=== PATIENT | male | born 1940 | race Caucasian/White ===

== ENCOUNTER 2020-06-22 | Outpatient (REF) | payer MEDICARE, SELFPAY ==
[2020-06-22 09:31] LABS: Immature Retic Fraction 20.3 % (2.3-13.4); Retic HGB Equivalent 34.4 pg (30.0-35.0); Reticulocyte Percent 2.1 % (0.5-1.8); Reticulocytes Absolute 0.072 X10*6/uL (0.026-0.095)
[2020-06-22 10:38] LABS: Anion Gap 11 (12-20); Carbon Dioxide 30 mmol/L (22-29); Chloride 107 mmol/L (96-108); Potassium 3.6 mmol/l (3.3-5.1); Sodium 144 mmol/L (135-145)
[2020-06-22 14:45] LABS: MANUAL DIFF FLAG NO
[2020-06-22 14:46] LABS: Basophils Percent Auto 0.7 % (0-2); Eosinophils Absolute Auto 0.2 X10*3/uL (0.0-0.4); Eosinophils Percent Auto 4.7 % (0-4); Hematocrit 33.9 % (42-52); Hemoglobin 10.5 g/dl (14.0-18.0); Imm Gran Abs Auto 0.01 X10*3/uL (0.00-0.03); Imm Gran Pct Auto 0.2 % (0.0-0.4); Lymphocytes Absolute Auto 0.7 X10*3/uL (1.2-4.9); Lymphocytes Percent Auto 16.7 % (20-40); Mean Corpuscular Hemoglobin 30.3 pg (27.0-33.0); Mean Corpuscular Volume 97.7 fL (80-98); Monocytes Absolute Auto 0.6 X10*3/uL (0.1-1.2); Monocytes Percent Auto 13.3 % (2-11); Neutrophils Absolute Auto 2.8 X10*3/uL (2.0-8.3); Neutrophils Percent Auto 64.4 % (45-73); Platelet Count 348 X10*3/uL (160-400); Red Blood Count 3.47 X10*6/uL (4.60-5.80); White Blood Count 4.3 X10*3/uL (4.8-10.8)
== END 2020-06-22 00:01 | disposition home or self-care (01) ==
LOC: HO.HSH3W
PROVIDERS: Visit Provider Internal Medicine Endocrinology, Diabetes & Metabolism
DX: D64.9 Anemia, unspecified (principal)
CPT/HCPCS: 36415; 80051; 85025; 85045

== ENCOUNTER 2020-07-04 10:48 | Outpatient (REF) | payer MEDICARE, SELFPAY | END 2020-07-04 10:49 | disposition home or self-care (01) | LOC: HO.HSH3W 10:48 | PROVIDERS: Visit Provider Internal Medicine Critical Care Medicine | DX: Z20.828 Contact with and (suspected) exposure to other viral communicable diseases (principal) | CPT/HCPCS: 87635 ==

== ENCOUNTER 2020-09-13 08:59 | Inpatient (IN) | payer MEDICARE, SELFPAY ==
[2020-09-13] VITALS (31 sets, daily range): BP systolic 75–174; BP diastolic 29–99; PULSE 63–94; RESP 10–20; TEMP 36.5–36.9; O2SAT 87–100; BMI 23.1; BMI 30.8
--- NOTE | 2020-09-13 | NM_ITS ---
EXAMINATION: NUCLEAR MEDICINE GI BLEEDING STUDY. CLINICAL INFORMATION: Black stools. Rule out GI bleeding. COMPARISON: None TECHNIQUE: Following labeling of red blood cells with 25 mCi of 99m technetium pertechnetate, flow images followed by static images over the abdomen were obtained. FINDINGS: On perfusion scan there is no abnormal activity seen in the abdomen. On delayed static images on AP and lateral views there is no abnormal activity seen in the abdomen. No extravasation of contrast seen. Increase in activity between the proximal thighs is soiled undergarment from urine due to loss of bladder control. NM/NM GI bleeding IMPRESSION: No abnormal isotope extravasation seen to suspect any acute GI bleed at this time. Results immediately were conveyed by phone to Dr. Joshua Beck and ICU nurse immediately after the exam on 09/13/1930 at 5:05 PM
--- NOTE | 2020-09-13 | XR_ITS ---
EXAMINATION: XR CHEST CLINICAL INFORMATION: Central line placement COMPARISON: Previous chest x-ray most recent from earlier the same day TECHNIQUE: Frontal view of the chest was obtained. FINDINGS: There is a new right jugular line with tip projecting over the right atrium. The cardiac silhouette may be slightly enlarged. Hilar and mediastinal contours are unremarkable. The lung volumes are low. There is no pleural effusion or pneumothorax. XR/XR chest 1V IMPRESSION: Right jugular line tip projects over the right atrium. No pneumothorax.
--- NOTE | 2020-09-13 09:00 | ECG_ITS ---
Test Reason : WEAKNESS Blood Pressure : / mmHG Vent. Rate : 063 BPM Atrial Rate : 063 BPM P-R Int : 000 ms QRS Dur : 112 ms QT Int : 422 ms P-R-T Axes : 000 003 006 degrees QTc Int : 431 ms Likely sinus with very subtle P waves Inferior infarct (cited on or before 11-JAN-2016) Abnormal ECG When compared with ECG of 11-JAN-2016 11:44, No significant changes seen Referred By: Elias Bui Electronically Signed By:SANTOS IGNACIO
--- NOTE | 2020-09-13 09:00 | XR_ITS ---
EXAMINATION: XR CHEST CLINICAL INFORMATION: Syncope, chest pain. COMPARISON: 07/16/2017 chest radiographs. TECHNIQUE: Frontal view of the chest was obtained. FINDINGS: No significant abnormality is noted involving the heart, lungs, mediastinum, bony thorax or soft tissues. XR/XR chest 1V IMPRESSION: No acute cardiopulmonary process.
--- NOTE | 2020-09-13 09:12 | ED.GENADULT ---
HPI - General Adult General Chief complaint: Syncope Stated complaint: SYNCOPE @ SNF Time Seen by Provider: 09/13/20 09:00 Source: patient, EMS and RN notes reviewed Mode of arrival: EMS Limitations: no limitations History of Present Illness HPI narrative: 80-year-old male brought emergency department by ambulance for evaluation of a syncopal episode. The patient lives at the soldier's home in [place]. He apparently is very independent. Over the past 2-3 days he has noticed dark stools. Today he had a syncopal episode which was unwitnessed. He reported this to the nurse's who noted that he was hypotensive. There was a concern that he may have a GI bleed so they sent him to the emergency department. Paramedics state that the patient was initially hypotensive with BP of 70/40. He had a normal pulse and a point of care glucose of 199. On presentation the patient has no complaints. He denies headache, nausea, vomiting, chest pain, shortness of breath, numbness, weakness, abdominal pain, frequency, urgency or dysuria. He has noticed dark stools over the past 2-3 days but he thought that was secondary to eating chocolate. The patient does take aspirin and prednisone, he is not on any other blood thinners or NSAIDs. Related Data Allergies Allergy/AdvReac Type Severity Reaction Status Date / Time No Known Allergies Allergy Unverified 06/02/20 15:00 [No Known Allergies*] Review of Systems Review of Systems: Yes all other systems are reviewed and are negative Constitutional: Constitutional: Reports as per HPI Eyes: Eyes: Reports as per HPI ENT: Reports as per HPI Cardiovascular: Cardiovascular: Reports as per HPI Respiratory: Respiratory: Reports as per HPI Gastrointestinal: Gastrointestinal: Reports as per HPI Genitourinary: Genitourinary: Reports as per HPI Musculoskeletal: Musculoskeletal: Reports as per HPI Integumentary/Breasts: Skin/Breast: Reports as per HPI Neurologic: Reports as per HPI and Reports Abnormal speech present Psychiatric: Psychiatric: Reports as per HPI Allergic/Immunologic: Allergic/Immunologic: Reports as per HPI [facility] Past Medical History [facility] Narrative: PMH: Diabetes mellitus, hypertension, hyperlipidemia, GERD, depression, anxiety, arthritis, osteo), myasthenia gravis, inguinal hernia repair. He lives independently at the solddier's home. He denies tobacco, alcohol or drug use. Medical History (Updated 09/13/20 @ 12:03 by Elias uBi MD) Acute respiratory disease BPH (benign prostatic hyperplasia) CAD (coronary artery disease) Cataract COVID-19 Depression Diabetes mellitus GERD (gastroesophageal reflux disease) Hammer toe Hammer toes, bilateral Hyperlipidemia Hypertension Inguinal hernia Insomnia Malignant neoplasm of colon Myasthenia gravis Nonalcoholic steatohepatitis (MARTI) Onychogryphosis Rheumatoid arthritis Urinary incontinence Social History Social History Advance Directives Date on File: 06/21/20 Physical Exam Vital Signs: Vital Signs: Last Vital Signs Temp 98.4 F 09/13/20 10:43 Pulse 83 09/13/20 11:35 Resp 18 09/13/20 11:35 BP 132/62 09/13/20 11:51 Pulse Ox 100 09/13/20 11:35 Body Mass Index 23.1 Const: General: cooperative and other (Very pale-appearing) Orientation/consciousness: oriented to person and oriented to place Limitations: no limitations HENMT: Head: Yes normal to inspection, Yes normocephalic and Yes atraumatic Ears: external ears normal General nose exam: Normal external nose present Face and sinus: Yes normal facial exam Mouth: Normal oral and palatal mucosa present Throat: Yes posterior oropharynx normal Eyes: Periorbital: periorbital findings normal Eyelids: Yes eyelids normal Conjunctivae: conjunctivae normal Sclerae: sclerae normal Corneas: corneas normal Pupils: Equal, round and reactive pupils present Direct Ophthalmoscopy: normal light reflex Neck: Neck: Yes full ROM, Yes no lymphadenopathy, Yes no meningeal signs, Yes trachea midline and Yes supple Chest: Chest palpation & inspection: normal inspection of the chest and normal palpation of entire chest wall Resp: Effort & Inspection: normal respiratory effort and able to speak in complete sentences Auscultation: clear to auscultation bilaterally Cardio: Rate: regular rate Rhythm: regular rhythm Heart sounds: S1 normal heart sound present, S2 normal heart sound present and no murmurs GI: Inspection: Yes normal to inspection Palpation (GI): Soft to palpation, nontender, no guarding, not rigid and No hepatosplenomegaly present Rectal Exam - Male: Yes Abnormal stool present (Dark, bloody, melanotic stool) and Yes heme positive stool : General: Yes no CVA tenderness Back/Spine/Pelvis: Back: no CVA tenderness Cervical Spine: normal cervical lordosis Thoracic/Lumbar Spine: thoracic and lumbar spine normal to inspection Skin: Lesions: no lesions Rashes: no rashes Wounds: no wounds Neuro: General: oriented to person, oriented to place and no meningeal signs Cranial nerves: Yes Equal, round and reactive pupils present Cognition (Neuro): normal cognition Speech: Abnormal speech present Motor exam (neuro): 5/5 motor strength present throughout Extrem: General: Yes normal to inspection and Yes full ROM Psych: Appearance: well kempt Mental Status: mental status grossly normal Speech and movement: Normal speech and movement present Affect: normal affect Attitude: cooperative Thought process: Normal thought process present Thought content: Normal thought content present Course Course Course Narrative: 80-year-old male who presents the emergency department for evaluation syncopal episode, dark stools times 2-3 days and hypotension. Examination revealed that he was hypotensive here with a systolic blood pressure in the 80 range. The patient had melanotic stool which was strongly Hemoccult positive. The patient was ordered to get 2 units of packed red blood cells transfused as soon as available. He is on chronic steroids and I did order stress dose steroids, hydrocortisone 100 mg IV. 1008: The patient continues to have melanotic stools in the emergency department. His H&H is 7.7 in 23.6 compared to an H&H on 06/22/2020 of 10 and 33.9, suggesting patient has had a significant GI bleed. The patient's BUN is slightly elevated at 21 with a normal creatinine. Patient is COVID negative. I did discuss these findings with the patient and the patient's son Robe (over the phone). I will discuss the patient's presentation with the accounting practice manager. The patient has been ordered to get 2 units of packed red blood cells transfused. 1200: The patient's blood pressure dropped to 60 over help, given the fact that the patient still had active bleeding, the massive transfusion protocol was activated. The patient was given a total of 4 units of packed red blood cells rapidly using the blood warmer and the rapid transfuser. He was given 1 unit of FFP and 1 unit of platelets. The ICU postpartum rn Dr. Tarango came to the emergency department to assist with the MTP protocol. He put in a right IJ on the patient. The patient had improvement his vital signs with repeat blood pressures in the [address] Lewis, the accounting practice manager also evaluated the patient in the emergency department and the patient will be admitted to the ICU for further treatment. I will consult the surgeon on-call in the event the patient emergency surgery to help control the bleeding. Medical Decision Making Lab Data Result diagrams: 09/13/20 09:14 09/13/20 09:14 Labs: Lab Results 09/13/20 09/13/20 09/13/20 Range/Units 09:14 09:14 09:14 WBC 6.5 (4.8-10.8) X10*3/uL RBC 2.37 L D (4.60-5.80) X10*6/uL Hgb 7.7 L D (14.0-18.0) g/dl Hct 23.6 L D (42-52) % MCV 99.6 H (80-98) fL MCH 32.5 (27.0-33.0) pg MCHC 32.6 (31.0-36.0) g/dl RDW 15.9 (11.0-16.0) % Plt Count 199 D (160-400) X10*3/uL MPV 9.0 L (9.4-12.4) fL Immature Gran % (Auto) 0.5 H (0.0-0.4) % Neut % (Auto) 73.5 H (45-73) % Lymph % (Auto) 12.8 L (20-40) % [place] % (Auto) 10.6 (2-11) % Eos % (Auto) 2.3 (0-4) % Baso % (Auto) 0.3 (0-2) % Lymph # (Auto) 0.8 L (1.2-4.9) X10*3/uL [place] # (Auto) 0.7 (0.1-1.2) X10*3/uL Eos # (Auto) 0.2 (0.0-0.4) X10*3/uL Baso # (Auto) 0.0 (0.0-0.2) X10*3/uL Abs Immat Gran (auto) 0.03 (0.00-0.03) X10*3/uL Absolute Neuts (auto) 4.8 (2.0-8.3) X10*3/uL Absolute Nucleated RBC 0.000 (0.0-0.012) X10*3/uL Nucleated RBC % (auto) 0.0 (0.0-0.2) /100WBC Sodium 141 (135-145) mmol/L Potassium 3.7 (3.3-5.1) mmol/l Chloride 111 H (96-108) mmol/L Carbon Dioxide 24 (22-29) mmol/L Anion Gap 10 L (12-20) BUN 21 H (9-16) mg/dL Creatinine 0.93 (0.5-1.4) mg/dL Estim Creat Clear Calc 53.2 Estimated GFR > 60 Random Glucose 127 H (60-115) mg/dL Calcium 7.6 L (8.4-10.2) mg/dL Total Bilirubin 0.2 (0.0-1.0) mg/dL AST 11 (5-37) U/L ALT 10 (0-40) U/L Alkaline Phosphatase 44 (39-117) U/L Troponin I High Sens < 3.5 (<3.5-35.0) ng/L Total Protein 4.7 L (6.5-8.0) g/dL Albumin 3.1 L (3.5-5.0) g/dL Lipase 12 (8-78) U/L COVID-19 (SEVEN) (Negative) COVID-19 Clin Com Blood Type Antibody Screen Crossmatch 09/13/20 09/13/20 Range/Units 09:14 09:14 WBC (4.8-10.8) X10*3/uL RBC (4.60-5.80) X10*6/uL Hgb (14.0-18.0) g/dl Hct (42-52) % MCV (80-98) fL MCH (27.0-33.0) pg MCHC (31.0-36.0) g/dl RDW (11.0-16.0) % Plt Count (160-400) X10*3/uL MPV (9.4-12.4) fL Immature Gran % (Auto) (0.0-0.4) % Neut % (Auto) (45-73) % Lymph % (Auto) (20-40) % [place] % (Auto) (2-11) % Eos % (Auto) (0-4) % Baso % (Auto) (0-2) % Lymph # (Auto) (1.2-4.9) X10*3/uL [place] # (Auto) (0.1-1.2) X10*3/uL Eos # (Auto) (0.0-0.4) X10*3/uL Baso # (Auto) (0.0-0.2) X10*3/uL Abs Immat Gran (auto) (0.00-0.03) X10*3/uL Absolute Neuts (auto) (2.0-8.3) X10*3/uL Absolute Nucleated RBC (0.0-0.012) X10*3/uL Nucleated RBC % (auto) (0.0-0.2) /100WBC Sodium (135-145) mmol/L Potassium (3.3-5.1) mmol/l Chloride (96-108) mmol/L Carbon Dioxide (22-29) mmol/L Anion Gap (12-20) BUN (9-16) mg/dL Creatinine (0.5-1.4) mg/dL Estim Creat Clear Calc Estimated GFR Random Glucose (60-115) mg/dL Calcium (8.4-10.2) mg/dL Total Bilirubin (0.0-1.0) mg/dL AST (5-37) U/L ALT (0-40) U/L Alkaline Phosphatase (39-117) U/L Troponin I High Sens (<3.5-35.0) ng/L Total Protein (6.5-8.0) g/dL Albumin (3.5-5.0) g/dL Lipase (8-78) U/L COVID-19 (SEVEN) Negative (Negative) COVID-19 Clin Com See Note Blood Type A Negative Antibody Screen NEGATIVE Crossmatch See Detail ECG Data Attestation: I personally reviewed and interpreted this ECG as follows: Prior ECG tracings: not available for review Interpretation: Name sinus rhythm with a first-degree AV block, CO interval 210 milliseconds, prolonged QRS of 112 milliseconds, normal QTC of 431 milliseconds, Q-wave noted in lead 3, AVF, V1, flattened T-waves lead 3, AVF, no ST segment elevation, no ST segment depression. EKG is consistent with an old inferior wall [place], no evidence for ischemia or acute injury. Critical Care Time Critical Care Time Critical Care Time: Yes Total Critical Care Time: 75 Attestation: Critical Care: The patient was critically ill with a high probability of imminent or life threatening deterioration. I spent greater than 30 minutes of discontinuous time evaluating the patient,delivering critical care at the bedside, discussing and evaluating pertinent data with consultants. Critical care time does not include time spent performing separately billable procedures or teaching. Total time spent performing critical care was75 minutes. Discharge Plan Discharge Clinical Impression: Acute GI bleeding, Acute hypotension, Acute anemia Patient Disposition: Admitted As Inpatient
[2020-09-13 09:23] LABS: MANUAL DIFF FLAG NO
[2020-09-13 09:26] LABS: Basophils Percent Auto 0.3 % (0-2); Eosinophils Absolute Auto 0.2 X10*3/uL (0.0-0.4); Eosinophils Percent Auto 2.3 % (0-4); Hematocrit 23.6 % (42-52); Hemoglobin 7.7 g/dl (14.0-18.0); Imm Gran Abs Auto 0.03 X10*3/uL (0.00-0.03); Imm Gran Pct Auto 0.5 % (0.0-0.4); Lymphocytes Absolute Auto 0.8 X10*3/uL (1.2-4.9); Lymphocytes Percent Auto 12.8 % (20-40); Mean Corpuscular HGB Conc 32.6 g/dl (31.0-36.0); Mean Corpuscular Hemoglobin 32.5 pg (27.0-33.0); Mean Corpuscular Volume 99.6 fL (80-98); Monocytes Absolute Auto 0.7 X10*3/uL (0.1-1.2); Monocytes Percent Auto 10.6 % (2-11); Neutrophils Absolute Auto 4.8 X10*3/uL (2.0-8.3); Neutrophils Percent Auto 73.5 % (45-73); Platelet Count 199 X10*3/uL (160-400); Red Blood Count 2.37 X10*6/uL (4.60-5.80); Red Cell Distribution Width 15.9 % (11.0-16.0); White Blood Count 6.5 X10*3/uL (4.8-10.8)
[2020-09-13 09:40] LABS: COVID-19 Test Negative (Negative)
[2020-09-13 09:55] LABS: Alanine Aminotransferase 10 U/L (0-40); Albumin Level 3.1 g/dL (3.5-5.0); Alkaline Phosphatase 44 U/L (39-117); Anion Gap 10 (12-20); Aspartate Amino Transferase 11 U/L (5-37); Bilirubin Total 0.2 mg/dL (0.0-1.0); Blood Urea Nitrogen 21 mg/dL (9-16); Calcium 7.6 mg/dL (8.4-10.2); Carbon Dioxide 24 mmol/L (22-29); Chloride 111 mmol/L (96-108); Creatinine Clr Calc Pharmacy 53.2; Estimated Glomerular Filt Rate > 60; Glucose Random 127 mg/dL (60-115); Lipase 12 U/L (8-78); Potassium 3.7 mmol/l (3.3-5.1); Sodium 141 mmol/L (135-145); Total Protein 4.7 g/dL (6.5-8.0)
[2020-09-13 09:58] LABS: Troponin-I High Sensitivity < 3.5 ng/L (<3.5-35.0)
--- NOTE | 2020-09-13 10:13 | PC.NURSE ---
pt inc of stool noted blood, repositioned cleaned up and linens changed. blood currently being picked up in blood bank
--- NOTE | 2020-09-13 11:10 | PC.NURSE ---
BLOOD ARRIVED FROM BLOOD BANK, PT REMAINS HYPOTENSIVE SBPS 60S. MENTATING WELL THROUGHOUT, SPEAKING IN CLEAR FULL SENTENCES.
--- NOTE | 2020-09-13 11:20 | PC.NURSE ---
MTP INITIATED BY MD KELLY O NEG IN FROM BLOOD BANK, ADMINISTERED VIA RAPID INFUSER
--- NOTE | 2020-09-13 11:35 | PC.NURSE ---
2u RBCs infused, 2 units running through rapid infuser. 1 unit FFP also infusing. BP 102/35
--- NOTE | 2020-09-13 11:40 | PC.NURSE ---
MD RENEE IN FOR CENTRAL LINE PLACEMENT R SUBCLAV
--- NOTE | 2020-09-13 12:00 | PM.EVENT ---
Event Note Date of Service: 09/13/20 Event Note: GI Consult dictated Presentation c/w acute gi bleeding. Pt reports black stools X 1 week with diarrhea. On asa and prednisone, so UGI source may be cause. Colonoscopy 12/03 showed diverticulosis, polyps, and a patent low ant anastamosis from prior rectal cancer. EGD today to eval for UGI source, if neg then bleeding scan +/- angiography. Pt aware of risks and benefits of endoscopy and agrees to proceed
--- NOTE | 2020-09-13 12:05 | PC.NURSE ---
LABS REDRAWN, 2 UNITS TRANSFUSED, BP IMPROVED 147/77, GOOD COLOUR, PT CONTINUING TO MENTATE WELL.
[2020-09-13 12:21] LABS: Hematocrit 32.8 % (42-52); Mean Corpuscular HGB Conc 33.5 g/dl (31.0-36.0); Mean Corpuscular Hemoglobin 31.6 pg (27.0-33.0); Mean Corpuscular Volume 94.3 fL (80-98); Mean Platelet Volume 9.2 fL (9.4-12.4); Platelet Count 189 X10*3/uL (160-400); Red Blood Count 3.48 X10*6/uL (4.60-5.80); Red Cell Distribution Width 15.8 % (11.0-16.0); White Blood Count 10.9 X10*3/uL (4.8-10.8)
--- NOTE | 2020-09-13 12:26 | PC.NURSE ---
AT BEDSIDE @ THIS TIME CALLED IN FOR SACREMENT OF THE SICK @ PT REQUEST
[2020-09-13 12:27] LABS: INTERNATIONAL NORM RATIO 1.1 (0.9-1.1)
[2020-09-13 12:29] LABS: Partial Thromboplastin Time 30.4 SEC (24.1-38.0)
--- NOTE | 2020-09-13 12:46 | MHC.SHP ---
Pre-Procedural Eval Section A The patient is an INPATIENT: Yes The History & Physical has been completed within 30 days and I have reviewed it.: Yes Section B Chief Complaint: SYNCOPE @ SNF Allergies: Allergies Allergy/AdvReac Type Severity Reaction Status Date / Time No Known Allergies Allergy Unverified 06/02/20 15:00 [No Known Allergies*] Plan I have reviewed the history and physical and performed a pertinent physical examination on my patient. No changes have occurred unless specified.
[2020-09-13 13:09] LABS: Glucose, Whole Blood 106 mg/dL (60-115)
--- NOTE | 2020-09-13 13:54 | PM.OP ---
Brief Operative Note Date of Service: 09/13/20 Pre-op diagnosis: GI Bleed Post-op diagnosis: same (Gastritis) Procedure: EGD Surgeon: Kiran Lewis Anesthesia: GETA Estimated blood loss (mL): 0 Pathology: none sent Condition: stable Disposition: ICU
--- NOTE | 2020-09-13 13:57 | PM.EVENT ---
Event Note Date of Service: 09/13/20 Event Note: EGD dictated EGD shows mild gastritis but is otherwise normal. The GI bleeding is likely diverticular in nature. Recommend monitor closely in ICU setting given active GI bleeding with hypotension on presentation. Obtain bleeding scan, then angiography if positive.
--- NOTE | 2020-09-13 14:00 | PC.NURSE ---
REPORT GIVEN TO SSS, TRANSPORTED
--- NOTE | 2020-09-13 14:47 | P.HPCC_ITS ---
History of Present Illness Date of Service: 09/13/20 Chief Complaint: Several days of melena followed by maroon stool and syncope Painless melena and now maroon stool in large volume with syncope noted to be hypotensive with orthostasis and received IV fluid and then typed and cross- matched and had a 2 unit red blood cell transfusion with 1 unit of platelets because of aspirin therapy and 1 unit of fresh frozen plasma but there was no coagulopathy and no iatrogenic coagulopathy that needed to be reversed Background history of myasthenia gravis and apparently on maintenance prednisone and azathioprine so in addition he was given a stress dose of IV hydrocortisone and I placed a central line but blood pressure did not require pressors he did respond to volume Review of Systems Review of Systems: Yes Unobtainable due to mental condition Neurologic: Reports as per HPI and Reports Abnormal speech present [facility] Past Medical History Medical History (Updated 09/13/20 @ 12:03 by Elias Bui MD) Acute respiratory disease BPH (benign prostatic hyperplasia) CAD (coronary artery disease) Cataract COVID-19 Depression Diabetes mellitus GERD (gastroesophageal reflux disease) Hammer toe Hammer toes, bilateral Hyperlipidemia Hypertension Inguinal hernia Insomnia Malignant neoplasm of colon Myasthenia gravis Nonalcoholic steatohepatitis (MARTI) Onychogryphosis Rheumatoid arthritis Urinary incontinence Social History Social History Advance Directives: Yes Advance Directives on File: Yes Advance Directives Date on File: 06/21/20 Meds Allergies Allergy/AdvReac Type Severity Reaction Status Date / Time No Known Allergies Allergy Unverified 06/02/20 15:00 [No Known Allergies*] Physical Exam Vital Signs: Vital Signs: Last Vital Signs Temp 97.7 F 09/13/20 14:15 Pulse 77 09/13/20 14:26 Resp 15 09/13/20 14:26 BP 149/71 H 09/13/20 14:26 Pulse Ox 100 09/13/20 14:36 Body Mass Index 30.8 Patient was awake and oriented x3 and nonfocal neurologically EKG normal sinus rhythm and within normal limits no ischemic changes Cardiac exam with normal S1 and normal S2 with adequate bilateral carotid upstrokes and no bruits and flat neck veins Chest percussed equally with no clinical pleural effusion and no adventitious sounds and chest x-ray clear Abdomen soft nontender active bowel sounds no organomegaly Skin periphery no livedo and no acrocyanosis and skin was intact Neuro: Speech: Abnormal speech present Results Labs CBC and Chem 7: 09/13/20 12:15 09/13/20 09:14 Labs: Laboratory Results - last 24 hr 09/13/20 09/13/20 09/13/20 09:14 09:14 09:14 MCV 99.6 H MCH 32.5 MCHC 32.6 RDW 15.9 Plt Count 199 D MPV 9.0 L Immature Gran % (Auto) 0.5 H Neut % (Auto) 73.5 H Lymph % (Auto) 12.8 L [place] % (Auto) 10.6 Eos % (Auto) 2.3 Baso % (Auto) 0.3 Lymph # (Auto) 0.8 L [place] # (Auto) 0.7 Eos # (Auto) 0.2 Baso # (Auto) 0.0 Abs Immat Gran (auto) 0.03 Absolute Neuts (auto) 4.8 Absolute Nucleated RBC 0.000 Nucleated RBC % (auto) 0.0 PT INR APTT Anion Gap 10 L Estim Creat Clear Calc 53.2 Estimated GFR > 60 POC Glucose Random Glucose 127 H Calcium 7.6 L Total Bilirubin 0.2 AST 11 ALT 10 Alkaline Phosphatase 44 Troponin I High Sens < 3.5 Total Protein 4.7 L Albumin 3.1 L Lipase 12 COVID-19 (SEVEN) COVID-19 Clin Com Blood Type Antibody Screen Crossmatch 09/13/20 09/13/20 09/13/20 09:14 09:14 12:14 MCV MCH MCHC RDW Plt Count MPV Immature Gran % (Auto) Neut % (Auto) Lymph % (Auto) [place] % (Auto) Eos % (Auto) Baso % (Auto) Lymph # (Auto) [place] # (Auto) Eos # (Auto) Baso # (Auto) Abs Immat Gran (auto) Absolute Neuts (auto) Absolute Nucleated RBC Nucleated RBC % (auto) PT 13.0 INR 1.1 APTT 30.4 Anion Gap Estim Creat Clear Calc Estimated GFR POC Glucose Random Glucose Calcium Total Bilirubin AST ALT Alkaline Phosphatase Troponin I High Sens Total Protein Albumin Lipase COVID-19 (SEVEN) Negative COVID-19 Clin Com See Note Blood Type A Negative Antibody Screen NEGATIVE Crossmatch See Detail 09/13/20 09/13/20 12:15 13:05 MCV 94.3 D MCH 31.6 MCHC 33.5 RDW 15.8 Plt Count 189 MPV 9.2 L Immature Gran % (Auto) Neut % (Auto) Lymph % (Auto) [place] % (Auto) Eos % (Auto) Baso % (Auto) Lymph # (Auto) [place] # (Auto) Eos # (Auto) Baso # (Auto) Abs Immat Gran (auto) Absolute Neuts (auto) Absolute Nucleated RBC 0.000 Nucleated RBC % (auto) 0.0 PT INR APTT Anion Gap Estim Creat Clear Calc Estimated GFR POC Glucose 106 Random Glucose Calcium Total Bilirubin AST ALT Alkaline Phosphatase Troponin I High Sens Total Protein Albumin Lipase COVID-19 (SEVEN) COVID-19 Clin Com Blood Type Antibody Screen Crossmatch Imaging Radiologist's Impressions: Impressions Chest X-Ray 09/13/20 00:00 IMPRESSION: Right jugular line tip projects over the right atrium. No pneumothorax. Chest X-Ray 09/13/20 09:00 IMPRESSION: No acute cardiopulmonary process. Assessment and Plan (1) Acute GI bleeding: Status: Acute (2) Acute hypotension: Status: Acute (3) Acute anemia: Status: Acute At this point we will taper the stress-dosed steroids and hold his Azathioprine and start him on IV Protonix maintenance IV fluids and if active bleeding returns then either bleeding scan or CT angiogram might be warranted but the upper endoscopy failed to show any pathology and no active bleed so will follow his hemoglobin restore his myasthenia medications
--- NOTE | 2020-09-13 14:55 | OP_ITS ---
SURGEON: Kiran Lewis MD INDICATIONS: GI bleeding. PREOPERATIVE DIAGNOSIS: POSTOPERATIVE DIAGNOSIS: PROCEDURE PERFORMED: Upper endoscopy. ESTIMATED BLOOD LOSS: COMPLICATIONS: ANESTHESIA: ASSISTANTS: SPECIMENS: MEDICATIONS: Monitored anesthesia care. DESCRIPTION OF PROCEDURE: History and physical performed. The risks and benefits of the procedure were explained to the patient. Informed consent was obtained. The patient was placed in the left lateral decubitus position. The Olympus video gastroscope was introduced into the esophagus, stomach, and duodenum. Examination was performed and the scope was removed. He tolerated the procedure well and returned to recovery area in stable condition. FINDINGS: Esophagus: The esophagus was normal. There was no esophagitis. Stomach: The stomach showed no evidence of masses, ulcers, or polyps. There was some mild gastritis with no evidence of active GI bleeding. Duodenum: The bulb and second portion were normal. There was bile throughout the second portion into the 3rd portion. No blood was identified. IMPRESSION: Gastritis. RECOMMENDATIONS: 1. Monitor hematocrit. 2. Obtain bleeding scan and if this is positive, proceed to angiography. MD HALLIE Szymanski/JUSTYNAL / [id number]
--- NOTE | 2020-09-13 15:21 | W.PM.CCHP ---
Procedures Central Line Placement Right IJ: Central Line Comments: As explained to the patient who was hypotensive in the 70s with active GI bleeding there was an urgent need to place triple-lumen central venous catheter so after his consent with sterile preparation and draping and using ultrasound guidance I gained easy 1 time access to the right internal jugular vein passing retrograde with Seldinger technique a J tipped guidewire over which a 20 cm triple-lumen catheter was then prepped placed and tip in the right atrium with no evidence of pneumothorax or bleeding so uncomplicated Consent for Procedure: Elective - informed consent obtained Time out performed: Yes Sterile Technique Used: Yes Patient placed on monitor/pulse ox: Yes prep: mask, gown and gloves Central line prep: Chlorhexidine scrub Local anesthesia used: lidocaine 1% Ultrasound used for placement: Yes Central line lumen inserted: triple Post procedure: sutured in place, good blood return, all ports aspirated, flushed, capped and sterile dressing applied Post procedure x-ray: tip of catheter in good position and no pneumothorax seen Patient tolerated procedure: well and no complications Complications: none
[2020-09-13 18:18] LABS: Glucose Urine UA NEG (NEG); Leukocyte Esterase Urine NEG (NEG); Nitrite Urine NEG (NEG); Urine Blood NEG (NEG); Urine Ketones NEG (NEG); Urine Protein NEG (NEG-TRACE)
[2020-09-13 18:19] LABS: Hematocrit 34.2 % (42-52); Hemoglobin 11.8 g/dl (14.0-18.0); Mean Corpuscular HGB Conc 34.5 g/dl (31.0-36.0); Mean Corpuscular Volume 92.7 fL (80-98); Mean Platelet Volume 9.3 fL (9.4-12.4); Platelet Count 250 X10*3/uL (160-400); Red Blood Count 3.69 X10*6/uL (4.60-5.80); Red Cell Distribution Width 16.4 % (11.0-16.0); White Blood Count 9.6 X10*3/uL (4.8-10.8)
[2020-09-13 18:19] LABS: Appearance Urine CLEAR; Color Urine YELLOW
[2020-09-13] MEDS: 0.9 % Sodium Chloride 1,000 ML 40 ML IVCONT (18:29)
[2020-09-13] MEDS: Flu Vacc QS2020-21(6mos up)/PF 0.5 ML SYRINGE IM (18:30)
--- NOTE | 2020-09-13 19:16 | CONS_ITS ---
DATE OF SERVICE: 09/13/2020 REFERRING PHYSICIAN: Elias Bui MD REASON FOR CONSULTATION: GI bleeding. HISTORY OF PRESENT ILLNESS: The patient is a pleasant 80-year-old man, known to me from prior evaluation, who presented to the emergency room after a syncopal episode today. He reports passing some black stool over the past week prior to admission with some loose stool and some occasional accidents. He has had no abdominal pain with this. He is on aspirin for cardiac prophylaxis and also takes prednisone for myasthenia. He was noted to be relatively hypotensive in the emergency department, which eventually responded to volume after the massive transfusion protocol was invoked. He had a central line placed and his blood pressure improved. The patient denies any abdominal pain. He was previously evaluated with colonoscopy in November of 2019 as he does have a history of a rectal cancer, which was treated with low anterior resection. Colonoscopy in November showed several polyps and diverticulosis in the sigmoid, which was moderate with scattered diverticula throughout the colon. His anastomosis was widely patent. 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 He has previously been evaluated with upper GI endoscopy in February of 2017 for reflux, which showed gastric polyps, but no ulcers and no Villeda's esophagus. PAST MEDICAL HISTORY: 1. Hypertension. 2. Hyperlipidemia. 3. Diabetes. 4. History of COVID-19 infection. 5. Coronary artery disease. 6. BPH. 7. Myasthenia gravis. 8. Rheumatoid arthritis. CURRENT MEDICATIONS: His current medication list is reviewed in the chart. ALLERGIES: NKDA. FAMILY HISTORY: This is reviewed with the patient and is noncontributory. SOCIAL HISTORY: There is no current tobacco, alcohol, or substance abuse. REVIEW OF SYSTEMS: SKIN: No pruritus. HEENT: Negative. CARDIOPULMONARY: He denies shortness of breath or chest pain currently. GASTROINTESTINAL: As above. GENITOURINARY: Negative. NEUROPSYCHIATRIC: Negative. PHYSICAL EXAMINATION: GENERAL: Shows a pale male, lying in bed. He has just undergone central line placement. VITAL SIGNS: Reviewed in the electronic medical record and are stable. SKIN: Anicteric. HEENT: Shows no scleral icterus. NECK: Without lymphadenopathy or thyromegaly. LUNGS: Clear. HEART: Regular rate and rhythm. S1, S2. No murmur. ABDOMEN: Soft without focal masses or tenderness. Bowel sounds are present. No organomegaly is noted. EXTREMITIES: Without edema. LABORATORY DATA: Shows a white blood cell count of 6.5, hematocrit 23.6, this improved to 32.8 following transfusion of 4 units of packed red blood cells. He is currently also getting platelets per the protocol. BUN is slightly elevated at 21 compared to a baseline of 12 to 16 on past visits. In the emergency department, he was incontinent of a large amount of maroon stool. IMPRESSION: Gastrointestinal bleeding. The differential diagnosis for this includes brisk upper GI bleeding, diverticular bleeding and bleeding from ischemic colitis, which seems much less likely based on his recent colonoscopy. I doubt he has any recurrent malignancy. I would recommend he undergo upper endoscopy to rule out an upper GI source and if this is negative, I would pursue imaging with a bleeding scan or CT angiography with consideration to interventional angiography if necessary. I would recommend observation in the ICU with frequent monitoring of hematocrit and transfusion of blood products on a p.r.n. basis. He should be empirically treated with a proton pump inhibitor. Thanks for asking me to see him. I will follow him in the hospital with you. MD HALLIE Szymanski/RADHA / [phone]
[2020-09-13] MEDS: Acetaminophen 325 MG TABLET 650 MG PO (21:02)
--- NOTE | 2020-09-13 21:55 | PC.NURSE ---
Assumed care at 1500; pt admitted for GIB. MTP in the ED. Pt s/p 4u RBC, 1u plt, 1u FFP. H/H improved to 11/32.8. Upon assessment, pt a/o x3, pt denies SOB, CP, dizziness, or abdominal pain. SR with 1st AVB, sBP 170's initially, then 120-130's. SPO2 94-97% on RA. Afebrile. GI bleeding scan completed, no active bleeding noted per radiologist-Dr. Huber. Pt medicated per EMAR. NS @ 40ml/hr started. Pt kept NPO. Skin abrasion to left elbow, foam dressing applied, repo Q2hrs. Pt aware of recent labs, and plan of care, son updated via phone. Repeat H/H 11.8/34.2. x1 BM of scant liquid maroon stools. No abd pain. Next H/H @ 2200. Will continue to monitor.
[2020-09-13 22:52] LABS: Hematocrit 32.1 % (42-52); Hemoglobin 11.1 g/dl (14.0-18.0); Mean Corpuscular HGB Conc 34.6 g/dl (31.0-36.0); Mean Corpuscular Hemoglobin 32.3 pg (27.0-33.0); Mean Corpuscular Volume 93.3 fL (80-98); Mean Platelet Volume 9.5 fL (9.4-12.4); Platelet Count 231 X10*3/uL (160-400); Red Blood Count 3.44 X10*6/uL (4.60-5.80); Red Cell Distribution Width 16.8 % (11.0-16.0)
[2020-09-14] VITALS (14 sets, daily range): BP systolic 98–160; BP diastolic 52–70; PULSE 60–79; RESP 8–20; TEMP 36.3–37.1; O2SAT 92–98; BMI 29.5
[2020-09-14 00:22] LABS: Glucose, Whole Blood 116 mg/dL (60-115)
[2020-09-14 02:28] LABS: Basophils Percent Auto 0.3 % (0-2); Eosinophils Absolute Auto 0.1 X10*3/uL (0.0-0.4); Eosinophils Percent Auto 0.6 % (0-4); Hematocrit 30.9 % (42-52); Hemoglobin 10.8 g/dl (14.0-18.0); Imm Gran Abs Auto 0.04 X10*3/uL (0.00-0.03); Imm Gran Pct Auto 0.5 % (0.0-0.4); Lymphocytes Absolute Auto 0.7 X10*3/uL (1.2-4.9); Lymphocytes Percent Auto 9.2 % (20-40); Mean Corpuscular Hemoglobin 32.5 pg (27.0-33.0); Mean Corpuscular Volume 93.1 fL (80-98); Mean Platelet Volume 9.7 fL (9.4-12.4); Monocytes Absolute Auto 0.9 X10*3/uL (0.1-1.2); Monocytes Percent Auto 11.3 % (2-11); Neutrophils Absolute Auto 6.2 X10*3/uL (2.0-8.3); Neutrophils Percent Auto 78.1 % (45-73); Platelet Count 231 X10*3/uL (160-400); Red Blood Count 3.32 X10*6/uL (4.60-5.80); Red Cell Distribution Width 16.7 % (11.0-16.0)
[2020-09-14 02:31] LABS: MANUAL DIFF FLAG NO
[2020-09-14 06:09] LABS: MANUAL DIFF FLAG NO
[2020-09-14 06:18] LABS: Basophils Percent Auto 0.4 % (0-2); Eosinophils Absolute Auto 0.1 X10*3/uL (0.0-0.4); Eosinophils Percent Auto 0.6 % (0-4); Hemoglobin 10.9 g/dl (14.0-18.0); Imm Gran Abs Auto 0.02 X10*3/uL (0.00-0.03); Imm Gran Pct Auto 0.3 % (0.0-0.4); Lymphocytes Absolute Auto 0.7 X10*3/uL (1.2-4.9); Mean Corpuscular HGB Conc 34.1 g/dl (31.0-36.0); Mean Corpuscular Hemoglobin 31.9 pg (27.0-33.0); Mean Corpuscular Volume 93.6 fL (80-98); Mean Platelet Volume 9.6 fL (9.4-12.4); Monocytes Percent Auto 11.9 % (2-11); Neutrophils Absolute Auto 6.2 X10*3/uL (2.0-8.3); Neutrophils Percent Auto 77.8 % (45-73); Platelet Count 236 X10*3/uL (160-400); Red Blood Count 3.42 X10*6/uL (4.60-5.80); Red Cell Distribution Width 16.8 % (11.0-16.0)
[2020-09-14 06:22] LABS: INTERNATIONAL NORM RATIO 1.1 (0.9-1.1); Prothrombin Time 12.7 SEC (10.8-13.0)
[2020-09-14 06:25] LABS: Partial Thromboplastin Time 32.9 SEC (24.1-38.0)
[2020-09-14 06:40] LABS: Anion Gap 13 (12-20); Blood Urea Nitrogen 23 mg/dL (9-16); Calcium 7.9 mg/dL (8.4-10.2); Carbon Dioxide 22 mmol/L (22-29); Chloride 111 mmol/L (96-108); Creatinine Clr Calc Pharmacy 74.7; Estimated Glomerular Filt Rate > 60; Glucose Random 114 mg/dL (60-115); Potassium 3.9 mmol/l (3.3-5.1); Sodium 142 mmol/L (135-145)
--- NOTE | 2020-09-14 08:05 | P.CDIC_ITS ---
CDI Concurrent Query Service Date: 09/17/20 Documentation Clarification: Please clarify if you are treating a proba ble/suspected/likely or confirmed: Acute Blood Loss Anemia Acute Anemia, please specify type Provider Response: Other Other Diagnosis: Agree with acute blood loss anemia PLEASE DO NOT DELETE/MODIFY EXISTING CONTENT Additional information is needed in order to code to the highest accuracy and appropriate Severity of Illness (SOI). Please clarify the information noted below in your progress notes and discharge summary. Risk Factors/Clinical Indicators/Treatments 80 year old male admitted with syncope, dark stools, hypotensive. BP dropped in in ED and massive transfusion protocol initiated. Received 4 units PRBCs, 1 unit FFP, 1 unit platelets for H/H 7.7/23.6 Per H&P Impression: Acute GI Bleed, Acute Hypotension, Acute Anemia CDS: Kanika Estrada RN Contact Number: [phone] Please Review the information above and exercise your independent professional judgment in responding to the query. If you concur, pleas document in the PROGRESS NOTES and DISCHARGE SUMMARY. If you do not agree with the query, please document in the query above. THIS QUERY IS PART OF THE PERMANENT MEDICAL RECORD
--- NOTE | 2020-09-14 08:54 | P.PNCC_ITS ---
Subjective Subjective Date of Service: 09/14/20 Interval History: 80-year-old who presented with active GI bleeding hypotensive and orthostatic hemoglobin in the sevens transfused 4 units of packed red cells and 1 unit of platelets because of the aspirin and he has a stable hemoglobin of about 11 over the last 12 hours no active bleed noted on a bleeding scan negative upper endoscopy doing perfectly stable no secondary cardiac issues no ST-T changes he is in normal sinus rhythm with absolutely normal left ventricular and right ventricular anatomy no primary valve or pericardial disea se Physical Exam Vital Signs: Vital Signs: Last Vital Signs Temp 98.7 F 09/14/20 08:00 Pulse 68 09/14/20 08:00 Resp 10 L 09/14/20 08:00 BP 98/68 09/14/20 08:00 Pulse Ox 96 09/14/20 08:00 Body Mass Index 29.5 Const: Other: Looks wonderful and awake and alert and oriented Neurologic is nonfocal Skin intact and no livedo and no acrocyanosis Abdomen benign with good bowel sounds no organomegaly nontender Chest clear Cardiac exam with normal S1 normal S2 no gallops or murmurs good bilateral carotid upstrokes and no neck vein distension Bedside echo with normal anatomy Objective Data Labs CBC & Chem 7: 09/14/20 05:55 09/14/20 05:55 Labs: Laboratory Results - last 24 hr 09/13/20 09/13/20 09/13/20 09:14 09:14 09:14 WBC 6.5 RBC 2.37 L D Hgb 7.7 L D Hct 23.6 L D MCV 99.6 H MCH 32.5 MCHC 32.6 RDW 15.9 Plt Count 199 D MPV 9.0 L Immature Gran % (Auto) 0.5 H Neut % (Auto) 73.5 H Lymph % (Auto) 12.8 L [place] % (Auto) 10.6 Eos % (Auto) 2.3 Baso % (Auto) 0.3 Lymph # (Auto) 0.8 L [place] # (Auto) 0.7 Eos # (Auto) 0.2 Baso # (Auto) 0.0 Abs Immat Gran (auto) 0.03 Absolute Neuts (auto) 4.8 Absolute Nucleated RBC 0.000 Nucleated RBC % (auto) 0.0 PT INR APTT Sodium 141 Potassium 3.7 Chloride 111 H Carbon Dioxide 24 Anion Gap 10 L BUN 21 H Creatinine 0.93 Estim Creat Clear Calc 53.2 Estimated GFR > 60 POC Glucose Random Glucose 127 H Calcium 7.6 L Total Bilirubin 0.2 AST 11 ALT 10 Alkaline Phosphatase 44 Troponin I High Sens < 3.5 Total Protein 4.7 L Albumin 3.1 L Lipase 12 Urine Color Urine Appearance Urine pH Ur Specific [place] Urine Protein Urine Glucose (UA) Urine Ketones Urine Blood Urine Nitrite Ur Leukocyte Esterase COVID-19 (SEVEN) COVID-19 Clin Com Blood Type Antibody Screen Crossmatch 09/13/20 09/13/20 09/13/20 09:14 09:14 12:14 WBC RBC Hgb Hct MCV MCH MCHC RDW Plt Count MPV Immature Gran % (Auto) Neut % (Auto) Lymph % (Auto) [place] % (Auto) Eos % (Auto) Baso % (Auto) Lymph # (Auto) [place] # (Auto) Eos # (Auto) Baso # (Auto) Abs Immat Gran (auto) Absolute Neuts (auto) Absolute Nucleated RBC Nucleated RBC % (auto) PT 13.0 INR 1.1 APTT 30.4 Sodium Potassium Chloride Carbon Dioxide Anion Gap BUN Creatinine Estim Creat Clear Calc Estimated GFR POC Glucose Random Glucose Calcium Total Bilirubin AST ALT Alkaline Phosphatase Troponin I High Sens Total Protein Albumin Lipase Urine Color Urine Appearance Urine pH Ur Specific [place] Urine Protein Urine Glucose (UA) Urine Ketones Urine Blood Urine Nitrite Ur Leukocyte Esterase COVID-19 (SEVEN) Negative COVID-19 Clin Com See Note Blood Type A Negative Antibody Screen NEGATIVE Crossmatch See Detail 09/13/20 09/13/20 09/13/20 12:15 13:05 17:57 WBC 10.9 H RBC 3.48 L D Hgb 11.0 L D Hct 32.8 L D MCV 94.3 D MCH 31.6 MCHC 33.5 RDW 15.8 Plt Count 189 MPV 9.2 L Immature Gran % (Auto) Neut % (Auto) Lymph % (Auto) [place] % (Auto) Eos % (Auto) Baso % (Auto) Lymph # (Auto) [place] # (Auto) Eos # (Auto) Baso # (Auto) Abs Immat Gran (auto) Absolute Neuts (auto) Absolute Nucleated RBC 0.000 Nucleated RBC % (auto) 0.0 PT INR APTT Sodium Potassium Chloride Carbon Dioxide Anion Gap BUN Creatinine Estim Creat Clear Calc Estimated GFR POC Glucose 106 Random Glucose Calcium Total Bilirubin AST ALT Alkaline Phosphatase Troponin I High Sens Total Protein Albumin Lipase Urine Color YELLOW Urine Appearance CLEAR Urine pH 6.0 Ur Specific [place] 1.010 Urine Protein NEG Urine Glucose (UA) NEG Urine Ketones NEG Urine Blood NEG Urine Nitrite NEG Ur Leukocyte Esterase NEG COVID-19 (SEVEN) COVID-19 [facility] Blood Type Antibody Screen Crossmatch 09/13/20 09/13/20 09/13/20 18:00 22:01 23:20 WBC 9.6 8.0 RBC 3.69 L 3.44 L Hgb 11.8 L 11.1 L Hct 34.2 L 32.1 L MCV 92.7 93.3 MCH 32.0 32.3 MCHC 34.5 34.6 RDW 16.4 H 16.8 H Plt Count 250 D 231 MPV 9.3 L 9.5 Immature Gran % (Auto) Neut % (Auto) Lymph % (Auto) [place] % (Auto) Eos % (Auto) Baso % (Auto) Lymph # (Auto) [place] # (Auto) Eos # (Auto) Baso # (Auto) Abs Immat Gran (auto) Absolute Neuts (auto) Absolute Nucleated RBC 0.000 0.000 Nucleated RBC % (auto) 0.0 0.0 PT INR APTT Sodium Potassium Chloride Carbon Dioxide Anion Gap BUN Creatinine Estim Creat Clear Calc Estimated GFR POC Glucose 116 H Random Glucose Calcium Total Bilirubin AST ALT Alkaline Phosphatase Troponin I High Sens Total Protein Albumin Lipase Urine Color Urine Appearance Urine pH Ur Specific [place] Urine Protein Urine Glucose (UA) Urine Ketones Urine Blood Urine Nitrite Ur Leukocyte Esterase COVID-19 (SEVEN) COVID-19 [facility] Blood Type Antibody Screen Crossmatch 09/14/20 09/14/20 09/14/20 02:00 05:55 05:55 WBC 8.0 8.0 RBC 3.32 L 3.42 L Hgb 10.8 L 10.9 L Hct 30.9 L 32.0 L MCV 93.1 93.6 MCH 32.5 31.9 MCHC 35.0 34.1 RDW 16.7 H 16.8 H Plt Count 231 236 MPV 9.7 9.6 Immature Gran % (Auto) 0.5 H 0.3 Neut % (Auto) 78.1 H 77.8 H Lymph % (Auto) 9.2 L 9.0 L [place] % (Auto) 11.3 H 11.9 H Eos % (Auto) 0.6 0.6 Baso % (Auto) 0.3 0.4 Lymph # (Auto) 0.7 L 0.7 L [place] # (Auto) 0.9 1.0 Eos # (Auto) 0.1 0.1 Baso # (Auto) 0.0 0.0 Abs Immat Gran (auto) 0.04 H 0.02 Absolute Neuts (auto) 6.2 6.2 Absolute Nucleated RBC 0.000 0.000 Nucleated RBC % (auto) 0.0 0.0 PT 12.7 INR 1.1 APTT 32.9 Sodium Potassium Chloride Carbon Dioxide Anion Gap BUN Creatinine Estim Creat Clear Calc Estimated GFR POC Glucose Random Glucose Calcium Total Bilirubin AST ALT Alkaline Phosphatase Troponin I High Sens Total Protein Albumin Lipase Urine Color Urine Appearance Urine pH Ur Specific [place] Urine Protein Urine Glucose (UA) Urine Ketones Urine Blood Urine Nitrite Ur Leukocyte Esterase COVID-19 (SEVEN) [facility] Blood Type Antibody Screen Crossmatch 09/14/20 05:55 WBC RBC Hgb Hct MCV MCH MCHC RDW Plt Count MPV Immature Gran % (Auto) Neut % (Auto) Lymph % (Auto) [place] % (Auto) Eos % (Auto) Baso % (Auto) Lymph # (Auto) [place] # (Auto) Eos # (Auto) Baso # (Auto) Abs Immat Gran (auto) Absolute Neuts (auto) Absolute Nucleated RBC Nucleated RBC % (auto) PT INR APTT Sodium 142 Potassium 3.9 Chloride 111 H Carbon Dioxide 22 Anion Gap 13 BUN 23 H Creatinine 0.76 Estim Creat Clear Calc 74.7 Estimated GFR > 60 POC Glucose Random Glucose 114 Calcium 7.9 L Total Bilirubin AST ALT Alkaline Phosphatase Troponin I High Sens Total Protein Albumin Lipase Urine Color Urine Appearance Urine pH Ur Specific [place] Urine Protein Urine Glucose (UA) Urine Ketones Urine Blood Urine Nitrite Ur Leukocyte Esterase COVID-19 (SEVEN) COVID-19 [facility] Blood Type Antibody Screen Crossmatch Progress Note: A&P Assessment and plan (1) Acute GI bleeding: Status: Acute (2) Acute hypotension: Status: Acute (3) Acute anemia: Status: Acute Assessment and Plan: Doing beautifully with no signs of active bleeding at this point just observation and if stable possible repeat outpatient lower endoscopy but that will be in the hands of GI but I from my standpoint I think he can be transfer to the floor Time Spent With Patient Time: Total time spent is greater than 50% in coordination of care (as documented) at patient's floor/unit and/or counseling patient: Total time spent with greater than 50% in coordination of care (as documented) at patient's floor/unit and/or counseling patient:: 35
--- NOTE | 2020-09-14 09:23 | PM.CNGS ---
History of Present Illness Consult details Consult date: 09/14/20 Reason for consult: other (GI bleed) Requesting physician: Kiran Lewis Narrative: This is an 80-year-old gentleman who is a resident of the [facility] who presented by ambulance yesterday to the emergency department with hypotension and history of couple days of passing dark stools from his rectum. Patient has a known history of diverticulosis. When patient was seen in the emergency department his blood pressure was very labile and systolic blood pressure was ranging from the 60s to 70s systolic. He was tachycardic and required massive transfusion protocol to be [place] in the emergency department. Patient received 4 units of packed red blood cells and 1 unit of fresh frozen plasma. Of note the patient does have myasthenia gravis and was on steroids. Patient denies previous history of GI bleed. Patient cannot tell me how many dark stools he had and how long this had been occurring. He denied abdominal pain nausea or vomiting. He reports he has been sleeping poorly for the past couple of days as this was happening and he has not eaten much in the past couple of days. He does report having some dizziness and some weakness as well as lightheadedness since this has been occurring. Patient had improvement in his blood pressure up to the 120s -130s systolic after receiving the blood products. Patient was taken to the operating room with Dr. Lewis from G[facility]ology where an upper endoscopy was performed which showed some mild gastritis but no evidence of ulcers mucosal lesions esophagitis or any evidence of bleeding. Patient was then sent to the intensive care unit and a tagged red blood cell scan was ordered. Patient had the tagged red blood cell scan last evening which showed no evidence of active bleeding or extravasation of contrast. Patient's hematocrit improved to the 30-32 range after receiving the 4 units of packed red blood cells. Patient's hematocrit has remained stable over the past 5 checks of the hematocrit. This morning's hematocrit is 32 which is up from his initial hematocrit of 23.6 on admission. Overnight the nursing staff noted that the patient had about 5 small dark mucousy stools. Patient reports he feels like he has more energy but he is fatigued. There is no evidence of fever or chills. Patient denies shortness of breath or chest pain. Review of Systems Review of Systems: Yes all other systems are reviewed and are negative Constitutional: Constitutional: Denies anorexia, Denies body ache(s), Denies chills, Denies daytime sleepiness, Denies difficulty sleeping, Denies excessive sweating, Reports fatigue, Denies fever(s), Denies headache(s), Reports lethargy, Reports malaise, Denies night sweats, Denies poor appetite and Reports weakness Eyes: Eyes: Denies blind spots, Denies blurry vision, Denies exophthalmos, Denies change in vision, Denies diplopia, Denies eye discharge, Denies floaters, Denies itchy eyes, Denies loss of vision and Reports requires corrective lenses (For reading only) ENT: Reports Normal hearing present, Denies bleeding gums, Denies change in voice, Denies dysphagia, Denies vertigo, Reports dizziness, Denies headache(s), Denies lip swelling, Denies epistaxis, Denies mouth lesions, Denies mouth pain, Denies nasal discharge, Denies neck pain, Denies odynophagia, Denies disequilibrium, Denies tinnitus and Denies tongue swelling Cardiovascular: Cardiovascular: Denies Abdominal Cramping after Meds, Denies Abdominal Distension, Denies acrocyanosis, Denies cool extremities, Denies chest pain with activity, Denies Epigastric Pain, Denies pedal edema, Denies edema, Denies irregular heart rhythm, Denies claudication, Reports lightheadedness, Reports Loss of Consciousness, Denies dyspnea and Denies dyspnea on exertion Respiratory: Respiratory: Denies chest congestion, Denies cough, Denies hemoptysis, Denies excessive phlegm production, Denies dyspnea and Denies dyspnea on exertion Gastrointestinal: Gastrointestinal: Reports melena, Denies bloating, Denies hematochezia, Reports change in bowel habits, Reports change in stool character, Denies coffee ground emesis, Denies constipation, Denies GI cramping, Denies dysphagia, Denies excessive flatus, Denies early satiety, Denies dyspepsia, Denies heartburn, Denies diarrhea, Reports loose stools, Denies nausea, Denies odynophagia and Denies vomiting Genitourinary: Genitourinary: Denies hematuria, Denies oliguria, Denies difficulty urinating, Denies dysuria, Denies flank pain and Reports urinary incontinence Musculoskeletal: Musculoskeletal: Denies back pain, Denies myalgias, Reports arthralgias, Reports muscle weakness, Denies neck pain, Denies numbness, Denies stiffness and Denies tingling Integumentary/Breasts: Skin/Breast: Denies breast swelling, Denies breast skin changes, Denies breast mass, Denies changing lesions, Denies nipple discharge and Denies rash Neurologic: Reports as per HPI, Reports Normal hearing present, Denies Neuro-related abnormal movements, Reports Abnormal speech present, Denies confusion, Denies vertigo, Reports dizziness, Denies headache(s), Denies loss of vision, Denies memory loss, Denies numbness, Denies seizure-like activity, Denies Sensory deficit (Neuro), Denies tingling, Denies paresthesias, Denies tremor(s), Denies disequilibrium and Reports weakness Psychiatric: Psychiatric: Reports anxiety, Denies confusion, Reports depression, Denies difficulty concentrating, Denies auditory hallucinations, Denies hopelessness, Denies irritability, Denies anhedonia, Denies memory loss and Denies paranoia Endocrine: Endocrine: Denies cold intolerance, Denies excessive sweating, Reports fatigue, Denies flushing and Denies heat intolerance Hematologic/Lymphatic: Hematologic/Lymphatic: Denies easy bleeding, Denies easy bruising and Denies lymphadenopathy Allergic/Immunologic: Allergic/Immunologic: Denies GI upset with certain foods, Denies urticaria, Denies itchy eyes, Denies lip swelling and Denies tongue swelling PMFSH Past Medical History Medical History (Updated 09/14/20 @ 09:37 by Quiana Frankel MD) Acute respiratory disease BPH (benign prostatic hyperplasia) CAD (coronary artery disease) Cataract COVID-19 Depression Diabetes mellitus GERD (gastroesophageal reflux disease) Hammer toe Hammer toes, bilateral History of diverticulosis History of rectal cancer Hyperlipidemia Hypertension Inguinal hernia Insomnia Malignant neoplasm of colon Myasthenia gravis Nonalcoholic steatohepatitis (MARTI) Onychogryphosis Rheumatoid arthritis Urinary incontinence Family History Family History (Updated 09/14/20 @ 09:36 by Quiana Frankel MD) Mother No problems noted. Father No problems noted. Brother No problems noted. Sister No problems noted. Daughter Psychiatric disorder Son No problems noted. Surgical History Surgical History (Updated 09/14/20 @ 09:35 by Quiana Frankel MD) History of colostomy History of colostomy reversal History of incisional hernia repair History of low anterior resection of rectum Social History Social History Household Members: None Housing: [facility] Do you presently have visiting nurse or other home services: No Smoking Status: Never smoker Use of substances other than those prescribed or required for medical reasons: No Currently Displaying Signs/Symptoms of Drug Intoxication Withdrawal: No Have you been hit, kicked, punched, or otherwise hurt by someone within the past year? If so, by whom?: No Do you feel safe in your current relationship?: No Current Relationship Is there a partner from a previous relationship who is making you feel unsafe now?: No Are you made to feel afraid or neglected: No Advance Directives: Yes Advance Directives on File: Yes Advance Directives Date on File: 06/21/20 Do you have thoughts of harming others: None Do you have a plan to hurt others: No Plan Recently lost weight without trying: No service: Yes Current occupational status: retired [employer] Allergies Allergy/AdvReac Type Severity Reaction Status Date / Time No Known Allergies Allergy Unverified 09/14/20 09:38 [No Known Allergies*] Physical Exam Vital Signs: Vital Signs: Last Vital Signs Temp 98.7 F 09/14/20 08:00 Pulse 74 09/14/20 09:00 Resp 12 09/14/20 09:00 BP 111/58 L 09/14/20 09:00 Pulse Ox 95 09/14/20 09:00 Body Mass Index 29.5 Const: General: cooperative, healthy appearing, comfortable, no acute distress, well developed, alert and awake; No acute distress or confusion Orientation/consciousness: No confusion HENMT: Head: Yes normal to inspection, Yes normocephalic and Yes atraumatic Ears: hearing grossly normal bilaterally General nose exam: Normal external nose present and Normal nares present Face and sinus: Yes normal facial exam Mouth: Normal oral and palatal mucosa present, lip normal and tongue normal Throat: Yes posterior oropharynx normal Eyes: General: appearance normal, both eyes and all related structures Visual Ragsdale: normal visual ragsdale by confrontation Conjunctivae: conjunctivae normal Sclerae: sclerae normal Neck: Neck: Yes normal visual inspection, Yes full ROM, Yes no lymphadenopathy, Yes trachea midline, Yes supple and No lymphadenopathy Chest: Chest palpation & inspection: normal inspection of the chest Resp: Effort & Inspection: normal respiratory effort, no audible wheezes, no cough, no grunting, not labored and no nasal flaring Auscultation: clear to auscultation bilaterally, no crackles, no rales, no rhonchi and no wheezes Cardio: Rate: regular rate Heart sounds: S1 normal heart sound present, S2 normal heart sound present, no gallops, no murmurs and no rubs GI: Inspection: Yes normal to inspection, No Abdominal wall edema, No distended and Yes incision (Lower midline surgical scar well healed no evidence of hernia) Palpation (GI): Soft to palpation, not firm, nontender, no guarding, not rigid and hepatosplenomegaly present Auscultation: normal bowel sounds Skin: General skin exam: no rashes or lesions noted, no jaundice, no mottling and no petechiae Neuro: General: No confusion Cranial nerves: Yes CN's II-XII intact bilaterally and Yes Normal hearing present Speech: Abnormal speech present Sensory Exam: No Sensory deficit (Neuro) Extrem: General: Yes normal to inspection, Yes no clubbing, cyanosis or edema, Yes no pedal edema and Yes no calf tenderness Psych: Appearance: grossly normal and well kempt Mental Status: mental status grossly normal Speech and movement: Normal speech and movement present and Clear speech present Affect: normal affect Attitude: cooperative Thought process: Normal thought process present Thought content: Normal thought content present Insight: Good insight present (Psych) Judgement: Good judgement present (Psych) Results Labs Result diagrams: 09/14/20 05:55 09/14/20 05:55 Labs: Abnormal lab results 09/13/20 09/13/20 09/13/20 Range/Units 09:14 09:14 09:14 WBC (4.8-10.8) X10*3/uL RBC 2.37 L D (4.60-5.80) X10*6/uL Hgb 7.7 L D (14.0-18.0) g/dl Hct 23.6 L D (42-52) % MCV 99.6 H (80-98) fL RDW (11.0-16.0) % MPV 9.0 L (9.4-12.4) fL Immature Gran % (Auto) 0.5 H (0.0-0.4) % Neut % (Auto) 73.5 H (45-73) % Lymph % (Auto) 12.8 L (20-40) % [place] % (Auto) (2-11) % Lymph # (Auto) 0.8 L (1.2-4.9) X10*3/uL Abs Immat Gran (auto) (0.00-0.03) X10*3/uL Chloride 111 H (96-108) mmol/L Anion Gap 10 L (12-20) BUN 21 H (9-16) mg/dL POC Glucose (60-115) mg/dL Random Glucose 127 H (60-115) mg/dL Calcium 7.6 L (8.4-10.2) mg/dL Total Protein 4.7 L (6.5-8.0) g/dL Albumin 3.1 L (3.5-5.0) g/dL Crossmatch See Detail 09/13/20 09/13/20 09/13/20 Range/Units 12:15 18:00 22:01 WBC 10.9 H (4.8-10.8) X10*3/uL RBC 3.48 L D 3.69 L 3.44 L (4.60-5.80) X10*6/uL Hgb 11.0 L D 11.8 L 11.1 L (14.0-18.0) g/dl Hct 32.8 L D 34.2 L 32.1 L (42-52) % MCV (80-98) fL RDW 16.4 H 16.8 H (11.0-16.0) % MPV 9.2 L 9.3 L (9.4-12.4) fL Immature Gran % (Auto) (0.0-0.4) % Neut % (Auto) (45-73) % Lymph % (Auto) (20-40) % [place] % (Auto) (2-11) % Lymph # (Auto) (1.2-4.9) X10*3/uL Abs Immat Gran (auto) (0.00-0.03) X10*3/uL Chloride (96-108) mmol/L Anion Gap (12-20) BUN (9-16) mg/dL POC Glucose (60-115) mg/dL Random Glucose (60-115) mg/dL Calcium (8.4-10.2) mg/dL Total Protein (6.5-8.0) g/dL Albumin (3.5-5.0) g/dL Crossmatch 09/13/20 09/14/20 09/14/20 Range/Units 23:20 02:00 05:55 WBC (4.8-10.8) X10*3/uL RBC 3.32 L 3.42 L (4.60-5.80) X10*6/uL Hgb 10.8 L 10.9 L (14.0-18.0) g/dl Hct 30.9 L 32.0 L (42-52) % MCV (80-98) fL RDW 16.7 H 16.8 H (11.0-16.0) % MPV (9.4-12.4) fL Immature Gran % (Auto) 0.5 H (0.0-0.4) % Neut % (Auto) 78.1 H 77.8 H (45-73) % Lymph % (Auto) 9.2 L 9.0 L (20-40) % [place] % (Auto) 11.3 H 11.9 H (2-11) % Lymph # (Auto) 0.7 L 0.7 L (1.2-4.9) X10*3/uL Abs Immat Gran (auto) 0.04 H (0.00-0.03) X10*3/uL Chloride (96-108) mmol/L Anion Gap (12-20) BUN (9-16) mg/dL POC Glucose 116 H (60-115) mg/dL Random Glucose (60-115) mg/dL Calcium (8.4-10.2) mg/dL Total Protein (6.5-8.0) g/dL Albumin (3.5-5.0) g/dL Crossmatch 09/14/20 Range/Units 05:55 WBC (4.8-10.8) X10*3/uL RBC (4.60-5.80) X10*6/uL Hgb (14.0-18.0) g/dl Hct (42-52) % MCV (80-98) fL RDW (11.0-16.0) % MPV (9.4-12.4) fL Immature Gran % (Auto) (0.0-0.4) % Neut % (Auto) (45-73) % Lymph % (Auto) (20-40) % [place] % (Auto) (2-11) % Lymph # (Auto) (1.2-4.9) X10*3/uL Abs Immat Gran (auto) (0.00-0.03) X10*3/uL Chloride 111 H (96-108) mmol/L Anion Gap (12-20) BUN 23 H (9-16) mg/dL POC Glucose (60-115) mg/dL Random Glucose (60-115) mg/dL Calcium 7.9 L (8.4-10.2) mg/dL Total Protein (6.5-8.0) g/dL Albumin (3.5-5.0) g/dL Crossmatch Short CBC 09/13/20 09/13/20 09/13/20 Range/Units 09:14 12:15 18:00 WBC 6.5 10.9 H 9.6 (4.8-10.8) X10*3/uL Hgb 7.7 L D 11.0 L D 11.8 L (14.0-18.0) g/dl Hct 23.6 L D 32.8 L D 34.2 L (42-52) % Plt Count 199 D 189 250 D (160-400) X10*3/uL 09/13/20 09/14/20 09/14/20 Range/Units 22:01 02:00 05:55 WBC 8.0 8.0 8.0 (4.8-10.8) X10*3/uL Hgb 11.1 L 10.8 L 10.9 L (14.0-18.0) g/dl Hct 32.1 L 30.9 L 32.0 L (42-52) % Plt Count 231 231 236 (160-400) X10*3/uL BMP 09/13/20 09/14/20 09:14 05:55 Sodium 141 142 Potassium 3.7 3.9 Chloride 111 H 111 H Carbon Dioxide 24 22 BUN 21 H 23 H Creatinine 0.93 0.76 Calcium 7.6 L 7.9 L Liver Function 12/29/20 Range/Units 09:14 Total Bilirubin 0.2 (0.0-1.0) mg/dL AST 11 (5-37) U/L ALT 10 (0-40) U/L Alkaline Phosphatase 44 (39-117) U/L Albumin 3.1 L (3.5-5.0) g/dL Urine 09/13/20 Range/Units 17:57 Urine Color YELLOW Urine Appearance CLEAR Urine pH 6.0 (5.0-8.0) Ur Specific [place] 1.010 (1.005-1.025) Urine Protein NEG (NEG-TRACE) MG/DL Urine Glucose (UA) NEG (NEG) MG/DL All other labs normal. Assessment and Plan (1) Acute GI bleeding: Status: Acute This is an 80-year-old gentleman who was admitted through the emergency department yesterday for hypotension and syncope associated with a GI bleed. Patient underwent an endoscopy which showed no evidence of upper GI bleed source. Patient does have a history of diverticulosis and underwent a tagged red blood cell scan which was negative for any active bleeding. Patient has had no further acute episodes of bleeding. The few dark mucousy stools are likely residual from the previous likely lower GI bleed. Patient's hematocrit has remained stable at around 32 over the past 5 checks. There is no indication for any surgical intervention at this time. Patient should be slowly advanced to a clear liquid diet and see how he tolerates it. Hematocrit should be checked Q 4-6 hours over the next 24 hours. If hematocrit remains stable the patient's diet may be slowly advanced. Thank you for this consultation please call with questions. (2) Acute anemia: Status: Acute
--- NOTE | 2020-09-14 09:33 | MHC.CM.PN ---
pt is from [facility]. dc plan is for him to return there when medically stable via [facility]. a ref. has been made to [facility]. dc plan is to return to [facility]. cm to cont. to follow.
--- NOTE | 2020-09-14 09:43 | MHC.CM.PN ---
pt is from [facility]. dc plan is for him to return there when medically stable via [facility]. dc plan is to return to [facility]. cm to cont. to follow.
[2020-09-14] MEDS: Pantoprazole Sodium 40 MG/10 ML VIAL IVPUSH (10:58)
[2020-09-14] MEDS: predniSONE 10 MG TABLET 30 MG PO (10:58)
--- NOTE | 2020-09-14 11:00 | HO.POSTANES ---
Post Anesthesia Evaluation Post Anesthesia Evaluation Vital Signs: Vital Signs Temp Pulse Resp BP Pulse Ox 09/14/20 10:11 77 20 127/58 L 97 09/14/20 10:00 77 20 127/58 L 97 09/14/20 09:00 74 12 111/58 L 95 09/14/20 08:00 98.7 F 68 10 L 98/68 96 09/14/20 07:00 72 14 117/55 L 92 09/14/20 06:00 98.7 F 72 15 112/52 L 94 09/14/20 04:54 76 18 111/58 L 92 09/14/20 04:00 73 16 119/58 L 92 09/14/20 02:55 72 15 124/56 L 93 09/14/20 00:52 79 16 126/60 92 09/14/20 00:00 98.2 F 76 8 L 115/58 L 95 Anesthesia: General Endotracheal-GETA Mental Status: Awake Pain Control: Satisfactory Nausea/Vomiting: None Hydration: Adequate Anesthesia-Related Issues: No Anes. Related Issues
[2020-09-14] MEDS: Cyanocobalamin (Vitamin B-12) 1,000 MCG/ML VIAL 1000 MCG IM (14:06)
--- NOTE | 2020-09-14 15:34 | PM.GIPN ---
Subjective Subjective Date of Service: 09/14/20 Interval History: No complaints of abdominal pain No bleeding today Physical Exam Vital Signs: Vital Signs: Last Vital Signs Temp 97.3 F 09/14/20 15:04 Pulse 62 09/14/20 15:04 Resp 19 09/14/20 15:04 BP 136/69 09/14/20 15:04 Pulse Ox 96 09/14/20 15:04 Body Mass Index 29.5 Const: Other: comfortable GI: Other: soft,nontender, wothout guarding Objective Data Labs CBC & Chem 7: 09/14/20 05:55 09/14/20 05:55 Progress Note: A&P Assessment and plan (1) Acute GI bleeding: Status: Acute Assessment and Plan: bleeding scan last night was negative per Dr Huber hct is stable advance diet ok to dc in am if stable repeat colonoscopy is unlikely to add much given previous recent exam in 12/03 Time Spent With Patient Time: Total time spent is greater than 50% in coordination of care (as documented) at patient's floor/unit and/or counseling patient: Time with patient: less than 15 minutes
[2020-09-14] MEDS: 0.9 % Sodium Chloride 1,000 ML 40 ML IVCONT (16:34)
[2020-09-14] MEDS: Fluticasone Propionate Nasal 16 GM SPRAY 1 SPRAY NOSTRIL-B (16:46)
[2020-09-14] MEDS: azaTHIOprine 50 MG TABLET PO (21:42)
[2020-09-14] MEDS: calcium polycarbophiL TABLET 1 TAB PO (21:44)
[2020-09-15] VITALS: BP 177/86; PULSE 65; RESP 17; TEMP 37; O2SAT 97
[2020-09-15 03:53] VITALS: BP 133/72; PULSE 59; RESP 17; TEMP 37.1; O2SAT 99
[2020-09-15 07:05] LABS: Anion Gap 13 (12-20); Blood Urea Nitrogen 18 mg/dL (9-16); Calcium 8.1 mg/dL (8.4-10.2); Carbon Dioxide 23 mmol/L (22-29); Chloride 110 mmol/L (96-108); Creatinine Clr Calc Pharmacy 74.2; Estimated Glomerular Filt Rate > 60; Glucose Random 119 mg/dL (60-115); Hematocrit 33.6 % (42-52); Hemoglobin 11.4 g/dl (14.0-18.0); Mean Corpuscular HGB Conc 33.9 g/dl (31.0-36.0); Mean Corpuscular Hemoglobin 31.8 pg (27.0-33.0); Mean Corpuscular Volume 93.9 fL (80-98); Mean Platelet Volume 10.1 fL (9.4-12.4); Platelet Count 242 X10*3/uL (160-400); Potassium 4.3 mmol/l (3.3-5.1); Red Blood Count 3.58 X10*6/uL (4.60-5.80); Red Cell Distribution Width 16.6 % (11.0-16.0); Sodium 142 mmol/L (135-145); White Blood Count 8.1 X10*3/uL (4.8-10.8)
[2020-09-15 08:00] VITALS: BP 149/78; PULSE 61; RESP 18; TEMP 36.3; O2SAT 100
[2020-09-15] MEDS: Atorvastatin Calcium 40 MG TABLET PO (08:45)
[2020-09-15] MEDS: azaTHIOprine 50 MG TABLET PO (08:45)
[2020-09-15] MEDS: calcium polycarbophiL TABLET 1 TAB PO (08:45)
[2020-09-15] MEDS: predniSONE 10 MG TABLET 30 MG PO (08:45)
[2020-09-15] MEDS: Fluticasone Propionate Nasal 16 GM SPRAY 1 SPRAY NOSTRIL-B (08:45)
[2020-09-15] MEDS: Pantoprazole Sodium 40 MG/10 ML VIAL IVPUSH (08:45)
[2020-09-15] MEDS: Cholecalciferol (Vitamin D3) 25 MCG TABLET PO (08:45)
[2020-09-15 11:29] VITALS: BP 157/91; PULSE 60; RESP 20; TEMP 36.3; O2SAT 100
--- NOTE | 2020-09-15 14:28 | PM.DS ---
DS: Providers Provider Date of admission: 09/13/20 14:07 Primary care physician: Samantha Pelaez NP DS: Diagnosis Discharge Diagnosis (1) Acute GI bleeding: Status: Acute (2) Acute blood loss anemia: Status: Acute (3) Gastritis: Status: Acute DS: Medications Discharge Medications Home Medications: Home Medications Medication Instructions Recorded Confirmed acetaminophen 650 mg PO BEDTIME 09/14/20 09/14/20 aspirin 81 mg PO DAILY 09/14/20 09/14/20 atorvastatin 40 mg PO DAILY 09/14/20 09/14/20 azathioprine 50 mg PO BID 09/14/20 09/14/20 calcium polycarbophil 625 mg PO BID 09/14/20 09/14/20 carboxymethylcellulose sodium 1 drp OPHTHALMIC (EYE) BEDTIME 09/14/20 09/14/20 cholecalciferol (vitamin D3) 25 mcg PO DAILY 09/14/20 09/14/20 cyanocobalamin (vitamin B-12) 1,000 mcg IM QWEEK 09/14/20 09/14/20 ferrous sulfate [Iron (ferrous 325 mg PO BID 09/14/20 09/14/20 sulfate)] fluticasone propionate 1 spray INTRANASAL BID 09/14/20 09/14/20 lisinopril 5 mg PO DAILY@1700 09/14/20 09/14/20 oxybutynin chloride 15 mg PO DAILY 09/14/20 09/14/20 prednisone 5 mg PO Q OTHER DAY 09/14/20 09/14/20 pyridostigmine bromide 60 mg PO TID 09/14/20 09/14/20 quetiapine 25 mg PO BEDTIME 09/14/20 09/14/20 quetiapine 100 mg PO BEDTIME 09/14/20 09/14/20 tamsulosin 0.4 mg PO BEDTIME 09/14/20 09/14/20 trazodone 50 mg PO BEDTIME 09/14/20 09/14/20 venlafaxine 150 mg PO DAILY 09/14/20 09/14/20 Previous Rx's Medication Instructions Recorded omeprazole 20 mg PO DAILY #30 cap 09/15/20 DS: Summary Hospital Course Hospital Course: From the admission H&P: Painless melena and now maroon stool in large volume with syncope noted to be hypotensive with orthostasis and received IV fluid and then typed and cross-matched and had a 2 unit red blood cell transfusion with 1 unit of platelets because of aspirin therapy and 1 unit of fresh frozen plasma but there was no coagulopathy and no iatrogenic coagulopathy that needed to be reversed Background history of myasthenia gravis and apparently on maintenance prednisone and azathioprine so in addition he was given a stress dose of IV hydrocortisone and I placed a central line but blood pressure did not require pressors he did respond to volume Hospital Course: Patient presented to the hospital with signs and symptoms of acute blood loss anemia secondary to a gastrointestinal bleed. He was hypotensive initially but fortunately responded to fluid resuscitation and was transfused 2 units packed red cells. He was seen by Gastroenterology and urgently underwent a upper endoscopy which did not show any source of active bleeding. He did have mild gastritis. A bleeding scan was also completed which did not show any acute bleeds. Gastroenterology did not feel that a colonoscopy was warranted at this time. Shortly after his initial packed red cell transfusion, his H&H remained stable. His diet was advanced from clear liquids to solids which he tolerated. He had no further evidence of bleeding. He will be transition from IV Protonix to oral Prilosec once a day. His aspirin 81 mg was held in the hospital and will be held for 7 more days from discharge. If repeat H&H at that time is stable can consider re-initiation of aspirin. Time Spent with Patient Time attestation: Total time spent providing and/or coordinating discharge services: Physical Exam Vital Signs: Vital Signs: Last Vital Signs Temp 97.3 F 09/15/20 11:29 Pulse 60 09/15/20 11:29 Resp 20 09/15/20 11:29 BP 157/91 H 09/15/20 11:29 Pulse Ox 100 09/15/20 11:29 Body Mass Index 29.5 Const: Other: General - no acute distress, appears comfortable Cardiovascular - regular rate and rhythm, S1-S2 Lungs - normal respiratory effort, clear to auscultation bilaterally, no wheezing Abdomen - soft, nontender, no rebound or guarding Extremities - no edema bilaterally Neuro - awake and alert, no focal deficits DS: Data Data Completed and Pending Labs on day of discharge: Laboratory Last Values WBC 8.1 X10*3/uL (4.8-10.8) 09/15/20 05:26 RBC 3.58 X10*6/uL (4.60-5.80) L 09/15/20 05:26 Hgb 11.4 g/dl (14.0-18.0) L 09/15/20 05:26 Hct 33.6 % (42-52) L 09/15/20 05:26 MCV 93.9 fL (80-98) 09/15/20 05:26 MCH 31.8 pg (27.0-33.0) 09/15/20 05:26 MCHC 33.9 g/dl (31.0-36.0) 09/15/20 05:26 RDW 16.6 % (11.0-16.0) H 09/15/20 05:26 Plt Count 242 X10*3/uL (160-400) 09/15/20 05:26 MPV 10.1 fL (9.4-12.4) 09/15/20 05:26 Immature Gran % (Auto) 0.3 % (0.0-0.4) 09/14/20 05:55 Neut % (Auto) 77.8 % (45-73) H 09/14/20 05:55 Lymph % (Auto) 9.0 % (20-40) L 09/14/20 05:55 [place] % (Auto) 11.9 % (2-11) H 09/14/20 05:55 Eos % (Auto) 0.6 % (0-4) 09/14/20 05:55 Baso % (Auto) 0.4 % (0-2) 09/14/20 05:55 Lymph # (Auto) 0.7 X10*3/uL (1.2-4.9) L 09/14/20 05:55 [place] # (Auto) 1.0 X10*3/uL (0.1-1.2) 09/14/20 05:55 Eos # (Auto) 0.1 X10*3/uL (0.0-0.4) 09/14/20 05:55 Baso # (Auto) 0.0 X10*3/uL (0.0-0.2) 09/14/20 05:55 Abs Immat Gran (auto) 0.02 X10*3/uL (0.00-0.03) 09/14/20 05:55 Absolute Neuts (auto) 6.2 X10*3/uL (2.0-8.3) 09/14/20 05:55 Absolute Nucleated RBC 0.000 X10*3/uL (0.0-0.012) 09/15/20 05:26 Nucleated RBC % (auto) 0.0 /100WBC (0.0-0.2) 09/15/20 05:26 PT 12.7 SEC (10.8-13.0) 09/14/20 05:55 INR 1.1 (0.9-1.1) 09/14/20 05:55 APTT 32.9 SEC (24.1-38.0) 09/14/20 05:55 Sodium 142 mmol/L (135-145) 09/15/20 05:26 Potassium 4.3 mmol/l (3.3-5.1) 09/15/20 05:26 Chloride 110 mmol/L (96-108) H 09/15/20 05:26 Carbon Dioxide 23 mmol/L (22-29) 09/15/20 05:26 Anion Gap 13 (-20) 09/15/20 05:26 BUN 18 mg/dL (9-16) H 09/15/20 05:26 Creatinine 0.75 mg/dL (0.5-1.4) 09/15/20 05:26 Estim Creat Clear Calc 74.2 09/15/20 05:26 Estimated GFR > 60 09/15/20 05:26 POC Glucose 116 mg/dL (60-115) H 09/13/20 23:20 Random Glucose 119 mg/dL (60-115) H 09/15/20 05:26 Calcium 8.1 mg/dL (8.4-10.2) L 09/15/20 05:26 Total Bilirubin 0.2 mg/dL (0.0-1.0) 09/13/20 09:14 AST 11 U/L (5-37) 09/13/20 09:14 ALT 10 U/L (0-40) 09/13/20 09:14 Alkaline Phosphatase 44 U/L (39-117) 09/13/20 09:14 Troponin I High Sens < 3.5 ng/L (<3.5-35.0) 09/13/20 09:14 Total Protein 4.7 g/dL (6.5-8.0) L 09/13/20 09:14 Albumin 3.1 g/dL (3.5-5.0) L 09/13/20 09:14 Lipase 12 U/L (8-78) 09/13/20 09:14 Urine Color YELLOW 09/13/20 17:57 Urine Appearance CLEAR 09/13/20 17:57 Urine pH 6.0 (5.0-8.0) 09/13/20 17:57 Ur Specific [place] 1.010 (1.005-1.025) 09/13/20 17:57 Urine Protein NEG MG/DL (NEG-TRACE) 09/13/20 17:57 Urine Glucose (UA) NEG MG/DL (NEG) 09/13/20 17:57 Urine Ketones NEG MG/DL (NEG) 09/13/20 17:57 Urine Blood NEG (NEG) 09/13/20 17:57 Urine Nitrite NEG (NEG) 09/13/20 17:57 Ur Leukocyte Esterase NEG (NEG) 09/13/20 17:57 COVID-19 (SEVEN) Negative (Negative) 09/13/20 09:14 COVID-19 Clin Com See Note 09/13/20 09:14 Blood Type A Negative 09/13/20 09:14 Antibody Screen NEGATIVE 09/13/20 09:14 Crossmatch See Detail 09/13/20 09:14 Discharge Plan Discharge Patient Disposition: er SNF Referrals: [facility] [Outside] Samantha Pelaez NP [Primary Care Provider] - Discharge Medications: New omeprazole 20 mg capsule,delayed release(DR/EC) 20 mg PO DAILY Qty: 30 RF: 0 Continued atorvastatin 40 mg Tablet 40 mg PO DAILY RF: 0 azathioprine 50 mg Tablet 50 mg PO BID RF: 0 acetaminophen 650 mg Tablet 650 mg PO BEDTIME RF: 0 cyanocobalamin (vitamin B-12) 1,000 mcg/mL Solution 1,000 mcg IM QWEEK RF: 0 calcium polycarbophil 625 mg Tablet 625 mg PO BID RF: 0 fluticasone propionate 50 mcg/actuation Mineral,Suspension 1 spray INTRANASAL BID RF: 0 carboxymethylcellulose sodium Drops 1 drp OPHTHALMIC (EYE) BEDTIME RF: 0 cholecalciferol (vitamin D3) 25 mcg (1,000 unit) Tablet,Chewable 25 mcg PO DAILY RF: 0 quetiapine 25 mg Tablet 25 mg PO BEDTIME RF: 0 oxybutynin chloride 15 mg Tablet Extended Release 24hr 15 mg PO DAILY RF: 0 trazodone 50 mg Tablet 50 mg PO BEDTIME RF: 0 prednisone 5 mg Tablet 5 mg PO Q OTHER DAY RF: 0 venlafaxine 150 mg Capsule,Extended Release 24hr 150 mg PO DAILY RF: 0 quetiapine 100 mg Tablet 100 mg PO BEDTIME RF: 0 tamsulosin 0.4 mg Capsule 0.4 mg PO BEDTIME RF: 0 ferrous sulfate [Iron (ferrous sulfate)] 325 mg (65 mg iron) Tablet 325 mg PO BID RF: 0 pyridostigmine bromide 60 mg Tablet 60 mg PO TID RF: 0 lisinopril 5 mg Tablet 5 mg PO DAILY@1700 RF: 0 Held aspirin 81 mg Tablet 81 mg PO DAILY RF: 0 Hold Instructions: Resume on 09/21/20. restart after one week if h/h stable Discharge Orders: Discharge Order (Routine); Ordered 09/15/20 Ordered By: Dallas León Diet: advance to usual diet Activity on Discharge: As tolerated Visit Report Forms: Patient Portal Discharge page Care Plan Goals: To stay healthy and out of the hospital. Health Concerns: GI Bleed -- do not take aspirin for 7 days. Take Prilosec 20mg daily Plan of Treatment: GI Bleed -- do not take aspirin for 7 days. Take Prilosec 20mg daily
--- NOTE | 2020-09-15 14:30 | MHC.CM.PN ---
Patient has been medically cleared for dc to return to [facility] today at 4 PM, via [facility]. Patient and Son/Jr Robe. are aware of and in agreement with the dc plan. Last IMM addressed yesterday.
--- NOTE | 2020-09-15 14:46 | MHC.CM.PN ---
DC Summary has been successfully faxed to Walker at the [facility] and uploaded into [employer].
[2020-09-15 15:32] VITALS: BP 162/81; PULSE 75; RESP 18; TEMP 37.2; O2SAT 99
== END 2020-09-15 16:23 | disposition skilled nursing facility (03) | DRG 378 ==
LOC: HO.ED 12:10 → HO.SSS 12:49 → HO.ICU 14:31 → HO.IMC 09-14 11:07
PROVIDERS: Internal Medicine Cardiovascular Disease; Physician Assistant; Student in an Organized Health Care Education/Training Program; Admitting Provider Internal Medicine Gastroenterology; Emergency Provider Emergency Medicine Emergency Medical Services; PCP Nurse Practitioner; Visit Provider Family Medicine
PROC: 0DJ08ZZ Inspection of Upper Intestinal Tract, Via Natural or Artificial Opening Endoscopic (ICD-10-PCS; CPT 43235; principal; 2020-09-13 12:30)
DX: K29.71 Gastritis, unspecified, with bleeding (principal); D62 Acute posthemorrhagic anemia; I25.10 Atherosclerotic heart disease of native coronary artery without angina pectoris; M06.9 Rheumatoid arthritis, unspecified; Z20.828 Contact with and (suspected) exposure to other viral communicable diseases; I95.1 Orthostatic hypotension; Z86.19 Personal history of other infectious and parasitic diseases; Z23 Encounter for immunization; Z79.51 Long term (current) use of inhaled steroids; Z79.82 Long term (current) use of aspirin; Z79.899 Other long term (current) drug therapy
CPT/HCPCS: 36415; 36430; 71045; 78278; 80048; 80053; 81003; 82947; 83690; 84484; 85025; 85027; 85610; 85730; 86850; 86900; 86901; 86920; 86923; 87635; 90686; 93005; 96365; 99283; 99291; 99292; A9560; J0171; J0330; J1100; J2370; J3010; P9016; P9017; P9035

== ENCOUNTER 2020-09-19 06:17 | Outpatient (REF) | payer MEDICARE, SELFPAY ==
[2020-09-19 09:30] LABS: Hematocrit 29.9 % (42-52); Hemoglobin 10.1 g/dl (14.0-18.0)
== END 2020-09-19 06:18 | disposition home or self-care (01) ==
LOC: HO.HSH3W 06:17
PROVIDERS: Visit Provider Nurse Practitioner
DX: Z13.89 Encounter for screening for other disorder (principal)
CPT/HCPCS: 36415; 85014; 85018

== ENCOUNTER 2020-09-20 06:57 | Inpatient (IN) | payer MEDICARE, SELFPAY ==
[2020-09-20] VITALS (15 sets, daily range): BP systolic 82–139; BP diastolic 44–79; PULSE 56–88; RESP 15–25; TEMP 36.6–38.3; O2SAT 93–100; BMI 27.3
--- NOTE | 2020-09-20 06:59 | CT_ITS ---
EXAMINATION: CT ABDOMEN AND PELVIS WITH CONTRAST CLINICAL INFORMATION: GI bleed protocol. COMPARISON: CT abdomen and pelvis 01/03/2017. TECHNIQUE: Multidetector volumetric images were obtained from the superior aspect of the liver through the pubic symphysis following administration 85 mL of Omnipaque 350 intravenous contrast. Sagittal and coronal reformatted images were obtained on the technologist's workstation. Oral contrast: No This CT examination was performed using dose optimization techniques as appropriate, variously including the following: *Automated exposure control *Adjustment of mA and/or kV according to patient size (this includes techniques or standardized protocols for targeted exams where dose is matched to indication/reason for exam; i.e. extremities or head) *Use of iterative reconstruction technique DLP: 1650 mGy-cm FINDINGS: LUNG BASES: There is dependent bibasilar atelectasis. The heart size is normal. LIVER, GALLBLADDER, AND BILIARY TREE: The liver is normal in size, shape, and attenuation. No focal hepatic lesion or biliary ductal dilatation is present. There are multiple radiopaque gallstones without wall thickening. PANCREAS: Unremarkable. SPLEEN: The spleen is normal size with punctate calcifications. ADRENAL GLANDS: Unremarkable. KIDNEYS AND URETERS: Both kidneys are normal size, shape and position without any radiopaque renal calculi or hydronephrosis. There is nonenhancing 1 cm and 1.2 cm cyst lower pole right kidney. BLADDER: There is mild bladder wall thickening. GASTROINTESTINAL TRACT: There is moderate stool seen throughout the colon without any significant distention. There are postsurgical changes in the distal sigmoid colon with widely patent lumen. There is diffuse sigmoid and rest of colon scattered diverticulosis without mural thickening or pericolic fat stranding. Small bowel loops are normal caliber. No inflammatory process seen in the abdomen. There is no free fluid. Delayed imaging through the abdomen and pelvis reveals no extravasation of contrast in the GI system to suspect any site of bleed. ABDOMINAL WALL: There is a lower anterior abdominal wall scar. No evidence of herniation seen. LYMPH NODES: Normal. VASCULAR: There is atherosclerotic changes of the abdominal aorta without aneurysmal dilatation. PELVIC VISCERA: There is no free air or free fluid. OSSEOUS STRUCTURES: No lytic or sclerotic process seen. The paravertebral soft tissues are normal. CT/CT abdomen pelvis w con IMPRESSION: Diffuse colonic diverticulosis and mild constipation. No contrast extravasation seen to suspect any sign of GI bleed at this time. Right renal cysts. There is thick lower anterior abdomen wall scar from previous sigmoid colon/surgical changes. Cholelithiasis without wall thickening.
--- NOTE | 2020-09-20 07:00 | ECG_ITS ---
Test Reason : WEAKNESS Blood Pressure : / mmHG Vent. 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
--- NOTE | 2020-09-20 07:02 | ED.GIBLEED ---
HPI - GI Bleed General Chief complaint: GI Bleed Stated complaint: lower gi bleed, hypotensive Time Seen by Provider: 09/20/20 06:58 Source: patient, EMS and old records reviewed Mode of arrival: EMS Limitations: no limitations History of Present Illness complaint: gross hematochezia Onset (ago): hour(s) (overnight) Pain Consistency: intermittent Severity: moderate Relieving factors: none Exacerbating factors: none Context: history of GI bleed (admitted 09/13 to 09/15 s/p transfusion 2 UPRBCs, bleeding stopped, started on PPI and bleeding scan negative) Associated symptoms: nausea, vomiting, loss of appetite and other (BP 75/49 at facility) Treatments Prior to Arrival: none Related Data Home Medications Medication Instructions Recorded Confirmed acetaminophen 650 mg PO BEDTIME 09/14/20 09/20/20 aspirin 81 mg PO DAILY 09/14/20 09/20/20 atorvastatin 40 mg PO DAILY@1700 09/14/20 09/20/20 azathioprine 50 mg PO BID 09/14/20 09/20/20 calcium polycarbophil 625 mg PO BID 09/14/20 09/20/20 carboxymethylcellulose sodium 1 drp OPHTHALMIC (EYE) BEDTIME 09/14/20 09/20/20 cholecalciferol (vitamin D3) 25 mcg PO DAILY 09/14/20 09/20/20 cyanocobalamin (vitamin B-12) 1,000 mcg IM QMONTH 09/14/20 09/20/20 ferrous sulfate [Iron (ferrous 325 mg PO BID 09/14/20 09/20/20 sulfate)] fluticasone propionate 1 spray INTRANASAL BID 09/14/20 09/20/20 lisinopril 5 mg PO DAILY@1700 09/14/20 09/20/20 oxybutynin chloride 15 mg PO DAILY 09/14/20 09/20/20 prednisone 5 mg PO Q OTHER DAY 09/14/20 09/20/20 pyridostigmine bromide 60 mg PO TID 09/14/20 09/20/20 quetiapine 25 mg PO BEDTIME 09/14/20 09/20/20 quetiapine 100 mg PO BEDTIME 09/14/20 09/20/20 tamsulosin 0.4 mg PO BEDTIME 09/14/20 09/20/20 trazodone 50 mg PO BEDTIME 09/14/20 09/20/20 venlafaxine 150 mg PO DAILY 09/14/20 09/20/20 docusate sodium 100 mg PO BID 09/20/20 09/20/20 loratadine 10 mg PO DAILY 09/20/20 09/20/20 lorazepam 0.25 mg PO Q6H PRN 09/20/20 09/20/20 omeprazole 40 mg PO DAILY@1600 09/20/20 09/20/20 Allergies Allergy/AdvReac Type Severity Reaction Status Date / Time No Known Allergies Allergy Unverified 09/14/20 09:38 [No Known Allergies*] Review of Systems Review of Systems: Constitutional : No Weight loss, No Fever, No Chills, pos Fatigue, pos Malaise ENT/Mouth : No sore throat, No Rhinorrhea Eyes: No Eye Pain, No Swelling, No Redness Cardiovascular : No Chest Pain, No SOB, No Dyspnea on Exertion, No Orthopnea, No Edema, No Palpitations Respiratory : No Cough, No Sputum, No Wheezing Gastrointestinal : pos Nausea, pos Vomiting, No Diarrhea, No Constipation, No abdominal Pain, pos Hematochezia, No Melena Genitourinary : No Dysuria, No Urinary Frequency, No Hematuria, Musculoskeletal : No joint pain, No Myalgias, No Joint Swelling Skin : No Skin Lesions, No rash Neuro : No Weakness, No Numbness, No Dizziness, No Headache Psych : No Anxiety/Panic, No Depression Heme/Lymph: No Bruising, No Bleeding,No Lymphadenopathy Endocrine : No Polyuria, No Polydipsia All other systems reviewed and are negative [facility] Past Medical History Attestation statement: The following information was validated with the patient. Medical History Acute respiratory disease BPH (benign prostatic hyperplasia) CAD (coronary artery disease) Cataract COVID-19 Depression Diabetes mellitus GERD (gastroesophageal reflux disease) Hammer toe Hammer toes, bilateral History of diverticulosis History of rectal cancer Hyperlipidemia Hypertension Inguinal hernia Insomnia Malignant neoplasm of colon Myasthenia gravis Nonalcoholic steatohepatitis (MARTI) Onychogryphosis Rheumatoid arthritis Urinary incontinence Surgical History History of colostomy History of colostomy reversal History of incisional hernia repair History of low anterior resection of rectum Family History Family History Mother No problems noted. Father No problems noted. Brother No problems noted. Sister No problems noted. Daughter Psychiatric disorder Son No problems noted. Social History Social History Household Members: None Housing: Longterm Alcohol intake: never Smoking Status: Never smoker Use of substances other than those prescribed or required for medical reasons: No Advance Directives: Yes Advance Directives on File: Yes Advance Directives Date on File: 06/21/20 service: Yes Current occupational status: retired Physical Exam Vital Signs: Vital Signs: Last Vital Signs Temp 99 F 09/20/20 10:36 Pulse 60 09/20/20 14:40 Resp 15 09/20/20 14:40 BP 123/65 09/20/20 14:40 Pulse Ox 100 09/20/20 14:40 Body Mass Index 27.3 Appearance: Alert. Oriented X3. Mild acute distress. Eyes: Pupils equal, round and reactive to light. ENT: Pharynx normal. Neck: Normal inspection. Neck supple. CVS: Normal heart rate and rhythm. Pulses normal. Respiratory: No respiratory distress. Breath sounds normal. Abdomen: Soft and nontender. + brb rectum Skin: Skin warm and dry. pale skin color. Normal skin turgor. Extremities: No lower extremity edema. No calf ttp Neuro: Oriented X 3. No motor deficit. No sensory deficit. NIH Stroke Scale Internal: Initial- Upon Arrival Level of Consciousness: Alert Level of Consciousness Questions: Answers both questions correctly Level of Consciousness Commands: Performs both tasks correctly Best Gaze: Normal Visual: No visual loss Facial Palsy: Normal Motor Arm (Right): No drift Motor Arm (Left): No drift Motor Leg (Right): No drift Motor Leg (Left): No drift Limb Ataxia: Absent Sensory: Normal Best Language: No aphasia Dysarthia: Mild to moderate dysarthria Extinction and Inattention: No abnormality Score: 1 Course Course Course Narrative: troponin elevated with GIB vs infection and ST seg depressions has no chest pain or shortness of breath, likely demand, given GIB asa held - Hgb 9.8 but given low BPs and reported bloody stools overnight will give 1 UPRBCs new increase in LFTs does have MARTI per record but this is acute change has denies abdominal pain CT scan pending - 30cc/kg bolus ordered at this time only 1 UPRBC to be given LFTs and gallstones seen on CT scan will add on zosyn empirically as well BP 98/48 now, febrile 101 supsect GB pathology US ordered for better visualization of GB BP 98/63 HR stable, patient denies any complaints at this time BP improving, call to Dr. Mehta about gallbladder suspect he will be a medical admit and IV antibiotics given his troponin and EKG changes pressure around 90s/50s - he is on chronic steroids will add on hydrocortisone 100mg Dr. Mehta aware will follow along, pending call back from GI lactic acid cleared will repeat bolus the patient is upset he has to be here, he doesn't really want another central line, he is aware if there is no response to the repeat fluids we will have to place a central line and start pressors, pressors delayed due to patient preference focused exam for sepsis performed at 1232pm Dr. Lewis aware will evaluate the patient possible ERCP BP > 90 with good maps for almost 2 hours hes making urine, mentating, lactic acid cleared at this time patient wheeled down to SSS - noted slurred speech in front of PACU team, he was brought back to the ED - he does have slurred speech but is improving he has no other deficits he is not a candidate for tPa he just had a GIB requiring blood transfusions 1 week ago, patient aware will ordered CT head for stroke possible stroke but nothing acute to do given GIB not a candidate for tPa given recent bleeding and symptoms mild with NIH 1 Procedures EJ/Peripheral Line Arm R: Time Out Performed: Yes Skin Cleansed in Sterile Fashion: Yes Size (gauge): 20 IV Secured and Dressing Applied: Yes Patient Tolerated Procedure: well MDM - GI Bleed MDM Narrative Medical decision making narrative: 80 yo male with recent GIB - here after DC on 09/15 to start PPI endoscopy found gastritis - reported GIB overnight with nausea at this time will need labs, type and screen given low BPs start 2 UPRBCs, IV protonix, planned admit Lab Data Result diagrams: 09/20/20 07:35 09/20/20 07:35 Labs: Lab Results 09/20/20 09/20/20 09/20/20 Range/Units 07:35 07:35 07:35 WBC 7.4 (4.8-10.8) X10*3/uL RBC 3.09 L (4.60-5.80) X10*6/uL Hgb 9.8 L (14.0-18.0) g/dl Hct 30.2 L (42-52) % MCV 97.7 (80-98) fL MCH 31.7 (27.0-33.0) pg MCHC 32.5 (31.0-36.0) g/dl RDW 15.9 (11.0-16.0) % Plt Count 192 (160-400) X10*3/uL MPV 9.8 (9.4-12.4) fL Immature Gran % (Auto) 0.7 H (0.0-0.4) % Neut % (Auto) 91.5 H (45-73) % Lymph % (Auto) 1.5 L (20-40) % [place] % (Auto) 6.1 (2-11) % Eos % (Auto) 0.1 (0-4) % Baso % (Auto) 0.1 (0-2) % Lymph # (Auto) 0.1 L (1.2-4.9) X10*3/uL [place] # (Auto) 0.5 (0.1-1.2) X10*3/uL Eos # (Auto) 0.0 (0.0-0.4) X10*3/uL Baso # (Auto) 0.0 (0.0-0.2) X10*3/uL Abs Immat Gran (auto) 0.05 H (0.00-0.03) X10*3/uL Absolute Neuts (auto) 6.8 (2.0-8.3) X10*3/uL Absolute Nucleated RBC 0.000 (0.0-0.012) X10*3/uL Nucleated RBC % (auto) 0.0 (0.0-0.2) /100WBC Smear Tech's Comments VERIFIED PT 13.6 H (10.8-13.0) SEC INR 1.1 (0.9-1.1) APTT 27.5 (24.1-38.0) SEC Sodium 143 (135-145) mmol/L Potassium 3.1 L D (3.3-5.1) mmol/l Chloride 111 H (96-108) mmol/L Carbon Dioxide 24 (22-29) mmol/L Anion Gap 11 L (12-20) BUN 17 H (9-16) mg/dL Creatinine 0.92 (0.5-1.4) mg/dL Estim Creat Clear Calc 61.9 Estimated GFR > 60 POC Glucose (60-115) mg/dL Random Glucose 123 H (60-115) mg/dL Lactic Acid (0.5-2.0) mmol/L Lactic Acid Fup @ 2Hr (0.5-2.0) mmol/L Calcium 7.2 L D (8.4-10.2) mg/dL Magnesium (1.6-2.6) mg/dL Total Bilirubin (0.0-1.0) mg/dL Direct Bilirubin (0.0-0.5) mg/dL AST (5-37) U/L ALT (0-40) U/L Alkaline Phosphatase (39-117) U/L Troponin I High Sens (<3.5-35.0) ng/L Total Protein (6.5-8.0) g/dL Albumin (3.5-5.0) g/dL Lipase (8-78) U/L Stool Occult Blood (NEG) COVID-19 (SEVEN) (Negative) COVID-19 Clin Com Blood Type Antibody Screen Crossmatch 09/20/20 09/20/20 09/20/20 Range/Units 07:35 07:35 07:35 WBC (4.8-10.8) X10*3/uL RBC (4.60-5.80) X10*6/uL Hgb (14.0-18.0) g/dl Hct (42-52) % MCV (80-98) fL MCH (27.0-33.0) pg MCHC (31.0-36.0) g/dl RDW (11.0-16.0) % Plt Count (160-400) X10*3/uL MPV (9.4-12.4) fL Immature Gran % (Auto) (0.0-0.4) % Neut % (Auto) (45-73) % Lymph % (Auto) (20-40) % [place] % (Auto) (2-11) % Eos % (Auto) (0-4) % Baso % (Auto) (0-2) % Lymph # (Auto) (1.2-4.9) X10*3/uL [place] # (Auto) (0.1-1.2) X10*3/uL Eos # (Auto) (0.0-0.4) X10*3/uL Baso # (Auto) (0.0-0.2) X10*3/uL Abs Immat Gran (auto) (0.00-0.03) X10*3/uL Absolute Neuts (auto) (2.0-8.3) X10*3/uL Absolute Nucleated RBC (0.0-0.012) X10*3/uL Nucleated RBC % (auto) (0.0-0.2) /100WBC Smear Tech's Comments PT (10.8-13.0) SEC INR (0.9-1.1) APTT (24.1-38.0) SEC Sodium (135-145) mmol/L Potassium (3.3-5.1) mmol/l Chloride (96-108) mmol/L Carbon Dioxide (22-29) mmol/L Anion Gap (12-20) BUN (9-16) mg/dL Creatinine (0.5-1.4) mg/dL Estim Creat Clear Calc Estimated GFR POC Glucose (60-115) mg/dL Random Glucose (60-115) mg/dL Lactic Acid 2.6 H* (0.5-2.0) mmol/L Lactic Acid Fup @ 2Hr (0.5-2.0) mmol/L Calcium (8.4-10.2) mg/dL Magnesium 1.6 (1.6-2.6) mg/dL Total Bilirubin 1.7 H (0.0-1.0) mg/dL Direct Bilirubin 1.0 H (0.0-0.5) mg/dL AST 397 H (5-37) U/L ALT 216 H (0-40) U/L Alkaline Phosphatase 183 H D (39-117) U/L Troponin I High Sens 132.0 H D (<3.5-35.0) ng/L Total Protein 4.8 L (6.5-8.0) g/dL Albumin 3.0 L (3.5-5.0) g/dL Lipase 18 (8-78) U/L Stool Occult Blood (NEG) COVID-19 (SEVEN) (Negative) COVID-19 Clin Com Blood Type Antibody Screen Crossmatch 09/20/20 09/20/20 09/20/20 Range/Units 07:48 07:50 09:07 WBC (4.8-10.8) X10*3/uL RBC (4.60-5.80) X10*6/uL Hgb (14.0-18.0) g/dl Hct (42-52) % MCV (80-98) fL MCH (27.0-33.0) pg MCHC (31.0-36.0) g/dl RDW (11.0-16.0) % Plt Count (160-400) X10*3/uL MPV (9.4-12.4) fL Immature Gran % (Auto) (0.0-0.4) % Neut % (Auto) (45-73) % Lymph % (Auto) (20-40) % [place] % (Auto) (2-11) % Eos % (Auto) (0-4) % Baso % (Auto) (0-2) % Lymph # (Auto) (1.2-4.9) X10*3/uL [place] # (Auto) (0.1-1.2) X10*3/uL Eos # (Auto) (0.0-0.4) X10*3/uL Baso # (Auto) (0.0-0.2) X10*3/uL Abs Immat Gran (auto) (0.00-0.03) X10*3/uL Absolute Neuts (auto) (2.0-8.3) X10*3/uL Absolute Nucleated RBC (0.0-0.012) X10*3/uL Nucleated RBC % (auto) (0.0-0.2) /100WBC Smear Tech's Comments PT (10.8-13.0) SEC INR (0.9-1.1) APTT (24.1-38.0) SEC Sodium (135-145) mmol/L Potassium (3.3-5.1) mmol/l Chloride (96-108) mmol/L Carbon Dioxide (22-29) mmol/L Anion Gap (12-20) BUN (9-16) mg/dL Creatinine (0.5-1.4) mg/dL Estim Creat Clear Calc Estimated GFR POC Glucose (60-115) mg/dL Random Glucose (60-115) mg/dL Lactic Acid (0.5-2.0) mmol/L Lactic Acid Fup @ 2Hr (0.5-2.0) mmol/L Calcium (8.4-10.2) mg/dL Magnesium (1.6-2.6) mg/dL Total Bilirubin (0.0-1.0) mg/dL Direct Bilirubin (0.0-0.5) mg/dL AST (5-37) U/L ALT (0-40) U/L Alkaline Phosphatase (39-117) U/L Troponin I High Sens (<3.5-35.0) ng/L Total Protein (6.5-8.0) g/dL Albumin (3.5-5.0) g/dL Lipase (8-78) U/L Stool Occult Blood NEG (NEG) COVID-19 (SEVEN) Negative (Negative) COVID-19 Clin Com See Note Blood Type A Negative Antibody Screen NEGATIVE Crossmatch See Detail 09/20/20 09/20/20 Range/Units 11:13 14:21 WBC (4.8-10.8) X10*3/uL RBC (4.60-5.80) X10*6/uL Hgb (14.0-18.0) g/dl Hct (42-52) % MCV (80-98) fL MCH (27.0-33.0) pg MCHC (31.0-36.0) g/dl RDW (11.0-16.0) % Plt Count (160-400) X10*3/uL MPV (9.4-12.4) fL Immature Gran % (Auto) (0.0-0.4) % Neut % (Auto) (45-73) % Lymph % (Auto) (20-40) % [place] % (Auto) (2-11) % Eos % (Auto) (0-4) % Baso % (Auto) (0-2) % Lymph # (Auto) (1.2-4.9) X10*3/uL [place] # (Auto) (0.1-1.2) X10*3/uL Eos # (Auto) (0.0-0.4) X10*3/uL Baso # (Auto) (0.0-0.2) X10*3/uL Abs Immat Gran (auto) (0.00-0.03) X10*3/uL Absolute Neuts (auto) (2.0-8.3) X10*3/uL Absolute Nucleated RBC (0.0-0.012) X10*3/uL Nucleated RBC % (auto) (0.0-0.2) /100WBC Smear Tech's Comments PT (10.8-13.0) SEC INR (0.9-1.1) APTT (24.1-38.0) SEC Sodium (135-145) mmol/L Potassium (3.3-5.1) mmol/l Chloride (96-108) mmol/L Carbon Dioxide (22-29) mmol/L Anion Gap (12-20) BUN (9-16) mg/dL Creatinine (0.5-1.4) mg/dL Estim Creat Clear Calc Estimated GFR POC Glucose 112 (60-115) mg/dL Random Glucose (60-115) mg/dL Lactic Acid (0.5-2.0) mmol/L Lactic Acid Fup @ 2Hr 1.7 (0.5-2.0) mmol/L Calcium (8.4-10.2) mg/dL Magnesium (1.6-2.6) mg/dL Total Bilirubin (0.0-1.0) mg/dL Direct Bilirubin (0.0-0.5) mg/dL AST (5-37) U/L ALT (0-40) U/L Alkaline Phosphatase (39-117) U/L Troponin I High Sens (<3.5-35.0) ng/L Total Protein (6.5-8.0) g/dL Albumin (3.5-5.0) g/dL Lipase (8-78) U/L Stool Occult Blood (NEG) COVID-19 (SEVEN) (Negative) COVID-19 Clin Com Blood Type Antibody Screen Crossmatch ECG Data Attestation: I personally reviewed and interpreted this ECG as follows: ECG interpretation date: 09/20/20 ECG interpretation time: 07:28 Interpretation: Rate: 88 Rhythm: NSR [place]: left Normal P waves. 1st degree AVB Normal QRS complex. ST T wave : ST depressions V4-V6, no LETTY qTC: normal prior studies: changed from Aug 2020 The study has been interpreted contemporaneously by me. . Critical Care Time Critical Care Time Critical Care Time: Yes Total Critical Care Time: 120 Attestation: IVF 30cc/kg bolus, IV antibiotics, reassessments, IV line, surgical consult, review of records I attest to this time spent taking care of the patient Discharge Plan Discharge Clinical Impression: Acute GI bleeding, Acidosis, lactic, Elevated troponin, Abnormal LFTs (liver function tests), Cholecystitis, Choledocholithiasis, Dysarthria Patient Disposition: Admitted As Inpatient
[2020-09-20 07:46] LABS: Basophils Percent Auto 0.1 % (0-2); Eosinophils Percent Auto 0.1 % (0-4); Hematocrit 30.2 % (42-52); Hemoglobin 9.8 g/dl (14.0-18.0); Imm Gran Abs Auto 0.05 X10*3/uL (0.00-0.03); Imm Gran Pct Auto 0.7 % (0.0-0.4); Lymphocytes Absolute Auto 0.1 X10*3/uL (1.2-4.9); Lymphocytes Percent Auto 1.5 % (20-40); MANUAL DIFF FLAG SCAN; Mean Corpuscular HGB Conc 32.5 g/dl (31.0-36.0); Mean Corpuscular Hemoglobin 31.7 pg (27.0-33.0); Mean Corpuscular Volume 97.7 fL (80-98); Mean Platelet Volume 9.8 fL (9.4-12.4); Monocytes Absolute Auto 0.5 X10*3/uL (0.1-1.2); Monocytes Percent Auto 6.1 % (2-11); Neutrophils Absolute Auto 6.8 X10*3/uL (2.0-8.3); Neutrophils Percent Auto 91.5 % (45-73); Platelet Count 192 X10*3/uL (160-400); Red Blood Count 3.09 X10*6/uL (4.60-5.80); Red Cell Distribution Width 15.9 % (11.0-16.0); SCAN SMEAR FLAG 1; White Blood Count 7.4 X10*3/uL (4.8-10.8)
[2020-09-20 07:55] LABS: INTERNATIONAL NORM RATIO 1.1 (0.9-1.1); Prothrombin Time 13.6 SEC (10.8-13.0)
[2020-09-20 07:57] LABS: Partial Thromboplastin Time 27.5 SEC (24.1-38.0)
[2020-09-20] MEDS: 0.9 % Sodium Chloride 1,000 ML 999 ML IVCONT ×2 (07:59→12:36)
[2020-09-20] MEDS: ondansetron HCL 4 MG/2 ML VIAL IVPUSH (08:00)
[2020-09-20] MEDS: Pantoprazole Sodium 40 MG/10 ML VIAL IVPUSH (08:00)
[2020-09-20 08:15] LABS: Lactic Acid 2.6 mmol/L (0.5-2.0)
[2020-09-20] MEDS: 0.9 % Sodium Chloride 500 ML IV (08:15)
--- NOTE | 2020-09-20 08:15 | XR_ITS ---
EXAMINATION: XR CHEST CLINICAL INFORMATION: Weakness and vomiting COMPARISON: Previous chest x-ray August 2020 TECHNIQUE: Frontal view of the chest was obtained. FINDINGS: The cardiac silhouette is enlarged but stable. Hilar and mediastinal contours are unremarkable. The lungs are clear. There is no pleural effusion or pneumothorax. There are degenerative changes of the spine. XR/XR chest 1V IMPRESSION: Stable enlargement of the cardiac silhouette. No evidence for acute disease in the chest.
[2020-09-20 08:16] LABS: Anion Gap 11 (12-20); Blood Urea Nitrogen 17 mg/dL (9-16); Carbon Dioxide 24 mmol/L (22-29); Chloride 111 mmol/L (96-108); Creatinine Clr Calc Pharmacy 61.9; Estimated Glomerular Filt Rate > 60; Glucose Random 123 mg/dL (60-115); Potassium 3.1 mmol/l (3.3-5.1); Sodium 143 mmol/L (135-145)
[2020-09-20 08:22] LABS: Alanine Aminotransferase 216 U/L (0-40); Alkaline Phosphatase 183 U/L (39-117); Aspartate Amino Transferase 397 U/L (5-37); Bilirubin Total 1.7 mg/dL (0.0-1.0); Lipase 18 U/L (8-78); Magnesium 1.6 mg/dL (1.6-2.6); Total Protein 4.8 g/dL (6.5-8.0)
[2020-09-20 08:22] LABS: COVID-19 Test Negative (Negative); IDNOW Serial# 9DD0AD1C
[2020-09-20 08:23] LABS: Calcium 7.2 mg/dL (8.4-10.2)
[2020-09-20 08:53] LABS: SLIDE REVIEW VERIFIED
[2020-09-20] MEDS: iohexoL 350 MG/ML 100 ML INFUS..BTL 85 ML IV (08:55)
[2020-09-20] MEDS: Piperacillin Sodium/Tazobactam 3.375 GM in 0.9 % Sodium Chloride 50 ML IV (09:26)
[2020-09-20] MEDS: Acetaminophen 325 MG TABLET 650 MG PO (09:26)
[2020-09-20 09:30] LABS: OBS Int Ctl Valid YES; OBS1 NEG (NEG)
--- NOTE | 2020-09-20 09:37 | US_ITS ---
EXAMINATION: US ABDOMEN LIMITED CLINICAL INFORMATION: Right upper quadrant pain. COMPARISON: CT abdomen 09/20/2020 TECHNIQUE: Real-time imaging is performed portably, limited to the gallbladder as per request. FINDINGS: The gallbladder is distended to 4.4 cm in diameter. There is mild uniform gallbladder wall thickening measuring over 5 mm. There is no visible edema are in the wall or hyperemia on color Doppler. There are specular echoes at the gallbladder neck, suspicious for small impacted calculi. The common duct is not imaged. Sonographic Harrell's sign is negative. No ascites right upper quadrant or visible pericolic cystic fluid. US/US abdomen limited IMPRESSION: 1. Distended gallbladder with mild wall thickening. Suspect impacted calculi at gallbladder neck. 2. Common duct not imaged. No visible right upper quadrant fluid.
[2020-09-20 09:40] LABS: Reflex Lactate? Lactic Acid Added
[2020-09-20] MEDS: Hydrocortisone Sod Succ/PF 100 MG VIAL IVPUSH (11:45)
[2020-09-20 11:47] LABS: ~Lactic Acid-LAB USE ONLY 1.7 mmol/L (0.5-2.0)
--- NOTE | 2020-09-20 13:55 | P.CONAN_ITS ---
HPI - Anesthesia Eval Consult details Narrative: 80 M w/ recent admission for GIB requiring 4u PRBC p/w cholangitis, rising LFTs and high lactate, booked for urgent ERCPs. Hx of MG on oral prednisone and pyridostigmine 60''' PMFSH Past Medical History Medical History Acute respiratory disease BPH (benign prostatic hyperplasia) CAD (coronary artery disease) Cataract COVID-19 Depression Diabetes mellitus GERD (gastroesophageal reflux disease) Hammer toe Hammer toes, bilateral History of diverticulosis History of rectal cancer Hyperlipidemia Hypertension Inguinal hernia Insomnia Malignant neoplasm of colon Myasthenia gravis Nonalcoholic steatohepatitis (MARTI) Onychogryphosis Rheumatoid arthritis Urinary incontinence Family History Family History Mother No problems noted. Father No problems noted. Brother No problems noted. Sister No problems noted. Daughter Psychiatric disorder Son No problems noted. Surgical History Surgical History History of colostomy History of colostomy reversal History of incisional hernia repair History of low anterior resection of rectum Social History Social History Household Members: None Housing: [facility] Alcohol intake: never Smoking Status: Never smoker Use of substances other than those prescribed or required for medical reasons: No Advance Directives: Yes Advance Directives on File: Yes Advance Directives Date on File: 06/21/20 service: Yes Current occupational status: retired [employer] Allergies Allergy/AdvReac Type Severity Reaction Status Date / Time No Known Allergies Allergy Unverified 09/14/20 09:38 [No Known Allergies*] Home Medications Medication Instructions Recorded Confirmed Type acetaminophen 650 mg PO BEDTIME 09/14/20 09/20/20 History aspirin 81 mg PO DAILY 09/14/20 09/20/20 History atorvastatin 40 mg PO DAILY@1700 09/14/20 09/20/20 History azathioprine 50 mg PO BID 09/14/20 09/20/20 History calcium polycarbophil 625 mg PO BID 09/14/20 09/20/20 History carboxymethylcellulose sodium 1 drp OPHTHALMIC (EYE) BEDTIME 09/14/20 09/20/20 History cholecalciferol (vitamin D3) 25 mcg PO DAILY 09/14/20 09/20/20 History cyanocobalamin (vitamin B-12) 1,000 mcg IM QMONTH 09/14/20 09/20/20 History ferrous sulfate [Iron (ferrous 325 mg PO BID 09/14/20 09/20/20 History sulfate)] fluticasone propionate 1 spray INTRANASAL BID 09/14/20 09/20/20 History lisinopril 5 mg PO DAILY@1700 09/14/20 09/20/20 History oxybutynin chloride 15 mg PO DAILY 09/14/20 09/20/20 History prednisone 5 mg PO Q OTHER DAY 09/14/20 09/20/20 History pyridostigmine bromide 60 mg PO TID 09/14/20 09/20/20 History quetiapine 25 mg PO BEDTIME 09/14/20 09/20/20 History quetiapine 100 mg PO BEDTIME 09/14/20 09/20/20 History tamsulosin 0.4 mg PO BEDTIME 09/14/20 09/20/20 History trazodone 50 mg PO BEDTIME 09/14/20 09/20/20 History venlafaxine 150 mg PO DAILY 09/14/20 09/20/20 History docusate sodium 100 mg PO BID 09/20/20 09/20/20 History loratadine 10 mg PO DAILY 09/20/20 09/20/20 History lorazepam 0.25 mg PO Q6H PRN 09/20/20 09/20/20 History omeprazole 40 mg PO DAILY@1600 09/20/20 09/20/20 History Exam Exam Date and Time: September 20, 2020 1355 Height,Weight and Vital Signs: Height 5 ft 9 in Weight 84.005 kg Last Vital Signs Temp 99 F 09/20/20 10:36 Pulse 87 09/20/20 12:00 Resp 15 09/20/20 12:00 BP 99/58 L 09/20/20 13:39 Pulse Ox 94 09/20/20 12:00 Pertinent Lab Results Pertinent Lab Results: Laboratory Tests 09/20/20 09/20/20 09/20/20 07:35 07:35 07:35 WBC 7.4 RBC 3.09 L Hgb 9.8 L Hct 30.2 L MCV 97.7 MCH 31.7 MCHC 32.5 RDW 15.9 Plt Count 192 MPV 9.8 Immature Gran % (Auto) 0.7 H Neut % (Auto) 91.5 H Lymph % (Auto) 1.5 L [place] % (Auto) 6.1 Eos % (Auto) 0.1 Baso % (Auto) 0.1 Lymph # (Auto) 0.1 L [place] # (Auto) 0.5 Eos # (Auto) 0.0 Baso # (Auto) 0.0 Abs Immat Gran (auto) 0.05 H Absolute Neuts (auto) 6.8 Absolute Nucleated RBC 0.000 Nucleated RBC % (auto) 0.0 Smear Tech's Comments VERIFIED PT 13.6 H INR 1.1 APTT 27.5 Sodium 143 Potassium 3.1 L D Chloride 111 H Carbon Dioxide 24 Anion Gap 11 L BUN 17 H Creatinine 0.92 Estim Creat Clear Calc 61.9 Estimated GFR > 60 Random Glucose 123 H Lactic Acid Lactic Acid Fup @ 2Hr Calcium 7.2 L D Magnesium Total Bilirubin Direct Bilirubin AST ALT Alkaline Phosphatase Troponin I High Sens Total Protein Albumin Lipase Stool Occult Blood COVID-19 (SEVEN) [employer] Blood Type Antibody Screen Crossmatch 09/20/20 09/20/20 09/20/20 07:35 07:35 07:35 WBC RBC Hgb Hct MCV MCH MCHC RDW Plt Count MPV Immature Gran % (Auto) Neut % (Auto) Lymph % (Auto) [place] % (Auto) Eos % (Auto) Baso % (Auto) Lymph # (Auto) [place] # (Auto) Eos # (Auto) Baso # (Auto) Abs Immat Gran (auto) Absolute Neuts (auto) Absolute Nucleated RBC Nucleated RBC % (auto) Smear Tech's Comments PT INR APTT Sodium Potassium Chloride Carbon Dioxide Anion Gap BUN Creatinine Estim Creat Clear Calc Estimated GFR Random Glucose Lactic Acid 2.6 H* Lactic Acid Fup @ 2Hr Calcium Magnesium 1.6 Total Bilirubin 1.7 H Direct Bilirubin 1.0 H AST 397 H ALT 216 H Alkaline Phosphatase 183 H D Troponin I High Sens 132.0 H D Total Protein 4.8 L Albumin 3.0 L Lipase 18 Stool Occult Blood COVID-19 (SEVEN) [email or web address] Blood Type Antibody Screen Crossmatch 09/20/20 09/20/20 09/20/20 07:48 07:50 09:07 WBC RBC Hgb Hct MCV MCH MCHC RDW Plt Count MPV Immature Gran % (Auto) Neut % (Auto) Lymph % (Auto) [place] % (Auto) Eos % (Auto) Baso % (Auto) Lymph # (Auto) [place] # (Auto) Eos # (Auto) Baso # (Auto) Abs Immat Gran (auto) Absolute Neuts (auto) Absolute Nucleated RBC Nucleated RBC % (auto) Smear Tech's Comments PT INR APTT Sodium Potassium Chloride Carbon Dioxide Anion Gap BUN Creatinine Estim Creat Clear Calc Estimated GFR Random Glucose Lactic Acid Lactic Acid Fup @ 2Hr Calcium Magnesium Total Bilirubin Direct Bilirubin AST ALT Alkaline Phosphatase Troponin I High Sens Total Protein Albumin Lipase Stool Occult Blood NEG COVID-19 (SEVEN) Negative COVID-19 [place] See Note Blood Type A Negative Antibody Screen NEGATIVE Crossmatch See Detail 09/20/20 11:13 WBC RBC Hgb Hct MCV MCH MCHC RDW Plt Count MPV Immature Gran % (Auto) Neut % (Auto) Lymph % (Auto) [place] % (Auto) Eos % (Auto) Baso % (Auto) Lymph # (Auto) [place] # (Auto) Eos # (Auto) Baso # (Auto) Abs Immat Gran (auto) Absolute Neuts (auto) Absolute Nucleated RBC Nucleated RBC % (auto) Smear Tech's Comments PT INR APTT Sodium Potassium Chloride Carbon Dioxide Anion Gap BUN Creatinine Estim Creat Clear Calc Estimated GFR Random Glucose Lactic Acid Lactic Acid Fup @ 2Hr 1.7 Calcium Magnesium Total Bilirubin Direct Bilirubin AST ALT Alkaline Phosphatase Troponin I High Sens Total Protein Albumin Lipase Stool Occult Blood COVID-19 (SEVEN) COVID-19 [place] Blood Type Antibody Screen Crossmatch Assessment and Plan Assessment Anesthesia Assessment: Anesthesia Plan Discussed and Chart Reviewed Final Anesthetic Review NPO: Yes ASA Class: IV and Emergency Final Preanesthetic Review: No Changes in Pt Med Stat, Meds/Allgs Chart Reviewed, Consent Obtained/Reviewed and Anes Risks/Benef Reviewed Patient Risk: High Procedure Risk: Low Assessment/Block/Sedation in SS: Assess/Block/Sedation-SS Anesthetic Plan Anesthetic Plan: GA (Recent upper endoscopy with GETA; intubation w/out paralytic easy and atraumatic; plan to repeat similar strategy.) Disposition: Inp. Admit - [facility]
[2020-09-20] MEDS: Albumin Human 25 % 100 ML IV (14:00)
--- NOTE | 2020-09-20 14:21 | CT_ITS ---
EXAMINATION: CT HEAD WITHOUT CONTRAST CLINICAL INFORMATION: Slurred speech. COMPARISON: CT head from 08/07/2015. Brain MRI from 01/25/2007. TECHNIQUE: Contiguous axial imaging was performed from the skull base to vertex without intravenous administration of contrast. This CT examination was performed using dose optimization techniques as appropriate, variously including the following: *Automated exposure control. *Adjustment of mA and/or kV according to patient size (this includes techniques or standardized protocols for targeted exams where dose is matched to indication/reason for exam; i.e. extremities or head). *Use of iterative reconstruction technique. DLP: 776 mGy-cm FINDINGS: There appears to be subtle blurring of the alston to white matter differentiation within the lateral aspect of the left precentral gyrus (image 41/58). No evidence of acute intracranial hemorrhage. The alston-white matter differentiation otherwise appears reserved. Scattered hypoattenuation in the periventricular and deep white matter are consistent with mild to moderate microangiopathy. Proportional prominence of the ventricles and sulcal spaces. No evidence for obstructive hydrocephalus. No abnormal mass effect or midline shift. No extra-axial fluid collections. Calcific atherosclerotic disease of the intracranial internal carotid and vertebral arteries. No hyperdense vessel sign. No acute soft tissue or osseous abnormalities. Moderate leftward nasal septal deviation. Mild mucosal thickening of the paranasal sinuses. The mastoid air cells and middle ear cavities remain well aerated. Bilateral lens extractions. CT/CT head/brain wo con IMPRESSION: 1. Subtle blurring of the alston to white matter differentiation within the lateral aspect of the left precentral gyrus suggestive of a developing acute to subacute infarct. 2. No evidence of acute intracranial hemorrhage. 3. Mild to moderate underlying microangiopathy and generalized cerebral volume loss.
--- NOTE | 2020-09-20 14:23 | PC.NURSE ---
PATIENT ARRIVED AT 1408 AND DURING ASSESSMENT PATIENT BEGAN TO HAVE SLURRED SPEECH. PATIENT STATED MY SPEECH IS SLURRED . 1410 LEFT PRE-OP AREA PER MD ALEXANDRA BACK TO ER. ANOTHER RN CALLED FOR REPORT WHILE IN TRANSIT. ARRIVED TO ER TO BED 5 AT 1415. ER MD AGUILAR BY BEDSIDE EVAL PATIENT WHILE OTHER STAFF ATTENDING PATIENT. PATIENT TO HAVE OF THE BRAIN.
[2020-09-20 14:26] LABS: Glucose, Whole Blood 112 mg/dL (60-115)
--- NOTE | 2020-09-20 15:49 | MHC.STROKE ---
Addendum entered by Venita Mendes RN 09/20/20 16:14: I RECEIVED A CALL FROM DR WILSON AND HE WANTED NEUROLOGY'S OPINION REGARDING AN ERCP PROCEDURE FOR CHOLANGITIS. HE WOULD LIKE ANESTHESIA DR LINDA TO SPEAK TO DR SCHAEFER. THEY DID SPEAK AND DR SCHAEFER IS RECOMMENDING A MRI TO DEFINITIVELY DIAGNOSE THE ACUTE/SUBACUTE STROKE. Original Note: [address] AGUILAR OF POSSIBLE STROKE. ONSET OF SYMPTOMS 1408 IN PACU. HE WAS IN THE ED THIS AM ARRIVED 0657 FROM [facility] HOME. GI BLEED, HYPOTENSION. RBC'S GIVEN. TRANSFERRED TO PACU FOR POSSIBLE ERCP. TOR RN NOTICED SLURRED/DYSARTHRIC SPEECH. PATIENT RETURNED TO ED #5. CT HEAD DONE 1429. SUGGESTIVE OF A DEVELOPING ACUTE TO SUBACUTE INFARCT LATERAL ASPECT OF THE LEFT PRECENTRAL GYRUS. SEE DR AGUILAR'S NOTE, EXCLUDED FROM TPA DUE TO RECENT GI BLEED. NIHSS = 1 FOR DYSARTHRIA. HE DID PASS HIS SWALLOW SCREEN BUT I DID OBSERVE A SLIGHT DELAY IN SWALLOWING, NO COUGH. HOB ELEVATED. I DID RELAY THIS INFORMATION TO DR SCHAEFER WHO IS PIER MASTER ASSISTANT TODAY. NEUROLOGY CONSULT RECOMMENDED. I WILL CONTINUE TO FOLLOW.
--- NOTE | 2020-09-20 16:05 | P.HPHOSP_ITS ---
History of Present Illness Date of Service: 09/20/20 <Flor Gonzalez NP - Last Filed: 09/20/20 20:51> Chief Complaint: GI bleed <Flor Gonzalez NP - Last Filed: 09/20/20 20:51> 80-year-old man presenting from nursing home facility with GI bleed and hypotension. Patient was discharged from [facility] on September 15 after a complicated course. He initially presented to the ER with bleeding and hypotension. He was transferred to the ICU where he received blood transfusion and blood pressure did improve. He had bleeding scan and EGD which did not find any acute bleeding and was thought to be diverticular bleeding. Apparently his blood pressure at the nursing home facility was 75/49 upon arrival. He has had nausea, vomiting loss of appetite. Upon arrival to the ER he was noted to have a fever of 101, respiratory 24 and blood pressure of 82/44. Lactic acid was elevated at 2.6. His troponin was also noted to be elevated at 132 and it appeared that he had some ST wave depressions. Due to the GI bleeding he had an abdominal CAT scan which showed a mildly dilated CBD appearing to be choledocholithiasis. It was thought that some of the complications at the patient had were related to sepsis/septic shock due to choledocholithiasis therefore patient was brought to the OR for ERCP. While in preop patient developed slurred speech and was brought back to the ER to have a CT scan. CT scan did show a developing acute versus subacute infarction. Patient will be sent for ERCP as clearing the infection would help alleviate some complications. <Flor Gonzalez NP - Last Filed: 09/20/20 20:51> Review of Systems Review of Systems: Yes Unobtainable due to mental status <Flor Gonzalez NP - Last Filed: 09/20/20 20:51> [facility] Medical History: Medical History Acute respiratory disease BPH (benign prostatic hyperplasia) CAD (coronary artery disease) Cataract COVID-19 Depression Diabetes mellitus GERD (gastroesophageal reflux disease) Hammer toe Hammer toes, bilateral History of diverticulosis History of rectal cancer Hyperlipidemia Hypertension Inguinal hernia Insomnia Malignant neoplasm of colon Myasthenia gravis Nonalcoholic steatohepatitis (MARTI) Onychogryphosis Rheumatoid arthritis Urinary incontinence <Flor Gonzalez NP - Last Filed: 09/20/20 20:51> Family History: Family History Mother No problems noted. Father No problems noted. Brother No problems noted. Sister No problems noted. Daughter Psychiatric disorder Son No problems noted. <Flor Gonzalez NP - Last Filed: 09/20/20 20:51> Surgical History: Surgical History History of colostomy History of colostomy reversal History of incisional hernia repair History of low anterior resection of rectum <Flor Gonzalez NP - Last Filed: 09/20/20 20:51> Social History: Social History Household Members: Other Housing: Senior Living Alcohol intake: never Smoking Status: Never smoker Advance Directives Date on File: 06/21/20 service: Yes Current occupational status: retired <Flor Gonzalez NP - Last Filed: 09/20/20 20:51> Meds Allergies/Adverse reactions: Allergies Allergy/AdvReac Type Severity Reaction Status Date / Time No Known Allergies Allergy Unverified 09/14/20 09:38 [No Known Allergies*] <Flor Gonzalez NP - Last Filed: 09/20/20 20:51> Home medications: Home Medications Medication Instructions Recorded Confirmed Type acetaminophen 650 mg PO BEDTIME 09/14/20 09/20/20 History aspirin 81 mg PO DAILY 09/14/20 09/20/20 History atorvastatin 40 mg PO DAILY@1700 09/14/20 09/20/20 History azathioprine 50 mg PO BID 09/14/20 09/20/20 History calcium polycarbophil 625 mg PO BID 09/14/20 09/20/20 History carboxymethylcellulose sodium 1 drp OPHTHALMIC (EYE) BEDTIME 09/14/20 09/20/20 History cholecalciferol (vitamin D3) 25 mcg PO DAILY 09/14/20 09/20/20 History cyanocobalamin (vitamin B-12) 1,000 mcg IM QMONTH 09/14/20 09/20/20 History ferrous sulfate [Iron (ferrous 325 mg PO BID 09/14/20 09/20/20 History sulfate)] fluticasone propionate 1 spray INTRANASAL BID 09/14/20 09/20/20 History oxybutynin chloride 15 mg PO DAILY 09/14/20 09/20/20 History prednisone 5 mg PO Q OTHER DAY 09/14/20 09/20/20 History pyridostigmine bromide 60 mg PO TID 09/14/20 09/20/20 History quetiapine 25 mg PO BEDTIME 09/14/20 09/20/20 History quetiapine 100 mg PO BEDTIME 09/14/20 09/20/20 History tamsulosin 0.4 mg PO BEDTIME 09/14/20 09/20/20 History trazodone 50 mg PO BEDTIME 09/14/20 09/20/20 History venlafaxine 150 mg PO DAILY 09/14/20 09/20/20 History docusate sodium 100 mg PO BID 09/20/20 09/20/20 History loratadine 10 mg PO DAILY 09/20/20 09/20/20 History lorazepam 0.25 mg PO Q6H PRN 09/20/20 09/20/20 History omeprazole 40 mg PO DAILY@1600 09/20/20 09/20/20 History <Flor Gonzalez NP - Last Filed: 09/20/20 20:51> Physical Exam Vital Signs and Narrative: Vital Signs: Last Vital Signs Temp 99 F 09/20/20 10:36 Pulse 60 09/20/20 14:40 Resp 15 09/20/20 14:40 BP 123/65 09/20/20 14:40 Pulse Ox 100 09/20/20 14:40 Body Mass Index 27.3 <Flor Gonzalez NP - Last Filed: 09/20/20 20:51> Appearing in no acute distress head is normocephalic atraumatic eyes pupils are PERRLA sclera is anicteric mouth throat mucous membranes are intact and moist lung sounds are clear heart regular rate rhythm abdomen nontender neuro patient is alert , slurred speech <Flor Gonzalez NP - Last Filed: 09/20/20 20:51> Results Labs CBC and Chem 7: : 09/24/20 05:25 09/24/20 05:25 <Flor Gonzalez NP - Last Filed: 09/20/20 20:51> Labs: Laboratory Results - last 24 hr 09/20/20 09/20/20 09/20/20 07:35 07:35 07:35 MCV 97.7 MCH 31.7 MCHC 32.5 RDW 15.9 Plt Count 192 MPV 9.8 Immature Gran % (Auto) 0.7 H Neut % (Auto) 91.5 H Lymph % (Auto) 1.5 L Clinton % (Auto) 6.1 Eos % (Auto) 0.1 Baso % (Auto) 0.1 Lymph # (Auto) 0.1 L Clinton # (Auto) 0.5 Eos # (Auto) 0.0 Baso # (Auto) 0.0 Abs Immat Gran (auto) 0.05 H Absolute Neuts (auto) 6.8 Absolute Nucleated RBC 0.000 Nucleated RBC % (auto) 0.0 Smear Tech's Comments VERIFIED PT 13.6 H INR 1.1 APTT 27.5 Anion Gap 11 L Estim Creat Clear Calc 61.9 Estimated GFR > 60 POC Glucose Random Glucose 123 H Lactic Acid Lactic Acid Fup @ 2Hr Calcium 7.2 L D Magnesium Total Bilirubin Direct Bilirubin AST ALT Alkaline Phosphatase Troponin I High Sens Total Protein Albumin Lipase Stool Occult Blood COVID-19 (SEVEN) COVID-[employer] Blood Type Antibody Screen Crossmatch 09/20/20 09/20/20 09/20/20 07:35 07:35 07:35 MCV MCH MCHC RDW Plt Count MPV Immature Gran % (Auto) Neut % (Auto) Lymph % (Auto) Clinton % (Auto) Eos % (Auto) Baso % (Auto) Lymph # (Auto) Clinton # (Auto) Eos # (Auto) Baso # (Auto) Abs Immat Gran (auto) Absolute Neuts (auto) Absolute Nucleated RBC Nucleated RBC % (auto) Smear Tech's Comments PT INR APTT Anion Gap Estim Creat Clear Calc Estimated GFR POC Glucose Random Glucose Lactic Acid 2.6 H* Lactic Acid Fup @ 2Hr Calcium Magnesium 1.6 Total Bilirubin 1.7 H Direct Bilirubin 1.0 H AST 397 H ALT 216 H Alkaline Phosphatase 183 H D Troponin I High Sens 132.0 H D Total Protein 4.8 L Albumin 3.0 L Lipase 18 Stool Occult Blood COVID-19 (SEVEN) COVID-[employer] Blood Type Antibody Screen Crossmatch 09/20/20 09/20/2021 07:48 07:50 09:07 MCV MCH MCHC RDW Plt Count MPV Immature Gran % (Auto) Neut % (Auto) Lymph % (Auto) Clinton % (Auto) Eos % (Auto) Baso % (Auto) Lymph # (Auto) Clinton # (Auto) Eos # (Auto) Baso # (Auto) Abs Immat Gran (auto) Absolute Neuts (auto) Absolute Nucleated RBC Nucleated RBC % (auto) Smear Tech's Comments PT INR APTT Anion Gap Estim Creat Clear Calc Estimated GFR POC Glucose Random Glucose Lactic Acid Lactic Acid Fup @ 2Hr Calcium Magnesium Total Bilirubin Direct Bilirubin AST ALT Alkaline Phosphatase Troponin I High Sens Total Protein Albumin Lipase Stool Occult Blood NEG COVID-19 (SEVEN) Negative COVID-19 Clin Com See Note Blood Type A Negative Antibody Screen NEGATIVE Crossmatch See Detail 09/20/20 09/20/20 11:13 14:21 MCV MCH MCHC RDW Plt Count MPV Immature Gran % (Auto) Neut % (Auto) Lymph % (Auto) Clinton % (Auto) Eos % (Auto) Baso % (Auto) Lymph # (Auto) Clinton # (Auto) Eos # (Auto) Baso # (Auto) Abs Immat Gran (auto) Absolute Neuts (auto) Absolute Nucleated RBC Nucleated RBC % (auto) Smear Tech's Comments PT INR APTT Anion Gap Estim Creat Clear Calc Estimated GFR POC Glucose 112 Random Glucose Lactic Acid Lactic Acid Fup @ 2Hr 1.7 Calcium Magnesium Total Bilirubin Direct Bilirubin AST ALT Alkaline Phosphatase Troponin I High Sens Total Protein Albumin Lipase Stool Occult Blood COVID-19 (SEVEN) COVID-19 Clin Com Blood Type Antibody Screen Crossmatch <Flor Gonzalez NP - Last Filed: 09/20/20 20:51> Imaging Radiologist's Impressions: Impressions Abdomen/Pelvis CT 09/20/20 06:59 IMPRESSION: Diffuse colonic diverticulosis and mild constipation. No contrast extravasation seen to suspect any sign of GI bleed at this time. Right renal cysts. There is thick lower anterior abdomen wall scar from previous sigmoid colon/surgical changes. Cholelithiasis without wall thickening. Chest X-Ray 09/20/20 08:15 IMPRESSION: Stable enlargement of the cardiac silhouette. No evidence for acute disease in the chest. Abdomen Ultrasound 09/20/20 09:37 IMPRESSION: 1. Distended gallbladder with mild wall thickening. Suspect impacted calculi at gallbladder neck. 2. Common duct not imaged. No visible right upper quadrant fluid. Head CT 09/20/20 14:21 IMPRESSION: 1. Subtle blurring of the alston to white matter differentiation within the lateral aspect of the left precentral gyrus suggestive of a developing acute to subacute infarct. 2. No evidence of acute intracranial hemorrhage. 3. Mild to moderate underlying microangiopathy and generalized cerebral volume loss. <Flor Gonzalez NP - Last Filed: 09/20/20 20:51> Assessment and Plan (1) Choledocholithiasis: 80-year-old man with complicated emergency course Clears. He presented from nursing home facility with GI bleed. He was also hypotensive initially with systolic pressures in the 80s. his troponin was found to be elevated and he did have some ST depressions. He had no complaints of chest pain. However due to GI bleed anticoagulation would be contraindicated the. It was decided that patient would go to the OR to have ERCP alert however wall high in preop fever have fever he developed slurred speech and was sent back to the ER. Brain CT showed acute versus subacute stroke. Neurology was contacted. Again it was determined that having the procedure would be more beneficial for the patient as this is the likely source of the unfortunate complications. Patient's son was contacted (Robe Finch jr. [phone]) he reiterated the patient is a Full code and he is in agreement of patient having a procedure in light of all the medical complications. Septic shock secondary to choledocholithiasis likely contributing to strain and demand NSTEMI. Hypotension leading to stroke. Unfortunately, because the infection is contributing to these complications, having the ERCP done emergently is in the patient's best interest therefore treating the cause. However, MRI will be obtained prior to determine area of stroke. Because of hypotension his postoperative course may be complicated and it is possible the patient may require an ICU level of care, zipper cutter is aware of patient. He received Zosyn, 30 mL/kg IV fluid bolus, albumin and stress dose of steroids. NSTEMI. Anticoagulation is contraindicated this time due to GI bleed and anemia, cardiology consulted. Follow cardiac status closely. Postop continue aspirin and statin. GI bleed. Negative occult. Recent admission for GI bleed. Received 1 unit of packed red blood cells in the ER. Will need repeat labs this evening. Myasthenia gravis. Patient received stress dose of steroid in the ER. Diabetes mellitus. Sliding scale Coronary artery disease . Aspirin and statin Hypertension. Hold antihypertensives due to hypotension. DVT prophylaxis with mechanical compression boots. Discussed with Dr. Hood Full code <Flor Gonzalez NP - Last Filed: 09/20/20 20:51>
--- NOTE | 2020-09-20 16:35 | MR_ITS ---
EXAMINATION: MR BRAIN WITHOUT CONTRAST CLINICAL INFORMATION: Slurred speech. COMPARISON: CT head from 09/20/2020. TECHNIQUE: MRI of the brain was obtained using routine sequences without contrast. FINDINGS: Focal region of restricted diffusion within the lateral aspect of the left precentral gyrus consistent with acute infarction. Associated T2 FLAIR hyperintensity. No additional restricted diffusion. No evidence of acute or chronic hemorrhagic products on heme-sensitive imaging. Scattered periventricular and deep white matter T2 FLAIR hyperintensities consistent with mild underlying microangiopathy. Small lacunar infarct of the left farah radiata. Proportional prominence of the ventricles and sulcal spaces without evidence of obstructive hydrocephalus. No abnormal mass effect. No midline shift. Normal appearance of the pituitary gland. Normal positioning of the cerebellar tonsils. Normal arterial and venous vascular flow voids are present. Normal, homogeneous marrow signal. Moderate degenerative spondyloarthropathy of the visualized upper cervical spine. Moderate leftward nasal septal deviation. Mild mucosal thickening of the paranasal sinuses. No signal abnormalities within the mastoids. Bilateral lens extractions. MR/MR head/brain wo con IMPRESSION: 1. Small acute infarct of the lateral left precentral gyrus. No evidence of hemorrhagic conversion. 2. Mild underlying microangiopathy. Generalized cerebral volume loss.
--- NOTE | 2020-09-20 16:37 | PM.EVENT ---
Event Note Date of Service: 09/20/20 Event Note: GI consult dictated pt seen and examined ERCP was planned emergently, but after discussion with anesthesia, and neurology will hold off for now pending mri of brain to assess risk of anesthesia. Lactate and BP have improved with supportive care. Continue antibiotics and monitor lfts.
--- NOTE | 2020-09-20 17:27 | CONS_ITS ---
DATE OF SERVICE: 09/20/2020 REFERRING PHYSICIAN: Fatmata Klein DO REASON FOR CONSULTATION: Common bile duct stones. HISTORY OF PRESENT ILLNESS: The patient is a pleasant 80-year-old man, well known to me from recent evaluation. He was hospitalized in August with syncope, black stools, and a drop in his hematocrit. He underwent upper endoscopy, which showed mild gastritis, but was otherwise normal. His GI bleeding was thought to be diverticular and he underwent further evaluation of the bleeding scan, which was negative for any active bleeding. He previously had undergone colonoscopy earlier in the year showing diverticular disease and that was not repeated. He was sent to the emergency room with hypotension and fever and was reported to have some bleeding prior to admission, although in the Emergency Department, stools were reportedly occult blood negative. He was somewhat hypotensive and this responded to fluids. CT scanning was obtained after it was found to have elevation of liver enzymes and there were 2 small 4 mm stones identified in the distal common bile duct. The patient had no complaints of pain, but has been on steroids. Emergent ERCP was planned for possible cholangitis, however, in the preop area, he developed slurred speech and had a CT scan of the head showing a possible acute versus subacute infarction. Further discussion between Neurology and Anesthesia was undertaken regarding his risk for worsening neurological symptoms if he underwent general anesthesia and it was elected to defer ERCP given his improved hemodynamics after receiving antibiotics and fluids. PAST MEDICAL HISTORY: 1. Hypertension. 2. Hyperlipidemia. 3. Myasthenia gravis. 4. Rheumatoid arthritis. 5. Diabetes mellitus. 6. Depression. 7. Cataracts. 8. BPH. 9. History of COVID infection in the past. 10. Coronary artery disease. CURRENT MEDICATIONS: Current medication list is reviewed in the chart. ALLERGIES: THERE ARE NONE REPORTED. FAMILY HISTORY: Reviewed and is noncontributory. SOCIAL HISTORY: He resides at [facility] and there is no reported substance abuse. REVIEW OF SYSTEMS: SKIN: No pruritus. HEENT: Negative. CARDIOPULMONARY: He denies shortness of breath or chest pain. GASTROINTESTINAL: As above. GENITOURINARY: Negative. NEUROPSYCHIATRIC: Negative. PHYSICAL EXAMINATION: GENERAL: Shows a pleasant male. SKIN: Pale. HEENT: Shows no scleral icterus. NECK: Without lymphadenopathy or thyromegaly. LUNGS: Clear. HEART: Regular rate and rhythm. S1, S2. No murmur. ABDOMEN: Soft without focal masses or tenderness except in the right upper quadrant, where there is minimal tenderness to deep palpation. Bowel sounds are present. No organomegaly is noted. EXTREMITIES: Without edema. LABORATORY DATA: Shows a white blood cell count of 7.4, hematocrit 30.2. INR 1.1. Total bilirubin 1.7, direct 1.0, AST 397, ALT 216. Review of his CT scan shows the findings as described above. IMPRESSION: Common bile duct stones. I had an extensive discussion with Anesthesia and Neurology as well as Internal Medicine regarding his risk for the procedure. At this point, given his clinical improvement with resuscitation and antibiotics as well as a potential risk to worsen an acute CVA from anesthesia, it seems prudent to hold off on urgent ERCP until MR can be obtained and further recommendations from Neurology. I agree with treating him with antibiotics and monitoring the liver function tests. Thanks for asking me to see him. I will follow him in the hospital with you. MD HALLIE Szymanski/RADHA / [id number] MTDD
--- NOTE | 2020-09-20 17:54 | PM.EVENT ---
Event Note Date of Service: 09/21/20 Event Note: addendum to History and Physical by COMMERCIAL TELLER Flor Gonzalez I interviewed and examined the patient. I discussed their presentation and management with the mid-level provider. I reviewed the history and physical and agree with the documentation, with the following additions and corrections: 80yo M resident of [facility] with PMHx myasthenia gravis on azathioprine + prednisone + pyridostigmine, colorectal CA, DM2, HTN; recently admitted 09/13-09/15/20 with acute GI bleeding with negative EGD and negative bleeding scan, attributed to self-limited diverticular bleed, sent in due to BP 75/49 with recent nausea/vomiting/anorexia and report of gross hematochezia though in the ED, stool was occult-blood negative. Presented septic with tachypnea and fever, hypotensive with BP 82/44, severe sepsis with LA 2.6. He got a dose of stress-dose hydrocortisone [address] A/P with CBD dilation and retained choledocholiths. Tn-I 132->1177 concerning for NSTEMI. Brought to OR for planned ERCP but then had acute onset of expressive aphasia; CT showed acute L precentral gyrus stroke. Brought back to ED and Neurology was consulted. By the time I saw him, he was well-appearing, afebrile, with BP 139/79. Neurological exam with no pronator drift, no motor deficit, and with normal fluent speech. # septic shock # ascending cholangitis # choledocholithiasis - IV pip/matt, follow BCx, IV fluids, continue IV hydrocortisone, ERCP once seen Neurology # acute ischemic CVA - holding antiplatelet agent given question of GI bleed and need for CRP. continue statin. MRI. Neurology consult. # NSTEMI - holding anticoagulation given question of GI bleed and need for ERCP. suspect demand ischemia. TTE, Cardiology consult # GI bleed # acute blood loss anemia - was transfused 1 unit pRBCs in ED. monitor Hb # myasthenia gravis - continue azathioprine + pyridostigmine. stress-dose steroids as above. # CAD - continue statin, hold ASA given recent GIB # HTN - holding lisinopril due to recent hypotension # DM2 - correction-dose lispro # VTE ppx - BLE SCDs, hold heparin # code - FULL, confirmed with pt's son I updated the pt's son Rboe Finch, Jr, by telephone.
[2020-09-20 18:24] LABS: Troponin-I High Sensitivity 1177.1 ng/L (<3.5-35.0)
--- NOTE | 2020-09-20 19:56 | PC.NURSE ---
DISCUSSED CRITICAL BLOOD CULTURE, GRAM NEGATIVE NEGATIVE RODS. TOLD ARTHUR ON HOSPITALIST TEAM.
--- NOTE | 2020-09-20 20:48 | PC.NURSE ---
PT HAS RETURNED FROM MRI, SPEECH IS CLEAR AND PT REPORTS SPEECH IS NOW BACK TO NORMAL. PT GIVEN 2 SPOONS OF WATER, FIRST WENT DOWN FINE. SECOND WENT DOWN THE WRONG WAY. PT DID NOT WANT HIS DINNER, BUT ASKED FOR JELLO, MILK AND WATER. NO TROUBLE SWALLOWING THOSE ITEMS. PT DOES AT TIMES HAVE LIQUIDS THAT HAVE CAUSED HIM TO COUGH, IN THE PAST. GOOD STREGNTH IN ALL EXTREMITIES. PT DENIES HEADACHE. PT NO LONGER EXPERIENCING ABDOMINAL DISCOMFORT.
[2020-09-20 21:35] LABS: Hematocrit 32.3 % (42-52); Hemoglobin 10.9 g/dl (14.0-18.0)
--- NOTE | 2020-09-20 22:25 | PC.NURSE ---
CALLED AND SPOKE WITH DR. MISTRY ABOUT SECOND SET OF BLOOD CULTURES TESTING POSITIVE FOR GRAM NEGATIVE RODS. NO NEW ORDERS AT THIS TIME. TO CONTINUE ANTIBIOTIC THERAPY.
--- NOTE | 2020-09-20 22:41 | PC.NURSE ---
PT RESTING, TRYING TO FALL ASLEEP. NURSING GIS GEOGRAPHER FROM [facility] CALLED FOR AN UPDATE ON PT'S STATUS.
--- NOTE | 2020-09-20 22:57 | PC.NURSE ---
DR WILSON CALLED FOR AN UPDATE. HE WANTS PT TO BE NPO AFTER MIDNIGHT, PLANS FOR AN ERCP TMRW.
[2020-09-21] VITALS (15 sets, daily range): BP systolic 110–165; BP diastolic 43–77; PULSE 50–75; RESP 14–20; TEMP 36.1–37.3; O2SAT 92–99
--- NOTE | 2020-09-21 01:20 | PC.NURSE ---
REPORT GIVEN TO RN ON FLOOR, READY FOR TRANSPORT.
[2020-09-21] MEDS: Piperacillin Sodium/Tazobactam 3.375 GM in 0.9 % Sodium Chloride 50 ML IV ×5 (02:11→23:50)
[2020-09-21] MEDS: 0.9 % Sodium Chloride Flush 3 ML SYRINGE IVFLUSH ×4 (02:12→19:22)
[2020-09-21] MEDS: Acetaminophen 325 MG TABLET 650 MG PO ×2 (02:18→19:55)
[2020-09-21 06:51] LABS: Basophils Percent Auto 0.3 % (0-2); Eosinophils Absolute Auto 0.1 X10*3/uL (0.0-0.4); Eosinophils Percent Auto 1.1 % (0-4); Hematocrit 31.5 % (42-52); Hemoglobin 10.3 g/dl (14.0-18.0); Imm Gran Abs Auto 0.24 X10*3/uL (0.00-0.03); Imm Gran Pct Auto 2.5 % (0.0-0.4); Lymphocytes Absolute Auto 0.3 X10*3/uL (1.2-4.9); Lymphocytes Percent Auto 2.6 % (20-40); MANUAL DIFF FLAG SCAN; Mean Corpuscular HGB Conc 32.7 g/dl (31.0-36.0); Mean Corpuscular Hemoglobin 31.7 pg (27.0-33.0); Mean Corpuscular Volume 96.9 fL (80-98); Mean Platelet Volume 10.7 fL (9.4-12.4); Monocytes Absolute Auto 0.6 X10*3/uL (0.1-1.2); Neutrophils Absolute Auto 8.4 X10*3/uL (2.0-8.3); Neutrophils Percent Auto 87.5 % (45-73); Platelet Count 164 X10*3/uL (160-400); Red Blood Count 3.25 X10*6/uL (4.60-5.80); Red Cell Distribution Width 16.7 % (11.0-16.0); SCAN SMEAR FLAG 1; White Blood Count 9.6 X10*3/uL (4.8-10.8)
[2020-09-21 07:08] LABS: Anion Gap 16 (12-20); Blood Urea Nitrogen 27 mg/dL (9-16); Calcium 7.4 mg/dL (8.4-10.2); Carbon Dioxide 22 mmol/L (22-29); Chloride 110 mmol/L (96-108); Creatinine Clr Calc Pharmacy 61.2; Estimated Glomerular Filt Rate > 60; Glucose Random 97 mg/dL (60-115); Potassium 3.5 mmol/l (3.3-5.1); Sodium 144 mmol/L (135-145)
[2020-09-21 07:09] LABS: Alanine Aminotransferase 167 U/L (0-40); Albumin Level 3.3 g/dL (3.5-5.0); Alkaline Phosphatase 158 U/L (39-117); Aspartate Amino Transferase 127 U/L (5-37); Bilirubin Direct 0.9 mg/dL (0.0-0.5); Bilirubin Total 1.3 mg/dL (0.0-1.0); Total Protein 5.1 g/dL (6.5-8.0)
--- NOTE | 2020-09-21 07:35 | PM.CNGS ---
History of Present Illness Consult details Consult date: 09/20/20 Reason for consult: gallstones Requesting physician: Kiana Hood Narrative: This is an 80-year-old gentleman who was recently hospitalized here for evaluation and treatment of GI bleeding. He reports that he developed abdominal pain last night and that his blood pressure was noted to be low. He also reports some slurring of his speech. He was transferred to the emergency department for further evaluation. In the emergency department, CT scan of the abdomen and pelvis was obtained. This demonstrated stones in the neck of his gallbladder and also stones in his distal common bile duct. Liver function studies were noted to be elevated. Initially, plans were made to proceed with ERCP due to concerns regarding sepsis, but after further consultation with the neurologist and anesthesiologist, decision was made to postpone ERCP, continue antibiotics and obtain an MRI of the brain for further evaluation. Currently, he reports that he is not having any abdominal pain or nausea. He feels tired. His recent past history is significant for an admission here a week or so ago for treatment of GI bleeding. Source was not identified but was presumed to be diverticular. Bleeding scan was negative and EGD did not identify a source of bleeding. Review of Systems Cardiovascular: Cardiovascular: Denies chest pain Respiratory: Respiratory: Denies cough and Denies wheezing Gastrointestinal: Gastrointestinal: Reports as per HPI Neurologic: Comments: Reports slurred speech earlier today Allergic/Immunologic: Allergic/Immunologic: Denies wheezing PMFSH Past Medical History Medical History Acute respiratory disease BPH (benign prostatic hyperplasia) CAD (coronary artery disease) Cataract COVID-19 Depression Diabetes mellitus GERD (gastroesophageal reflux disease) Hammer toe Hammer toes, bilateral History of diverticulosis History of rectal cancer Hyperlipidemia Hypertension Inguinal hernia Insomnia Malignant neoplasm of colon Myasthenia gravis Nonalcoholic steatohepatitis (MARTI) Onychogryphosis Rheumatoid arthritis Urinary incontinence Family History Family History Mother No problems noted. Father No problems noted. Brother No problems noted. Sister No problems noted. Daughter Psychiatric disorder Son No problems noted. Surgical History Surgical History History of colostomy History of colostomy reversal History of incisional hernia repair History of low anterior resection of rectum Social History Social History Household Members: Other Housing: Retirement Alcohol intake: never Smoking Status: Never smoker Use of substances other than those prescribed or required for medical reasons: No Have you been hit, kicked, punched, or otherwise hurt by someone within the past year? If so, by whom?: No Do you feel safe in your current relationship?: No Current Relationship Is there a partner from a previous relationship who is making you feel unsafe now?: No Are you made to feel afraid or neglected: No Advance Directives: Yes Advance Directives on File: Yes Advance Directives Date on File: 06/21/20 Do you have thoughts of harming others: None Do you have a plan to hurt others: No Plan Recently lost weight without trying: Unsure service: Yes Current occupational status: retired [employer] Allergies Allergy/AdvReac Type Severity Reaction Status Date / Time No Known Allergies Allergy Unverified 09/14/20 09:38 [No Known Allergies*] Home Medications Medication Instructions Recorded Confirmed Type acetaminophen 650 mg PO BEDTIME 09/14/20 09/20/20 History aspirin 81 mg PO DAILY 09/14/20 09/20/20 History atorvastatin 40 mg PO DAILY@1700 09/14/20 09/20/20 History azathioprine 50 mg PO BID 09/14/20 09/20/20 History calcium polycarbophil 625 mg PO BID 09/14/20 09/20/20 History carboxymethylcellulose sodium 1 drp OPHTHALMIC (EYE) BEDTIME 09/14/20 09/20/20 History cholecalciferol (vitamin D3) 25 mcg PO DAILY 09/14/20 09/20/20 History cyanocobalamin (vitamin B-12) 1,000 mcg IM QMONTH 09/14/20 09/20/20 History ferrous sulfate [Iron (ferrous 325 mg PO BID 09/14/20 09/20/20 History sulfate)] fluticasone propionate 1 spray INTRANASAL BID 09/14/20 09/20/20 History lisinopril 5 mg PO DAILY@1700 09/14/20 09/20/20 History oxybutynin chloride 15 mg PO DAILY 09/14/20 09/20/20 History prednisone 5 mg PO Q OTHER DAY 09/14/20 09/20/20 History pyridostigmine bromide 60 mg PO TID 09/14/20 09/20/20 History quetiapine 25 mg PO BEDTIME 09/14/20 09/20/20 History quetiapine 100 mg PO BEDTIME 09/14/20 09/20/20 History tamsulosin 0.4 mg PO BEDTIME 09/14/20 09/20/20 History trazodone 50 mg PO BEDTIME 09/14/20 09/20/20 History venlafaxine 150 mg PO DAILY 09/14/20 09/20/20 History docusate sodium 100 mg PO BID 09/20/20 09/20/20 History loratadine 10 mg PO DAILY 09/20/20 09/20/20 History lorazepam 0.25 mg PO Q6H PRN 09/20/20 09/20/20 History omeprazole 40 mg PO DAILY@1600 09/20/20 09/20/20 History Physical Exam Vital Signs: Vital Signs: Last Vital Signs Temp 98.7 F 09/21/20 07:14 Pulse 54 09/21/20 07:14 Resp 20 09/21/20 07:14 BP 132/66 09/21/20 07:14 Pulse Ox 98 09/21/20 07:14 Body Mass Index 27.3 Const: Other: Alert, no apparent distress HENMT: Head: Yes normocephalic and Yes atraumatic Resp: Effort & Inspection: normal respiratory effort Auscultation: clear to auscultation bilaterally Cardio: Rate: regular rate Rhythm: regular rhythm GI: Other: Soft, nondistended, no palpable masses, well-healed lower midline scar, mild right-sided mid abdominal tenderness Results Labs Result diagrams: 09/21/20 05:23 09/21/20 05:23 Labs: Abnormal lab results 09/20/20 09/20/20 09/20/20 Range/Units 07:35 07:35 07:35 RBC 3.09 L (4.60-5.80) X10*6/uL Hgb 9.8 L (14.0-18.0) g/dl Hct 30.2 L (42-52) % Immature Gran % (Auto) 0.7 H (0.0-0.4) % Neut % (Auto) 91.5 H (45-73) % Lymph % (Auto) 1.5 L (20-40) % Lymph # (Auto) 0.1 L (1.2-4.9) X10*3/uL Abs Immat Gran (auto) 0.05 H (0.00-0.03) X10*3/uL PT 13.6 H (10.8-13.0) SEC Potassium 3.1 L D (3.3-5.1) mmol/l Chloride 111 H (96-108) mmol/L Anion Gap 11 L (12-20) BUN 17 H (9-16) mg/dL Random Glucose 123 H (60-115) mg/dL Lactic Acid (0.5-2.0) mmol/L Calcium 7.2 L D (8.4-10.2) mg/dL Total Bilirubin (0.0-1.0) mg/dL Direct Bilirubin (0.0-0.5) mg/dL AST (5-37) U/L ALT (0-40) U/L Alkaline Phosphatase (39-117) U/L Troponin I High Sens (<3.5-35.0) ng/L Total Protein (6.5-8.0) g/dL Albumin (3.5-5.0) g/dL Crossmatch 09/20/20 09/20/20 09/20/20 Range/Units 07:35 07:35 07:35 RBC (4.60-5.80) X10*6/uL Hgb (14.0-18.0) g/dl Hct (42-52) % Immature Gran % (Auto) (0.0-0.4) % Neut % (Auto) (45-73) % Lymph % (Auto) (20-40) % Lymph # (Auto) (1.2-4.9) X10*3/uL Abs Immat Gran (auto) (0.00-0.03) X10*3/uL PT (10.8-13.0) SEC Potassium (3.3-5.1) mmol/l Chloride (96-108) mmol/L Anion Gap (12-20) BUN (9-16) mg/dL Random Glucose (60-115) mg/dL Lactic Acid 2.6 H* (0.5-2.0) mmol/L Calcium (8.4-10.2) mg/dL Total Bilirubin 1.7 H (0.0-1.0) mg/dL Direct Bilirubin 1.0 H (0.0-0.5) mg/dL AST 397 H (5-37) U/L ALT 216 H (0-40) U/L Alkaline Phosphatase 183 H D (39-117) U/L Troponin I High Sens 132.0 H D (<3.5-35.0) ng/L Total Protein 4.8 L (6.5-8.0) g/dL Albumin 3.0 L (3.5-5.0) g/dL Crossmatch 09/20/20 09/20/20 09/20/20 Range/Units 07:50 17:37 21:29 RBC (4.60-5.80) X10*6/uL Hgb 10.9 L (14.0-18.0) g/dl Hct 32.3 L (42-52) % Immature Gran % (Auto) (0.0-0.4) % Neut % (Auto) (45-73) % Lymph % (Auto) (20-40) % Lymph # (Auto) (1.2-4.9) X10*3/uL Abs Immat Gran (auto) (0.00-0.03) X10*3/uL PT (10.8-13.0) SEC Potassium (3.3-5.1) mmol/l Chloride (96-108) mmol/L Anion Gap (12-20) BUN (9-16) mg/dL Random Glucose (60-115) mg/dL Lactic Acid (0.5-2.0) mmol/L Calcium (8.4-10.2) mg/dL Total Bilirubin (0.0-1.0) mg/dL Direct Bilirubin (0.0-0.5) mg/dL AST (5-37) U/L ALT (0-40) U/L Alkaline Phosphatase (39-117) U/L Troponin I High Sens 1177.1 H D (<3.5-35.0) ng/L Total Protein (6.5-8.0) g/dL Albumin (3.5-5.0) g/dL Crossmatch See Detail 09/21/20 09/21/20 Range/Units 05:23 05:23 RBC (4.60-5.80) X10*6/uL Hgb (14.0-18.0) g/dl Hct (42-52) % Immature Gran % (Auto) (0.0-0.4) % Neut % (Auto) (45-73) % Lymph % (Auto) (20-40) % Lymph # (Auto) (1.2-4.9) X10*3/uL Abs Immat Gran (auto) (0.00-0.03) X10*3/uL PT (10.8-13.0) SEC Potassium (3.3-5.1) mmol/l Chloride 110 H (96-108) mmol/L Anion Gap (12-20) BUN 27 H D (9-16) mg/dL Random Glucose (60-115) mg/dL Lactic Acid (0.5-2.0) mmol/L Calcium 7.4 L (8.4-10.2) mg/dL Total Bilirubin 1.3 H (0.0-1.0) mg/dL Direct Bilirubin 0.9 H (0.0-0.5) mg/dL AST 127 H (5-37) U/L ALT 167 H (0-40) U/L Alkaline Phosphatase 158 H (39-117) U/L Troponin I High Sens (<3.5-35.0) ng/L Total Protein 5.1 L (6.5-8.0) g/dL Albumin 3.3 L (3.5-5.0) g/dL Crossmatch Short CBC 09/20/20 09/20/20 Range/Units 07:35 21:29 WBC 7.4 (4.8-10.8) X10*3/uL Hgb 9.8 L 10.9 L (14.0-18.0) g/dl Hct 30.2 L 32.3 L (42-52) % Plt Count 192 (160-400) X10*3/uL BMP 09/20/20 09/21/20 07:35 05:23 Sodium 143 144 Potassium 3.1 L D 3.5 Chloride 111 H 110 H Carbon Dioxide 24 22 BUN 17 H 27 H D Creatinine 0.92 0.93 Calcium 7.2 L D 7.4 L Liver Function 09/20/20 09/21/20 Range/Units 07:35 05:23 Total Bilirubin 1.7 H 1.3 H (0.0-1.0) mg/dL Direct Bilirubin 1.0 H 0.9 H (0.0-0.5) mg/dL AST 397 H 127 H (5-37) U/L ALT 216 H 167 H (0-40) U/L Alkaline Phosphatase 183 H D 158 H (39-117) U/L Albumin 3.0 L 3.3 L (3.5-5.0) g/dL All other labs normal. Assessment and Plan (1) Choledocholithiasis: Status: Acute He has CT evidence of choledocholithiasis, but also recent signs and symptoms consistent with acute CVA. Workup in progress. He appears otherwise stable. He has been seen by Dr. Lewis. Liver function studies will be followed. (2) Cholecystitis: Status: Acute He has cholelithiasis. He does not have clinical or clear imaging evidence of acute cholecystitis. Will follow along. Depending upon the outcome of his neurologic workup and his clinical course, ERCP results, it may be preferable to defer cholecystectomy at this time. Continue Zosyn.
[2020-09-21 07:39] LABS: SLIDE REVIEW VERIFIED
[2020-09-21 07:50] LABS: Cholesterol 78 mg/dL; HDL Cholesterol 23 mg/dL; LDL Cholesterol Calculated 29 mg/dl; Triglycerides 131 mg/dL
[2020-09-21 09:35] LABS: Estimated Average Glucose 123 mg/dL; Hemoglobin A1c % 5.9 %
--- NOTE | 2020-09-21 10:11 | PM.NEUROCN ---
History of Present Illness Data of Consult Service Date: 09/21/20 Primary Care Provider: Unknown Physician 80 years old man known to me for antibody positive myasthenia gravis admitted in the hospital for gastrointestinal problems including recent GI bleed and transfusion. He was supposed to get a GI procedure. Apparently yesterday his speech became slurred and an MRI brain was done and and this consultation was requested. He said that he was feeling much better this morning and did not have any obvious problem. He was not having any pain and was not in any distress. Review of Systems Review of Systems: As per [facility] Past Medical History Medical History Acute respiratory disease BPH (benign prostatic hyperplasia) CAD (coronary artery disease) Cataract COVID-19 Depression Diabetes mellitus GERD (gastroesophageal reflux disease) Hammer toe Hammer toes, bilateral History of diverticulosis History of rectal cancer Hyperlipidemia Hypertension Inguinal hernia Insomnia Malignant neoplasm of colon Myasthenia gravis Nonalcoholic steatohepatitis (MARTI) Onychogryphosis Rheumatoid arthritis Urinary incontinence Family History Family History Mother No problems noted. Father No problems noted. Brother No problems noted. Sister No problems noted. Daughter Psychiatric disorder Son No problems noted. Surgical History Surgical History History of colostomy History of colostomy reversal History of incisional hernia repair History of low anterior resection of rectum Social History Social History Household Members: Other Housing: Long-Term Alcohol intake: never Smoking Status: Never smoker Use of substances other than those prescribed or required for medical reasons: No Have you been hit, kicked, punched, or otherwise hurt by someone within the past year? If so, by whom?: No Do you feel safe in your current relationship?: No Current Relationship Is there a partner from a previous relationship who is making you feel unsafe now?: No Are you made to feel afraid or neglected: No Advance Directives: Yes Advance Directives on File: Yes Advance Directives Date on File: 06/21/20 Do you have thoughts of harming others: None Do you have a plan to hurt others: No Plan Recently lost weight without trying: Unsure service: Yes Current occupational status: retired [employer] Allergies Allergy/AdvReac Type Severity Reaction Status Date / Time No Known Allergies Allergy Unverified 09/14/20 09:38 [No Known Allergies*] Home Medications Medication Instructions Recorded Confirmed Type acetaminophen 650 mg PO BEDTIME 09/14/20 09/20/20 History aspirin 81 mg PO DAILY 09/14/20 09/20/20 History atorvastatin 40 mg PO DAILY@1700 09/14/20 09/20/20 History azathioprine 50 mg PO BID 09/14/20 09/20/20 History calcium polycarbophil 625 mg PO BID 09/14/20 09/20/20 History carboxymethylcellulose sodium 1 drp OPHTHALMIC (EYE) BEDTIME 09/14/20 09/20/20 History cholecalciferol (vitamin D3) 25 mcg PO DAILY 09/14/20 09/20/20 History cyanocobalamin (vitamin B-12) 1,000 mcg IM QMONTH 09/14/20 09/20/20 History ferrous sulfate [Iron (ferrous 325 mg PO BID 09/14/20 09/20/20 History sulfate)] fluticasone propionate 1 spray INTRANASAL BID 09/14/20 09/20/20 History lisinopril 5 mg PO DAILY@1700 09/14/20 09/20/20 History oxybutynin chloride 15 mg PO DAILY 09/14/20 09/20/20 History prednisone 5 mg PO Q OTHER DAY 09/14/20 09/20/20 History pyridostigmine bromide 60 mg PO TID 09/14/20 09/20/20 History quetiapine 25 mg PO BEDTIME 09/14/20 09/20/20 History quetiapine 100 mg PO BEDTIME 09/14/20 09/20/20 History tamsulosin 0.4 mg PO BEDTIME 09/14/20 09/20/20 History trazodone 50 mg PO BEDTIME 09/14/20 09/20/20 History venlafaxine 150 mg PO DAILY 09/14/20 09/20/20 History docusate sodium 100 mg PO BID 09/20/20 09/20/20 History loratadine 10 mg PO DAILY 09/20/20 09/20/20 History lorazepam 0.25 mg PO Q6H PRN 09/20/20 09/20/20 History omeprazole 40 mg PO DAILY@1600 09/20/20 09/20/20 History Physical Exam Vital Signs: Vital Signs: Last Vital Signs Temp 98.7 F 09/21/20 07:14 Pulse 54 09/21/20 07:14 Resp 20 09/21/20 07:14 BP 132/66 09/21/20 07:14 Pulse Ox 98 09/21/20 07:14 Body Mass Index 27.3 He was alert and awake with normal spontaneity of speech fluency comprehension and affect. He was able to name and repeat and read without difficulty. Speech was not slurred. Face was symmetrical. There was no obvious arm leg weakness and plantars were flexors. Results Labs CBC & Chem 7: 09/21/20 05:23 09/21/20 05:23 Labs: Short CBC 09/20/20 09/21/20 Range/Units 21:29 05:23 WBC 9.6 (4.8-10.8) X10*3/uL Hgb 10.9 L 10.3 L (14.0-18.0) g/dl Hct 32.3 L 31.5 L (42-52) % Plt Count 164 (160-400) X10*3/uL BMP 09/21/20 05:23 Sodium 144 Potassium 3.5 Chloride 110 H Carbon Dioxide 22 BUN 27 H D Creatinine 0.93 Calcium 7.4 L Liver Function 09/21/20 Range/Units 05:23 Total Bilirubin 1.3 H (0.0-1.0) mg/dL Direct Bilirubin 0.9 H (0.0-0.5) mg/dL AST 127 H (5-37) U/L ALT 167 H (0-40) U/L Alkaline Phosphatase 158 H (39-117) U/L Albumin 3.3 L (3.5-5.0) g/dL His MRI of brain revealed a small area of restricted diffusion in left frontal cortical motor strip region with corresponding FLAIR hyper intensity. Ventricles were somewhat enlarged. Mild chronic microvascular disease was noted. Microbiology Microbiology Results: Microbiology 09/20/20 07:48 Blood - Venous Blood Culture - Preliminary Gram negative liza 09/20/20 07:35 Blood - Venous Blood Culture - Preliminary Gram negative liza Assessment and Plan (1) Acute cerebral infarction: Status: Acute Small left motor strip area ischemic infarction, probably embolic, which would explain problem with speaking noted earlier. Now his speech and language examination was within normal range. This type of infarcts could be from embolism from an artery or heart. A CTA of brain and neck and echocardiogram are recommended. If vasculature is okay, cardiac source of embolism would be more likely. For now an anti-platelet agent, if possible, is recommended. Avoid hypotension and continue statin. This is not a contraindication to a surgical procedure as long as hypotension is avoided. (2) Myasthenia gravis: Status: Acute Myasthenia gravis is stable with small dose of prednisone, azathioprine and thyroid does take main. If no other cause of GI bleed is noted, I might consider stopping prednisone.
[2020-09-21 10:31] LABS: Cholesterol 84 mg/dL; HDL Cholesterol 22 mg/dL; LDL Cholesterol Calculated 29 mg/dl; Triglycerides 165 mg/dL
--- NOTE | 2020-09-21 11:00 | CA_ITS ---
Transthoracic Echocardiogram Patient (Last, First, Middle): Robe Finch J Gender: Male Date of : 1940 Age: 80 Procedure Date: 09/21/2020 Procedure Type: Transthoracic Echocardiogram Location: [facility] [place] Height: 175.26 cm Weight: 83.92 kg BSA: 2.00 m2 Heart Rate: bpm BP: 132 / 66 mmHg Heavy Equipment Operating Engineer: LUNA Referring MD: Kiana Hood MD Symptoms: NSTEMI + CVA Study Quality: Fair/Contrast Conclusions: - The left ventricular systolic function is low normal. - E/E prime ratio is >15, consistent with elevated filling pressures. - The apical lateral and mid anterolateral segments are hypokinetic. - Normal right ventricular cavity size and systolic function. - Tricuspid regurgitation envelope is inadequate for calculation of right ventricular systolic pressure. Significantly elevated right atrial pressure. Findings Procedure Information Contrast agent, definity, is being given per protocol without apparent complications. Left Ventricle Normal left ventricular cavity size. There is normal left ventricular wall thickness. The left ventricular systolic function is low normal. The visually estimated ejection fraction is between 50-55%. There is evidence of regional wall motion abnormalities. Abnormal diastolic function is noted. Spectral Doppler is indicative of a pseudonormal filling pattern. E/E prime ratio is >15, consistent with elevated filling pressures. Wall Motion Rest Echo Findings The apical lateral and mid anterolateral segments are hypokinetic. Right Ventricle Normal right ventricular cavity size and systolic function. Atria The left atrium is mildly dilated. The right atrium is mildly dilated. Aortic Valve There is moderate calcification of the aortic valve. There is moderate thickening of the aortic valve. There is no aortic valve stenosis. There is trace (trivial) aortic valve regurgitation. Mitral Valve There is mild mitral annular calcification. There is mild mitral valve regurgitation. There is no mitral valve stenosis. Pulmonic Valve Normal pulmonic valve structure and function. There is trace pulmonic valve regurgitation. Tricuspid Valve Normal tricuspid valve structure. There is trace tricuspid valve regurgitation. Tricuspid regurgitation envelope is inadequate for calculation of right ventricular systolic pressure. Significantly elevated right atrial pressure. Great Vessels All visible segments of the aorta are normal in size. The visualized portions of the pulmonary artery and branches are normal. Venous The inferior vena cava is dilated and collapses less than 50% with inspiration. Pericardium/Pleural There is no evidence of pericardial effusion. Prior Study Comparison Changes noted compared to prior study dated: 08/08/2015. EF 50-55%, mild anterolateral hypokinesis present. Measurements 2D Linear Measurements IVSd: 1.04 0.6-0.9/0.6-1.0 cm LVIDd: 4.40 3.9-5.3/4.2-5.9 cm LVIDd Index: 2.20 2.4-3.2/2.2-3.1 cm/m2 LVIDs: 3.35 2.0-3.6 cm LVPWd: 1.07 0.7-1.1 cm Ao Root: 3.70 2.1-3.5 cm LA Diam: 3.50 2.7-3.8/3.0-4.0 cm LAIDs Index: 1.75 1.5-2.3 cm/m2 LV Mass: 198.34 67-162/88-224 g LV Mass Index: 99.17 43-95/49-115 g/m2 LVOT Diam: 2.20 3.0+(-)1.3 cm 2D Systolic Function EF 4C: 51.80 >55% EF 2C: 51.00 >55% EF BiP: 49.90 >55% Mitral Valve MV Pk E: 1.00 MV PK A: 0.94 MV Decel Time: 246.00 E/A: 1.10 E'Lateral: 6.31 E'Medial: 5.55 E/E' Med: 18.00 E/E' Lat: 15.80 PHT: 72.00 MVA PHT: 3.06 Decel Wilkinson: 4.07 Aortic Valve AoV Pk Jordy: 1.70 AoV Mn Jordy: 1.15 AoV VTI: 0.40 AoV Pk Grad: 12.00 Aov Mn Grad: 6.00 BLANCA Cont.VTI: 1.98 LVOT LVOT Pk Jordy: 0.87 LVOT Mn Jordy: 0.61 LVOT VTI: 0.21 LVOT Pk Grad: 3.00 LVOT Mn Grad: 2.00 LVOT Diam: 2.20 LVOT Area: 3.80 Diastolic Function MV Pk E: 1.00 MV Pk A: 0.94 E/A: 1.10 E'Medial: 5.55 E/E' Med: 18.00 E' Laterial: 6.31 E/E' Lat: 15.80 Tricuspid Valve TR Pk Jordy: 1.76 TR Pk Grad: 12.00 RA Press: 15.00 Great Vessels Aorta Ao Root-2D: 3.70 2.0-3.7 cm Ao Asc: 3.20 2.1-3.4 cm Ao Arch: 3.40 Updated in Other Vendor System with Status of Final Karl Hooks MD electronically signed on 09/21/2020 2:58:33 PM with status of Final
[2020-09-21 11:08] LABS: Reflex LDLD? No
--- NOTE | 2020-09-21 11:12 | MHC.CM.PN ---
dc plan is return to [facility] when medic ally stable
[2020-09-21] MEDS: Hydrocortisone Sod Succ/PF 100 MG VIAL 25 MG IVPUSH ×2 (12:03→19:22)
--- NOTE | 2020-09-21 13:09 | MHC.SHP ---
Pre-Procedural Eval Section A The patient is an INPATIENT: Yes Changes since office visit: No Cold of Flu in the past 2 weeks, No New Medical Problems, No Changes in Medication and No Patient answered all questions The History & Physical has been completed within 30 days and I have reviewed it.: Yes Section B Chief Complaint: CHOLANGITIS Allergies: Allergies Allergy/AdvReac Type Severity Reaction Status Date / Time No Known Allergies Allergy Unverified 09/14/20 09:38 [No Known Allergies*] Plan I have reviewed the history and physical and performed a pertinent physical examination on my patient. No changes have occurred unless specified.
--- NOTE | 2020-09-21 13:20 | P.CONAN_ITS ---
[facility] Past Medical History Medical History Acute respiratory disease BPH (benign prostatic hyperplasia) CAD (coronary artery disease) Cataract COVID-19 Depression Diabetes mellitus GERD (gastroesophageal reflux disease) Hammer toe Hammer toes, bilateral History of diverticulosis History of rectal cancer Hyperlipidemia Hypertension Inguinal hernia Insomnia Malignant neoplasm of colon Myasthenia gravis Nonalcoholic steatohepatitis (MARTI) Onychogryphosis Rheumatoid arthritis Urinary incontinence Family History Family History Mother No problems noted. Father No problems noted. Brother No problems noted. Sister No problems noted. Daughter Psychiatric disorder Son No problems noted. Surgical History Surgical History History of colostomy History of colostomy reversal History of incisional hernia repair History of low anterior resection of rectum Social History Social History Household Members: Other Housing: [facility] Alcohol intake: never Smoking Status: Never smoker Use of substances other than those prescribed or required for medical reasons: No Have you been hit, kicked, punched, or otherwise hurt by someone within the past year? If so, by whom?: No Do you feel safe in your current relationship?: No Current Relationship Is there a partner from a previous relationship who is making you feel unsafe now?: No Are you made to feel afraid or neglected: No Advance Directives: Yes Advance Directives on File: Yes Advance Directives Date on File: 06/21/20 Do you have thoughts of harming others: None Do you have a plan to hurt others: No Plan Recently lost weight without trying: Unsure service: Yes Current occupational status: retired Meds Allergies Allergy/AdvReac Type Severity Reaction Status Date / Time No Known Allergies Allergy Unverified 09/14/20 09:38 [No Known Allergies*] Home Medications Medication Instructions Recorded Confirmed Type acetaminophen 650 mg PO BEDTIME 09/14/20 09/20/20 History aspirin 81 mg PO DAILY 09/14/20 09/20/20 History atorvastatin 40 mg PO DAILY@1700 09/14/20 09/20/20 History azathioprine 50 mg PO BID 09/14/20 09/20/20 History calcium polycarbophil 625 mg PO BID 09/14/20 09/20/20 History carboxymethylcellulose sodium 1 drp OPHTHALMIC (EYE) BEDTIME 09/14/20 09/20/20 History cholecalciferol (vitamin D3) 25 mcg PO DAILY 09/14/20 09/20/20 History cyanocobalamin (vitamin B-12) 1,000 mcg IM QMONTH 09/14/20 09/20/20 History ferrous sulfate [Iron (ferrous 325 mg PO BID 09/14/20 09/20/20 History sulfate)] fluticasone propionate 1 spray INTRANASAL BID 09/14/20 09/20/20 History lisinopril 5 mg PO DAILY@1700 09/14/20 09/20/20 History oxybutynin chloride 15 mg PO DAILY 09/14/20 09/20/20 History prednisone 5 mg PO Q OTHER DAY 09/14/20 09/20/20 History pyridostigmine bromide 60 mg PO TID 09/14/20 09/20/20 History quetiapine 25 mg PO BEDTIME 09/14/20 09/20/20 History quetiapine 100 mg PO BEDTIME 09/14/20 09/20/20 History tamsulosin 0.4 mg PO BEDTIME 09/14/20 09/20/20 History trazodone 50 mg PO BEDTIME 09/14/20 09/20/20 History venlafaxine 150 mg PO DAILY 09/14/20 09/20/20 History docusate sodium 100 mg PO BID 09/20/20 09/20/20 History loratadine 10 mg PO DAILY 09/20/20 09/20/20 History lorazepam 0.25 mg PO Q6H PRN 09/20/20 09/20/20 History omeprazole 40 mg PO DAILY@1600 09/20/20 09/20/20 History Exam Exam Date and Time: September 21, 2020 1320 Height,Weight and Vital Signs: Height 5 ft 9 in Weight 84.005 kg Last Vital Signs Temp 98.7 F 09/21/20 07:14 Pulse 54 09/21/20 07:14 Resp 20 09/21/20 07:14 BP 132/66 09/21/20 07:14 Pulse Ox 98 09/21/20 07:14 Pertinent Lab Results Pertinent Lab Results: Laboratory Tests 09/20/20 09/20/20 09/20/20 07:35 07:35 07:35 WBC 7.4 RBC 3.09 L Hgb 9.8 L Hct 30.2 L MCV 97.7 MCH 31.7 MCHC 32.5 RDW 15.9 Plt Count 192 MPV 9.8 Immature Gran % (Auto) 0.7 H Neut % (Auto) 91.5 H Lymph % (Auto) 1.5 L [place] % (Auto) 6.1 Eos % (Auto) 0.1 Baso % (Auto) 0.1 Lymph # (Auto) 0.1 L [place] # (Auto) 0.5 Eos # (Auto) 0.0 Baso # (Auto) 0.0 Abs Immat Gran (auto) 0.05 H Absolute Neuts (auto) 6.8 Absolute Nucleated RBC 0.000 Nucleated RBC % (auto) 0.0 Smear Tech's Comments VERIFIED PT 13.6 H INR 1.1 APTT 27.5 Sodium 143 Potassium 3.1 L D Chloride 111 H Carbon Dioxide 24 Anion Gap 11 L BUN 17 H Creatinine 0.92 Estim Creat Clear Calc 61.9 Estimated GFR > 60 POC Glucose Random Glucose 123 H Estimat Average Glucose Hemoglobin A1c % Lactic Acid Lactic Acid Fup @ 2Hr Calcium 7.2 L D Magnesium Total Bilirubin Direct Bilirubin AST ALT Alkaline Phosphatase Troponin I High Sens Total Protein Albumin Triglycerides Cholesterol LDL Cholesterol, Calc HDL Cholesterol Lipase Stool Occult Blood COVID-19 (SEVEN) COVID-19 Clin Com Blood Type Antibody Screen Crossmatch 09/20/20 09/20/20 09/20/20 07:35 07:35 07:35 WBC RBC Hgb Hct MCV MCH MCHC RDW Plt Count MPV Immature Gran % (Auto) Neut % (Auto) Lymph % (Auto) [place] % (Auto) Eos % (Auto) Baso % (Auto) Lymph # (Auto) [place] # (Auto) Eos # (Auto) Baso # (Auto) Abs Immat Gran (auto) Absolute Neuts (auto) Absolute Nucleated RBC Nucleated RBC % (auto) Smear Tech's Comments PT INR APTT Sodium Potassium Chloride Carbon Dioxide Anion Gap BUN Creatinine Estim Creat Clear Calc Estimated GFR POC Glucose Random Glucose Estimat Average Glucose Hemoglobin A1c % Lactic Acid 2.6 H* Lactic Acid Fup @ 2Hr Calcium Magnesium 1.6 Total Bilirubin 1.7 H Direct Bilirubin 1.0 H AST 397 H ALT 216 H Alkaline Phosphatase 183 H D Troponin I High Sens 132.0 H D Total Protein 4.8 L Albumin 3.0 L Triglycerides Cholesterol LDL Cholesterol, Calc HDL Cholesterol Lipase 18 Stool Occult Blood COVID-19 (SEVEN) [facility] Com Blood Type Antibody Screen Crossmatch 09/20/20 09/20/20 09/20/20 07:48 07:50 09:07 WBC RBC Hgb Hct MCV MCH MCHC RDW Plt Count MPV Immature Gran % (Auto) Neut % (Auto) Lymph % (Auto) [place] % (Auto) Eos % (Auto) Baso % (Auto) Lymph # (Auto) [place] # (Auto) Eos # (Auto) Baso # (Auto) Abs Immat Gran (auto) Absolute Neuts (auto) Absolute Nucleated RBC Nucleated RBC % (auto) Smear Tech's Comments PT INR APTT Sodium Potassium Chloride Carbon Dioxide Anion Gap BUN Creatinine Estim Creat Clear Calc Estimated GFR POC Glucose Random Glucose Estimat Average Glucose Hemoglobin A1c % Lactic Acid Lactic Acid Fup @ 2Hr Calcium Magnesium Total Bilirubin Direct Bilirubin AST ALT Alkaline Phosphatase Troponin I High Sens Total Protein Albumin Triglycerides Cholesterol LDL Cholesterol, Calc HDL Cholesterol Lipase Stool Occult Blood NEG COVID-19 (SEVEN) Negative [email or web address] See Note Blood Type A Negative Antibody Screen NEGATIVE Crossmatch See Detail 09/20/20 09/20/20 09/20/20 11:13 14:21 17:37 WBC RBC Hgb Hct MCV MCH MCHC RDW Plt Count MPV Immature Gran % (Auto) Neut % (Auto) Lymph % (Auto) [place] % (Auto) Eos % (Auto) Baso % (Auto) Lymph # (Auto) [place] # (Auto) Eos # (Auto) Baso # (Auto) Abs Immat Gran (auto) Absolute Neuts (auto) Absolute Nucleated RBC Nucleated RBC % (auto) Smear Tech's Comments PT INR APTT Sodium Potassium Chloride Carbon Dioxide Anion Gap BUN Creatinine Estim Creat Clear Calc Estimated GFR POC Glucose 112 Random Glucose Estimat Average Glucose Hemoglobin A1c % Lactic Acid Lactic Acid Fup @ 2Hr 1.7 Calcium Magnesium Total Bilirubin Direct Bilirubin AST ALT Alkaline Phosphatase Troponin I High Sens 1177.1 H D Total Protein Albumin Triglycerides Cholesterol LDL Cholesterol, Calc HDL Cholesterol Lipase Stool Occult Blood COVID-19 (SEVEN) COVID-19 [employer] Com Blood Type Antibody Screen Crossmatch 09/20/20 09/21/20 09/21/20 21:29 05:23 05:23 WBC RBC Hgb 10.9 L Hct 32.3 L MCV MCH MCHC RDW Plt Count MPV Immature Gran % (Auto) Neut % (Auto) Lymph % (Auto) [place] % (Auto) Eos % (Auto) Baso % (Auto) Lymph # (Auto) [place] # (Auto) Eos # (Auto) Baso # (Auto) Abs Immat Gran (auto) Absolute Neuts (auto) Absolute Nucleated RBC Nucleated RBC % (auto) Smear Tech's Comments PT INR APTT Sodium Potassium Chloride Carbon Dioxide Anion Gap BUN Creatinine Estim Creat Clear Calc Estimated GFR POC Glucose Random Glucose Estimat Average Glucose Hemoglobin A1c % Lactic Acid Lactic Acid Fup @ 2Hr Calcium Magnesium Total Bilirubin 1.3 H Direct Bilirubin 0.9 H AST 127 H ALT 167 H Alkaline Phosphatase 158 H Troponin I High Sens Total Protein 5.1 L Albumin 3.3 L Triglycerides 131 Cancelled Cholesterol 78 Cancelled LDL Cholesterol, Calc 29 Cancelled HDL Cholesterol 23 Cancelled Lipase Stool Occult Blood COVID-19 (SEVEN) COVID-19 [facility] Blood Type Antibody Screen Crossmatch 09/21/20 09/21/20 09/21/20 05:23 05:23 05:23 WBC 9.6 RBC 3.25 L Hgb 10.3 L Hct 31.5 L MCV 96.9 MCH 31.7 MCHC 32.7 RDW 16.7 H Plt Count 164 MPV 10.7 Immature Gran % (Auto) 2.5 H Neut % (Auto) 87.5 H Lymph % (Auto) 2.6 L [place] % (Auto) 6.0 Eos % (Auto) 1.1 Baso % (Auto) 0.3 Lymph # (Auto) 0.3 L [place] # (Auto) 0.6 Eos # (Auto) 0.1 Baso # (Auto) 0.0 Abs Immat Gran (auto) 0.24 H Absolute Neuts (auto) 8.4 H Absolute Nucleated RBC 0.000 Nucleated RBC % (auto) 0.0 Smear Tech's Comments VERIFIED PT INR APTT Sodium 144 Potassium 3.5 Chloride 110 H Carbon Dioxide 22 Anion Gap 16 BUN 27 H D Creatinine 0.93 Estim Creat Clear Calc 61.2 Estimated GFR > 60 POC Glucose Random Glucose 97 Estimat Average Glucose 123 Hemoglobin A1c % 5.9 Lactic Acid Lactic Acid Fup @ 2Hr Calcium 7.4 L Magnesium Total Bilirubin Direct Bilirubin AST ALT Alkaline Phosphatase Troponin I High Sens Total Protein Albumin Triglycerides Cholesterol LDL Cholesterol, Calc HDL Cholesterol Lipase Stool Occult Blood COVID-19 (SEVEN) COVID-19 [employer] Blood Type Antibody Screen Crossmatch 09/21/20 09:25 WBC RBC Hgb Hct MCV MCH MCHC RDW Plt Count MPV Immature Gran % (Auto) Neut % (Auto) Lymph % (Auto) [place] % (Auto) Eos % (Auto) Baso % (Auto) Lymph # (Auto) [place] # (Auto) Eos # (Auto) Baso # (Auto) Abs Immat Gran (auto) Absolute Neuts (auto) Absolute Nucleated RBC Nucleated RBC % (auto) Smear Tech's Comments PT INR APTT Sodium Potassium Chloride Carbon Dioxide Anion Gap BUN Creatinine Estim Creat Clear Calc Estimated GFR POC Glucose Random Glucose Estimat Average Glucose Hemoglobin A1c % Lactic Acid Lactic Acid Fup @ 2Hr Calcium Magnesium Total Bilirubin Direct Bilirubin AST ALT Alkaline Phosphatase Troponin I High Sens Total Protein Albumin Triglycerides 165 Cholesterol 84 LDL Cholesterol, Calc 29 HDL Cholesterol 22 Lipase Stool Occult Blood COVID-19 (SEVEN) COVID-19 [employer] [facility] Blood Type Antibody Screen Crossmatch Airway Mallampati Class: II TM Dist: >3cm Neck ROM: Full Denture: Upper (Left at home) and Lower Heart: RRR Lungs: CTa BL Assessment and Plan Assessment Anesthesia Assessment: Anesthesia Plan Discussed and Chart Reviewed Final Anesthetic Review NPO: Yes ASA Class: IV (Must proceed occuring to surgeon; septic from obstruction cancelled yesterday low BP and slurred speech, small embolic stroke, BP stable after antibiotic and fluid infusion) Final Preanesthetic Review: No Changes in Pt Med Stat and Consent Obtained/Reviewed Patient Risk: Intermediate Procedure Risk: Intermediate Anesthetic Plan Anesthetic Plan: GA and Regional Block
--- NOTE | 2020-09-21 13:46 | FL_ITS ---
EXAMINATION: XR FLUOROSCOPY WITH IMAGES CLINICAL INFORMATION: Common bile duct stone COMPARISON: Previous CT of the abdomen and pelvis from yesterday TECHNIQUE: Fluoroscopy performed by Dr. Kiran Lewis. Fluoroscopy time: 169 seconds Dose: 91 mgy Images: 7 FINDINGS: Fluoroscopy guidance was provided for ERCP. Initial images demonstrate opacification of the nondilated common bile duct. A definite common bile duct stone is not appreciated. Later images demonstrate balloon inflated in the common bile duct. No intra or extrahepatic biliary duct dilatation is seen. There is no evidence of obstruction with contrast seen in the duodenum. FL/FL guidance in OR IMPRESSION: Fluoroscopy guidance for ERCP.
--- NOTE | 2020-09-21 13:47 | PC.NURSE ---
right iv inflitrated on arrival large bruise and swelling removed
--- NOTE | 2020-09-21 14:59 | PM.OP ---
Brief Operative Note Date of Service: 09/21/20 Pre-op diagnosis: cbd stone, cholangitis Post-op diagnosis: same Procedure: ercp sphincterotomy, stone extraction Surgeon: Kiran Lewis Anesthesia: MAC Estimated blood loss (mL): 2 Pathology: none sent Condition: stable Disposition: PACU
--- NOTE | 2020-09-21 15:06 | PM.EVENT ---
Event Note Date of Service: 09/21/20 Event Note: ERCP dictated single flat cbd stone removed with balloon after sphincterotomy good drainage of clear bile no cystic duct filling seen rec advance diet surgery consult for possible cholecystectomy cont abx check lfts.
[2020-09-21] MEDS: Omeprazole 20 MG CAPSULE.DR 40 MG PO (17:11)
[2020-09-21] MEDS: Atorvastatin Calcium 40 MG TABLET PO (17:12)
--- NOTE | 2020-09-21 17:22 | PC.NURSE ---
pt refused sequentials. dr simmons notified via [employer]
--- NOTE | 2020-09-21 17:34 | HO.PM.IMPN ---
Subjective Subjective Date of Service: 09/21/20 Interval History: 2/2 blood cultures growing Gram-negative rods Surprisingly denies any abdominal pain No chest pain No speech deficit and no motor deficit Physical Exam Vital Signs: Vital Signs: Last Vital Signs Temp 99.2 F 09/21/20 17:09 Pulse 60 09/21/20 17:09 Resp 20 09/21/20 17:09 BP 146/70 H 09/21/20 17:09 Pulse Ox 97 09/21/20 17:09 Body Mass Index 27.3 Gen: in no acute distress HEENT: sclera anicteric, moist mucus membranes Neck: supple Lungs: clear to auscultation bilaterally Heart: regular rate and rhythm, no murmurs Abd: soft, non-tender, non-distended Ext: no edema Skin: warm/well-perfused Neuro: alert and oriented x3, normal strength in all 4 extremities, no pronator drift, fluent speech Psych: appropriate affect Objective Data Current Medications Generic Name Dose Route Start Last Admin Trade Name Freq PRN Reason Stop Dose Admin Acetaminophen 650 mg 09/21/20 00:49 09/21/20 02:18 Acetaminophen 325 Mg Tablet PO 650 mg Q6H PRN Administration Pain, Mild (Pain Scale 1-3) Atorvastatin Calcium 40 mg 09/21/20 17:00 09/21/20 17:12 Atorvastatin Calcium 40 Mg Tablet PO 40 mg DAILY@1700 [facility] Administration Azathioprine 50 mg 09/21/20 21:00 Azathioprine 50 Mg Tablet PO BID [facility] Calcium Polycarbophil 1 tab 09/21/20 21:00 Calcium Polycarbophil Tablet PO BID [facility] Fluticasone Propionate 1 spray 09/21/20 21:00 Fluticasone Propionate Nasal 16 Gm [place] NOSTRIL-B BID [facility] Hydrocortisone Sodium Succinate 25 mg 09/21/20 11:45 09/21/20 12:03 Hydrocortisone Sod Succ/Pf 100 Mg Vial IVPUSH 25 mg Q8H [facility] Administration Piperacillin Sod/Tazobactam 50 mls @ 100 mls/hr 09/21/20 01:00 09/21/20 13:40 Sod 3.375 gm/ Sodium Chloride IV Infused Q6H [facility] Infusion Omeprazole 40 mg 09/21/20 16:00 09/21/20 17:11 Omeprazole 20 Mg Capsule.Dr PO 40 mg DAILY@1600 [facility] Administration Ondansetron HCl 4 mg 09/21/20 00:49 Ondansetron Hcl 4 Mg/2 Ml Vial IVPUSH Q8H PRN Nausea and Vomiting Pharmacy Consult 1 each 09/20/20 06:59 Consult Rx Perform Med Rec MISCELLANE ONCE PRN Consult order Pyridostigmine [place] 60 mg 09/21/20 15:00 09/21/20 17:11 Pyridostigmine [place] 60 Mg Tablet PO 60 mg TID [facility] Administration Quetiapine Fumarate 25 mg 09/21/20 21:00 Quetiapine Fumarate 25 Mg Tablet PO BEDTIME [facility] Quetiapine Fumarate 100 mg 09/21/20 21:00 Quetiapine Fumarate 100 Mg Tablet PO BEDTIME [facility] Sodium Chloride 3 ml 09/21/20 00:49 09/21/20 17:12 0.9 % Sodium Chloride Flush 3 Ml Syringe IVFLUSH 3 ml QSHIFT [facility] Administration Tamsulosin HCl 0.4 mg 09/21/20 21:00 Tamsulosin Hcl 0.4 Mg Capsule PO BEDTIME [facility] Trazodone HCl 50 mg 09/21/20 21:00 Trazodone Hcl 50 Mg Tablet PO BEDTIME [facility] Venlafaxine HCl 150 mg 09/22/20 09:00 Venlafaxine Hcl Er 150 Mg Cap.Er.24h PO DAILY [facility] Vitamin D 25 mcg 09/22/20 09:00 Cholecalciferol (Vitamin D3) 25 Mcg Tablet PO DAILY [facility] Labs CBC & Chem 7: 09/21/20 05:23 09/21/20 05:23 Labs: Laboratory Results - last 24 hr 09/20/20 09/20/20 09/21/20 17:37 21:29 05:23 WBC RBC Hgb 10.9 L Hct 32.3 L MCV MCH MCHC RDW Plt Count MPV Immature Gran % (Auto) Neut % (Auto) Lymph % (Auto) [place] % (Auto) Eos % (Auto) Baso % (Auto) Lymph # (Auto) [place] # (Auto) Eos # (Auto) Baso # (Auto) Abs Immat Gran (auto) Absolute Neuts (auto) Absolute Nucleated RBC Nucleated RBC % (auto) Smear Tech's Comments Sodium Potassium Chloride Carbon Dioxide Anion Gap BUN Creatinine Estim Creat Clear Calc Estimated GFR Random Glucose Estimat Average Glucose Hemoglobin A1c % Calcium Total Bilirubin 1.3 H Direct Bilirubin 0.9 H AST 127 H ALT 167 H Alkaline Phosphatase 158 H Troponin I High Sens 1177.1 H D Total Protein 5.1 L Albumin 3.3 L Triglycerides 131 Cholesterol 78 LDL Cholesterol, Calc 29 HDL Cholesterol 23 09/21/20 09/21/20 09/21/20 05:23 05:23 05:23 WBC 9.6 RBC 3.25 L Hgb 10.3 L Hct 31.5 L MCV 96.9 MCH 31.7 MCHC 32.7 RDW 16.7 H Plt Count 164 MPV 10.7 Immature Gran % (Auto) 2.5 H Neut % (Auto) 87.5 H Lymph % (Auto) 2.6 L [place] % (Auto) 6.0 Eos % (Auto) 1.1 Baso % (Auto) 0.3 Lymph # (Auto) 0.3 L [place] # (Auto) 0.6 Eos # (Auto) 0.1 Baso # (Auto) 0.0 Abs Immat Gran (auto) 0.24 H Absolute Neuts (auto) 8.4 H Absolute Nucleated RBC 0.000 Nucleated RBC % (auto) 0.0 Smear Tech's Comments VERIFIED Sodium 144 Potassium 3.5 Chloride 110 H Carbon Dioxide 22 Anion Gap 16 BUN 27 H D Creatinine 0.93 Estim Creat Clear Calc 61.2 Estimated GFR > 60 Random Glucose 97 Estimat Average Glucose Hemoglobin A1c % Calcium 7.4 L Total Bilirubin Direct Bilirubin AST ALT Alkaline Phosphatase Troponin I High Sens Total Protein Albumin Triglycerides Cancelled Cholesterol Cancelled LDL Cholesterol, Calc Cancelled HDL Cholesterol Cancelled 09/21/20 09/21/20 05:23 09:25 WBC RBC Hgb Hct MCV MCH MCHC RDW Plt Count MPV Immature Gran % (Auto) Neut % (Auto) Lymph % (Auto) [place] % (Auto) Eos % (Auto) Baso % (Auto) Lymph # (Auto) [place] # (Auto) Eos # (Auto) Baso # (Auto) Abs Immat Gran (auto) Absolute Neuts (auto) Absolute Nucleated RBC Nucleated RBC % (auto) Smear Tech's Comments Sodium Potassium Chloride Carbon Dioxide Anion Gap BUN Creatinine Estim Creat Clear Calc Estimated GFR Random Glucose Estimat Average Glucose 123 Hemoglobin A1c % 5.9 Calcium Total Bilirubin Direct Bilirubin AST ALT Alkaline Phosphatase Troponin I High Sens Total Protein Albumin Triglycerides 165 Cholesterol 84 LDL Cholesterol, Calc 29 HDL Cholesterol 22 TTE 09/21/20 - The left ventricular systolic function is low normal. - E/E prime ratio is >15, consistent with elevated filling pressures. - The apical lateral and mid anterolateral segments are hypokinetic. - Normal right ventricular cavity size and systolic function. - Tricuspid regurgitation envelope is inadequate for calculation of right ventricular systolic pressure. Significantly elevated right atrial pressure. Microbiology Microbiology Results: Microbiology 09/20/20 07:48 Blood - Venous Blood Culture - Preliminary Gram negative liza 09/20/20 07:35 Blood - Venous Blood Culture - Preliminary Gram negative liza Assessment and Plan (1) Septic shock: Status: Acute (2) Gram-negative bacteremia: Status: Acute Assessment and Plan: # septic shock # ascending cholangitis # Gram-negative bacteremia # choledocholithiasis - IV pip/matt d#2, follow BCx, IV fluids, continue IV hydrocortisone, ERCP today done- 8 mm sphincterotomy + extraction of 1 flat stone, surgery consult re cholecystectomy # acute ischemic CVA - holding antiplatelet agent given question of GI bleed andt ERCP continue statin. MRI. Neurology consult. # NSTEMI - holding anticoagulation given question of GI bleed and ERCP. suspect demand ischemia. TTE, Cardiology consult # GI bleed # acute blood loss anemia - was transfused 1 unit pRBCs in ED. monitor Hb # myasthenia gravis - continue azathioprine + pyridostigmine. stress-dose steroids as above. # CAD - continue statin, hold ASA given recent GIB # HTN - holding lisinopril due to recent hypotension # DM2 - correction-dose lispro # VTE ppx - BLE SCDs, hold heparin
[2020-09-21] MEDS: Lactated Ringers 1,000 ML 100 ML IVCONT (18:00)
[2020-09-21] MEDS: azaTHIOprine 50 MG TABLET PO (19:53)
[2020-09-21] MEDS: QUEtiapine Fumarate 100 MG TABLET PO (19:54)
[2020-09-21] MEDS: calcium polycarbophiL TABLET 1 TAB PO (19:54)
[2020-09-21] MEDS: Tamsulosin HCL 0.4 MG CAPSULE PO (19:57)
[2020-09-21] MEDS: traZODone HCL 50 MG TABLET PO (19:57)
[2020-09-21] MEDS: Fluticasone Propionate Nasal 16 GM SPRAY 1 SPRAY NOSTRIL-B (19:57)
[2020-09-21] MEDS: QUEtiapine Fumarate 25 MG TABLET PO (19:57)
--- NOTE | 2020-09-22 | CT_ITS ---
EXAMINATION: CT ANGIOGRAM HEAD CT ANGIOGRAM NECK CLINICAL INFORMATION: Cerebrovascular accident. Stroke. COMPARISON: Brain MRI from 09/20/2020. CT head from 09/20/2020. TECHNIQUE: Initial noncontrast tow picker imaging of the head and neck was performed. Noncontrast head CT was also performed. Test bolus sequences followed by intravenous administration 70 mL of Omnipaque 350. Helical imaging was performed in the axial plane from the aortic arch to the skull vertex. Delayed postcontrast imaging of the head was also performed. The data was processed at the development technologist's workstation for generation of MIP sequences. Angled MIPs and volume rendered reformatted images were also generated at an offline 3D workstation. Stenoses are assessed in accordance with NASCET criteria unless otherwise indicated. DLP: 2501 mGy-cm FINDINGS: CT Head: Expected evolution of a small acute infarct within the lateral aspect of the left precentral gyrus. No evidence of intracranial hemorrhage. The alston-white matter differentiation is otherwise preserved. Scattered hypoattenuation in the periventricular and deep white matter are consistent with mild to moderate microangiopathy. Proportional prominence of the ventricles and sulcal spaces. No evidence for obstructive hydrocephalus. No abnormal mass effect or midline shift. No extra-axial fluid collections. Calcific atherosclerotic disease of the intracranial internal carotid and vertebral arteries. No hyperdense vessel sign. No evidence of abnormal intracranial enhancement. No acute soft tissue or osseous abnormalities. The patient is edentulous. Moderate leftward nasal septal deviation. Mild mucosal thickening of the paranasal sinuses. The mastoid air cells and middle ear cavities remain well aerated. Bilateral lens extractions. CT Neck: The thyroid gland and remaining cervical soft tissues are within normal limits. Moderate multilevel degenerative spondyloarthropathy of the cervical spine. Reversal the normal cervical lordosis centered on C3-C4. Mild degenerative anterolisthesis of C2 on C3. Advanced degenerative disc disease at C3-C4 and C6-C7. Mild to moderate degenerative disc disease at all additional cervical levels with disc-osteophyte complexes. Moderate facet and uncovertebral joint arthropathy leads to osseous encroachment on the neural foramina at C2-C3, C5-C6, and C6-C7. CT Upper Chest: Moderate and small left pleural effusions. Moderate interlobular septal and peribronchial wall thickening. The visualized lung apices and upper mediastinum are within normal limits. Neck CTA: Aortic Arch: Normal contour and caliber with moderate calcific atherosclerotic disease. Classic 3 vessel branching pattern of the aortic arch. Great Vessel Origins: No significant stenosis of the branch origins. Right Common Carotid Artery: Normal opacification without focal stenosis or occlusion. Cervical Right Internal Carotid Artery: Heavy irregular calcific atherosclerotic disease of the carotid bulb and proximal internal carotid artery causes 80% stenosis of the origin of the right ICA. Left Common Carotid Artery: Normal opacification without focal stenosis or occlusion. Cervical Left Internal Carotid Artery: Heavy calcific atherosclerotic disease of the carotid bulb and proximal internal carotid artery causes 80% stenosis of the origin of the right ICA. Cervical Right Vertebral Artery: Dominant. Calcific atherosclerotic disease causes mild narrowing of the origin. Otherwise, normal opacification without focal stenosis or occlusion. Cervical Left Vertebral Artery: Normal opacification without focal stenosis or occlusion. Brain CTA: Intracranial Internal Carotid Arteries: Calcific atherosclerotic disease of the intracranial internal carotid arteries without occlusion or flow-limiting stenosis. Otherwise, normal contrast opacification of the petrous, cavernous, paraophthalmic, and supraclinoid segments of the internal carotid arteries without focal stenosis. Right Anterior Cerebral Artery: Normal A1 segment. Normal opacification of the distal segments of the JERRY. Left Anterior Cerebral Artery: Normal A1 segment. Normal opacification of the distal segments of the JERRY. Anterior Communicating Artery: Normal. Right Middle Cerebral Artery: Normal opacification of the M1 segment of the MCA without focal stenosis or occlusion. Normal arborization of the distal segments. Left Middle Cerebral Artery: Normal opacification of the M1 segment of the MCA without focal stenosis or occlusion. Normal arborization of the distal segments. Right Vertebral Artery: Normal opacification of the V4 segment. Normal opacification of the proximal segments of the posterior inferior cerebellar artery. Left Vertebral Artery: Normal opacification of the V4 segment. Normal opacification of the proximal segments of the posterior inferior cerebellar artery. Basilar Artery: Normal opacification without focal stenosis or occlusion. Normal appearance of the proximal superior cerebellar arteries. Right Posterior Cerebral Artery: Normal P1 segment. Normal posterior communicating artery. Normal opacification of the distal segments of the CABLE MOCK [employer]SEM[employer]ER. Left Posterior Cerebral Artery: The P1 segment is mildly diminutive. origin of the C[employer] M[employer]ER with robust opacification of the posterior communicating artery. Normal opacification of the distal segments of the C[employer] M[employer]ER. Normal opacification of the superior sagittal, straight, transverse, and sigmoid sinuses. CT/CT angio head neck IMPRESSION: 1. Expected evolution of a small acute infarct within the lateral aspect of the left precentral gyrus. No evidence of hemorrhagic conversion. No demonstrated new loss of alston-white matter differentiation. 2. Calcific atherosclerotic disease causes 80% stenoses of the origins of the ICAs bilaterally. 3. CTA of the head and neck without additional proximal occlusion or flow-limiting stenosis. 4. Mild to moderate underlying microangiopathy and generalized cerebral volume loss. 5. 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 6. Mild to moderate bilateral pleural effusions with interlobular septal and peribronchial wall thickening suggestive of a degree of interstitial edema.
[2020-09-22 01:42] VITALS: BP 140/63
--- NOTE | 2020-09-22 02:06 | PC.NURSE ---
PT HR DIPPED DOWN TO 35. UPON ASSESSMENT PT WAS ASYMPTOMATIC, RESTING WITH NO COMPLAINTS. DR. ADAME INFORMED OF PT'S HR WHICH NOW HAS BEEN BETWEEN 40-50. NO FURTHER ORDERS PLACED.
[2020-09-22] MEDS: Hydrocortisone Sod Succ/PF 100 MG VIAL 25 MG IVPUSH ×2 (03:08→11:07)
[2020-09-22] MEDS: Lactated Ringers 1,000 ML 100 ML IVCONT (03:09)
[2020-09-22 03:43] VITALS: BP 155/75; PULSE 51; RESP 17; TEMP 36.9; O2SAT 94
[2020-09-22 07:16] LABS: Basophils Percent Auto 0.2 % (0-2); Eosinophils Percent Auto 0.5 % (0-4); Hematocrit 32.6 % (42-52); Hemoglobin 10.9 g/dl (14.0-18.0); Imm Gran Abs Auto 0.11 X10*3/uL (0.00-0.03); Imm Gran Pct Auto 1.2 % (0.0-0.4); Lymphocytes Absolute Auto 0.2 X10*3/uL (1.2-4.9); MANUAL DIFF FLAG SCAN; Mean Corpuscular HGB Conc 33.4 g/dl (31.0-36.0); Mean Corpuscular Hemoglobin 31.9 pg (27.0-33.0); Mean Corpuscular Volume 95.3 fL (80-98); Mean Platelet Volume 11.1 fL (9.4-12.4); Monocytes Absolute Auto 0.7 X10*3/uL (0.1-1.2); Monocytes Percent Auto 7.8 % (2-11); Neutrophils Absolute Auto 7.8 X10*3/uL (2.0-8.3); Neutrophils Percent Auto 88.3 % (45-73); Platelet Count 143 X10*3/uL (160-400); Red Blood Count 3.42 X10*6/uL (4.60-5.80); Red Cell Distribution Width 16.4 % (11.0-16.0); SCAN SMEAR FLAG 1; White Blood Count 8.9 X10*3/uL (4.8-10.8)
[2020-09-22 07:41] LABS: Alanine Aminotransferase 111 U/L (0-40); Albumin Level 3.2 g/dL (3.5-5.0); Alkaline Phosphatase 176 U/L (39-117); Anion Gap 14 (12-20); Aspartate Amino Transferase 56 U/L (5-37); Blood Urea Nitrogen 23 mg/dL (9-16); Calcium 7.6 mg/dL (8.4-10.2); Carbon Dioxide 22 mmol/L (22-29); Chloride 110 mmol/L (96-108); Estimated Glomerular Filt Rate > 60; Glucose Random 139 mg/dL (60-115); Potassium 3.5 mmol/l (3.3-5.1); Sodium 142 mmol/L (135-145); Total Protein 5.1 g/dL (6.5-8.0)
[2020-09-22 07:47] VITALS: BP 187/87; PULSE 51; RESP 20; TEMP 37.2; O2SAT 95
--- NOTE | 2020-09-22 08:18 | P.PNGS_ITS ---
Subjective Subjective Date of Service: 09/22/20 Interval history: Feels ok, tired. Denies abdominal pain. Tolerating solid food. Physical Exam Vital Signs: Vital Signs: Last Vital Signs Temp 99.0 F 09/22/20 07:47 Pulse 51 09/22/20 07:47 Resp 20 09/22/20 07:47 BP 187/87 H 09/22/20 07:47 Pulse Ox 95 09/22/20 07:47 Body Mass Index 27.3 Const: General: comfortable, no acute distress and alert Orientation/consciousness: patient oriented x3 Eyes: Sclerae: sclerae normal Resp: Effort & Inspection: normal respiratory effort GI: Inspection: No distended and Yes scar (midline and small laparoscopic port scars) Palpation (GI): Soft to palpation, nontender, no guarding and not rigid Skin: General skin exam: no rashes or lesions noted Neuro: General: patient oriented x3 Extrem: General: Yes no clubbing, cyanosis or edema Progress Note: A&P Assessment and plan (1) Septic shock: Status: Acute (2) Gram-negative bacteremia: Status: Acute Assessment and Plan: Likely secondary to acute cholangitis. S/p ERCP. Cont IV zosyn. (3) Acute cerebral infarction: Status: Acute (4) Abnormal LFTs (liver function tests): Status: Acute (5) Choledocholithiasis: Problem details: POD #1 s/p ERCP, sphincterotomy, stone extraction Status: Acute Assessment and Plan: Feels ok, denies abd pain. Tolerating diet. Abd exam benign- soft, NTND. LFTs now downtrending. ?Timing of CCY. No clinical signs of acute cholecystitis. Still undergoing neurologic workup for CVA- it may be preferable to defer c holecystectomy at this time. Will continue to follow. Cont IV zosyn. Fall Risk Details Current Medications: Current Medications Generic Name Dose Route Start Last Admin Trade Name Freq PRN Reason Stop Dose Admin Acetaminophen 650 mg 09/21/20 00:49 09/21/20 19:55 Acetaminophen 325 Mg Tablet PO 650 mg Q6H PRN Administration Pain, Mild (Pain Scale 1-3) Atorvastatin Calcium 40 mg 09/21/20 17:00 09/21/20 17:12 Atorvastatin Calcium 40 Mg Tablet PO 40 mg DAILY@1700 GOSIA Administration Azathioprine 50 mg 09/21/20 21:00 09/21/20 19:53 Azathioprine 50 Mg Tablet PO 50 mg BID GOSIA Administration Calcium Polycarbophil 1 tab 09/21/20 21:00 09/21/20 19:54 Calcium Polycarbophil Tablet PO 1 tab BID GOSIA Administration Fluticasone Propionate 1 spray 09/21/20 21:00 09/21/20 19:57 Fluticasone Propionate Nasal 16 Gm Carpenter NOSTRIL-B 1 spray BID GOSIA Administration Hydrocortisone Sodium Succinate 25 mg 09/21/20 11:45 09/22/20 03:08 Hydrocortisone Sod Succ/Pf 100 Mg Vial IVPUSH 25 mg Q8H GOSIA Administration Piperacillin Sod/Tazobactam 50 mls @ 100 mls/hr 09/21/20 01:00 09/22/20 00:20 Sod 3.375 gm/ Sodium Chloride IV Infused Q6H GOSIA Infusion Lactated Ringer's 1,000 mls @ 100 mls/hr 09/21/20 17:45 09/22/20 03:09 Lr IVCONT 100 mls/hr .Q10H GOSIA Administration Omeprazole 40 mg 09/21/20 16:00 09/21/20 17:11 Omeprazole 20 Mg Capsule. PO 40 mg DAILY@1600 GOSIA Administration Ondansetron HCl 4 mg 09/21/20 00:49 Ondansetron Hcl 4 Mg/2 Ml Vial IVPUSH Q8H PRN Nausea and Vomiting Pharmacy Consult 1 each 09/20/20 06:59 Consult Rx Perform Med Rec MISCELLANE ONCE PRN Consult order Pyridostigmine [place] 60 mg 09/21/20 15:00 09/21/20 19:56 Pyridostigmine [place] 60 Mg Tablet PO 60 mg TID GOSIA Administration Quetiapine Fumarate 25 mg 09/21/20 21:00 09/21/20 19:57 Quetiapine Fumarate 25 Mg Tablet PO 25 mg BEDTIME GOSIA Administration Quetiapine Fumarate 100 mg 09/21/20 21:00 09/21/20 19:54 Quetiapine Fumarate 100 Mg Tablet PO 100 mg BEDTIME GOSIA Administration Sodium Chloride 3 ml 09/21/20 00:49 09/21/20 19:22 0.9 % Sodium Chloride Flush 3 Ml Syringe IVFLUSH 3 ml QSHIFT GOSIA Administration Tamsulosin HCl 0.4 mg 09/21/20 21:00 09/21/20 19:57 Tamsulosin Hcl 0.4 Mg Capsule PO 0.4 mg BEDTIME GOSIA Administration Trazodone HCl 50 mg 09/21/20 21:00 09/21/20 19:57 Trazodone Hcl 50 Mg Tablet PO 50 mg BEDTIME GOSIA Administration Venlafaxine HCl 150 mg 09/22/20 09:00 Venlafaxine Hcl Er 150 Mg Cap.Er.24h PO DAILY GOSIA Vitamin D 25 mcg 09/22/20 09:00 Cholecalciferol (Vitamin D3) 25 Mcg Tablet PO DAILY GOSIA Time Spent With Patient Time: Total time spent is greater than 50% in coordination of care (as documented) at patient's floor/unit and/or counseling patient: Time with patient: 15 - 24 minutes
[2020-09-22 08:29] LABS: SLIDE REVIEW VERIFIED
[2020-09-22] MEDS: calcium polycarbophiL TABLET 1 TAB PO (08:36)
[2020-09-22] MEDS: Piperacillin Sodium/Tazobactam 3.375 GM in 0.9 % Sodium Chloride 50 ML IV (08:36)
[2020-09-22] MEDS: Cholecalciferol (Vitamin D3) 25 MCG TABLET PO (08:36)
[2020-09-22] MEDS: Venlafaxine HCl ER 150 MG CAP.ER.24H PO (08:36)
[2020-09-22] MEDS: azaTHIOprine 50 MG TABLET PO ×2 (08:36→20:07)
[2020-09-22] MEDS: 0.9 % Sodium Chloride Flush 3 ML SYRINGE IVFLUSH ×2 (08:41→17:25)
[2020-09-22] MEDS: Fluticasone Propionate Nasal 16 GM SPRAY 1 SPRAY NOSTRIL-B ×2 (08:43→20:13)
--- NOTE | 2020-09-22 09:36 | HO.POSTANES ---
Post Anesthesia Evaluation Post Anesthesia Evaluation Vital Signs: Vital Signs Temp Pulse Resp BP Pulse Ox 09/22/20 07:47 99.0 F 51 20 187/87 H 95 09/22/20 03:43 98.5 F 51 17 155/75 H 94 09/22/20 01:42 140/63 H Anesthesia: General Endotracheal-GETA Mental Status: Awake Pain Control: Satisfactory Nausea/Vomiting: None Hydration: Adequate Anesthesia-Related Issues: No Anes. Related Issues
[2020-09-22 10:54] VITALS: BP 159/75; PULSE 58; RESP 18; TEMP 37.2; O2SAT 97
[2020-09-22] MEDS: cefTRIAXone sodium 1 GM in 0.9 % Sodium Chloride 50 ML IV (11:07)
--- NOTE | 2020-09-22 12:46 | PM.CNCAR ---
History of Present Illness History of Present Illness Date of Service: 09/22/20 Requesting physician: Kiana Hood Consult reason: troponin elevation Chief complaint: CHOLANGITIS Narrative: Robe is an 80 yo male with PMH of HTN, HLD, diet controlled DM, CAD with reported coronary stent 20 yrs ago who [facility] and was sent to ED on 09/20 with lower GIB and hypotension. He had been discharged from [facility] on 09/15 for GIB admit. This admit he was found to have choledocholithiasis and had did undergo ERCP. The events of his admission have been reviewed. Cardiology was consulted for elevated troponin levels, NSTEMI. Today he tells me that he is feeling better overall. He denies having any abdominal discomfort and no signs of active bleeding. He has not been having any chest discomfort at rest or with activity. No shortness of breath or cough. No heart palpitations, dizziness, presyncope. No PND, orthopnea or edema. Takes all meds as directed. Has been mostly sedentary in last few months due to COVID quarantines. Review of Systems Review of Systems: as above Yes all other systems are reviewed and are negative [facility] Past Medical History Medical History Acute respiratory disease BPH (benign prostatic hyperplasia) CAD (coronary artery disease) Cataract COVID-19 Depression Diabetes mellitus GERD (gastroesophageal reflux disease) Hammer toe Hammer toes, bilateral History of diverticulosis History of rectal cancer Hyperlipidemia Hypertension Inguinal hernia Insomnia Malignant neoplasm of colon Myasthenia gravis Nonalcoholic steatohepatitis (MARTI) Onychogryphosis Rheumatoid arthritis Urinary incontinence Family History Family History Mother No problems noted. Father No problems noted. Brother No problems noted. Sister No problems noted. Daughter Psychiatric disorder Son No problems noted. Surgical History Surgical History History of colostomy History of colostomy reversal History of incisional hernia repair History of low anterior resection of rectum Social History Social History Household Members: Other Housing: Intermediate Alcohol intake: never Smoking Status: Never smoker Use of substances other than those prescribed or required for medical reasons: No Currently Displaying Signs/Symptoms of Drug Intoxication Withdrawal: No Have you been hit, kicked, punched, or otherwise hurt by someone within the past year? If so, by whom?: No Do you feel safe in your current relationship?: No Current Relationship Is there a partner from a previous relationship who is making you feel unsafe now?: No Are you made to feel afraid or neglected: No Advance Directives: Yes Advance Directives on File: Yes Advance Directives Date on File: 06/21/20 Do you have thoughts of harming others: None Do you have a plan to hurt others: No Plan Recently lost weight without trying: Unsure service: Yes Current occupational status: retired [employer] Allergies Allergy/AdvReac Type Severity Reaction Status Date / Time No Known Allergies Allergy Unverified 09/14/20 09:38 [No Known Allergies*] Home Medications Medication Instructions Recorded Confirmed Type acetaminophen 650 mg PO BEDTIME 09/14/20 09/20/20 History aspirin 81 mg PO DAILY 09/14/20 09/20/20 History atorvastatin 40 mg PO DAILY@1700 09/14/20 09/20/20 History azathioprine 50 mg PO BID 09/14/20 09/20/20 History calcium polycarbophil 625 mg PO BID 09/14/20 09/20/20 History carboxymethylcellulose sodium 1 drp OPHTHALMIC (EYE) BEDTIME 09/14/20 09/20/20 History cholecalciferol (vitamin D3) 25 mcg PO DAILY 09/14/20 09/20/20 History cyanocobalamin (vitamin B-12) 1,000 mcg IM QMONTH 09/14/20 09/20/20 History ferrous sulfate [Iron (ferrous 325 mg PO BID 09/14/20 09/20/20 History sulfate)] fluticasone propionate 1 spray INTRANASAL BID 09/14/20 09/20/20 History lisinopril 5 mg PO DAILY@1700 09/14/20 09/20/20 History oxybutynin chloride 15 mg PO DAILY 09/14/20 09/20/20 History prednisone 5 mg PO Q OTHER DAY 09/14/20 09/20/20 History pyridostigmine bromide 60 mg PO TID 09/14/20 09/20/20 History quetiapine 25 mg PO BEDTIME 09/14/20 09/20/20 History quetiapine 100 mg PO BEDTIME 09/14/20 09/20/20 History tamsulosin 0.4 mg PO BEDTIME 09/14/20 09/20/20 History trazodone 50 mg PO BEDTIME 09/14/20 09/20/20 History venlafaxine 150 mg PO DAILY 09/14/20 09/20/20 History docusate sodium 100 mg PO BID 09/20/20 09/20/20 History loratadine 10 mg PO DAILY 09/20/20 09/20/20 History lorazepam 0.25 mg PO Q6H PRN 09/20/20 09/20/20 History omeprazole 40 mg PO DAILY@1600 09/20/20 09/20/20 History Physical Exam Vital Signs: Vital Signs: Last Vital Signs Temp 99.0 F 09/22/20 10:54 Pulse 58 09/22/20 10:54 Resp 18 09/22/20 10:54 BP 159/75 H 09/22/20 10:54 Pulse Ox 97 09/22/20 10:54 Body Mass Index 27.3 Const: General: cooperative, no acute distress, alert and awake Orientation/consciousness: patient oriented x3 HENMT: Head: Yes normal to inspection Neck: Neck: Yes normal visual inspection and Yes no JVD Resp: Effort & Inspection: normal respiratory effort, able to speak in complete sentences and not labored Auscultation: clear to auscultation bilaterally, no crackles, no rales, no rhonchi and no wheezes Cardio: Palpation: normal PMI Rate: regular rate Rhythm: regular rhythm Heart sounds: S1 normal heart sound present and S2 normal heart sound present Peripheral pulses: Peripheral pulses 2+ throughout GI: Inspection: Yes normal to inspection Neuro: General: patient oriented x3 Extrem: General: Yes normal to inspection and No edema Results Labs and Meds Result diagrams: 09/22/20 05:34 09/22/20 05:34 Lab results: Laboratory Results - last 24 hr 09/22/20 09/22/20 05:34 05:34 WBC 8.9 RBC 3.42 L Hgb 10.9 L Hct 32.6 L MCV 95.3 MCH 31.9 MCHC 33.4 RDW 16.4 H Plt Count 143 L MPV 11.1 Immature Gran % (Auto) 1.2 H Neut % (Auto) 88.3 H Lymph % (Auto) 2.0 L [place] % (Auto) 7.8 Eos % (Auto) 0.5 Baso % (Auto) 0.2 Lymph # (Auto) 0.2 L [place] # (Auto) 0.7 Eos # (Auto) 0.0 Baso # (Auto) 0.0 Abs Immat Gran (auto) 0.11 H Absolute Neuts (auto) 7.8 Absolute Nucleated RBC 0.000 Nucleated RBC % (auto) 0.0 Smear Tech's Comments VERIFIED Sodium 142 Potassium 3.5 Chloride 110 H Carbon Dioxide 22 Anion Gap 14 BUN 23 H Creatinine 0.79 Estim Creat Clear Calc 72.0 Estimated GFR > 60 Random Glucose 139 H D Calcium 7.6 L Magnesium 2.0 Total Bilirubin 1.0 AST 56 H ALT 111 H Alkaline Phosphatase 176 H Total Protein 5.1 L Albumin 3.2 L Imaging Radiologist's impression: Impressions Guidance Fluoroscopy 09/21/20 13:46 IMPRESSION: Fluoroscopy guidance for ERCP. Assessment and Plan (1) NSTEMI (non-ST elevated myocardial infarction): Status: Acute Admit with hypotension, GIB, noted to have sepsis, choledocholithiasis. Troponin elevated and kristie to 1177 on 09/20, no rechecks done. No report of CP. EKG with lateral ST abnormality. Echo shows EF 50-55%, apical lateral and mid anterolateral hypokinesis. Has reported hx of CAD with stented coronary 20 yrs ago. No prior known hx of HI. Case reviewed with Dr Hooks. In setting of his recent GIB, options limited. Unable to treat with aspirin or anticoagulate with heparin. Provide supportive care and ongoing mgt of other medical issues. Will hold atorvastatin at this time due to his elevated LFTs. Can plan for restart once LFTs normalized. Can start on aspirin 81mg daily once clear by GI to do so. He is bradycardic at baseline so rate slowing meds will be avoided. Ongoing tele monitoring while inpt. EKG if he does report CP. Discussed the above with pt and he states understanding. (2) Elevated troponin: Status: Acute (3) Abnormal LFTs (liver function tests): Status: Acute (4) Acute GI bleeding: Status: Acute Followed by GI, hospitalist
[2020-09-22 15:01] VITALS: BP 171/77; PULSE 55; RESP 19; TEMP 36.7; O2SAT 98
--- NOTE | 2020-09-22 17:21 | P.PNIM_ITS ---
Subjective Subjective Date of Service: 09/22/20 Interval History: Very minimal abd discomfort No chest pain No facial droop or motor weakness No speech deficit No further GI bleeding Physical Exam Vital Signs: Vital Signs: Last Vital Signs Temp 98.1 F 09/22/20 15:01 Pulse 55 09/22/20 15:01 Resp 19 09/22/20 15:01 BP 171/77 H 09/22/20 15:01 Pulse Ox 98 09/22/20 15:01 Body Mass Index 27.3 Gen: in no acute distress HEENT: sclera anicteric, moist mucus membranes Neck: supple Lungs: clear to auscultation bilaterally Heart: regular rate and rhythm, no murmurs Abd: soft, non-tender, non-distended Ext: no edema Skin: warm/well-perfused Neuro: alert and oriented x3, normal strength in all 4 extremities, no pronator drift, fluent speech Psych: appropriate affect Objective Data Current Medications Generic Name Dose Route Start Last Admin Trade Name Freq PRN Reason Stop Dose Admin Acetaminophen 650 mg 09/21/20 00:49 09/21/20 19:55 Acetaminophen 325 Mg Tablet PO 650 mg Q6H PRN Administration Pain, Mild (Pain Scale 1-3) Azathioprine 50 mg 09/21/20 21:00 09/22/20 08:36 Azathioprine 50 Mg Tablet PO 50 mg BID GOSIA Administration Calcium Polycarbophil 1 tab 09/21/20 21:00 09/22/20 08:36 Calcium Polycarbophil Tablet PO 1 tab BID GOSIA Administration Fluticasone Propionate 1 spray 09/21/20 21:00 09/22/20 08:43 Fluticasone Propionate Nasal 16 Gm Webster NOSTRIL-B 1 spray BID GOSIA Administration Hydrocortisone Sodium Succinate 25 mg 09/21/20 11:45 09/22/20 11:07 Hydrocortisone Sod Succ/Pf 100 Mg Vial IVPUSH 25 mg Q8H GOSIA Administration Ceftriaxone Sodium 1 gm/ 50 mls @ 100 mls/hr 09/22/20 09:15 09/22/20 11:37 Sodium Chloride IV Infused Q24H GOSIA Infusion Omeprazole 40 mg 09/21/20 16:00 09/21/20 17:11 Omeprazole 20 Mg Capsule.Dr PO 40 mg DAILY@1600 GOSIA Administration Ondansetron HCl 4 mg 09/21/20 00:49 Ondansetron Hcl 4 Mg/2 Ml Vial IVPUSH Q8H PRN Nausea and Vomiting Pharmacy Consult 1 each 09/20/20 06:59 Consult Rx Perform Med Rec MISCELLANE ONCE PRN Consult order Pyridostigmine [place] 60 mg 09/21/20 15:00 09/22/20 08:36 Pyridostigmine [place] 60 Mg Tablet PO 60 mg TID GOSIA Administration Quetiapine Fumarate 25 mg 09/21/20 21:00 09/21/20 19:57 Quetiapine Fumarate 25 Mg Tablet PO 25 mg BEDTIME GOSIA Administration Quetiapine Fumarate 100 mg 09/21/20 21:00 09/21/20 19:54 Quetiapine Fumarate 100 Mg Tablet PO 100 mg BEDTIME GOSIA Administration Sodium Chloride 3 ml 09/21/20 00:49 09/22/20 08:41 0.9 % Sodium Chloride Flush 3 Ml Syringe IVFLUSH 3 ml QSHIFT GOSIA Administration Tamsulosin HCl 0.4 mg 09/21/20 21:00 09/21/20 19:57 Tamsulosin Hcl 0.4 Mg Capsule PO 0.4 mg BEDTIME GOSIA Administration Trazodone HCl 50 mg 09/21/20 21:00 09/21/20 19:57 Trazodone Hcl 50 Mg Tablet PO 50 mg BEDTIME GOSIA Administration Venlafaxine HCl 150 mg 09/22/20 09:00 09/22/20 08:36 Venlafaxine Hcl Er 150 Mg Cap.Er.24h PO 150 mg DAILY GOSIA Administration Vitamin D 25 mcg 09/22/20 09:00 09/22/20 08:36 Cholecalciferol (Vitamin D3) 25 Mcg Tablet PO 25 mcg DAILY GOSIA Administration Labs CBC & Chem 7: 09/22/20 05:34 09/22/20 05:34 Labs: Laboratory Results - last 24 hr 09/22/20 09/22/20 05:34 05:34 WBC 8.9 RBC 3.42 L Hgb 10.9 L Hct 32.6 L MCV 95.3 MCH 31.9 MCHC 33.4 RDW 16.4 H Plt Count 143 L MPV 11.1 Immature Gran % (Auto) 1.2 H Neut % (Auto) 88.3 H Lymph % (Auto) 2.0 L Dane % (Auto) 7.8 Eos % (Auto) 0.5 Baso % (Auto) 0.2 Lymph # (Auto) 0.2 L Dane # (Auto) 0.7 Eos # (Auto) 0.0 Baso # (Auto) 0.0 Abs Immat Gran (auto) 0.11 H Absolute Neuts (auto) 7.8 Absolute Nucleated RBC 0.000 Nucleated RBC % (auto) 0.0 Smear Tech's Comments VERIFIED Sodium 142 Potassium 3.5 Chloride 110 H Carbon Dioxide 22 Anion Gap 14 BUN 23 H Creatinine 0.79 Estim Creat Clear Calc 72.0 Estimated GFR > 60 Random Glucose 139 H D Calcium 7.6 L Magnesium 2.0 Total Bilirubin 1.0 AST 56 H ALT 111 H Alkaline Phosphatase 176 H Total Protein 5.1 L Albumin 3.2 L TTE 09/21/20 - The left ventricular systolic function is low normal. - E/E prime ratio is >15, consistent with elevated filling pressures. - The apical lateral and mid anterolateral segments are hypokinetic. - Normal right ventricular cavity size and systolic function. - Tricuspid regurgitation envelope is inadequate for calculation of right ventricular systolic pressure. Significantly elevated right atrial pressure. Microbiology Microbiology Results: Microbiology 09/20/20 07:48 Blood - Venous Blood Culture - Final Escherichia coli 09/20/20 07:35 Blood - Venous Blood Culture - Final Escherichia coli Assessment and Plan (1) Septic shock: Status: Acute (2) Gram-negative bacteremia: Status: Acute Assessment and Plan: hospital d#3 80yo M resident of [facility] with PMHx myasthenia gravis on azathioprine + prednisone + pyridostigmine, colorectal CA, DM2, HTN recently admitted 09/13-09/15/20 with acute GI bleeding with negative EGD and negative bleeding scan, attributed to self-limited diverticular bleed sent in due to hypotension. FOBT negative. admitted for septic shock due to cholangitis complicated by NSTEMI, acute CVA # septic shock # ascending cholangitis # E coli bacteremia # choledocholithiasis - IV ceftriaxone d#3, taper IV hydrocortisone, ERCP done 09/21/20- 8 mm sphincterotomy + extraction of 1 flat stone, defer lap ulysses given NSTEMI/CVA # acute ischemic CVA - holding antiplatelet agent given question of GI bleed and ERCP continue stat in. MRI. Neurology consult. # NSTEMI - holding anticoagulation given question of GI bleed and ERCP. suspect demand ischemia. TTE, Cardiology consult # GI bleed # acute blood loss anemia - was transfused 1 unit pRBCs in ED. monitor Hb # myasthenia gravis - continue azathioprine + pyridostigmine. stress-dose steroids as above. # CAD - continue statin, hold ASA given recent GIB # HTN - holding lisinopril due to recent hypotension # DM2 - correction-dose lispro # VTE ppx - BLE SCDs, hold heparin
[2020-09-22] MEDS: Omeprazole 20 MG CAPSULE.DR 40 MG PO (17:25)
[2020-09-22 19:00] VITALS: BP 175/81; PULSE 55; RESP 19; TEMP 36.7; O2SAT 97
[2020-09-22] MEDS: Tamsulosin HCL 0.4 MG CAPSULE PO (20:08)
[2020-09-22] MEDS: QUEtiapine Fumarate 100 MG TABLET PO (20:08)
[2020-09-22] MEDS: QUEtiapine Fumarate 25 MG TABLET PO (20:09)
[2020-09-22] MEDS: Atorvastatin Calcium 40 MG TABLET PO (20:09)
[2020-09-22] MEDS: traZODone HCL 50 MG TABLET PO (20:10)
--- NOTE | 2020-09-22 23:10 | PC.NURSE ---
Patient resting comfortably in bed. HR on monitor ranges between 32-45. Hospitalist is aware of patients bradycardia and was not concerned due to his trend of a low heart rate since his admission.
[2020-09-23] VITALS (8 sets, daily range): BP systolic 142–189; BP diastolic 60–93; PULSE 47–60; RESP 16–20; TEMP 36.4–37; O2SAT 92–97
[2020-09-23] MEDS: 0.9 % Sodium Chloride Flush 3 ML SYRINGE IVFLUSH ×2 (08:25→15:47)
[2020-09-23] MEDS: Hydrocortisone Sod Succ/PF 100 MG VIAL 12.5 MG IVPUSH ×2 (10:28→20:08)
[2020-09-23] MEDS: Fluticasone Propionate Nasal 16 GM SPRAY 1 SPRAY NOSTRIL-B ×2 (10:31→20:16)
[2020-09-23] MEDS: azaTHIOprine 50 MG TABLET PO ×2 (10:31→20:09)
[2020-09-23] MEDS: Venlafaxine HCl ER 150 MG CAP.ER.24H PO (10:31)
[2020-09-23] MEDS: cefTRIAXone sodium 1 GM in 0.9 % Sodium Chloride 50 ML IV (10:31)
[2020-09-23] MEDS: lisinopriL 5 MG TABLET PO (10:32)
[2020-09-23] MEDS: calcium polycarbophiL TABLET 1 TAB PO ×2 (10:32→20:09)
[2020-09-23] MEDS: Cholecalciferol (Vitamin D3) 25 MCG TABLET PO (10:32)
[2020-09-23] MEDS: Acetaminophen 325 MG TABLET 650 MG PO (11:29)
[2020-09-23] MEDS: ondansetron HCL 4 MG/2 ML VIAL IVPUSH (11:37)
--- NOTE | 2020-09-23 13:06 | PM.EVENT ---
Event Note Date of Service: 09/23/20 Event Note: Full consult dictated. Patient will see me upon discharge.
--- NOTE | 2020-09-23 15:01 | HO.PM.IMPN ---
Subjective Subjective Date of Service: 09/23/20 Interval History: Feels well. Denies chest pain or RUQ pain. No N/V. No speech deficit and no motor weakness. Physical Exam Vital Signs: Vital Signs: Last Vital Signs Temp 98.4 F 09/23/20 11:43 Pulse 47 L 09/23/20 11:43 Resp 18 09/23/20 11:43 BP 158/72 H 09/23/20 11:43 Pulse Ox 97 09/23/20 11:43 Body Mass Index 27.3 Gen: in no acute distress HEENT: sclera anicteric, moist mucus membranes Neck: supple Lungs: clear to auscultation bilaterally Heart: regular rate and rhythm, no murmurs Abd: soft, non-tender, non-distended Ext: no edema Skin: warm/well-perfused Neuro: alert and oriented x3, normal strength in all 4 extremities, no pronator drift, fluent speech Psych: appropriate affect Objective Data Current Medications Generic Name Dose Route Start Last Admin Trade Name Freq PRN Reason Stop Dose Admin Acetaminophen 650 mg 09/21/20 00:49 09/23/20 11:29 Acetaminophen 325 Mg Tablet PO 650 mg Q6H PRN Administration Pain, Mild (Pain Scale 1-3) Atorvastatin Calcium 40 mg 09/22/20 21:00 09/22/20 20:09 Atorvastatin Calcium 40 Mg Tablet PO 40 mg BEDTIME GOSIA Administration Azathioprine 50 mg 09/21/20 21:00 09/23/20 10:31 Azathioprine 50 Mg Tablet PO 50 mg BID GOSIA Administration Calcium Polycarbophil 1 tab 09/21/20 21:00 09/23/20 10:32 Calcium Polycarbophil Tablet PO 1 tab BID GOSIA Administration Fluticasone Propionate 1 spray 09/21/20 21:00 09/23/20 10:31 Fluticasone Propionate Nasal 16 Gm Adel NOSTRIL-B 1 spray BID GOSIA Administration Hydrocortisone Sodium Succinate 12.5 mg 09/23/20 11:00 09/23/20 10:28 Hydrocortisone Sod Succ/Pf 100 Mg Vial IVPUSH 09/23/20 19:01 12.5 mg Q8H GOSIA Administration Ceftriaxone Sodium 1 gm/ 50 mls @ 100 mls/hr 09/22/20 09:15 09/23/20 11:05 Sodium Chloride IV Infused Q24H GOSIA Infusion Lisinopril 5 mg 09/23/20 09:00 09/23/20 10:32 Lisinopril 5 Mg Tablet PO 5 mg DAILY GOSIA Administration Protocol Omeprazole 40 mg 09/21/20 16:00 09/22/20 17:25 Omeprazole 20 Mg Capsule.Dr PO 40 mg DAILY@1600 GOSIA Administration Ondansetron HCl 4 mg 09/21/20 00:49 09/23/20 11:37 Ondansetron Hcl 4 Mg/2 Ml Vial IVPUSH 4 mg Q8H PRN Administration Nausea and Vomiting Pharmacy Consult 1 each 09/20/20 06:59 Consult Rx Perform Med Rec MISCELLANE ONCE PRN Consult order Prednisone 5 mg 09/24/20 09:00 Prednisone 5 Mg Tablet PO DAILY GOSIA Pyridostigmine [place]bie 60 mg 09/21/20 15:00 09/23/20 10:31 Pyridostigmine [place] 60 Mg Tablet PO 60 mg TID GOSIA Administration Quetiapine Fumarate 25 mg 09/21/20 21:00 09/22/20 20:09 Quetiapine Fumarate 25 Mg Tablet PO 25 mg BEDTIME GOSIA Administration Quetiapine Fumarate 100 mg 09/21/20 21:00 09/22/20 20:08 Quetiapine Fumarate 100 Mg Tablet PO 100 mg BEDTIME GOSIA Administration Sodium Chloride 3 ml 09/21/20 00:49 09/23/20 08:25 0.9 % Sodium Chloride Flush 3 Ml Syringe IVFLUSH 3 ml QSHIFT GOSIA Administration Tamsulosin HCl 0.4 mg 09/21/20 21:00 09/22/20 20:08 Tamsulosin Hcl 0.4 Mg Capsule PO 0.4 mg BEDTIME GOSIA Administration Trazodone HCl 50 mg 09/21/20 21:00 09/22/20 20:10 Trazodone Hcl 50 Mg Tablet PO 50 mg BEDTIME GOSIA Administration Venlafaxine HCl 150 mg 09/22/20 09:00 09/23/20 10:31 Venlafaxine Hcl Er 150 Mg Cap.Er.24h PO 150 mg DAILY GOSIA Administration Vitamin D 25 mcg 09/22/20 09:00 09/23/20 10:32 Cholecalciferol (Vitamin D3) 25 Mcg Tablet PO 25 mcg DAILY GOSIA Administration Labs CBC & Chem 7: 09/22/20 05:34 09/22/20 05:34 Microbiology Microbiology Results: Microbiology 09/20/20 07:48 Blood - Venous Blood Culture - Final Escherichia coli 09/20/20 07:35 Blood - Venous Blood Culture - Final Escherichia coli Assessment and Plan (1) Septic shock: Status: Acute (2) Gram-negative bacteremia: Status: Acute Assessment and Plan: hospital d#4 80yo M resident of [facility] with PMHx myasthenia gravis on azathioprine + prednisone + pyridostigmine, colorectal CA, DM2, HTN recently admitted 09/13-09/15/20 with acute GI bleeding with negative EGD and negative bleeding scan, attributed to self-limited diverticular bleed sent in due to hypotension. FOBT negative. 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 start ASA 09/28/20 # NSTEMI # CAD - statin. holding B-blockade due to baseline bradycardia. holding antiplatelet agent given recent ERCP but will start ASA 09/28/20. outpt Cardiology f/u. # GI bleed # acute blood loss anemia - was transfused 1 unit pRBCs in ED; Hb stable # myasthenia gravis, steroid-dependent - continue azathioprine + pyridostigmine. got stress dose hydrocortisone- tapering and will resume home prednisone tomorrow # HTN - resume lisinopril, now hypertensive # DM2, well-controlled with A1c 5.9 - correction-dose lispro # VTE ppx - BLE SCDs, hold heparin
[2020-09-23] MEDS: Omeprazole 20 MG CAPSULE.DR 40 MG PO (15:48)
[2020-09-23] MEDS: Morphine Sulfate 2 MG/ML CARTRIDGE 1 MG IVPUSH (17:35)
[2020-09-23 19:31] LABS: Amylase 16 U/L (28-100); Lipase 13 U/L (8-78)
[2020-09-23] MEDS: QUEtiapine Fumarate 100 MG TABLET PO (20:09)
[2020-09-23] MEDS: traZODone HCL 50 MG TABLET PO (20:09)
[2020-09-23] MEDS: Atorvastatin Calcium 40 MG TABLET PO (20:09)
[2020-09-23] MEDS: QUEtiapine Fumarate 25 MG TABLET PO (20:09)
[2020-09-23] MEDS: Tamsulosin HCL 0.4 MG CAPSULE PO (20:09)
[2020-09-24] MEDS: 0.9 % Sodium Chloride Flush 3 ML SYRINGE IVFLUSH ×2 (01:25→09:57)
[2020-09-24 03:35] VITALS: BP 184/72; PULSE 53; RESP 18; TEMP 37.3; O2SAT 95
[2020-09-24 07:01] LABS: Basophils Percent Auto 0.4 % (0-2); Eosinophils Absolute Auto 0.2 X10*3/uL (0.0-0.4); Eosinophils Percent Auto 4.2 % (0-4); Hematocrit 32.1 % (42-52); Hemoglobin 10.8 g/dl (14.0-18.0); Imm Gran Abs Auto 0.08 X10*3/uL (0.00-0.03); Imm Gran Pct Auto 1.5 % (0.0-0.4); Lymphocytes Absolute Auto 0.5 X10*3/uL (1.2-4.9); Lymphocytes Percent Auto 9.5 % (20-40); MANUAL DIFF FLAG SCAN; Mean Corpuscular HGB Conc 33.6 g/dl (31.0-36.0); Mean Corpuscular Hemoglobin 31.9 pg (27.0-33.0); Mean Corpuscular Volume 94.7 fL (80-98); Mean Platelet Volume 11.2 fL (9.4-12.4); Monocytes Absolute Auto 0.6 X10*3/uL (0.1-1.2); Monocytes Percent Auto 11.5 % (2-11); Neutrophils Percent Auto 72.9 % (45-73); Platelet Count 158 X10*3/uL (160-400); Red Blood Count 3.39 X10*6/uL (4.60-5.80); SCAN SMEAR FLAG 1; White Blood Count 5.5 X10*3/uL (4.8-10.8)
[2020-09-24 07:14] LABS: Lipase 12 U/L (8-78)
[2020-09-24 07:35] LABS: Alanine Aminotransferase 52 U/L (0-40); Albumin Level 3.1 g/dL (3.5-5.0); Alkaline Phosphatase 144 U/L (39-117); Anion Gap 11 (12-20); Aspartate Amino Transferase 18 U/L (5-37); Bilirubin Total 0.6 mg/dL (0.0-1.0); Blood Urea Nitrogen 14 mg/dL (9-16); Calcium 7.7 mg/dL (8.4-10.2); Carbon Dioxide 26 mmol/L (22-29); Chloride 107 mmol/L (96-108); Creatinine Clr Calc Pharmacy 80.2; Estimated Glomerular Filt Rate > 60; Glucose Random 108 mg/dL (60-115); Magnesium 1.8 mg/dL (1.6-2.6); Potassium 3.4 mmol/l (3.3-5.1); Sodium 141 mmol/L (135-145)
[2020-09-24 08:00] VITALS: BP 181/81; PULSE 53; RESP 20; TEMP 36.9; O2SAT 92
[2020-09-24 08:33] LABS: SLIDE REVIEW VERIFIED
[2020-09-24] MEDS: predniSONE 5 MG TABLET PO (09:56)
[2020-09-24] MEDS: Cholecalciferol (Vitamin D3) 25 MCG TABLET PO (09:56)
[2020-09-24] MEDS: calcium polycarbophiL TABLET 1 TAB PO (09:56)
[2020-09-24] MEDS: Venlafaxine HCl ER 150 MG CAP.ER.24H PO (09:56)
[2020-09-24] MEDS: lisinopriL 10 MG TABLET PO (09:56)
[2020-09-24] MEDS: azaTHIOprine 50 MG TABLET PO (09:56)
[2020-09-24] MEDS: cefTRIAXone sodium 1 GM in 0.9 % Sodium Chloride 50 ML IV (09:57)
[2020-09-24] MEDS: Fluticasone Propionate Nasal 16 GM SPRAY 1 SPRAY NOSTRIL-B (10:01)
[2020-09-24 12:00] VITALS: TEMP 37.1
[2020-09-24 12:01] LABS: IDNOW Serial# 9DD0AD1C
[2020-09-24 12:02] LABS: COVID-19 Test Negative (Negative)
[2020-09-24] MEDS: metroNIDAZOLE 500 MG TABLET PO (13:24)
--- NOTE | 2020-09-24 13:25 | PM.DS ---
DS: Providers Provider Date of Service: 09/24/20 Date of admission: 09/20/20 16:04 Primary care physician: Yessenia Oneill Home Consults: 09/21/20 00:49 Consult to Cardiology Routine Consulting Provider: Karl Hooks Reason for consultation: NSTEMI Has provider been notified: No Consult to Cardiology Routine Consulting Provider: Karl Hooks Reason for consultation: NSTEMI Consult to Gastroenterology Routine Consulting Provider: Kiran Lewis Reason for consultation: cholangitis Has provider been notified: Yes Consult to Neurology Routine Consulting Provider: [facility] Reason for consultation: stroke Has provider been notified: No 09/21/20 17:40 Consult to General Surgery Routine Consulting Provider: [facility] Reason for consultation: cholangitis, choledocholithiasis. will need cholecystectomy 09/22/20 17:46 Consult to Vascular Surgery Routine Consulting Provider: Carlos Tellez Reason for consultation: bilateral ICA 80% stenosis, acute CVA DS: Diagnosis Discharge Diagnosis (1) Septic shock: Status: Acute (2) E coli bacteremia: Status: Acute (3) NSTEMI (non-ST elevated myocardial infarction): Status: Acute (4) Acute cerebral infarction: Status: Acute (5) Choledocholithiasis: Status: Acute (6) Anemia: Status: Acute (7) Cholecystitis: Status: Acute (8) Carotid occlusion, bilateral: Status: Acute DS: Medications Discharge Medications Home Medications: Home Medications Medication Instructions Recorded Confirmed acetaminophen 650 mg PO BEDTIME 09/14/20 09/20/20 aspirin 81 mg PO DAILY 09/14/20 09/20/20 atorvastatin 40 mg PO DAILY@1700 09/14/20 09/20/20 azathioprine 50 mg PO BID 09/14/20 09/20/20 calcium polycarbophil 625 mg PO BID 09/14/20 09/20/20 carboxymethylcellulose sodium 1 drp OPHTHALMIC (EYE) BEDTIME 09/14/20 09/20/20 cholecalciferol (vitamin D3) 25 mcg PO DAILY 09/14/20 09/20/20 cyanocobalamin (vitamin B-12) 1,000 mcg IM QMONTH 09/14/20 09/20/20 ferrous sulfate [Iron (ferrous 325 mg PO BID 09/14/20 09/20/20 sulfate)] fluticasone propionate 1 spray INTRANASAL BID 09/14/20 09/20/20 oxybutynin chloride 15 mg PO DAILY 09/14/20 09/20/20 prednisone 5 mg PO Q OTHER DAY 09/14/20 09/20/20 pyridostigmine bromide 60 mg PO TID 09/14/20 09/20/20 quetiapine 25 mg PO BEDTIME 09/14/20 09/20/20 quetiapine 100 mg PO BEDTIME 09/14/20 09/20/20 tamsulosin 0.4 mg PO BEDTIME 09/14/20 09/20/20 trazodone 50 mg PO BEDTIME 09/14/20 09/20/20 venlafaxine 150 mg PO DAILY 09/14/20 09/20/20 docusate sodium 100 mg PO BID 09/20/20 09/20/20 loratadine 10 mg PO DAILY 09/20/20 09/20/20 lorazepam 0.25 mg PO Q6H PRN 09/20/20 09/20/20 omeprazole 40 mg PO DAILY@1600 09/20/20 09/20/20 Previous Rx's Medication Instructions Recorded cefuroxime axetil 500 mg PO Q12H #42 tab 09/24/20 lisinopril 10 mg PO DAILY #30 tab 09/24/20 metronidazole 500 mg PO Q8H #62 tab 09/24/20 DS: Summary Hospital Course Hospital Course: From the admission history and physical by hospitalist SABRINA Gonzalez, 09/20/20: 80-year-old man presenting from long-term facility with GI bleed and hypotension. Patient was discharged from [facility] on September 15 after a complicated course. He initially presented to the ER with bleeding and hypotension. He was transferred to the ICU where he received blood transfusion and blood pressure did improve. He had bleeding scan and EGD which did not find any acute bleeding and was thought to be diverticular bleeding. Apparently his blood pressure at the long-term facility was 75/49 upon arrival. He has had nausea, vomiting loss of appetite. Upon arrival to the ER he was noted to have a fever of 101, respiratory 24 and blood pressure of 82/44. Lactic acid was elevated at 2.6. His troponin was also noted to be elevated at 132 and it appeared that he had some ST wave depressions. Due to the GI bleeding he had an abdominal CAT scan which showed a mildly dilated CBD appearing to be choledocholithiasis. It was thought that some of the complications at the patient had were related to sepsis/septic shock due to choledocholithiasis therefore patient was brought to the OR for ERCP. While in preop patient developed slurred speech and was brought back to the ER to have a CT scan. CT scan did show a developing acute versus subacute infarction. Patient will be sent for ERCP as clearing the infection would help alleviate some complications. The patient was admitted to the [facility] after blood pressure normalized with fluid resucitation and stress-dose hydrocortisone. He was placed on ceftriaxone and ended up growing E coli resistant to ampicillin in 2 out of 2 blood cultures. Hydrocortisone was tapered to his usual dose of prednisone. Neurology was consulted. Dysarthria resolved quickly; MRI showed acute ischemic stroke of the lateral left precentral gyrus. High-sensitivity troponin increased to 1177. The patient had no chest pain. Cardiology was consulted. Echocardiogram demonstrated hypokinetic apical lateral and mid-anterolateral segments. NSTEMI was attributed to sepsis. Medical management was recommended with consideration of outpatient ischemic workup . Statin was continued but aspirin was held due to planned ERCP. Beta woody was not started due to baseline bradycardia. He underwent ERCP on 09/21/20 with an 8 mm sphincterotomy and extraction of 1 flat stone. His hemoglobin was stable and fecal occult blood was negative. Aspirin can be started 7 days after the ERCP, so 09/28/20. Cholecystectomy was deferred given NSTEMI and CVA and he will follow up with Surgery as an outpatient after cardiac clearance. Lisinopril was increased from 5 to 10 mg daily due to eventual hypertension. Work up his stroke revealed 80% stenosis of the origins of the ICAs bilaterally. He will follow up with Vascular Surgery in the future to discuss carotid stenting versus CEA. He was discharged back to the [facility]. Time Spent with Patient Time attestation: Total time spent providing and/or coordinating discharge services: 45 Discharge coordination time: Greater than 30 minutes Quality: Stroke Pt Provided Written Stroke Discharge Instructions: Patient given written information Physical Exam Vital Signs: Vital Signs: Last Vital Signs Temp 98.8 F 09/24/20 12:00 Pulse 53 09/24/20 08:00 Resp 20 09/24/20 08:00 BP 181/81 H 09/24/20 08:00 Pulse Ox 92 09/24/20 08:00 Body Mass Index 27.3 Gen: in no acute distress HEENT: sclera anicteric, moist mucus membranes Neck: supple Lungs: clear to auscultation bilaterally Heart: regular rate and rhythm, no murmurs Abd: soft, non-tender, non-distended Ext: no edema Skin: warm/well-perfused Neuro: alert and oriented x3, no focal findings Psych: appropriate affect DS: Data Data Completed and Pending Completed studies during hospitalization [Text1]: ITS Impressions Abdomen/Pelvis CT 09/20/20 06:59 IMPRESSION: Diffuse colonic diverticulosis and mild constipation. No contrast extravasation seen to suspect any sign of GI bleed at this time. Right renal cysts. There is thick lower anterior abdomen wall scar from previous sigmoid colon/surgical changes. Cholelithiasis without wall thickening. Chest X-Ray 09/20/20 08:15 IMPRESSION: Stable enlargement of the cardiac silhouette. No evidence for acute disease in the chest. Abdomen Ultrasound 09/20/20 09:37 IMPRESSION: 1. Distended gallbladder with mild wall thickening. Suspect impacted calculi at gallbladder neck. 2. Common duct not imaged. No visible right upper quadrant fluid. Head CT 09/20/20 14:21 IMPRESSION: 1. Subtle blurring of the alston to white matter differentiation within the lateral aspect of the left precentral gyrus suggestive of a developing acute to subacute infarct. 2. No evidence of acute intracranial hemorrhage. 3. Mild to moderate underlying microangiopathy and generalized cerebral volume loss. Brain MRI 09/20/20 16:35 IMPRESSION: 1. Small acute infarct of the lateral left precentral gyrus. No evidence of hemorrhagic conversion. 2. Mild underlying microangiopathy. Generalized cerebral volume loss. Guidance Fluoroscopy 09/21/20 13:46 IMPRESSION: Fluoroscopy guidance for ERCP. Head/Neck CTA 09/22/20 00:00 IMPRESSION: 1. Expected evolution of a small acute infarct within the lateral aspect of the left precentral gyrus. No evidence of hemorrhagic conversion. No demonstrated new loss of alston-white matter differentiation. 2. Calcific atherosclerotic disease causes 80% stenoses of the origins of the ICAs bilaterally. 3. CTA of the head and neck without additional proximal occlusion or flow-limiting stenosis. 4. Mild to moderate underlying microangiopathy and generalized cerebral volume loss. 5. 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 6. Mild to moderate bilateral pleural effusions with interlobular septal and peribronchial wall thickening suggestive of a degree of interstitial edema. TTE 09/21/20 - The left ventricular systolic function is low normal. - E/E prime ratio is >15, consistent with elevated filling pressures. - The apical lateral and mid anterolateral segments are hypokinetic. - Normal right ventricular cavity size and systolic function. - Tricuspid regurgitation envelope is inadequate for calculation of right ventricular systolic pressure. Significantly elevated right atrial pressure. Labs on day of discharge: Laboratory Tests 09/20/20 09/20/20 09/20/20 07:35 07:35 07:35 WBC 7.4 RBC 3.09 L Hgb 9.8 L Hct 30.2 L MCV 97.7 MCH 31.7 MCHC 32.5 RDW 15.9 Plt Count 192 MPV 9.8 Immature Gran % (Auto) 0.7 H Neut % (Auto) 91.5 H Lymph % (Auto) 1.5 L [place] % (Auto) 6.1 Eos % (Auto) 0.1 Baso % (Auto) 0.1 Lymph # (Auto) 0.1 L [place] # (Auto) 0.5 Eos # (Auto) 0.0 Baso # (Auto) 0.0 Abs Immat Gran (auto) 0.05 H Absolute Neuts (auto) 6.8 Absolute Nucleated RBC 0.000 Nucleated RBC % (auto) 0.0 Smear Tech's Comments VERIFIED PT 13.6 H INR 1.1 APTT 27.5 Sodium 143 Potassium 3.1 L D Chloride 111 H Carbon Dioxide 24 Anion Gap 11 L BUN 17 H Creatinine 0.92 Estim Creat Clear Calc 61.9 Estimated GFR > 60 POC Glucose Random Glucose 123 H Estimat Average Glucose Hemoglobin A1c % Lactic Acid Lactic Acid Fup @ 2Hr Calcium 7.2 L D Magnesium Total Bilirubin Direct Bilirubin AST ALT Alkaline Phosphatase Troponin I High Sens Total Protein Albumin Triglycerides Cholesterol LDL Cholesterol, Calc HDL Cholesterol Amylase Lipase Stool Occult Blood COVID-19 (SEVEN) COVID-19 Clin Com Blood Type Antibody Screen Crossmatch 09/20/20 09/20/20 09/20/20 07:35 07:35 07:35 WBC RBC Hgb Hct MCV MCH MCHC RDW Plt Count MPV Immature Gran % (Auto) Neut % (Auto) Lymph % (Auto) [place] % (Auto) Eos % (Auto) Baso % (Auto) Lymph # (Auto) [place] # (Auto) Eos # (Auto) Baso # (Auto) Abs Immat Gran (auto) Absolute Neuts (auto) Absolute Nucleated RBC Nucleated RBC % (auto) Smear Tech's Comments PT INR APTT Sodium Potassium Chloride Carbon Dioxide Anion Gap BUN Creatinine Estim Creat Clear Calc Estimated GFR POC Glucose Random Glucose Estimat Average Glucose Hemoglobin A1c % Lactic Acid 2.6 H* Lactic Acid Fup @ 2Hr Calcium Magnesium 1.6 Total Bilirubin 1.7 H Direct Bilirubin 1.0 H AST 397 H ALT 216 H Alkaline Phosphatase 183 H D Troponin I High Sens 132.0 H D Total Protein 4.8 L Albumin 3.0 L Triglycerides Cholesterol LDL Cholesterol, Calc HDL Cholesterol Amylase Lipase 18 Stool Occult Blood COVID-19 (SEVEN) COVID-[employer] Com Blood Type Antibody Screen Crossmatch 09/20/20 09/20/20 09/20/20 07:48 07:50 09:07 WBC RBC Hgb Hct MCV MCH MCHC RDW Plt Count MPV Immature Gran % (Auto) Neut % (Auto) Lymph % (Auto) [place] % (Auto) Eos % (Auto) Baso % (Auto) Lymph # (Auto) [place] # (Auto) Eos # (Auto) Baso # (Auto) Abs Immat Gran (auto) Absolute Neuts (auto) Absolute Nucleated RBC Nucleated RBC % (auto) Smear Tech's Comments PT INR APTT Sodium Potassium Chloride Carbon Dioxide Anion Gap BUN Creatinine Estim Creat Clear Calc Estimated GFR POC Glucose Random Glucose Estimat Average Glucose Hemoglobin A1c % Lactic Acid Lactic Acid Fup @ 2Hr Calcium Magnesium Total Bilirubin Direct Bilirubin AST ALT Alkaline Phosphatase Troponin I High Sens Total Protein Albumin Triglycerides Cholesterol LDL Cholesterol, Calc HDL Cholesterol Amylase Lipase Stool Occult Blood NEG COVID-19 (SEVEN) Negative COVID-19 [employer] See Note Blood Type A Negative Antibody Screen NEGATIVE Crossmatch See Detail 09/20/20 09/20/20 09/20/20 11:13 14:21 17:37 WBC RBC Hgb Hct MCV MCH MCHC RDW Plt Count MPV Immature Gran % (Auto) Neut % (Auto) Lymph % (Auto) [place] % (Auto) Eos % (Auto) Baso % (Auto) Lymph # (Auto) [place] # (Auto) Eos # (Auto) Baso # (Auto) Abs Immat Gran (auto) Absolute Neuts (auto) Absolute Nucleated RBC Nucleated RBC % (auto) Smear Tech's Comments PT INR APTT Sodium Potassium Chloride Carbon Dioxide Anion Gap BUN Creatinine Estim Creat Clear Calc Estimated GFR POC Glucose 112 Random Glucose Estimat Average Glucose Hemoglobin A1c % Lactic Acid Lactic Acid Fup @ 2Hr 1.7 Calcium Magnesium Total Bilirubin Direct Bilirubin AST ALT Alkaline Phosphatase Troponin I High Sens 1177.1 H D Total Protein Albumin Triglycerides Cholesterol LDL Cholesterol, Calc HDL Cholesterol Amylase Lipase Stool Occult Blood COVID-19 (SEVEN) COVID-19 [facility] Blood Type Antibody Screen Crossmatch 09/20/20 09/21/20 09/21/20 21:29 05:23 05:23 WBC RBC Hgb 10.9 L Hct 32.3 L MCV MCH MCHC RDW Plt Count MPV Immature Gran % (Auto) Neut % (Auto) Lymph % (Auto) [place] % (Auto) Eos % (Auto) Baso % (Auto) Lymph # (Auto) [place] # (Auto) Eos # (Auto) Baso # (Auto) Abs Immat Gran (auto) Absolute Neuts (auto) Absolute Nucleated RBC Nucleated RBC % (auto) Smear Tech's Comments PT INR APTT Sodium Potassium Chloride Carbon Dioxide Anion Gap BUN Creatinine Estim Creat Clear Calc Estimated GFR POC Glucose Random Glucose Estimat Average Glucose Hemoglobin A1c % Lactic Acid Lactic Acid Fup @ 2Hr Calcium Magnesium Total Bilirubin 1.3 H Direct Bilirubin 0.9 H AST 127 H ALT 167 H Alkaline Phosphatase 158 H Troponin I High Sens Total Protein 5.1 L Albumin 3.3 L Triglycerides 131 Cancelled Cholesterol 78 Cancelled LDL Cholesterol, Calc 29 Cancelled HDL Cholesterol 23 Cancelled Amylase Lipase Stool Occult Blood COVID-19 (SEVEN) COVID-19 [facility] Blood Type Antibody Screen Crossmatch 09/21/20 09/21/20 09/21/20 05:23 05:23 05:23 WBC 9.6 RBC 3.25 L Hgb 10.3 L Hct 31.5 L MCV 96.9 MCH 31.7 MCHC 32.7 RDW 16.7 H Plt Count 164 MPV 10.7 Immature Gran % (Auto) 2.5 H Neut % (Auto) 87.5 H Lymph % (Auto) 2.6 L [place] % (Auto) 6.0 Eos % (Auto) 1.1 Baso % (Auto) 0.3 Lymph # (Auto) 0.3 L [place] # (Auto) 0.6 Eos # (Auto) 0.1 Baso # (Auto) 0.0 Abs Immat Gran (auto) 0.24 H Absolute Neuts (auto) 8.4 H Absolute Nucleated RBC 0.000 Nucleated RBC % (auto) 0.0 Smear Tech's Comments VERIFIED PT INR APTT Sodium 144 Potassium 3.5 Chloride 110 H Carbon Dioxide 22 Anion Gap 16 BUN 27 H D Creatinine 0.93 Estim Creat Clear Calc 61.2 Estimated GFR > 60 POC Glucose Random Glucose 97 Estimat Average Glucose 123 Hemoglobin A1c % 5.9 Lactic Acid Lactic Acid Fup @ 2Hr Calcium 7.4 L Magnesium Total Bilirubin Direct Bilirubin AST ALT Alkaline Phosphatase Troponin I High Sens Total Protein Albumin Triglycerides Cholesterol LDL Cholesterol, Calc HDL Cholesterol Amylase Lipase Stool Occult Blood COVID-19 (SEVEN) COVID-19 Clin Com Blood Type Antibody Screen Crossmatch 09/21/20 09/22/20 09/22/20 09:25 05:34 05:34 WBC 8.9 RBC 3.42 L Hgb 10.9 L Hct 32.6 L MCV 95.3 MCH 31.9 MCHC 33.4 RDW 16.4 H Plt Count 143 L MPV 11.1 Immature Gran % (Auto) 1.2 H Neut % (Auto) 88.3 H Lymph % (Auto) 2.0 L [place] % (Auto) 7.8 Eos % (Auto) 0.5 Baso % (Auto) 0.2 Lymph # (Auto) 0.2 L [place] # (Auto) 0.7 Eos # (Auto) 0.0 Baso # (Auto) 0.0 Abs Immat Gran (auto) 0.11 H Absolute Neuts (auto) 7.8 Absolute Nucleated RBC 0.000 Nucleated RBC % (auto) 0.0 Smear Tech's Comments VERIFIED PT INR APTT Sodium 142 Potassium 3.5 Chloride 110 H Carbon Dioxide 22 Anion Gap 14 BUN 23 H Creatinine 0.79 Estim Creat Clear Calc 72.0 Estimated GFR > 60 POC Glucose Random Glucose 139 H D Estimat Average Glucose Hemoglobin A1c % Lactic Acid Lactic Acid Fup @ 2Hr Calcium 7.6 L Magnesium 2.0 Total Bilirubin 1.0 Direct Bilirubin AST 56 H ALT 111 H Alkaline Phosphatase 176 H Troponin I High Sens Total Protein 5.1 L Albumin 3.2 L Triglycerides 165 Cholesterol 84 LDL Cholesterol, Calc 29 HDL Cholesterol 22 Amylase Lipase Stool Occult Blood COVID-19 (SEVEN) COVID-19 [facility] Blood Type Antibody Screen Crossmatch 09/23/20 09/24/20 09/24/20 18:28 05:25 05:25 WBC 5.5 RBC 3.39 L Hgb 10.8 L Hct 32.1 L MCV 94.7 MCH 31.9 MCHC 33.6 RDW 16.0 Plt Count 158 L MPV 11.2 Immature Gran % (Auto) 1.5 H Neut % (Auto) 72.9 Lymph % (Auto) 9.5 L [place] % (Auto) 11.5 H Eos % (Auto) 4.2 H Baso % (Auto) 0.4 Lymph # (Auto) 0.5 L [place] # (Auto) 0.6 Eos # (Auto) 0.2 Baso # (Auto) 0.0 Abs Immat Gran (auto) 0.08 H Absolute Neuts (auto) 4.0 Absolute Nucleated RBC 0.000 Nucleated RBC % (auto) 0.0 Smear Tech's Comments VERIFIED PT INR APTT Sodium 141 Potassium 3.4 Chloride 107 Carbon Dioxide 26 Anion Gap 11 L BUN 14 Creatinine 0.71 Estim Creat Clear Calc 80.2 Estimated GFR > 60 POC Glucose Random Glucose 108 Estimat Average Glucose Hemoglobin A1c % Lactic Acid Lactic Acid Fup @ 2Hr Calcium 7.7 L Magnesium 1.8 Total Bilirubin 0.6 Direct Bilirubin AST 18 D ALT 52 H Alkaline Phosphatase 144 H Troponin I High Sens Total Protein 5.0 L Albumin 3.1 L Triglycerides Cholesterol LDL Cholesterol, Calc HDL Cholesterol Amylase 16 L Lipase 13 Stool Occult Blood COVID-19 (SEVEN) COVID-19 [facility] Blood Type Antibody Screen Crossmatch 09/24/20 09/24/20 05:25 11:33 WBC RBC Hgb Hct MCV MCH MCHC RDW Plt Count MPV Immature Gran % (Auto) Neut % (Auto) Lymph % (Auto) [place] % (Auto) Eos % (Auto) Baso % (Auto) Lymph # (Auto) [place] # (Auto) Eos # (Auto) Baso # (Auto) Abs Immat Gran (auto) Absolute Neuts (auto) Absolute Nucleated RBC Nucleated RBC % (auto) Smear Tech's Comments PT INR APTT Sodium Potassium Chloride Carbon Dioxide Anion Gap BUN Creatinine Estim Creat Clear Calc Estimated GFR POC Glucose Random Glucose Estimat Average Glucose Hemoglobin A1c % Lactic Acid Lactic Acid Fup @ 2Hr Calcium Magnesium Total Bilirubin Direct Bilirubin AST ALT Alkaline Phosphatase Troponin I High Sens Total Protein Albumin Triglycerides Cholesterol LDL Cholesterol, Calc HDL Cholesterol Amylase Lipase 12 Stool Occult Blood COVID-19 (SEVEN) Negative COVID-19 Clin Com See Note Blood Type Antibody Screen Crossmatch Discharge Plan Discharge Anticipated Discharge Date/Time: 09/24/20 14:13 Patient Disposition: Xfer SNF Referrals: Karl Hooks MD [Physician] - Carlos Tellez MD [Physician] - Physician,Unknown [Primary Care Provider] - Discharge Medications: New metronidazole 500 mg Tablet 500 mg PO Q8H Qty: 62 RF: 0 lisinopril 10 mg Tablet 10 mg PO DAILY Qty: 30 RF: 0 cefuroxime axetil 500 mg tablet 500 mg PO Q12H Qty: 42 RF: 0 Continued lorazepam 0.5 mg Tablet 0.25 mg PO Q6H PRN (Reason: Anxiety) RF: 0 docusate sodium 100 mg Capsule 100 mg PO BID RF: 0 loratadine 10 mg Tablet 10 mg PO DAILY RF: 0 omeprazole 20 mg capsule,delayed release(DR/EC) 40 mg PO DAILY@1600 RF: 0 atorvastatin 40 mg Tablet 40 mg PO DAILY@1700 RF: 0 azathioprine 50 mg Tablet 50 mg PO BID RF: 0 acetaminophen 650 mg Tablet 650 mg PO BEDTIME RF: 0 cyanocobalamin (vitamin B-12) 1,000 mcg/mL Solution 1,000 mcg IM QMONTH RF: 0 calcium polycarbophil 625 mg Tablet 625 mg PO BID RF: 0 aspirin 81 mg Tablet 81 mg PO DAILY RF: 0 Hold Instructions: Resume on 09/21/20. restart after one week if h/h stable fluticasone propionate 50 mcg/actuation [place],Suspension 1 spray INTRANASAL BID RF: 0 carboxymethylcellulose sodium Drops 1 drp OPHTHALMIC (EYE) BEDTIME RF: 0 cholecalciferol (vitamin D3) 25 mcg (1,000 unit) Tablet,Chewable 25 mcg PO DAILY RF: 0 quetiapine 25 mg Tablet 25 mg PO BEDTIME RF: 0 oxybutynin chloride 15 mg Tablet Extended Release 24hr 15 mg PO DAILY RF: 0 trazodone 50 mg Tablet 50 mg PO BEDTIME RF: 0 prednisone 5 mg Tablet 5 mg PO Q OTHER DAY RF: 0 venlafaxine 150 mg Capsule,Extended Release 24hr 150 mg PO DAILY RF: 0 quetiapine 100 mg Tablet 100 mg PO BEDTIME RF: 0 tamsulosin 0.4 mg Capsule 0.4 mg PO BEDTIME RF: 0 ferrous sulfate [Iron (ferrous sulfate)] 325 mg (65 mg iron) Tablet 325 mg PO BID RF: 0 pyridostigmine bromide 60 mg Tablet 60 mg PO TID RF: 0 Discontinued lisinopril 5 mg Tablet 5 mg PO DAILY@1700 RF: 0 Discharge Orders: Discharge Order (Routine); Ordered 09/24/20 Ordered By: Kiana Hood Diet: low fat, low cholesterol Activity on Discharge: As tolerated Patient Instructions: Heart Attack (GEN), Ischemic Stroke (GEN), ERCP (Endoscopic Retrograde Cholangiopancreatography) (DC) Visit Report Forms: Patient Portal Discharge page Care Plan Goals: resolution of infection prevention of stroke and heart attacks Health Concerns: admitted for septic shock due to cholangitis complicated by bacteremia, NSTEMI, acute stroke Plan of Treatment: 1. cholangitis/bacteremia - cefuroxime 500 mg twice daily PLUS metronidazole 500 mg three times daily for total 21 days - follow up with General Surgery to discuss planning of cholecystectomy after cardiac clearance [phone] [place] [address] 2. NSTEMI - start aspirin 81 mg daily on 09/28/19 [waiting 7 days after ERCP] - continue atorvastatin 40 mg daily - follow up with Cardiology to discuss possible stress testing [phone] [place] [address], [address] [place] [address] 3. acute stroke/carotid stenosis - start aspirin as per #2 - continue atorvastatin as per #2 - follow up with Vascular Surgery to discuss possible carotid stenting [phone] [place] [address], [address] [place] [address] -
--- NOTE | 2020-09-26 11:20 | CONS_ITS ---
DATE OF SERVICE: 09/23/2020 REASON FOR CONSULTATION: Left carotid stenosis with stroke. HISTORY OF PRESENT ILLNESS: An 80-year-old gentleman from a assisted facility with history of a GI bleed. He was subsequently re-admitted for some choledocholithiasis. He was noted to be in shock at that point, and while in the preop area, he developed slurred speech. He was subsequently discovered that he had a left precentral gyrus stroke. Upon subsequent workup, was noted to have high-grade carotid stenosis. He now presents to us for vascular evaluation. PAST MEDICAL HISTORY: Significant for acute respiratory disease, BPH, coronary artery disease, cataract, COVID-19, depression, diabetes, GERD, hammertoe, hypertension, hyperlipidemia, inguinal hernia, insomnia, colon cancer, myasthenia gravis, rheumatoid arthritis, and urinary incontinence. PAST SURGICAL HISTORY: Includes colon resection with colostomy, subsequent reversal of colostomy, incisional hernia repair and prior colon surgery was in [facility]. MEDICATION LIST: Reviewed per nursing MAR. ALLERGIES: HE HAS NO KNOWN DRUG ALLERGIES. SOCIAL HISTORY: Nonsmoker. Nondrinker. Lives in a assisted facility. FAMILY HISTORY: No history of advanced coronary artery disease or peripheral vascular disease. REVIEW OF SYSTEMS: 13-point review was performed. At the current time, denies any headache, dizziness, nausea, vomiting, diarrhea, or shortness of breath. His speech was normal pattern. He had normal insight to our discussion. He denied any other significant problems. Rest of 13-point review was essentially negative. PHYSICAL EXAMINATION: VITAL SIGNS: Afebrile. Vitals stable. HEAD AND NECK: Demonstrates no bruits. CHEST: Moving air bilaterally. CARDIAC: Positive S1-S2. ABDOMEN: Soft. EXTREMITIES: Upper extremities have good radial and ulnar pulses. Lower extremities are warm with good capillary refill. NEUROLOGICAL: II through XII grossly intact. IMAGING: Brain MRI demonstrates from 09/20/2020, demonstrates left precentral gyrus acute stroke. Head and neck CT demonstrates bilateral 80% stenosis. IMPRESSION: Carotid stenosis with stroke. Unfortunately, this poor gentleman has multiple events that have been quite complicating his stay. He is believed to have ascending cholangitis. He has been treated with antibiotics and may need treatment of his gallbladder. At the time of admission, he had septic shock complicated by a non-ST segment elevation myocardial infarction as well. These all compounded by the fact that he had a high-grade left carotid stenosis and developed an acute stroke. In short, he will need left carotid endarterectomy. We will have to see the status of his gallbladder and his heart. If it is stable, we will hope to proceed with carotid endarterectomy within the next 2-4 weeks. If that is not possible, he may require referral to a tertiary care center for carotid stenting. Thank you for allowing us to participate in his care. If there are any questions or concerns, please do not hesitate to contact us. MD PEYTON Galaviz/RADHA / [phone]
== END 2020-09-24 14:51 | disposition skilled nursing facility (03) | DRG 871 ==
LOC: HO.ED 13:40 → HO.IMC 23:06
PROVIDERS: Internal Medicine Gastroenterology; Nurse Practitioner Acute Care; Admitting Provider Family Medicine; Emergency Provider Emergency Medicine; Visit Provider Family Medicine
PROC: 0F798ZZ Dilation of Common Bile Duct, Via Natural or Artificial Opening Endoscopic (ICD-10-PCS; CPT 43260; principal; 2020-09-21 14:00)
DX: A41.51 Sepsis due to Escherichia coli [E. coli] (principal); R65.21 Severe sepsis with septic shock; I21.4 Non-ST elevation (NSTEMI) myocardial infarction; I63.232 Cerebral infarction due to unspecified occlusion or stenosis of left carotid arteries; K80.30 Calculus of bile duct with cholangitis, unspecified, without obstruction; D62 Acute posthemorrhagic anemia; K92.2 Gastrointestinal hemorrhage, unspecified; I25.10 Atherosclerotic heart disease of native coronary artery without angina pectoris; N40.0 Benign prostatic hyperplasia without lower urinary tract symptoms; G70.00 Myasthenia gravis without (acute) exacerbation; E11.9 Type 2 diabetes mellitus without complications; R29.701 NIHSS score 1; E78.5 Hyperlipidemia, unspecified; Z20.828 Contact with and (suspected) exposure to other viral communicable diseases; Z79.51 Long term (current) use of inhaled steroids; Z79.52 Long term (current) use of systemic steroids; Z79.82 Long term (current) use of aspirin; Z79.899 Other long term (current) drug therapy
CPT/HCPCS: 36415; 36430; 70450; 70496; 70498; 70551; 71045; 74177; 76705; 80048; 80053; 80061; 80076; 82150; 82272; 82947; 83036; 83605; 83690; 83735; 84484; 85014; 85018; 85025; 85610; 85730; 86850; 86900; 86901; 86920; 87040; 87077; 87186; 87205; 87635; 93005; 93306; 96361; 96365; 96367; 96375; 97161; 97165; 99282; 99285; 99291; J0330; J0696; J1610; J2250; J2270; J2370; J2405; J2543; J3010; P9016; P9047; Q9957; Q9967

== ENCOUNTER 2020-09-27 05:50 | Outpatient (REF) | payer MEDICARE, SELFPAY ==
[2020-09-26 08:09] LABS: Basophils Percent Auto 0.7 % (0-2); Eosinophils Absolute Auto 0.3 X10*3/uL (0.0-0.4); Eosinophils Percent Auto 6.8 % (0-4); Hematocrit 34.3 % (42-52); Hemoglobin 11.5 g/dl (14.0-18.0); Imm Gran Pct Auto 2.3 % (0.0-0.4); Lymphocytes Absolute Auto 0.5 X10*3/uL (1.2-4.9); Lymphocytes Percent Auto 12.2 % (20-40); MANUAL DIFF FLAG SCAN; Mean Corpuscular HGB Conc 33.5 g/dl (31.0-36.0); Mean Corpuscular Hemoglobin 31.6 pg (27.0-33.0); Mean Corpuscular Volume 94.2 fL (80-98); Mean Platelet Volume 10.6 fL (9.4-12.4); Monocytes Absolute Auto 0.5 X10*3/uL (0.1-1.2); Monocytes Percent Auto 10.6 % (2-11); Neutrophils Percent Auto 67.4 % (45-73); Platelet Count 236 X10*3/uL (160-400); Red Blood Count 3.64 X10*6/uL (4.60-5.80); Red Cell Distribution Width 15.4 % (11.0-16.0); SCAN SMEAR FLAG 1; White Blood Count 4.4 X10*3/uL (4.8-10.8)
[2020-09-26 08:38] LABS: SLIDE REVIEW VERIFIED
[2020-09-26 08:39] LABS: Alanine Aminotransferase 34 U/L (0-40); Albumin Level 3.4 g/dL (3.5-5.0); Alkaline Phosphatase 122 U/L (39-117); Anion Gap 12 (12-20); Aspartate Amino Transferase 18 U/L (5-37); Bilirubin Total 0.6 mg/dL (0.0-1.0); Blood Urea Nitrogen 11 mg/dL (9-16); Calcium 8.4 mg/dL (8.4-10.2); Carbon Dioxide 30 mmol/L (22-29); Chloride 105 mmol/L (96-108); Estimated Glomerular Filt Rate > 60; Glucose Fasting 109 mg/dL (60-99); Potassium 3.5 mmol/l (3.3-5.1); Sodium 143 mmol/L (135-145); Total Protein 5.5 g/dL (6.5-8.0)
== END 2020-09-27 05:51 | disposition home or self-care (01) ==
LOC: HO.HSH3W 05:50
PROVIDERS: Visit Provider Internal Medicine
DX: D64.9 Anemia, unspecified (principal)
CPT/HCPCS: 36415; 80053; 85025

== ENCOUNTER 2020-10-04 07:16 | Outpatient (REF) | payer MEDICARE, SELFPAY ==
[2020-10-04 08:15] LABS: MANUAL DIFF FLAG NO
[2020-10-04 08:19] LABS: Basophils Percent Auto 0.8 % (0-2); Eosinophils Absolute Auto 0.2 X10*3/uL (0.0-0.4); Eosinophils Percent Auto 4.2 % (0-4); Hematocrit 33.8 % (42-52); Hemoglobin 11.3 g/dl (14.0-18.0); Imm Gran Abs Auto 0.02 X10*3/uL (0.00-0.03); Imm Gran Pct Auto 0.5 % (0.0-0.4); Lymphocytes Absolute Auto 0.8 X10*3/uL (1.2-4.9); Lymphocytes Percent Auto 19.8 % (20-40); Mean Corpuscular HGB Conc 33.4 g/dl (31.0-36.0); Mean Corpuscular Hemoglobin 32.3 pg (27.0-33.0); Mean Corpuscular Volume 96.6 fL (80-98); Mean Platelet Volume 10.2 fL (9.4-12.4); Monocytes Absolute Auto 0.5 X10*3/uL (0.1-1.2); Monocytes Percent Auto 13.6 % (2-11); Neutrophils Absolute Auto 2.3 X10*3/uL (2.0-8.3); Neutrophils Percent Auto 61.1 % (45-73); Platelet Count 369 X10*3/uL (160-400); Red Cell Distribution Width 15.3 % (11.0-16.0); White Blood Count 3.8 X10*3/uL (4.8-10.8)
[2020-10-04 08:49] LABS: Alanine Aminotransferase 24 U/L (0-40); Albumin Level 3.4 g/dL (3.5-5.0); Alkaline Phosphatase 78 U/L (39-117); Anion Gap 10 (12-20); Aspartate Amino Transferase 27 U/L (5-37); Bilirubin Total 0.2 mg/dL (0.0-1.0); Blood Urea Nitrogen 12 mg/dL (9-16); Calcium 8.2 mg/dL (8.4-10.2); Carbon Dioxide 28 mmol/L (22-29); Chloride 106 mmol/L (96-108); Estimated Glomerular Filt Rate > 60; Glucose Fasting 103 mg/dL (60-99); HDL Cholesterol 26 mg/dL; Iron 53 mcg/dL (45-160); Percent Iron Saturation 25 % (15-50); Sodium 140 mmol/L (135-145); Total Iron Binding Capacity 210 mcg/dL (228-428); Total Protein 5.2 g/dL (6.5-8.0); Triglycerides 139 mg/dL; Unsaturated Iron Binding 157 ug/dL
[2020-10-04 09:11] LABS: Cholesterol 96 mg/dL; LDL Cholesterol Calculated 43 mg/dl
[2020-10-04 09:25] LABS: Vitamin B12 516 pg/mL (200-900)
[2020-10-04 09:46] LABS: Estimated Average Glucose 123 mg/dL; Hemoglobin A1c % 5.9 %
== END 2020-10-04 07:17 | disposition home or self-care (01) ==
LOC: HO.HSH3W 07:16
PROVIDERS: Visit Provider Nurse Practitioner
DX: I65.23 Occlusion and stenosis of bilateral carotid arteries (principal); D64.9 Anemia, unspecified; R78.81 Bacteremia; D62 Acute posthemorrhagic anemia
CPT/HCPCS: 36415; 80053; 80061; 82607; 83036; 83540; 85025

== ENCOUNTER 2020-10-24 10:36 | Outpatient (REF) | payer MEDICARE, SELFPAY ==
[2020-10-24 07:52] LABS: MANUAL DIFF FLAG NO
[2020-10-24 08:15] LABS: Basophils Percent Auto 0.8 % (0-2); Eosinophils Absolute Auto 0.2 X10*3/uL (0.0-0.4); Eosinophils Percent Auto 3.8 % (0-4); Hematocrit 37.4 % (42-52); Hemoglobin 12.4 g/dl (14.0-18.0); Imm Gran Abs Auto 0.04 X10*3/uL (0.00-0.03); Imm Gran Pct Auto 0.8 % (0.0-0.4); Lymphocytes Absolute Auto 1.1 X10*3/uL (1.2-4.9); Lymphocytes Percent Auto 22.9 % (20-40); Mean Corpuscular HGB Conc 33.2 g/dl (31.0-36.0); Mean Corpuscular Hemoglobin 32.4 pg (27.0-33.0); Mean Corpuscular Volume 97.7 fL (80-98); Mean Platelet Volume 10.3 fL (9.4-12.4); Monocytes Absolute Auto 0.6 X10*3/uL (0.1-1.2); Monocytes Percent Auto 11.6 % (2-11); Neutrophils Absolute Auto 2.9 X10*3/uL (2.0-8.3); Neutrophils Percent Auto 60.1 % (45-73); Platelet Count 218 X10*3/uL (160-400); Red Blood Count 3.83 X10*6/uL (4.60-5.80); Red Cell Distribution Width 15.1 % (11.0-16.0); White Blood Count 4.8 X10*3/uL (4.8-10.8)
== END 2020-10-24 10:37 | disposition home or self-care (01) ==
LOC: HO.HSH3W 10:36
PROVIDERS: Visit Provider Nurse Practitioner
DX: D64.9 Anemia, unspecified (principal)
CPT/HCPCS: 36415; 85025

== ENCOUNTER → 2020-11-03 14:22 | Outpatient (BNVA) | payer MEDICARE, SELFPAY | PROVIDERS: PCP Physician Assistant; Visit Provider Surgery Vascular Surgery | DX: I63.232 Cerebral infarction due to unspecified occlusion or stenosis of left carotid arteries (principal) | CPT/HCPCS: 99212 ==

== ENCOUNTER → 2020-11-09 08:03 | Outpatient (BNVA) | payer MEDICARE, SELFPAY | PROVIDERS: PCP Physician Assistant; Visit Provider Internal Medicine | DX: Z01.810 Encounter for preprocedural cardiovascular examination (principal); I21.4 Non-ST elevation (NSTEMI) myocardial infarction; I63.232 Cerebral infarction due to unspecified occlusion or stenosis of left carotid arteries; K92.2 Gastrointestinal hemorrhage, unspecified | CPT/HCPCS: 99212 ==

== ENCOUNTER 2020-11-10 06:49 | Outpatient (REF) | payer MEDICARE, SELFPAY ==
[2020-11-10 08:11] LABS: MANUAL DIFF FLAG NO
[2020-11-10 08:13] LABS: Basophils Percent Auto 0.7 % (0-2); Eosinophils Absolute Auto 0.2 X10*3/uL (0.0-0.4); Eosinophils Percent Auto 4.5 % (0-4); Hemoglobin 13.5 g/dl (14.0-18.0); Imm Gran Abs Auto 0.02 X10*3/uL (0.00-0.03); Imm Gran Pct Auto 0.5 % (0.0-0.4); Lymphocytes Absolute Auto 0.8 X10*3/uL (1.2-4.9); Lymphocytes Percent Auto 20.2 % (20-40); Mean Corpuscular HGB Conc 33.8 g/dl (31.0-36.0); Mean Corpuscular Hemoglobin 32.8 pg (27.0-33.0); Mean Corpuscular Volume 97.3 fL (80-98); Mean Platelet Volume 10.2 fL (9.4-12.4); Monocytes Absolute Auto 0.5 X10*3/uL (0.1-1.2); Monocytes Percent Auto 12.2 % (2-11); Neutrophils Absolute Auto 2.5 X10*3/uL (2.0-8.3); Neutrophils Percent Auto 61.9 % (45-73); Platelet Count 220 X10*3/uL (160-400); Red Blood Count 4.11 X10*6/uL (4.60-5.80); Red Cell Distribution Width 14.6 % (11.0-16.0)
[2020-11-10 08:24] LABS: Prothrombin Time 12.1 SEC (10.8-13.0)
[2020-11-10 08:49] LABS: Anion Gap 11 (12-20); Blood Urea Nitrogen 11 mg/dL (9-16); Calcium 9.3 mg/dL (8.4-10.2); Carbon Dioxide 31 mmol/L (22-29); Chloride 106 mmol/L (96-108); Estimated Glomerular Filt Rate > 60; Glucose Fasting 112 mg/dL (60-99); Potassium 3.9 mmol/L (3.3-5.1); Sodium 144 mmol/L (135-145)
== END 2020-11-10 06:50 | disposition home or self-care (01) ==
LOC: HO.HSH3W 06:49
PROVIDERS: Visit Provider Nurse Practitioner
DX: I25.10 Atherosclerotic heart disease of native coronary artery without angina pectoris (principal)
CPT/HCPCS: 36415; 80048; 85025; 85610

== ENCOUNTER → 2020-11-21 09:21 | Outpatient (BNVA) | payer MEDICARE, SELFPAY | PROVIDERS: PCP Physician Assistant; Visit Provider Internal Medicine | DX: Z01.810 Encounter for preprocedural cardiovascular examination (principal); I21.4 Non-ST elevation (NSTEMI) myocardial infarction; I63.232 Cerebral infarction due to unspecified occlusion or stenosis of left carotid arteries; I10 Essential (primary) hypertension; E11.9 Type 2 diabetes mellitus without complications; G70.00 Myasthenia gravis without (acute) exacerbation; K92.2 Gastrointestinal hemorrhage, unspecified | CPT/HCPCS: 99212 ==

== ENCOUNTER → 2020-11-22 10:56 | Outpatient (BNVA) | payer MEDICARE, SELFPAY | PROVIDERS: PCP Physician Assistant; Visit Provider Surgery Vascular Surgery | CPT/HCPCS: Q3014 ==

== ENCOUNTER 2020-12-15 11:13 | Outpatient (REF) | payer MEDICARE, SELFPAY ==
[2020-12-15 12:01] LABS: Basophils Percent Auto 0.2 % (0-2); Eosinophils Absolute Auto 0.3 X10*3/uL (0.0-0.4); Hematocrit 25.5 % (42-52); Hemoglobin 8.4 g/dl (14.0-18.0); Imm Gran Abs Auto 0.11 X10*3/uL (0.00-0.03); Imm Gran Pct Auto 2.4 % (0.0-0.4); Lymphocytes Absolute Auto 0.4 X10*3/uL (1.2-4.9); Lymphocytes Percent Auto 7.7 % (20-40); MANUAL DIFF FLAG SCAN; Mean Corpuscular HGB Conc 32.9 g/dl (31.0-36.0); Mean Corpuscular Hemoglobin 31.5 pg (27.0-33.0); Mean Corpuscular Volume 95.5 fL (80-98); Mean Platelet Volume 9.7 fL (9.4-12.4); Monocytes Absolute Auto 0.6 X10*3/uL (0.1-1.2); Monocytes Percent Auto 12.6 % (2-11); Neutrophils Absolute Auto 3.2 X10*3/uL (2.0-8.3); Neutrophils Percent Auto 71.1 % (45-73); Platelet Count 239 X10*3/uL (160-400); Red Blood Count 2.67 X10*6/uL (4.60-5.80); Red Cell Distribution Width 18.5 % (11.0-16.0); SCAN SMEAR FLAG 1; White Blood Count 4.5 X10*3/uL (4.8-10.8)
[2020-12-15 12:23] LABS: Anion Gap 10 (12-20); Blood Urea Nitrogen 12 mg/dL (9-16); Calcium 7.2 mg/dL (8.4-10.2); Carbon Dioxide 32 mmol/L (22-29); Chloride 102 mmol/L (96-108); Estimated Glomerular Filt Rate > 60; Glucose Random 158 mg/dL (60-115); Potassium 3.2 mmol/L (3.3-5.1); Sodium 141 mmol/L (135-145)
[2020-12-15 13:17] LABS: SLIDE REVIEW VERIFIED
== END 2020-12-15 11:14 | disposition home or self-care (01) ==
LOC: HO.HSH3W 11:13
PROVIDERS: Visit Provider Nurse Practitioner
DX: I25.10 Atherosclerotic heart disease of native coronary artery without angina pectoris (principal)
CPT/HCPCS: 36415; 80048; 85025

== ENCOUNTER 2020-12-16 05:30 | Outpatient (REF) | payer MEDICARE, SELFPAY ==
[2020-12-16 08:25] LABS: Hematocrit 24.2 % (42-52); Hemoglobin 8.2 g/dl (14.0-18.0)
[2020-12-16 09:43] LABS: Anion Gap 8 (12-20); Carbon Dioxide 34 mmol/L (22-29); Chloride 101 mmol/L (96-108); Potassium 3.5 mmol/L (3.3-5.1); Sodium 139 mmol/L (135-145)
== END 2020-12-16 05:31 | disposition home or self-care (01) ==
LOC: HO.HSH3W 05:30
PROVIDERS: Visit Provider Nurse Practitioner
DX: Z95.1 Presence of aortocoronary bypass graft (principal)
CPT/HCPCS: 36415; 80051; 85014; 85018

== ENCOUNTER 2020-12-19 05:19 | Outpatient (REF) | payer MEDICARE, SELFPAY ==
[2020-12-19 08:24] LABS: Basophils Percent Auto 0.4 % (0-2); Eosinophils Absolute Auto 0.2 X10*3/uL (0.0-0.4); Eosinophils Percent Auto 4.3 % (0-4); Hematocrit 27.8 % (42-52); Hemoglobin 8.8 g/dl (14.0-18.0); Imm Gran Abs Auto 0.12 X10*3/uL (0.00-0.03); Imm Gran Pct Auto 2.2 % (0.0-0.4); Lymphocytes Absolute Auto 0.5 X10*3/uL (1.2-4.9); Lymphocytes Percent Auto 9.4 % (20-40); MANUAL DIFF FLAG SCAN; Mean Corpuscular HGB Conc 31.7 g/dl (31.0-36.0); Mean Corpuscular Hemoglobin 31.5 pg (27.0-33.0); Mean Corpuscular Volume 99.6 fL (80-98); Mean Platelet Volume 9.1 fL (9.4-12.4); Monocytes Absolute Auto 0.7 X10*3/uL (0.1-1.2); Monocytes Percent Auto 12.1 % (2-11); Neutrophils Percent Auto 71.6 % (45-73); Red Blood Count 2.79 X10*6/uL (4.60-5.80); Red Cell Distribution Width 17.3 % (11.0-16.0); SCAN SMEAR FLAG 1; White Blood Count 5.5 X10*3/uL (4.8-10.8)
[2020-12-19 08:40] LABS: Platelet Count 518 X10*3/uL (160-400)
[2020-12-19 09:07] LABS: Anion Gap 12 (12-20); Blood Urea Nitrogen 10 mg/dL (9-16); Calcium 8.2 mg/dL (8.4-10.2); Carbon Dioxide 35 mmol/L (22-29); Chloride 99 mmol/L (96-108); Estimated Glomerular Filt Rate > 60; Glucose Fasting 120 mg/dL (60-99); Potassium 4.7 mmol/L (3.3-5.1); Sodium 141 mmol/L (135-145)
[2020-12-19 09:14] LABS: SLIDE REVIEW VERIFIED
[2020-12-19 10:00] LABS: Estimated Average Glucose 123 mg/dL; Hemoglobin A1c % 5.9 %
== END 2020-12-19 05:20 | disposition home or self-care (01) ==
LOC: HO.HSH3W 05:19
PROVIDERS: Visit Provider Internal Medicine
DX: D64.9 Anemia, unspecified (principal); I25.10 Atherosclerotic heart disease of native coronary artery without angina pectoris
CPT/HCPCS: 36415; 80048; 83036; 83735; 85025

== ENCOUNTER 2020-12-21 07:05 | Outpatient (REF) | payer MEDICARE, SELFPAY ==
[2020-12-21 09:35] LABS: Anion Gap 10 (12-20); Carbon Dioxide 32 mmol/L (22-29); Chloride 102 mmol/L (96-108); Potassium 4.4 mmol/L (3.3-5.1); Sodium 140 mmol/L (135-145)
== END 2020-12-21 07:06 | disposition home or self-care (01) ==
LOC: HO.HSH3W 07:05
PROVIDERS: Visit Provider Nurse Practitioner
DX: I25.10 Atherosclerotic heart disease of native coronary artery without angina pectoris (principal)
CPT/HCPCS: 36415; 80051

== ENCOUNTER → 2020-12-22 09:11 | Outpatient (BNVA) | payer MEDICARE, SELFPAY | PROVIDERS: PCP Physician Assistant; Visit Provider Internal Medicine | DX: I25.10 Atherosclerotic heart disease of native coronary artery without angina pectoris (principal); I63.232 Cerebral infarction due to unspecified occlusion or stenosis of left carotid arteries; K92.2 Gastrointestinal hemorrhage, unspecified; I10 Essential (primary) hypertension; E11.9 Type 2 diabetes mellitus without complications; G70.00 Myasthenia gravis without (acute) exacerbation; Z95.1 Presence of aortocoronary bypass graft | CPT/HCPCS: 93005; 99212 ==

== ENCOUNTER → 2021-02-15 12:44 | Outpatient (REF) | payer MEDICARE, SELFPAY ==
--- NOTE | 2021-02-15 12:49 | CA_ITS ---
Transthoracic Echocardiogram Patient (Last, First, Middle): Robe Finch J Gender: Male Date of : 1940 Age: 80 Procedure Date: 02/15/2021 Procedure Type: Transthoracic Echocardiogram Location: OP Height: 165.1 cm Weight: 69.4 kg BSA: 1.77 m2 Heart Rate: bpm BP: 121 / 67 mmHg Shop Girl: LUNA Acosta MD: Ector Pratt MD Ad Operations Associate: Brad Marin MD Symptoms: Z95.1 - Presence of aortocoronary bypass graft Study Quality: Fair ECG Rhythm: Sinus Conclusions: - 1. Normal LV systolic function with impaired relaxation filling pattern 2. Mildly dilated left atrium 3. Fibrocalcific aortic valve changes noted may be early aortic stenosis and trivial aortic regurgitation 4. Normal RV systolic pressure 5. No gross pericardial effusion Findings Left Ventricle Normal left ventricular size, thickness, and systolic function. The visually estimated ejection fraction is between 55-60%. There is paradoxical septal motion consistent with post-operative status. Spectral Doppler is indicative of an impaired relaxation filling pattern. E/E prime ratio is between 8 and 15 consistent with indeterminate filling pressures. Wall Motion Rest Echo Findings The basal inferoseptal segment is akinetic. All other scored wall segments showed normal motion. Right Ventricle Normal right ventricular cavity size and systolic function. Atria The left atrium is mildly dilated. There is lipomatous hypertrophy of the interatrial septum. There is no evidence of interatrial shunt. The right atrium is normal in size. Aortic Valve There is mild calcification of the aortic valve. There is mild thickening of the aortic valve. There is no aortic valve stenosis. There is trace (trivial) aortic valve regurgitation. Mitral Valve There is mild anterior and moderate posterior mitral leaflet thickening. There is moderate mitral annular calcification. There is trace mitral valve regurgitation. There is no mitral valve stenosis. Pulmonic Valve The pulmonic valve was not well visualized. Tricuspid Valve Likely normal tricuspid valve structure and function. There is trace tricuspid valve regurgitation. The right ventricular systolic pressure is normal. Normal right atrial pressure. There is no evidence of pulmonary hypertension. Great Vessels The pulmonary artery was not well visualized. There is mild dilatation of the ascending aorta measuring 3.80 cm. Venous The inferior vena cava is normal in size and collapses greater than 50% with inspiration. Pericardium/Pleural There is no evidence of pericardial effusion. Prior Study Comparison No significant change compared to prior study dated: 09/21/2020. Measurements 2D Linear Measurements IVSd: 1.03 0.6-0.9/0.6-1.0 cm LVIDd: 4.98 3.9-5.3/4.2-5.9 cm LVIDd Index: 2.81 2.4-3.2/2.2-3.1 cm/m2 LVIDs: 3.14 2.0-3.6 cm LVPWd: 1.02 0.7-1.1 cm Ao Root: 4.00 2.1-3.5 cm LA Diam: 3.60 2.7-3.8/3.0-4.0 cm LAIDs Index: 2.03 1.5-2.3 cm/m2 LV Mass: 232.88 67-162/88-224 g LV Mass Index: 131.57 43-95/49-115 g/m2 LVOT Diam: 2.00 3.0+(-)1.3 cm 2D Systolic Function EF 4C: 57.70 >55% EF 2C: 59.90 >55% EF BiP: 58.60 >55% Mitral Valve MV Pk E: 0.77 MV PK A: 0.68 MV Decel Time: 268.00 E/A: 1.10 E'Lateral: 9.90 E'Medial: 5.00 E/E' Med: 15.30 E/E' Lat: 7.70 PHT: 79.00 MVA PHT: 2.78 Decel Screven: 2.85 Aortic Valve AoV Pk Jordy: 1.90 AoV Mn Jordy: 1.27 AoV VTI: 0.44 AoV Pk Grad: 14.00 Aov Mn Grad: 7.00 BLANCA Cont.VTI: 1.49 LVOT LVOT Pk Jordy: 0.90 LVOT Mn Jordy: 0.57 LVOT VTI: 0.21 LVOT Pk Grad: 3.00 LVOT Mn Grad: 2.00 LVOT Diam: 2.00 LVOT Area: 3.14 Diastolic Function MV Pk E: 0.77 MV Pk A: 0.68 E/A: 1.10 E'Medial: 5.00 E/E' Med: 15.30 E' Laterial: 9.90 E/E' Lat: 7.70 Tricuspid Valve TR Pk Jordy: 1.81 TR Pk Grad: 13.00 RA Press: 3.00 RVSP: 16.00 Great Vessels Aorta Ao Root-2D: 4.00 2.0-3.7 cm Ao Asc: 3.80 2.1-3.4 cm Ao Arch: 2.90 Updated in Other Vendor System with Status of Final Brad Marin MD electronically signed on 02/16/2021 12:02:56 PM with status of Final
== END ==
LOC: HO.CARD 12:44
PROVIDERS: Visit Provider Internal Medicine
DX: Z95.1 Presence of aortocoronary bypass graft (principal)
CPT/HCPCS: 93306

== ENCOUNTER 2021-02-17 06:51 | Outpatient (REF) | payer MEDICARE, SELFPAY ==
[2021-02-17 08:54] LABS: MANUAL DIFF FLAG NO
[2021-02-17 09:15] LABS: Basophils Percent Auto 0.6 % (0-2); Eosinophils Absolute Auto 0.2 X10*3/uL (0.0-0.4); Eosinophils Percent Auto 3.8 % (0-4); Hematocrit 39.1 % (42-52); Hemoglobin 12.6 g/dl (14.0-18.0); Imm Gran Abs Auto 0.01 X10*3/uL (0.00-0.03); Imm Gran Pct Auto 0.2 % (0.0-0.4); Lymphocytes Absolute Auto 0.8 X10*3/uL (1.2-4.9); Mean Corpuscular HGB Conc 32.2 g/dl (31.0-36.0); Mean Corpuscular Hemoglobin 31.7 pg (27.0-33.0); Mean Corpuscular Volume 98.2 fL (80-98); Mean Platelet Volume 9.9 fL (9.4-12.4); Monocytes Absolute Auto 0.6 X10*3/uL (0.1-1.2); Monocytes Percent Auto 11.6 % (2-11); Neutrophils Absolute Auto 3.2 X10*3/uL (2.0-8.3); Neutrophils Percent Auto 66.8 % (45-73); Platelet Count 247 X10*3/uL (160-400); Red Blood Count 3.98 X10*6/uL (4.60-5.80); Red Cell Distribution Width 14.3 % (11.0-16.0); White Blood Count 4.8 X10*3/uL (4.8-10.8)
== END 2021-02-17 06:52 | disposition home or self-care (01) ==
LOC: HO.HSH3W 06:51
PROVIDERS: Visit Provider Nurse Practitioner
DX: D64.9 Anemia, unspecified (principal)
CPT/HCPCS: 36415; 85025

== ENCOUNTER → 2021-03-09 09:32 | Outpatient (BNVA) | payer MEDICARE, SELFPAY | PROVIDERS: PCP Physician Assistant; Visit Provider Internal Medicine | DX: I25.10 Atherosclerotic heart disease of native coronary artery without angina pectoris (principal); I63.232 Cerebral infarction due to unspecified occlusion or stenosis of left carotid arteries; K92.2 Gastrointestinal hemorrhage, unspecified; I10 Essential (primary) hypertension; E11.9 Type 2 diabetes mellitus without complications; G70.00 Myasthenia gravis without (acute) exacerbation; Z95.1 Presence of aortocoronary bypass graft | CPT/HCPCS: 99212 ==

== ENCOUNTER 2021-05-04 11:28 | Outpatient (REF) | payer MEDICARE, SELFPAY | END 2021-05-04 11:29 | disposition home or self-care (01) | LOC: HO.HSH3E 11:28 | PROVIDERS: Visit Provider Internal Medicine Medical Oncology | DX: Z13.89 Encounter for screening for other disorder (principal) | CPT/HCPCS: 87071; 87205 ==

== ENCOUNTER 2021-07-13 05:35 | Outpatient (REF) | payer MEDICARE, SELFPAY ==
[2021-07-13 07:42] LABS: MANUAL DIFF FLAG NO
[2021-07-13 07:43] LABS: Basophils Percent Auto 0.4 % (0-2); Eosinophils Absolute Auto 0.2 X10*3/uL (0.0-0.4); Eosinophils Percent Auto 5.1 % (0-4); Hematocrit 34.6 % (42-52); Hemoglobin 11.9 g/dl (14.0-18.0); Imm Gran Abs Auto 0.03 X10*3/uL (0.00-0.03); Imm Gran Pct Auto 0.6 % (0.0-0.4); Lymphocytes Absolute Auto 1.1 X10*3/uL (1.2-4.9); Lymphocytes Percent Auto 23.5 % (20-40); Mean Corpuscular HGB Conc 34.4 g/dl (31.0-36.0); Mean Corpuscular Hemoglobin 34.3 pg (27.0-33.0); Mean Corpuscular Volume 99.7 fL (80-98); Mean Platelet Volume 9.6 fL (9.4-12.4); Monocytes Absolute Auto 0.7 X10*3/uL (0.1-1.2); Monocytes Percent Auto 15.5 % (2-11); Neutrophils Absolute Auto 2.6 X10*3/uL (2.0-8.3); Neutrophils Percent Auto 54.9 % (45-73); Platelet Count 184 X10*3/uL (160-400); Red Blood Count 3.47 X10*6/uL (4.60-5.80); Red Cell Distribution Width 13.6 % (11.0-16.0); White Blood Count 4.7 X10*3/uL (4.8-10.8)
[2021-07-13 07:59] LABS: Alanine Aminotransferase 9 U/L (0-40); Albumin Level 3.9 g/dL (3.5-5.0); Alkaline Phosphatase 50 U/L (39-117); Anion Gap 8 (12-20); Aspartate Amino Transferase 14 U/L (5-37); Bilirubin Total 0.2 mg/dL (0.0-1.0); Blood Urea Nitrogen 17 mg/dL (9-16); Calcium 8.8 mg/dL (8.4-10.2); Carbon Dioxide 31 mmol/L (22-29); Chloride 107 mmol/L (96-108); Estimated Glomerular Filt Rate > 60; Glucose Fasting 97 mg/dL (60-99); Iron 69 mcg/dL (45-160); Percent Iron Saturation 24 % (15-50); Potassium 4.1 mmol/L (3.3-5.1); Sodium 142 mmol/L (135-145); Total Iron Binding Capacity 292 mcg/dL (228-428); Unsaturated Iron Binding 223 ug/dL
[2021-07-13 08:28] LABS: Thyroid Stimulating Hormone 0.63 uIU/mL (0.32-4.0)
[2021-07-13 09:34] LABS: Folate 11.3 ng/mL (> or = 4.0)
[2021-07-13 09:39] LABS: Ferritin 51 ng/mL (20-250)
[2021-07-13 14:39] LABS: Vitamin B12 419 pg/mL (200-900)
[2021-07-17 06:47] LABS: Vitamin B1 18 nmol/L (8-30)
== END 2021-07-13 05:36 | disposition home or self-care (01) ==
LOC: HO.HSH3W 05:35
PROVIDERS: Visit Provider Nurse Practitioner
DX: D64.9 Anemia, unspecified (principal); G25.81 Restless legs syndrome
CPT/HCPCS: 36415; 80053; 82607; 82728; 82746; 83540; 84425; 84443; 85025

== ENCOUNTER → 2021-08-22 09:37 | Outpatient (BNVA) | payer MEDICARE, SELFPAY | PROVIDERS: PCP Physician Assistant; Visit Provider Internal Medicine | DX: I25.10 Atherosclerotic heart disease of native coronary artery without angina pectoris (principal); I10 Essential (primary) hypertension; I63.232 Cerebral infarction due to unspecified occlusion or stenosis of left carotid arteries; E11.9 Type 2 diabetes mellitus without complications; G70.00 Myasthenia gravis without (acute) exacerbation; K92.2 Gastrointestinal hemorrhage, unspecified; Z95.1 Presence of aortocoronary bypass graft | CPT/HCPCS: 99212 ==

== ENCOUNTER 2021-10-10 06:10 | Outpatient (REF) | payer MEDICARE, SELFPAY ==
[2021-10-10 07:45] LABS: MANUAL DIFF FLAG NO
[2021-10-10 07:53] LABS: Basophils Percent Auto 0.4 % (0-2); Eosinophils Absolute Auto 0.3 X10*3/uL (0.0-0.4); Eosinophils Percent Auto 5.5 % (0-4); Hematocrit 33.7 % (42.0-52.0); Hemoglobin 11.8 g/dl (14.0-18.0); Imm Gran Abs Auto 0.03 X10*3/uL (0.00-0.03); Imm Gran Pct Auto 0.6 % (0.0-0.4); Lymphocytes Absolute Auto 0.7 X10*3/uL (1.2-4.9); Lymphocytes Percent Auto 13.7 % (20-40); Mean Corpuscular Hemoglobin 34.5 pg (27.0-33.0); Mean Corpuscular Volume 98.5 fL (80.0-98.0); Mean Platelet Volume 9.6 fL (9.4-12.4); Monocytes Absolute Auto 0.8 X10*3/uL (0.1-1.2); Neutrophils Absolute Auto 3.3 x10*3/uL (2.0-8.3); Neutrophils Percent Auto 64.8 % (45-73); Platelet Count 198 X10*3/uL (160-400); Red Blood Count 3.42 X10*6/uL (4.60-5.80); Red Cell Distribution Width 12.2 % (11.0-16.0); White Blood Count 5.1 X10*3/uL (4.8-10.8)
[2021-10-10 07:56] LABS: Prothrombin Time 11.6 SEC (9.9-13.0)
[2021-10-10 08:14] LABS: Alanine Aminotransferase 15 U/L (0-40); Albumin Level 3.7 g/dL (3.5-5.0); Alkaline Phosphatase 62 U/L (39-117); Anion Gap 8 (12-20); Aspartate Amino Transferase 16 U/L (5-37); Bilirubin Total 0.3 mg/dL (0.0-1.0); Blood Urea Nitrogen 14 mg/dL (9-16); Calcium 8.9 mg/dL (8.4-10.2); Carbon Dioxide 31 mmol/L (22-29); Chloride 107 mmol/L (96-108); Estimated Glomerular Filt Rate > 60; Glucose Fasting 102 mg/dL (60-99); Potassium 4.2 mmol/L (3.3-5.1); Sodium 142 mmol/L (135-145); Total Protein 5.9 g/dL (6.5-8.0)
[2021-10-10 08:44] LABS: Estimated Average Glucose 123 mg/dL; Hemoglobin A1c % 5.9 %
== END 2021-10-10 06:11 | disposition home or self-care (01) ==
LOC: HO.HSH3W 06:10
PROVIDERS: Internal Medicine; Nurse Practitioner Acute Care; Visit Provider Nurse Practitioner
DX: Z01.810 Encounter for preprocedural cardiovascular examination (principal); D64.9 Anemia, unspecified; I25.10 Atherosclerotic heart disease of native coronary artery without angina pectoris
CPT/HCPCS: 36415; 80053; 83036; 85025; 85610

== ENCOUNTER 2022-04-03 05:41 | Outpatient (REF) | payer MEDICARE, SELFPAY ==
[2022-04-03 07:49] LABS: MANUAL DIFF FLAG NO
[2022-04-03 07:52] LABS: Basophils Percent Auto 0.7 % (0-2); Eosinophils Absolute Auto 0.3 X10*3/uL (0.0-0.4); Eosinophils Percent Auto 6.4 % (0-4); Hematocrit 36.7 % (42.0-52.0); Hemoglobin 12.6 g/dl (14.0-18.0); Imm Gran Abs Auto 0.01 X10*3/uL (0.00-0.03); Imm Gran Pct Auto 0.2 % (0.0-0.4); Lymphocytes Percent Auto 22.9 % (20-40); Mean Corpuscular HGB Conc 34.3 g/dl (31.0-36.0); Mean Corpuscular Hemoglobin 32.9 pg (27.0-33.0); Mean Corpuscular Volume 95.8 fL (80.0-98.0); Mean Platelet Volume 9.8 fL (9.4-12.4); Monocytes Absolute Auto 0.6 X10*3/uL (0.1-1.2); Monocytes Percent Auto 12.3 % (2-11); Neutrophils Absolute Auto 2.6 x10*3/uL (2.0-8.3); Neutrophils Percent Auto 57.5 % (45-73); Platelet Count 199 X10*3/uL (160-400); Red Blood Count 3.83 X10*6/uL (4.60-5.80); Red Cell Distribution Width 12.5 % (11.0-16.0); White Blood Count 4.6 X10*3/uL (4.8-10.8)
[2022-04-03 08:55] LABS: Alanine Aminotransferase 16 U/L (0-40); Alkaline Phosphatase 61 U/L (39-117); Anion Gap 11 (12-20); Aspartate Amino Transferase 14 U/L (5-37); Bilirubin Total 0.4 mg/dL (0.0-1.0); Blood Urea Nitrogen 18 mg/dL (9-16); Calcium 8.9 mg/dL (8.4-10.2); Carbon Dioxide 26 mmol/L (22-29); Chloride 108 mmol/L (96-108); Estimated Glomerular Filt Rate > 60; Glucose Random 102 mg/dL (60-115); Sodium 141 mmol/L (135-145)
== END 2022-04-03 05:42 | disposition home or self-care (01) ==
LOC: HO.HSH3W 05:41
PROVIDERS: Visit Provider Nurse Practitioner
DX: R31.9 Hematuria, unspecified (principal)
CPT/HCPCS: 36415; 80053; 85025

== ENCOUNTER 2022-08-16 21:23 | Inpatient (IN) | payer OTHER, SELFPAY ==
--- NOTE | ~2022-08-16 | FL_ITS ---
EXAMINATION: Intraoperative fluoroscopy CLINICAL INFORMATION: Pacemaker insertion COMPARISON: Chest x-ray 08/16/2022 TECHNIQUE: Intraoperative fluoroscopy was provided for use by Dr. Resendiz. A total of 1 image was saved to PACS. A radiologist was not present during imaging. Today's dictation is only for administrative purposes to document intraoperative fluoroscopic usage. TOTAL FLUOROSCOPIC TIME: 11.3 minutes FL/FL guidance in OR FINDINGS~\^^ Intraoperative fluoroscopy provided for use by Dr. Resendiz. Please see operative note for detailed findings.
--- NOTE | ~2022-08-16 | XR_ITS ---
EXAMINATION: XR SHOULDER, LEFT CLINICAL INFORMATION: Left shoulder pain. COMPARISON: None TECHNIQUE: Two views of the left shoulder. FINDINGS: Mild left acromioclavicular degenerative joint changes are seen. No left glenohumeral abnormality. The left ribs are intact. The soft tissues are unremarkable. XR/XR shoulder LT min 2V IMPRESSION: Mild left acromioclavicular degenerative joint changes. No acute fracture.
--- NOTE | ~2022-08-16 | XR_ITS ---
EXAMINATION: XR CHEST CLINICAL INFORMATION: Status post pacer placement COMPARISON: Chest 08/16/2022 TECHNIQUE: Frontal view of the chest was obtained. FINDINGS: The lungs are moderately expanded but clear. The heart size is enlarged. Perivascular is normal. There are new dual pacer electrodes in right atrium and right ventricle. There are median sternotomy sutures. No gross bony abnormality. XR/XR chest 1V IMPRESSION: 1. Mild cardiomegaly. No acute process seen. 2. New dual pacer electrodes in right atrium and right ventricle. No pneumothorax.
--- NOTE | ~2022-08-16 | XR_ITS ---
EXAMINATION: XR CHEST CLINICAL INFORMATION: Post pacemaker placement COMPARISON: Previous chest x-ray most recent from yesterday TECHNIQUE: Frontal view of the chest was obtained. FINDINGS: The cardiac and mediastinal contours are stable. There are post-CABG changes. There is a left subclavian dual chamber pacemaker that appears unchanged. The lungs are clear. There is blunting at the left costophrenic angle questionable for a small left pleural effusion. There is no right pleural effusion. There is no pneumothorax. There are degenerative changes of the spine. XR/XR chest 1V IMPRESSION: Question small left pleural effusion. Otherwise unremarkable exam. Stable position of left subclavian dual chamber pacemaker. No pneumothorax.
--- NOTE | ~2022-08-16 | XR_ITS ---
EXAMINATION: XR CHEST CLINICAL INFORMATION: Syncope COMPARISON: Previous chest x-ray most recent September 2020 TECHNIQUE: Frontal view of the chest was obtained. FINDINGS: There are new post CABG changes. The cardiac silhouette does not appear enlarged. The lung volumes are low. The lungs are clear. There is no pleural effusion or pneumothorax. There are degenerative changes of the spine. XR/XR chest 1V IMPRESSION: Interval post-CABG changes. Low lung volumes. No evidence for acute disease in the chest.
[2022-08-16 21:34] VITALS: BP 107/70; PULSE 60; O2SAT 94; BMI 30.5
--- NOTE | 2022-08-16 21:38 | ECG_ITS ---
Test Reason : covid Blood Pressure : / mmHG Vent. Rate : 063 BPM Atrial Rate : 000 BPM P-R Int : 000 ms QRS Dur : 108 ms QT Int : 420 ms P-R-T Axes : 000 007 037 degrees QTc Int : 429 ms Normal sinus rhythm with first degree AV block. Inferior infarct (cited on or before 11-JAN-2016) Abnormal ECG When compared with ECG of 20-SEP-2020 07:17, ST no longer depressed in Lateral leads Referred By: Generic ED Physician Electronically Signed By:Karl Hooks
[2022-08-16] MEDS: 0.9 % Sodium Chloride 1,000 ML 999 ML IV (21:40)
[2022-08-16 21:41] VITALS: BP 85/44; PULSE 61; RESP 22; TEMP 36.8; O2SAT 94
--- NOTE | 2022-08-16 21:49 | PC.NURSE ---
pts bp 85/44 HR 62. Bolus of NS started via IV access. MD at bedside and aware.
--- NOTE | 2022-08-16 21:53 | ED.GENADULT ---
HPI - General Adult General Chief complaint: General Medical Stated complaint: unresponsive.Covid + Time Seen by Provider: 08/16/22 21:41 Source: patient and EMS History of Present Illness HPI narrative: This is an 82-year-old male who was found to be unresponsive at his senior care. The patient has COVID. He also has a known history coronary artery disease status post CABG, myasthenia gravis, type 2 diabetes mellitus, hypertension, GI bleeding, left carotid artery stenosis, CVA, anemia, NSTEMI. CPR was initiated on the patient and when EMS got there the patient was responsive. Had normal vital signs per EMS. Patient was self reports having felt dizzy. He is not a very articulate historian. He denies any headache. Denies chest pain, did feel little short of breath. He denies any abdominal pain, vomiting, diarrhea. Per senior care records the patient is currently on Paxlovid Related Data Home Medications Medication Instructions Recorded Confirmed acetaminophen 650 mg tablet 650 mg PO BEDTIME 09/14/20 08/22/21 aspirin 81 mg tablet 81 mg PO DAILY 09/14/20 08/22/21 atorvastatin 40 mg tablet 40 mg PO DAILY@1700 09/14/20 08/22/21 azathioprine 50 mg tablet 50 mg PO BID 09/14/20 08/22/21 calcium polycarbophil 625 mg tablet 625 mg PO BID 09/14/20 08/22/21 carboxymethylcellulose sodium 1 drp ophthalmic (eye) BEDTIME 09/14/20 08/22/21 cholecalciferol (vitamin D3) 25 25 mcg PO DAILY 09/14/20 08/22/21 mcg (1,000 unit) chewable tablet cyanocobalamin (vitamin B-12) 1,000 mcg IM QMONTH 09/14/20 08/22/21 1,000 mcg/mL injection solution ferrous sulfate 325 mg (65 mg 325 mg PO BID 09/14/20 08/22/21 iron) tablet (Iron (ferrous sulfate)) fluticasone propionate 50 1 spray intranasal BID 09/14/20 08/22/21 mcg/actuation nasal spray,suspension oxybutynin chloride 15 mg 15 mg PO DAILY 09/14/20 08/22/21 tablet,extended release 24 hr prednisone 5 mg tablet 5 mg PO Q OTHER DAY 09/14/20 08/22/21 pyridostigmine bromide 60 mg tablet 60 mg PO TID 09/14/20 08/22/21 quetiapine 100 mg tablet 100 mg PO BEDTIME 09/14/20 08/22/21 quetiapine 25 mg tablet 25 mg PO BEDTIME 09/14/20 08/22/21 tamsulosin 0.4 mg capsule 0.4 mg PO BEDTIME 09/14/20 08/22/21 trazodone 50 mg tablet 50 mg PO BEDTIME 09/14/20 08/22/21 venlafaxine 150 mg 150 mg PO DAILY 09/14/20 08/22/21 capsule,extended release 24 hr docusate sodium 100 mg capsule 100 mg PO BID 09/20/20 08/22/21 loratadine 10 mg tablet 10 mg PO DAILY 09/20/20 08/22/21 lorazepam 0.5 mg tablet 0.25 mg PO Q6H PRN Anxiety 09/20/20 08/22/21 omeprazole 20 mg capsule,delayed 40 mg PO DAILY@1600 09/20/20 08/22/21 release metoprolol tartrate 25 mg tablet 12.5 mg PO BID 12/22/20 08/22/21 Allergies Allergy/AdvReac Type Severity Reaction Status Date / Time No Known Allergies Allergy Verified 08/22/21 10:16 [No Known Allergies*] Review of Systems Review of Systems: Yes Unobtainable due to mental status (Limited) [facility] Past Medical History Medical History (Updated 08/17/22 @ 02:21 by Shalom Connor MD) Abnormal LFTs (liver function tests) Acute respiratory disease Atherosclerotic cardiovascular disease BPH (benign prostatic hyperplasia) CAD (coronary artery disease) Cataract Cholecystitis Choledocholithiasis COVID-19 Depression Diabetes mellitus Diet-controlled diabetes mellitus Dysarthria Elevated troponin Essential hypertension Gastrointestinal bleeding GERD (gastroesophageal reflux disease) Hammer toe Hammer toes, bilateral History of diverticulosis History of rectal cancer Hyperlipidemia Hypertension Inguinal hernia Insomnia Malignant neoplasm of colon Myasthenia gravis Myasthenia gravis Nonalcoholic steatohepatitis (MARTI) Onychogryphosis Rheumatoid arthritis Urinary incontinence Surgical History History of cardiac catheterization (~11/18/20) History of cholecystectomy (~02/20/21) History of colostomy History of colostomy reversal History of coronary artery bypass graft x 2 (~12/08/20) History of incisional hernia repair History of left-sided carotid endarterectomy (~12/08/20) History of low anterior resection of rectum Family History Family History Mother No problems noted. Father No problems noted. Brother No problems noted. Sister No problems noted. Daughter Psychiatric disorder Son No problems noted. Social History Social History Household Members: Other Housing: [facility] Do you presently have visiting nurse or other home services: No Alcohol intake: never Patient Tobacco Use Status: Never used Tobacco Smoked in Last 30 Days: No Use of substances other than those prescribed or required for medical reasons: No Advance Directives: Yes Advance Directives on File: Yes Advance Directives Date on File: 06/21/20 service: Yes Current occupational status: retired Physical Exam ED Vital Signs: Vital Signs - 24 hr 08/16/22 21:41 Temperature 98.2 F Pulse Rate 61 Respiratory Rate 22 H Blood Pressure 85/44 L Pulse Oximetry 94 Oxygen Delivery Method Nasal Cannula Oxygen Flow Rate 2 BMI result Body Mass Index 30.5 Const General: no acute distress Orientation/consciousness: patient oriented x3 HENMT Head: Yes normal to inspection General nose exam: Normal external nose present Mouth: moist mucous membranes Throat: Yes posterior oropharynx normal, Yes tonsils normal and Yes uvula midline Eyes Eyelids: Yes eyelids normal Conjunctivae: conjunctivae normal Pupils: Equal, round and reactive pupils present Neck Neck: Yes supple Resp Effort & Inspection: normal respiratory effort Auscultation: clear to auscultation bilaterally Cardio Rate: regular rate Rhythm: regular rhythm Heart sounds: S1 normal heart sound present, S2 normal heart sound present, no gallops, no murmurs and no rubs GI Inspection: No distended Palpation (GI): Soft to palpation and nontender Auscultation: normal bowel sounds Skin General skin exam: other (Warm and dry) Neuro General: patient oriented x3 and CN's II-XI intact bilaterally Cranial nerves: Yes Equal, round and reactive pupils present Extrem General: Yes no pedal edema Psych Affect: normal affect Attitude: cooperative Medications Administered Generic Name Dose Route Start Last Admin Trade Name Freq PRN Reason Stop Dose Admin Sodium Chloride 3 ml 08/17/22 00:00 08/17/22 01:36 0.9 % Sodium Chloride Flush 3 Ml Syringe IVFLUSH Not Given QSHIFT GOSIA Discontinued Medications Generic Name Dose Route Start Last Admin Trade Name Nitish PRN Reason Stop Dose Admin Sodium Chloride 1,000 mls @ 999 mls/hr 08/16/22 22:00 12 00:34 Ns IV 08/16/22 23:00 Infused .Q1H1M GOSIA Infusion Medical Decision Making MDM Narrative Medical decision making narrative: [facility], reportedly had CPR but EMS found him to be responsive and with normal vital signs. Patient did have brief hypotension here into the 80s and was bolused normal saline. Patient does have COVID and was started on Paxlovid today. His COVID illness began 2 days ago. Patient may have had a syncopal episode, does recall having been dizzy. EKG showed first-degree AV block but no other concerning findings. Given the patient was found unresponsive and had CPR, observation in the hospital is warranted. Case discussed with Dr. Canela of the hospitalist service Lab Data Lab results reviewed: Yes I reviewed the patient's lab results. Result diagrams: 08/16/22 22:01 08/16/22 22:01 Labs: Lab Results 08/16/22 08/16/22 08/16/22 Range/Units 22:00 22:01 22:01 WBC 6.6 (4.8-10.8) X10*3/uL RBC 3.61 L (4.60-5.80) X10*6/uL Hgb 11.8 L (14.0-18.0) g/dl Hct 34.3 L (42.0-52.0) % MCV 95.0 (80.0-98.0) fL MCH 32.7 (27.0-33.0) pg MCHC 34.4 (31.0-36.0) g/dl RDW 12.9 (11.0-16.0) % Plt Count 139 L D (160-400) X10*3/uL MPV 9.7 (9.4-12.4) fL Immature Gran % (Auto) 0.6 H (0.0-0.4) % Neut % (Auto) 75.9 H (45-73) % Lymph % (Auto) 9.8 L (20-40) % Dickson % (Auto) 12.7 H (2-11) % Eos % (Auto) 0.5 (0-4) % Baso % (Auto) 0.5 (0-2) % Lymph # (Auto) 0.7 L (1.2-4.9) X10*3/uL Dickson # (Auto) 0.8 (0.1-1.2) X10*3/uL Eos # (Auto) 0.0 (0.0-0.4) X10*3/uL Baso # (Auto) 0.0 (0.0-0.2) X10*3/uL Abs Immat Gran (auto) 0.04 H (0.00-0.03) X10*3/uL Absolute Neuts (auto) 5.1 (2.0-8.3) x10*3/uL Absolute Nucleated RBC 0.000 (0.0-0.012) X10*3/uL Nucleated RBC % (auto) 0.0 (0.0-0.2) /100WBC PT 12.5 (10.0-13.1) SEC INR 1.1 (0.9-1.1) APTT 30.9 (26.0-36.4) SEC Sodium 137 (135-145) mmol/L Potassium 4.0 (3.3-5.1) mmol/L Chloride 104 (96-108) mmol/L Carbon Dioxide 22 (22-29) mmol/L Anion Gap 15 (12-20) BUN 18 H (9-16) mg/dL Creatinine 0.98 (0.5-1.4) mg/dL Estim Creat Clear Calc 55.6 Estimated GFR > 60 Random Glucose 118 H (60-115) mg/dL Calcium 8.0 L D (8.4-10.2) mg/dL Total Bilirubin 0.3 (0.0-1.0) mg/dL AST 95 H (5-37) U/L ALT 93 H (0-40) U/L Alkaline Phosphatase 62 (39-117) U/L Troponin I High Sens (<3.5-35.0) ng/L Total Protein 5.7 L (6.5-8.0) g/dL Albumin 3.6 (3.5-5.0) g/dL COVID-19 (SEVEN) (Negative) COVID-19 Clin Com 08/16/22 08/16/22 Range/Units 22:01 23:00 WBC (4.8-10.8) X10*3/uL RBC (4.60-5.80) X10*6/uL Hgb (14.0-18.0) g/dl Hct (42.0-52.0) % MCV (80.0-98.0) fL MCH (27.0-33.0) pg MCHC (31.0-36.0) g/dl RDW (11.0-16.0) % Plt Count (160-400) X10*3/uL MPV (9.4-12.4) fL Immature Gran % (Auto) (0.0-0.4) % Neut % (Auto) (45-73) % Lymph % (Auto) (20-40) % Dickson % (Auto) (2-11) % Eos % (Auto) (0-4) % Baso % (Auto) (0-2) % Lymph # (Auto) (1.2-4.9) X10*3/uL Dickson # (Auto) (0.1-1.2) X10*3/uL Eos # (Auto) (0.0-0.4) X10*3/uL Baso # (Auto) (0.0-0.2) X10*3/uL Abs Immat Gran (auto) (0.00-0.03) X10*3/uL Absolute Neuts (auto) (2.0-8.3) x10*3/uL Absolute Nucleated RBC (0.0-0.012) X10*3/uL Nucleated RBC % (auto) (0.0-0.2) /100WBC PT (10.0-13.1) SEC INR (0.9-1.1) APTT (26.0-36.4) SEC Sodium (135-145) mmol/L Potassium (3.3-5.1) mmol/L Chloride (96-108) mmol/L Carbon Dioxide (22-29) mmol/L Anion Gap (12-20) BUN (9-16) mg/dL Creatinine (0.5-1.4) mg/dL Estim Creat Clear Calc Estimated GFR Random Glucose (60-115) mg/dL Calcium (8.4-10.2) mg/dL Total Bilirubin (0.0-1.0) mg/dL AST (5-37) U/L ALT (0-40) U/L Alkaline Phosphatase (39-117) U/L Troponin I High Sens 15.3 (<3.5-35.0) ng/L Total Protein (6.5-8.0) g/dL Albumin (3.5-5.0) g/dL COVID-19 (SEVEN) Positive A (Negative) COVID-19 Clin Com See Note Imaging Data Chest x-ray: Radiologist's impression: IMPRESSION: Interval post-CABG changes. Low lung volumes. No evidence for acute disease in the chest. ? ECG Data Attestation: I personally reviewed and interpreted this ECG as follows: Interpretation: Normal sinus rhythm with prolonged CT interval, first-degree AV block, rate of 63. Q-waves in leads V1 and V2 consistent with an old anterior septal infarct. Q-waves also in leads 3 and F consistent with an old inferior infarct. Discharge Plan Discharge Clinical Impression: Syncope and collapse, COVID-19 Patient Disposition: Admitted As Inpatient Interventions: Admission Worksheet (ED) Last Done: 08/17/22 02:13
--- OUTSIDE RECORDS SUMMARY | 2022-08-16 21:56 | XMS_ITS | Continuity of Care Document ---
:1940 Author Organization [facility] Address [address] [place] [address]- Care Team Providers Name Role Phone Nirmal Hutton Primary Care Physician Encounter [facility] Date(s): 11/18/20 - 11/18/[address] [address] Discharge Disposition: A-D/C Home Attending Physician: Karl Hooks MD Admitting Physician: Karl Hooks MD Referring Physician: Karl Hooks MD Allergies, Adverse Reactions, Alerts Substance Reaction Severity Status NKA Active Immunizations Given and Recorded Vaccine Date Status Refusal Reason influenza virus vaccine, inactivated1 07/17/17 Recorded influenza virus vaccine, inactivated2 06/29/16 Recorded influenza virus vaccine, inactivated 06/23/15 Given influenza virus vaccine, inactivated 08/21/14 Recorded influenza virus vaccine, inactivated 08/25/13 Given influenza virus vaccine, inactivated 05/25/12 Given influenza virus vaccine, inactivated 05/23/10 Given pneumococcal 13-valent vaccine 10/22/14 Given FluLaval (oldterm) 05/16/12 Given tetanus/diphtheria/pertussis, acel(Tdap) 05/16/12 Given Zoster Vaccine Live 04/15/12 Recorded Influenza Virus Vaccine (oldterm)3 07/17/11 Given Hepatitis A Adult Vaccine 04/05/10 Given Hepatitis A Adult Vaccine 10/05/09 Given Hepatitis B Vaccine (old term) 04/05/10 Given Hepatitis B Vaccine (old term) 11/03/09 Given Hepatitis B Vaccine (old term) 10/05/09 Given Fluzone (oldterm) 09/23/09 Given influ virus vac, H1N1, inactive(oldterm)4 08/16/09 Given Influenza Inactive (IM) (oldterm) 08/18/08 Given Influenza Inactive (IM) (oldterm)5 07/21/07 Given Tetanus Toxoid Vaccine (oldterm) 09/16/05 Given Pneumococcal Vaccine (oldterm)6 11/18/02 Given 1Result Comment: [07/19/2017] [facility]2Result Comment: [07/02/2016] [facility] [id number] Note: [id number] Note: [id number] Note: historical data6 Admin Note: historical data Medications acetaminophen 325 mg oral capsule 2, By Mouth, Daily at bedtime, 0 Refills, Maintenance, 11/18/20 10:18:00 EST, Partial fill upon patient request if the prescription is for a schedule II opioid drug. Start Date: 11/18/20 Status: Orderedaspirin 81 mg oral tablet 1 tablet = 81 mg, By Mouth, Daily, with food, # 90 tablet, 3 Refills, Maintenance, 03/22/17 10:07:57, Tablet Start Date: 03/22/17 Status: Orderedatorvastatin 40 mg oral tablet 1 tablet = 40 mg, By Mouth, Daily, # 90 tablet, 3 Refills, Maintenance, Tablet, Route to Pharmacy Electronically, [id number], [id number], Compound Start Date: 04/16/17 Status: Orderedazathioprine 50 mg oral tablet 1 tablet = 50 mg, By Mouth, 2 times a day, 0 Refills, Maintenance Start Date: 02/28/12 Status: Orderedcarboxymethylcellulose = 1 %, Eyes, Both, Daily at bedtime, 0 Refills, Maintenance, 11/18/20 10:23:00 EST, Partial fill upon patient request if the prescription is for a schedule II opioid drug. Start Date: 11/18/20 Status: OrderedColace sodium 100 mg oral capsule 100 mg, 1, capsule, By Mouth, 2 times a day, PRN, 90 DAY PER REQUEST, # 180 capsule, Refills 3, Tot.Refills 3, Maintenance, for constipation, 03/22/17 10:09:21, Route to Pharmacy Electronically, [id number], [facility]... Start Date: 03/22/17 Status: Orderedferrous sulfate 325 mg oral tablet 1 tablet = 325 mg, By Mouth, 2 times a day, 0 Refills, Maintenance, 11/18/20 10:26:00 EST, Partial fill upon patient request if the prescription is for a schedule II opioid drug. Start Date: 11/18/20 Status: OrderedFlonase 50 mcg/inh nasal spray 2 sprays, Nasal, Daily, # 3 each, 3 Refills, 03/21/17 10:58:49, 2 sprays Nasal Daily,x90 days Start Date: 03/21/17 Stop Date: 03/16/18 Status: OrderedFreestyle Glucose Meter See Instructions, # 300 application, Refills 3, Tot. Refills 3, Maintenance, diabetic, 02/17/10 15:22:28 Start Date: 02/17/10 Status: OrderedFreestyle InsuLinx Glucose Meter See Instructions, # 1 each, Maintenance, Use as directed to test BS once daily for DM2 E11.9, 06/15/16 11:41:03, Compound Start Date: 06/15/16 Status: OrderedFreestyle Lite Lancets See Instructions, # 30 each, Maintenance, DX: E11.9 pt to test once daily, 07/22/17 14:58:10, Compound Start Date: 07/22/17 Status: OrderedFreestyle Lite Test Strips See Instructions, # 30 strip(s), Refills 3, Tot. Refills 3, Maintenance, pt to test blood sugar oncedaily E11.9, 08/22/17 13:57:11, Compound Start Date: 08/22/17 Status: OrderedHome Blood Pressure Monitor See Instructions, # 1 box, Maintenance, check morning aand after supper call if over 150/90 or [id number], 01/03/15 14:46:22, Compound Start Date: 01/03/15 Status: Orderedlisinopril 10 mg oral tablet 10 mg, 1, tablet, By Mouth, Daily, # 30 tablet, Refills 0, Maintenance, 11/18/20 10:28:00 EST, Partial fill upon patient request if the prescription is for a schedule II opioid drug. Start Date: 11/18/20 Status: OrderedLithium battery 3 v for glucometer and diabetic log book [place] battery 3 v for glucometer and diabetic log book, See Instructions, # 1 each, Refills 0, Tot. Refills 0, Maintenance, dx:E11.9, 07/25/17 16:05:17, Compound Start Date: 07/25/17 Status: OrderedLithium battery 3 v for glucometer and diabetic log book [place] battery 3 v for glucometer and diabetic log book, See Instructions, # 1 each, Refills 0, Tot. Refills 0, Maintenance, 1 each, 02/17/10 15:24:34 Start Date: 02/17/10 Status: Orderedloratadine 10 mg oral tablet 10 mg, 1, tablet, By Mouth, Daily, # 30 tablet, Refills 0, Maintenance, 11/18/20 10:29:00 EST, Partial fill upon patient request if the prescription is for a schedule II opioid drug. Start Date: 11/18/20 Status: OrderedLorazepam 0.25, By Mouth, PRN as needed for anxiety, 0 Refills, Maintenance, 11/18/20 10:42:00 EST, Partial fill upon patient request if the prescription is for a schedule II opioid drug. Start Date: 11/18/20 Status: OrderedMestinon 60 mg oral tablet 60 mg, 1, tablet, By Mouth, 3 times a day, 0 Refills, Maintenance Start Date: 10/01/05 Status: Orderedomeprazole 20 mg oral delayed release tablet 2 tablet = 40 mg, By Mouth, Daily, 0 Refills, Maintenance, 02/27/17 13:54:11 EDT Start Date: 02/27/17 Status: Orderedoxybutynin 15 mg/24 hr oral tablet, extended release 1 tablet = 15 mg, By Mouth, Daily, # 30 tablet, 0 Refills, Maintenance, 11/18/20 10:31:00 EST, ER Tablet, Partial fill upon patient request if the prescription is for a schedule II opioid drug. Start Date: 11/18/20 Status: OrderedpredniSONE 5 mg oral tablet 1 tablet = 5 mg, By Mouth, Every other day, # 100 tablet, 0 Refills, Maintenance, 06/23/15 14:31:10 EDT, Tablet Start Date: 06/23/15 Status: OrderedQUEtiapine 100 mg oral tablet 100 mg, 1, tablet, By Mouth, Daily at bedtime, Refills 0, Maintenance, 11/18/20 10:33:00 EST, Partial fill upon patient request if the prescription is for a schedule II opioid drug. Start Date: 11/18/20 Status: OrderedQUEtiapine 25 mg oral tablet 25 mg, 1, tablet, By Mouth, Daily at bedtime, to equal 125mg total at bedtime, Refills 0, Maintenance, 11/18/20 10:38:00 EST, Partial fill upon patient request if the prescription is for a schedule II opioid drug. Start Date: 11/18/20 Status: Orderedtamsulosin 0.4 mg oral capsule 0.4 mg, 1, capsule, By Mouth, Daily at bedtime, # 30 capsule, Refills 0, Maintenance, 11/18/20 10:39:00 EST, Partial fill upon patient request if the prescription is for a schedule II opioid drug. Start Date: 11/18/20 Status: OrderedtraZODone 50 mg oral tablet 25 mg, 0.5, tablet, By Mouth, Daily at bedtime, # 15 tablet, Refills 0, Maintenance, 11/18/20 10:40:00 EST, Partial fill upon patient request if the prescription is for a schedule II opioid drug. Start Date: 11/18/20 Status: Orderedvenlafaxine 150 mg oral tablet, extended release 1 tablet = 150 mg, By Mouth, Daily, # 30 tablet, 0 Refills, Maintenance, 03/15/16 11:25:49 EDT, ER Tablet Start Date: 03/15/16 Status: OrderedVitamin D3 1000 intl units oral capsule 1 capsule = 1,000 International_Units, By Mouth, Daily, # 90 capsule, 3 Refills, Maintenance, 03/22/17 10:09:21, Capsule Start Date: 03/22/17 Status: Ordered Problem List Condition Effective Dates Status Health Status Informant Abnormal 05/16/12 Active electrocardiogram(Confirmed)1, 2 Acid reflux disease(Confirmed)3 Active Rectal adenocarcinoma(Confirmed)4, 5 12/01/14 Active Adult BMI 33.0-33.9 kg/sq m(Confirmed) Active Benign hypertension(Confirmed) Active Carotid artery stenosis(Confirmed)6, Active 7, 8, 9 Cervical radiculopathy(Confirmed)10 Active Chronic allergic rhinitis(Confirmed) Active Chronic lower back pain(Confirmed) Active Depression(Confirmed)11 Active DM (diabetes mellitus), type Active 2(Confirmed) penitentiary current use of systemic Active steroids(Confirmed) Familial hyperlipidemia(Confirmed)12 Active Heart block AV first Active degree(Confirmed)13 Hiatal hernia(Confirmed) Active Inadequate social support(Confirmed) Active Macrocytic anemia(Confirmed)14, 15 Active Cancer of colon(Confirmed)16 Active MG (myasthenia gravis)(Confirmed)17 Active NAFL (nonalcoholic fatty Active liver)(Confirmed)18 Osteopenia(Confirmed)19 Active *[facility] [phone] 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 The left side has a lesser degree of stenosis just over 50% by ultrasound criteria.7per vascular [facility] bu7Rsrvohxt -48% occlusion refer bymhuabb99dzz MRI multilevel disc lgihhnk82eirahlhz by Vetxqpndws73pczljuu cannot afford tricor; triglycerides will not b be at goal, lopid dnrocdtclrzxjpn82TPF May 201414Normal B12 folic acid and haptoglobin 67bjvjzpz28cpzqdkxp [place] vppcp84lwfsoguu by Dr JacobsenWztjho07JFI A,B uyefhqirvdaz95 11 Hip Fracture 3.9 neg 1.6 fem neck Vital Signs Most recent to oldest [Reference Range]: 1 2 Height 165.1 cm 165.1 cm (11/18/20 8:18 AM) (11/18/20 8:18 AM) Weight 73.4 kg 73.4 kg (11/18/20 8:18 AM) (11/18/20 8:18 AM) Oxygen Saturation [94-100 %] 96 % (11/18/20 8:18 AM) Pulse Rate [55-90 bpm] 98 bpm *H* (11/18/20 8:18 AM) Body Mass Index [18.5-24.99] 26.93 *H* (11/18/20 8:18 AM) Blood Pressure [90-138/55-84 mm Hg] 103/70 mm Hg (11/18/20 8:18 AM) Respiratory Rate [16-30 br/min] 18 br/min 18 br/mi n (11/18/20 8:55 AM) (11/18/20 8:18 AM) Temperature [96.8-100.4 DegF] 97.7 DegF (11/18/20 8:18 AM) Mode of Delivery (Oxygen) Room air (11/18/20 8:18 AM) Blood pressure sites Arm, left (11/18/20 8:18 AM) Temperature Route Temporal (11/18/20 8:18 AM) Dry Weight 73.4 kg 73.4 kg (11/18/20 8:18 AM) (11/18/20 8:18 AM) Social History Social History Type Response Smoking Status Former smoker; Number of yea rs: 7; Total pack years: 2; Started at age: 16; Stopped at age: 23; entered on: 04/15/14 Sex
--- OUTSIDE RECORDS SUMMARY | 2022-08-16 21:56 | XMS_ITS | Continuity of Care Document ---
:1940 Author Organization [facility] Address [address] [address]- Care Team Providers Name Role Phone Benigno BENNETT, Samantha Fernando Primary Care Physician Encounter [facility] Date(s): 12/02/20 - 01/01/21 [facility] [address] [place] [id number]- Allergies, Adverse Reactions, Alerts Substance Reaction Severity [...] Vaccine (oldterm)6 11/18/02 Given 1Result Comment: [07/19/2017] [facility]2Result Comment: [07/02/2016] [facility] [id number] Note: [id number] Note: [id number] Note: historical data6 Admin Note: historical data Medications acetaminophen 325 mg oral tablet 975 mg, By Mouth, Every 6 hours, Refills 0, Maintenance, 12/14/20 11:49:00 EDT, Partial fill upon patient request if the prescription is for a schedule II opioid drug. Start Date: 12/14/20 Status: Orderedaluminum hydroxide/magnesium hydroxide/simethicone 400 mg-400 mg- 40 mg/5 mL oral suspension 10 mL, By Mouth, 3 times a day before meals and bedtime, 0 Refills, Maintenance, 11/30/20 15:00:00 EDT, Partial fill upon patient request if the prescription is for a schedule II opioid drug. Start Date: 11/30/20 Status: Orderedamiodarone 200 mg oral tablet 200 mg, 1, tablet, By Mouth, 2 times a day, Refills 0, Maintenance, 12/14/20 11:50:00 EDT, Partial fill upon patient request if the prescription is for a schedule II opioid drug. Start Date: 12/14/20 Status: Orderedaspirin 81 mg oral tablet 1 tablet = 81 mg, By Mouth, Daily, with food, # 90 tablet, 3 Refills, Maintenance, 03/22/17 10:07:57, Tablet Start Date: 03/22/17 Status: Orderedatorvastatin 40 mg oral tablet 1 tablet = 40 mg, By Mouth, Daily, # 90 tablet, 3 Refills, Maintenance, Tablet, Route to Pharmacy Electronically, [id number], [id number], Compound Start Date: 04/16/17 Status: Orderedazathioprine 50 mg oral tablet 1 tablet = 50 mg, By Mouth, 2 times a day, 0 Refills, Maintenance Start Date: 02/28/12 Status: OrderedBisacodyl Supp = 5 mg, By Mouth, Daily, 0 Refills, Maintenance, 11/30/20 15:00:00 EDT, Partial fill upon patient request if the prescription is for a schedule II opioid drug. Start Date: 11/30/20 Status: Orderedcarboxymethylcellulose = 1 %, Eyes, Both, [...] 03/22/17 10:09:21, Route to Pharmacy Electronically, [id number], [facility]... Start Date: 03/22/17 Status: Orderedferrous sulfate 325 mg oral tablet 1 tablet = 325 mg, By Mouth, 2 times a day, 0 Refills, Maintenance, 11/18/20 10:26:00 EST, Partial fill upon patient request if the prescription is for a schedule II opioid drug. Start Date: 11/18/20 Status: OrderedFleet Enema Rectally, Once, 0 Refills, Maintenance, 11/30/20 15:00:00 EDT, Partial fill upon patient request if the prescription is for a schedule II opioid drug. Start Date: 11/30/20 Status: OrderedFlonase 50 mcg/inh nasal spray 2 [...] after supper call if over 150/90 or [id number], 01/03/15 14:46:22, Compound Start Date: 01/03/15 Status: OrderedLithium battery 3 v for glucometer and diabetic log book [place] battery 3 v for glucometer and diabetic log book, See Instructions, # 1 each, Refills 0, Tot. Refills 0, Maintenance, dx:E11.9, 07/25/17 16:05:17, Compound Start Date: 07/25/17 Status: OrderedLithium battery 3 v for glucometer and diabetic log book [place] battery 3 v for glucometer and diabetic [...] 0 Refills, Maintenance Start Date: 10/01/05 Status: Orderedmetoprolol 25 mg oral tablet 12.5 mg, 0.5, tablet, By Mouth, 2 times a day, Refills 0, Maintenance, 12/14/20 11:50:00 EDT, Partial fill upon patient request if the prescription is for a schedule II opioid drug. Start Date: 12/14/20 Status: Orderedomeprazole 20 mg oral delayed release [...] Active DM (diabetes mellitus), type Active 2(Confirmed) skilled nursing current use of systemic Active steroids(Confirmed) Familial hyperlipidemia(Confirmed)12 Active Heart block AV first Active degree(Confirmed)13 Hiatal hernia(Confirmed) Active Inadequate social support(Confirmed) Active Macrocytic anemia(Confirmed)14, 15 Active Cancer of colon(Confirmed)16 Active MG (myasthenia gravis)(Confirmed)17 Active NAFL (nonalcoholic fatty Active liver)(Confirmed)18 Osteopenia(Confirmed)19 Active *[facility] [phone] DENTAL CERAMIST Kareem Active Colon(Confirmed) Chronic insomnia(Confirmed) Active Tubular adenoma of colon(Confirmed) 12/10/16 Active Type 2 diabetes with Active nephropathy(Confirmed) 1qs lead 3 and first degree wmhpk2oslorcc abnmormalities as skmna1hg EGD per DR jesus/ only barium qhqrlwd8BhwuaY4P02Gu is 6-8 cm from the anal rectal verge 6scan today is totally unchanged in comparison with a year ago, and he has relatively calcified plaque in particular on the right side causing a roughly 75% stenosis there. The left side has a lesser degree of stenosis just over 50% by ultrasound criteria.7per vascular [facility] nh9Xwcvdspt kecvzrugw106-30% occlusion refer swrfwska93zhf MRI multilevel disc snzhuxh37gxyegwqb by Jfllpjuzxc90oibgsuz cannot afford tricor; triglycerides will not b be at goal, lopid nvrcawpblvjjrsv77RCW May 201414Normal B12 folic acid and haptoglobin 97dzjcdmz53pdleelov [place] uhkjs37bszqonfp by Dr JacobsenWmgogz58JFC A,B tyjtkhcrewez56 11 Hip Fracture 3.9 neg 1.6 fem neck Social History Social History Type Response Smoking Status Former smoker; Number of yea rs: 7; Total pack years: 2; Started at age: 16; Stopped at age: 23; entered on: 04/15/14 Sex
--- OUTSIDE RECORDS SUMMARY | 2022-08-16 21:56 | XMS_ITS | Continuity of Care Document ---
:1940 Author Organization [facility] Address [address] [place] [phone]- Care Team Providers Name Role Phone Benigno BENNETT, Samantha Fernando Primary Care Physician Encounter [facility] Date(s): 11/22/20 - 12/22/20 [facility] [address] [place] [address] Allergies, Adverse Reactions, Alerts Substance Reaction Severity [...] Vaccine (oldterm)6 11/18/02 Given 1Result Comment: [07/19/2017] [facility]2Result Comment: [07/02/2016] [facility] [id number] Note: [id number] Note: htycbjlzv2Hwoud Note: historical data6 Admin Note: historical data [...] Refills, Maintenance, Tablet, Route to Pharmacy Electronically, [id number], [id number], Compound Start Date: 04/16/17 [...] 03/22/17 10:09:21, Route to Pharmacy Electronically, [id number], [facility]... Start Date: 03/22/17 Status: Orderedferrous [...] after supper call if over 150/90 or [id number], 01/03/15 14:46:22, Compound Start Date: 01/03/15 Status: OrderedLithium battery 3 v for glucometer and diabetic log book [place] battery 3 v for glucometer and diabetic log book, See Instructions, # 1 each, Refills 0, Tot. 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) Familial hyperlipidemia(Confirmed)12 Active Heart block AV first Active degree(Confirmed)13 Hiatal hernia(Confirmed) Active Inadequate social support(Confirmed) Active Macrocytic anemia(Confirmed)14, 15 Active Cancer of colon(Confirmed)16 Active MG (myasthenia gravis)(Confirmed)17 Active NAFL (nonalcoholic fatty Active liver)(Confirmed)18 Osteopenia(Confirmed)19 Active *[facility] [phone] MICA SPREADER Kareem Active Colon(Confirmed) Chronic insomnia(Confirmed) Active Tubular adenoma of colon(Confirmed) 12/10/16 Active Type 2 diabetes with Active nephropathy(Confirmed) 1qs lead 3 and first degree sidgg0iechjfs abnmormalities as jjwgg9zn EGD per DR jesus/ only barium mxmfoia4RzgfqL7C34Tl is 6-8 cm from the anal rectal verge 6scan today is totally unchanged in comparison with a year ago, and he has relatively calcified plaque in particular on the right side causing a roughly 75% stenosis there. The left side has a lesser degree of stenosis just over 50% by ultrasound criteria.7[facility] zh8Jjnnhrxi -21% occlusion refer ishgfewr46rrg MRI multilevel disc dkjjufu02arewurmk by Hkfopjijur86pfozlyd cannot afford tricor; triglycerides will not b be at goal, lopid omgfxvldgdxubvm04COZ May 201414Normal B12 folic acid and haptoglobin 27eojfsoo93iykmqmer [place] njzot26rbkjqvsg by Dr JacobsenGsnysb68CNS A,B jwodmshmqdnt20 11 Hip Fracture 3.9 neg 1.6 fem neck Social History Social History Type Response Smoking Status Former smoker; Number of yea rs: 7; Total pack years: 2; Started at age: 16; Stopped at age: 23; entered on: 04/15/14 Sex
--- OUTSIDE RECORDS SUMMARY | 2022-08-16 21:56 | XMS_ITS | Continuity of Care Document ---
:1940 Author Organization [facility] Address [address] [place] [address]- Care Team Providers Name Role Phone Benigno BENNETT, Samantha Fernando Primary Care Physician Unavailable [facility]counter [facility] Date(s): 07/25/22 - 08/01/22 [facility] [address] [place] [address]- Attending Physician: Sadie Reed NP Admitting Physician: Derek BENNETT, Sadie Swan Referring Physician: Samantha Pelaez NP Allergies, Adverse Reactions, Alerts No Known Allergies Immunizations Given and Recorded Vaccine Date Status [...] Vaccine (oldterm)6 11/18/02 Given 1Result Comment: [07/19/2017] [facility]2Result Comment: [07/02/2016] [facility] [id number] Note: IMYN1Cgptz Note: boggqmowq9Kxtzr Note: historical data6 Admin Note: historical data [...] Refills, Maintenance, Tablet, Route to Pharmacy Electronically, [id number], [facility], Compound Start Date: 04/16/17 Status: [...] 03/22/17 10:09:21, Route to Pharmacy Electronically, [id number], [facility]... Start Date: 03/22/17 Status: Orderedferrous sulfate [...] after supper call if over 150/90 or , 01/03/15 14:46:22, Compound Start Date: 01/03/15 Status: OrderedLithium battery 3 v for glucometer and diabetic log book [place] battery 3 v for glucometer and diabetic log book, See Instructions, # 1 each, Refills 0, Tot. 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, 5 Adult BMI 33.0-33.9 Confirmed Active kg/sq m Benign hypertension Confirmed Active Carotid artery Confirmed Active stenosis6, 7, 8, 9 Cervical Confirmed Active opiourjsqevap54 Chronic allergic Confirmed Active rhinitis Chronic lower back Confirmed Active pain Wkbftlpaxo40 Confirmed Active DM (diabetes Confirmed Active mellitus), type 2 [facility] current Confirmed Active use of systemic steroids Familial Confirmed Active ndbdihkdnujodc61 Heart block AV Confirmed Active first faflbv70 Hiatal hernia Confirmed Active Inadequate social Confirmed Active support Macrocytic Confirmed Active , 15 Cancer of colon16 Confirmed Active 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 NAFL (nonalcoholic Confirmed Active fatty liver)18 Pnctdqizjo78 Confirmed Active *[facility] [phone] 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 The left side has a lesser degree of stenosis just over 50% by ultrasound criteria.7per vascular medical px3Xdapfxyv tnphednfc090-92% occlusion refer zhltywoj03dya MRI multilevel disc dbzzkio04bvfskqsc by Roxwnvgezm47abnjkzk cannot afford tricor; triglycerides will not b be at goal, lopid yhtszanqrpindmm68GAU May 201414Normal B12 folic acid and haptoglobin 45unildcq47judkskep marbella ojhgw34vmdkguxt by Dr JacobsenRvzmdc41DSR A,B mtugitlwphba88 11 Hip Fracture 3.9 neg 1.6 fem neck Social History Social History Type Response Smoking Status Former smoker; Number of yea rs: 7; Total pack years: 2; Started at age: 16; Stopped at age: 23; entered on: 04/15/14 Sex Note Bruno De León: PERFORM, SIGN, VERIFY Event Display: Patient Education/Instruction Authored Date: [id number] [facility] [address] Clinical Summary Name SID LOCK Age 82 Years 1940 PCP PCP Phone Visit Date 07/25/2022 15:00:00 Additional Instructions: Scheduled Appointments?? Future Appointments ?No Future Appointments Scheduled Follow-Up Instructions ?? Diagnosis Medications: Please continue your medications until treatment is completed or stopped by your provider. Discuss any questions related to medications with your provider. Medications to Continue with No Changes These medications were not printed or sent to your pharmacy Acetaminophen (acetaminophen 325 mg oral tablet) 975 Milligram Oral every 6 hours. Next Dose: Al Hydroxide/Mg Hydroxide/Simethicone (aluminum hydroxide/magnesium hydroxide/simethicone 400 mg-400mg-40 mg/5 mL oral suspension) 10 Milliliter Oral 3 times a day before meals and bedtime. Next Dose: amiODARONE (amiodarone 200 mg oral tablet) 1 tab(s) Oral twice a day. Next Dose: Aspirin (aspirin 81 mg oral tablet) 1 tab(s) Oral Daily. with food. Refills: 3. Next Dose: Atorvastatin (atorvastatin 40 mg oral tablet) 1 tab(s) Oral Daily. Refills: 3. Next Dose: Azathioprine (azathioprine 50 mg oral tablet) 1 tab(s) Oral twice a day. Next Dose: Bisacodyl (Bisacodyl Supp) 5 Milligram Oral Daily. Next Dose: carboxymethylcellulose 1 % percent Both eyes Daily at Bedtime. Next Dose: Cholecalciferol (Vitamin D3 1000 intl units oral capsule) 1 capsule Oral Daily. Refills: 3. Next Dose: Docusate (Colace sodium 100 mg oral capsule) 1 capsule Oral twice a day as needed for constipation. 90 DAY PER REQUEST. Refills: 3. Next Dose: Durable Medical Equipment (Freestyle Glucose Meter) diabetic. Refills: 3. Next Dose: Durable Medical Equipment (Freestyle InsuLinx Glucose Meter) Use as directed to test BS once daily for DM2 E11.9. Refills: 0. Next Dose: Durable Medical Equipment (Freestyle Lite Lancets) DX: E11.9 pt to test once daily. Refills: 0. Next Dose: Durable Medical Equipment (Freestyle Lite Test Strips) pt to test blood sugar once daily E11.9. Refills: 3. Next Dose: Durable Medical Equipment (Home Blood Pressure Monitor) check morning aand after supper call if over 150/90 or under 100. Refills: 0. Next Dose: Ferrous Sulfate (ferrous sulfate 325 mg oral tablet) 1 tab(s) Oral twice a day. Next Dose: Fluticasone Nasal (Flonase 50 mcg/inh nasal spray) 2 spray(s) Nasal Daily for 90 Days. Refills: 3. Next Dose: Loratadine (loratadine 10 mg oral tablet) 1 tab(s) Oral Daily. Next Dose: Lorazepam 0.25 Oral as needed as needed for anxiety. Next Dose: Metoprolol (metoprolol 25 mg oral tablet) 0.5 tab(s) Oral twice a day. Next Dose: Miscellaneous Rx (Brilliant battery 3 v for glucometer and diabetic log book) 1 each. Refills: 0. Next Dose: Miscellaneous Rx (Brilliant battery 3 v for glucometer and diabetic log book) dx:E11.9. Refills: 0. Next Dose: Omeprazole (omeprazole 20 mg oral delayed release tablet) 2 tab(s) Oral Daily. Next Dose: Oxybutynin (oxybutynin 15 mg/24 hr oral tablet, extended release) 1 tab(s) Oral Daily. Next Dose: PredniSONE (predniSONE 5 mg oral tablet) 1 tab(s) Oral every other day. Next Dose: Pyridostigmine (Mestinon 60 mg oral tablet) 1 tab(s) Oral 3 times a day. Next Dose: Quetiapine (QUEtiapine 100 mg oral tablet) 1 tab(s) Oral Daily at Bedtime. Next Dose: Quetiapine (QUEtiapine 25 mg oral tablet) 1 tab(s) Oral Daily at Bedtime. to equal 125mg total at bedtime. Next Dose: Sodium Biphosphate-Sodium Phosphate (Fleet Enema) Per rectum once. Next Dose: Tamsulosin (tamsulosin 0.4 mg oral capsule) 1 capsule Oral Daily at Bedtime. Next Dose: Trazodone (traZODone 50 mg oral tablet) 0.5 tab(s) Oral Daily at Bedtime. Next Dose: Venlafaxine (venlafaxine 150 mg oral tablet, extended release) 1 tab(s) Oral Daily. Next Dose: Allergy Info:?? NKA Medications Given This Visit Future Orders ?No future orders Vital Signs Height Weight BMI Blood Pressure / Temperature Pulse Rate Respiratory Rate 02 Sat Mode of Delivery / You can now view a summary of your hospital visit from the comfort of your home through a free online portal called [employer]. [employer] is a website that allows you to securely view yourmedical information including discharge summary, medications and follow-up visits. ??You can also send a secure electronic message to your doctor???s office to request appointments, renew medications or just ask a question. You can enroll at [email or web address] or register during your next office visit. Disclaimer:?? The information provided is of a general nature and is intended to be used in conjunction with the recommendations and advice of your health care practitioner. ??Every effort has been made to ensure that the information provided is accurate and complete at the time it is provided to you however, as your needs change, or, as new ??information becomes available, different or additional instructions may be required. If you have questions, please consult with your primary care provider or pharmacist, as appropriate.??This information is not intended to serve as substitution for assessment and evaluation by a qualified health care provider. If you do not have a primary care provider, you may find a [facility] provider by calling [facility] Link at [phone]. For information about the plan of care including goals and instructions for your diagnosis, please see the patient education orders section of this document. Patient Education Materials?? The content of this educational material or handout may have been modified, supplemented, or adaptedfrom its original content and format to support your individualized medical care. Patient Care team information Care Team PersonnelName: Sherita Apodaca NP Position: [facility] PCO Associate Professional Member Role: Lifetime Consulting Provider Address: Address: [address] [place] [address] Name: Trish Dumont RN Position: S RN Member Role: Primary Care Nurse Name: Kelly Garcia RN Position: S RN Member Role: Primary Care Nurse Name: Joselyn Mcmahon RN Position: [facility] RN Member Role: Primary Care Nurse Care Team Related PersonsName: SID LOCK JR Address: home [address] [place] [id number] Name: JEANNETTE LOCK Address: home [address] [place] [id number]
--- OUTSIDE RECORDS SUMMARY | 2022-08-16 21:57 | XMS_ITS | Continuity of Care Document ---
:1940 Author Organization [facility] Address [address] [address]- Care Team Providers Name Role Phone Benigno BENNETT, Samantha Fernando Primary Care Physician [facility]counter [facility] Date(s): 12/20/20 - 01/19/21 [facility] [address] [place] [id number] Allergies, Adverse Reactions, Alerts [...] Vaccine (oldterm)6 11/18/02 Given 1Result Comment: [07/19/2017] [facility]2Result Comment: [07/02/2016] [facility] HIGH [id number] Note: ZCEI0Fafez Note: keieeihcm7Ajbes Note: historical data6 Admin Note: historical data [...] Refills, Maintenance, Tablet, Route to Pharmacy Electronically, [id number], [id number], Compound Start Date: 04/16/17 [...] 03/22/17 10:09:21, Route to Pharmacy Electronically, [id number], [facility]... Start Date: 03/22/17 Status: Orderedferrous [...] v for glucometer and diabetic log book [place] battery 3 v for glucometer and diabetic log book, See Instructions, # 1 each, Refills 0, Tot. 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) Familial hyperlipidemia(Confirmed)12 Active Heart block AV first Active degree(Confirmed)13 Hiatal hernia(Confirmed) Active Inadequate social support(Confirmed) Active Macrocytic anemia(Confirmed)14, 15 Active Cancer of colon(Confirmed)16 Active MG (myasthenia gravis)(Confirmed)17 Active NAFL (nonalcoholic fatty Active liver)(Confirmed)18 Osteopenia(Confirmed)19 Active *[facility] [phone] 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 The left side has a lesser degree of stenosis just over 50% by ultrasound criteria.7per vascular medical bn6Unooyctw zaofctyxb737-11% occlusion refer vrvfpmia70ntz MRI multilevel disc yecdtmm64uhdqgfyw by Ypkinmuxzj54xqssulw cannot afford tricor; triglycerides will not b be at goal, lopid bmglnbwgqostjmz07YGT May 201414Normal B12 folic acid and haptoglobin 23fpojdgd00skbgxjbo olympia fields qqwmp86yzuqvbod by Dr JacobsenHyqwvv82WWX A,B vsrwzwuodryx73 11 Hip Fracture 3.9 neg 1.6 fem neck Social History Social History Type Response Smoking Status Former smoker; Number of yea rs: 7; Total pack years: 2; Started at age: 16; Stopped at age: 23; entered on: 04/15/14 Sex
--- OUTSIDE RECORDS SUMMARY | 2022-08-16 21:57 | XMS_ITS | Continuity of Care Document ---
:1940 Author Organization [facility] Address [address] [place] [address]- Care Team Providers Name Role Phone Samantha Pelaez NP Primary Care Physician [place] [facility] [place]s): 01/07/21 - 05/07/21 [facility] [address] [place] [address]- Attending Physician: Sathya Dobbs MD Admitting Physician: Sathya Dobbs MD Referring Physician: Samantha Pelaez NP Allergies, Adverse Reactions, Alerts Substance Reaction Severity [...] inactive(oldterm)4 08/16/09 Given Influenza Inactive (IM) (oldterm) 12/3/08 Given Influenza Inactive (IM) (oldterm)5 07/21/07 Given Tetanus Toxoid Vaccine (oldterm) 09/16/05 Given Pneumococcal Vaccine (oldterm)6 11/18/02 Given 1Result Comment: [07/19/2017] [facility]2Result Comment: [07/02/2016] [facility] [id number] Note: GRSV1Ozfik Note: gknwtzmhk9Wzamd Note: historical data6 Admin Note: historical data [...] Refills, Maintenance, Tablet, Route to Pharmacy Electronically, [id number], [facility], Compound Start Date: 04/16/17 [...] 03/22/17 10:09:21, Route to Pharmacy Electronically, [id number], [facility]... Start Date: 03/22/17 Status: Orderedferrous [...] after supper call if over 150/90 or [id number], 01/03/15 14:46:22, Compound Start Date: 01/03/15 Status: OrderedLithium battery 3 v for glucometer and diabetic log book [place] battery 3 v for glucometer and diabetic log book, See Instructions, # 1 each, Refills 0, Tot. Refills 0, Maintenance, dx:E11.9, 07/25/17 16:05:17, Compound Start Date: 07/25/17 Status: OrderedLithium battery 3 v for glucometer and diabetic log book [place] battery 3 v for glucometer and diabetic [...] Active DM (diabetes mellitus), type Active 2(Confirmed) [facility] current use of systemic Active steroids(Confirmed) Familial hyperlipidemia(Confirmed)12 Active Heart block AV first Active degree(Confirmed)13 Hiatal hernia(Confirmed) Active Inadequate social support(Confirmed) Active Macrocytic anemia(Confirmed)14, 15 Active Cancer of colon(Confirmed)16 Active MG (myasthenia gravis)(Confirmed)17 Active NAFL (nonalcoholic fatty Active liver)(Confirmed)18 Osteopenia(Confirmed)19 Active *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 The left side has a lesser degree of stenosis just over 50% by ultrasound criteria.7per vascular medical bw5Huzfokfs rrkptibzp300-95% occlusion refer ghuhasbu46wpq MRI multilevel disc wklwnwm03xebumkee by Wpiozgdqtl29vrvugir cannot afford tricor; triglycerides will not b be at goal, lopid uvcxlajobpzumog58MVN May 201414Normal B12 folic acid and haptoglobin 74jfoegsc39yxeoeess nachusa ueguw35qsshvziy by Dr JacobsenJbfveo58WVI A,B yspobddkleck07 11 Hip Fracture 3.9 neg 1.6 fem neck Social History Social History Type Response Smoking Status Former smoker; Number of yea rs: 7; Total pack years: 2; Started at age: 16; Stopped at age: 23; entered on: 04/15/14 Sex
--- OUTSIDE RECORDS SUMMARY | 2022-08-16 21:57 | XMS_ITS | Continuity of Care Document ---
:1940 Author Organization [facility] Address [address] [place] [address]- Care Team Providers Name Role Phone Samantha Pelaez NP Primary Care Physician Encounter [facility] Date(s): 04/21/21 - 04/28/21 [facility] [address] [place] [address]- Attending Physician: Sathya Dobbs MD Admitting Physician: [...] Vaccine (oldterm)6 11/18/02 Given 1Result Comment: [07/19/2017] [facility]2Result Comment: [07/02/2016] [facility] [id number] Note: NWLP8Bskqy Note: kjdfmwwbl8Mcvxn Note: historical data6 Admin Note: historical data [...] Refills, Maintenance, Tablet, Route to Pharmacy Electronically, [id number], [facility], Compound Start Date: 04/16/17 Status: [...] 03/22/17 10:09:21, Route to Pharmacy Electronically, [id number], [facility]... Start Date: 03/22/17 Status: Orderedferrous sulfate [...] after supper call if over 150/90 or [id number], 01/03/15 14:46:22, Compound Start Date: 01/03/15 Status: OrderedLithium battery 3 v for glucometer and diabetic log book [place] battery 3 v for glucometer and diabetic log book, See Instructions, # 1 each, Refills 0, Tot. 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 The left side has a lesser degree of stenosis just over 50% by ultrasound criteria.7per vascular medical gz3Uxrbtshi zuqsoarmf642-85% occlusion refer brqehrnc95wey MRI multilevel disc ntywszw17hvdlbyod by Htpdqhdltr63rrfpyac cannot afford tricor; triglycerides will not b be at goal, lopid abndronpzgxxdtl50UAM May 201414Normal B12 folic acid and haptoglobin 16dywdegw41czthziia waurika hycnr17jxumlmgk by Dr JacobsenFohvly42DUL A,B tkammizqywfd23 11 Hip Fracture 3.9 neg 1.6 fem neck Vital Signs Most recent to oldest [Reference Range]: 1 Height 165 cm (04/21/21 10:22 AM) Weight 67.9 kg (04/21/21 10:22 AM) Pulse Rate [55-90 bpm] 64 bpm (04/21/21 10:22 AM) Body Mass Index [18.5-24.99] 24.94 (04/21/21 10:22 AM) Blood Pressure [90-138/55-84 mm Hg] 88/50 mm Hg *L* (04/21/21 10:22 AM) Mode of Delivery (Oxygen) Room air (04/21/21 10:22 AM) Blood pressure sites Arm, left (04/21/21 10:22 AM) Weight Obtained Via Patient/family stated (04/21/21 10:22 AM) Social History Social History Type Response Smoking Status Former smoker; Number of yea rs: 7; Total pack years: 2; Started at age: 16; Stopped at age: 23; entered on: 04/15/14 Sex
--- OUTSIDE RECORDS SUMMARY | 2022-08-16 21:57 | XMS_ITS | Continuity of Care Document ---
:1940 Author Organization [facility] Address [address] [place] [address]- Care Team Providers Name Role Phone Samantha Pelaez NP Primary Care Physician Unavailable Encounter [facility] Date(s): 11/07/21 - 02/02/22 [facility] [address] [place] [address]- Attending Physician: Sathya Dobbs MD Admitting Physician: [...] Vaccine (oldterm)6 11/18/02 Given 1Result Comment: [07/19/2017] [facility]2Result Comment: [07/02/2016] [facility] H[facility] [id number] Note: [id number] Note: [id number] Note: historical data6 Admin Note: historical data [...] Refills, Maintenance, Tablet, Route to Pharmacy Electronically, [id number], [facility], Compound Start Date: 04/16/17 Status: [...] 03/22/17 10:09:21, Route to Pharmacy Electronically, [id number], [facility]... Start Date: 03/22/17 Status: Orderedferrous sulfate [...] after supper call if over 150/90 or [id number], 01/03/15 14:46:22, Compound Start Date: 01/03/15 Status: OrderedLithium battery 3 v for glucometer and diabetic log book [place] battery 3 v for glucometer and diabetic log book, See Instructions, # 1 each, Refills 0, Tot. 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) Familial hyperlipidemia(Confirmed)12 Active Heart block AV first Active degree(Confirmed)13 Hiatal hernia(Confirmed) Active Inadequate social support(Confirmed) Active Macrocytic anemia(Confirmed)14, 15 Active Cancer of colon(Confirmed)16 Active MG (myasthenia gravis)(Confirmed)17 Active NAFL (nonalcoholic fatty Active liver)(Confirmed)18 Osteopenia(Confirmed)19 Active *[facility] [phone] 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 The left side has a lesser degree of stenosis just over 50% by ultrasound criteria.7per vascular medical ik0Lblreyfl ggonfhbmg454-05% occlusion refer sazuslub38bac MRI multilevel disc vhhqqql40uikgrzfr by Fyahnqlkpe25vgajxmg cannot afford tricor; triglycerides will not b be at goal, lopid lzteabbsiprlvag28VTF May 201414Normal B12 folic acid and haptoglobin 76decbadz92yarijxqo [place] ozkax41ldpjharm by Dr JacobsenWmeial90PRZ A,B thkvhdfjggxa58 11 Hip Fracture 3.9 neg 1.6 fem neck Social History Social History Type Response Smoking Status Former smoker; Number of yea rs: 7; Total pack years: 2; Started at age: 16; Stopped at age: 23; entered on: 04/15/14 Sex
--- OUTSIDE RECORDS SUMMARY | 2022-08-16 21:57 | XMS_ITS | Continuity of Care Document ---
:1940 Author Organization [facility] Address [address] [place] [address]- Care Team Providers Name Role Phone Samantha Pelaez NP Primary Care Physician En[place] [facility] [place] 12/06/20 - 12/13/20 [facility] [address] [place] [address]- Attending Physician: Sathya Dobbs MD Admitting Physician: [...] Vaccine (oldterm)6 11/18/02 Given 1Result Comment: [07/19/2017] [facility]2Result Comment: [07/02/2016] [facility] NLTH1Bitnx Note: UKKG1Kcvmp Note: bgmzupndd0Rfbzc Note: historical data6 Admin Note: historical data Medications acetaminophen 325 mg oral capsule 2, By Mouth, Daily at bedtime, 0 Refills, Maintenance, 11/18/20 10:18:00 EST, Partial fill upon patient request if the prescription is for a schedule II opioid drug. Start Date: 11/18/20 Status: Orderedaluminum hydroxide/magnesium hydroxide/simethicone 400 mg-400 mg- 40 mg/5 mL oral suspension 10 mL, By Mouth, 3 times a day before meals and bedtime, 0 Refills, Maintenance, 11/30/20 15:00:00 EDT, Partial fill upon patient request if the prescription is for a schedule II opioid drug. Start Date: 11/30/20 Status: Orderedaspirin 81 mg oral tablet 1 tablet = 81 mg, By Mouth, Daily, with food, # 90 tablet, 3 Refills, Maintenance, 03/22/17 10:07:57, Tablet Start Date: 03/22/17 Status: Orderedatorvastatin 40 mg oral tablet 1 tablet = 40 mg, By Mouth, Daily, # 90 tablet, 3 Refills, Maintenance, Tablet, Route to Pharmacy Electronically, [id number], [facility], Compound Start Date: 04/16/17 Status: [...] 03/22/17 10:09:21, Route to Pharmacy Electronically, [id number], [facility]... Start Date: 03/22/17 Status: Orderedferrous sulfate [...] after supper call if over 150/90 or [id number], 01/03/15 14:46:22, Compound Start Date: 01/03/15 Status: Orderedlisinopril 10 mg oral tablet 10 mg, 1, tablet, By Mouth, Daily, # 30 tablet, Refills 0, Maintenance, 11/18/20 10:28:00 EST, Partial fill upon patient request if the prescription is for a schedule II opioid drug. Start Date: 11/18/20 Status: OrderedLithium battery 3 v for glucometer and diabetic log book [place] battery 3 v for glucometer and diabetic log book, See Instructions, # 1 each, Refills 0, Tot. Refills 0, Maintenance, dx:E11.9, 07/25/17 16:05:17, Compound Start Date: 07/25/17 Status: OrderedLithium battery 3 v for glucometer and diabetic log book 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 The left side has a lesser degree of stenosis just over 50% by ultrasound criteria.7per vascular medical pl3Bpebratb cychjrenq172-20% occlusion refer ycacxmyc92hwn MRI multilevel disc ikhhwzy65xjmuvrsz by Paoisoxkua62pcnkgxw cannot afford tricor; triglycerides will not b be at goal, lopid ufmjvessuyykqxk97RTO May 201414Normal B12 folic acid and haptoglobin 48mbdsaub60uwwotxbk shirley ejzhv24gpqppecq by Dr JacobsenDwybbb44NIU A,B 11 Hip Fracture 3.9 neg 1.6 fem neck Vital Signs Most recent to oldest [Reference Range]: 1 Height 165.1 cm (12/06/20 2:48 PM) Weight 73.48 kg (12/06/20 2:48 PM) Pulse Rate [55-90 bpm] 60 bpm (12/06/20 2:48 PM) Body Mass Index [18.5-24.99] 26.96 *H* (12/06/20 2:48 PM) Blood Pressure [90-138/55-84 mm Hg] 120/70 mm Hg (12/06/20 2:48 PM) Blood pressure sites Arm, left (12/06/20 2:48 PM) Weight Obtained Via Patient lift hanging scale (12/06/20 2:48 PM) Social History Social History Type Response Smoking Status Former smoker; Number of yea rs: 7; Total pack years: 2; Started at age: 16; Stopped at age: 23; entered on: 04/15/14 Sex
--- OUTSIDE RECORDS SUMMARY | 2022-08-16 21:57 | XMS_ITS | Continuity of Care Document ---
:1940 Author Organization [facility] Address [address] [place] [address]- Care Team Providers Name Role Phone Benigno BENNETT, Samantha Fernando Primary Care Physician Unavailable Encounter [facility] [place] Date(s): 01/03/22 - 01/10/[address] [facility] [address] [place] [address]- Attending Physician: Sadie Reed NP Admitting Physician: [...] Vaccine (oldterm)6 11/18/02 Given 1Result Comment: [07/19/2017] [facility]2Result Comment: [07/02/2016] [facility] HIGH [id number] Note: KLZR7Difgz Note: vvaoatkuc0Cmupi Note: historical data6 Admin Note: historical data [...] Refills, Maintenance, Tablet, Route to Pharmacy Electronically, [id number], [facility] 5278, Compound Start Date: [...] 03/22/17 10:09:21, Route to Pharmacy Electronically, [id number], [facility]... Start Date: 03/22/17 Status: [...] after supper call if over 150/90 or [id number], 01/03/15 14:46:22, Compound Start Date: 01/03/15 Status: OrderedLithium battery 3 v for glucometer and diabetic log book [place] battery 3 v for glucometer and diabetic log book, See Instructions, # 1 each, Refills 0, Tot. 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 Active steroids(Confirmed) Familial hyperlipidemia(Confirmed)12 Active Heart block AV first Active degree(Confirmed)13 Hiatal hernia(Confirmed) Active Inadequate social support(Confirmed) Active Macrocytic anemia(Confirmed)14, 15 Active Cancer of colon(Confirmed)16 Active MG (myasthenia gravis)(Confirmed)17 Active NAFL (nonalcoholic fatty Active liver)(Confirmed)18 Osteopenia(Confirmed)19 Active *[facility] [phone] 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 The left side has a lesser degree of stenosis just over 50% by ultrasound criteria.7per vascular medical xj1Ndvbazle -12% occlusion refer drblyqtf59ivf MRI multilevel disc xhnixlz36zzkkoaer by Pbmvwlxrtz66nrtxgzx cannot afford tricor; triglycerides will not b be at goal, lopid rofuouvouoiwvxd12JDX May 201414Normal B12 folic acid and haptoglobin 76sbtqzfj15vksrmbdn [place] jmhrd20mnicvqvi by Dr JacobsenEybzog14UGE A,B mkiaqccmjkpn68 11 Hip Fracture 3.9 neg 1.6 fem neck Social History Social History Type Response Smoking Status Former smoker; Number of yea rs: 7; Total pack years: 2; Started at age: 16; Stopped at age: 23; entered on: 04/15/14 Sex
--- OUTSIDE RECORDS SUMMARY | 2022-08-16 21:57 | XMS_ITS | Continuity of Care Document ---
:1940 Author Organization [facility] Address [address] [place] [address]- Care Team Providers Name Role Phone Benigno BENNETT, Samantha F Primary Care Physician Encounter [facility] Date(s): 12/21/20 - 12/28/20 [facility] [address] [place] [address]- Attending Physician: Cyndi ODOM, Ashley Yates Referring Physician: Karl Hooks MD Allergies, Adverse [...] Vaccine (oldterm)6 11/18/02 Given 1Result Comment: [07/19/2017] [facility]2Result Comment: [07/02/2016] [facility] [id number] Note: PGUH6Cdwqp Note: wjeptzedm5Riltj Note: historical data6 Admin Note: historical data [...] Refills, Maintenance, Tablet, Route to Pharmacy Electronically, [id number], [facility] 5278, Compound Start Date: 04/16/17 [...] 03/22/17 10:09:21, Route to Pharmacy Electronically, [id number], [facility]... Start Date: 03/22/17 Status: Orderedferrous [...] after supper call if over 150/90 or [id number], 01/03/15 14:46:22, Compound Start Date: 01/03/15 Status: OrderedLithium battery 3 v for glucometer and diabetic log book [place] battery 3 v for glucometer and diabetic log book, See Instructions, # 1 each, Refills 0, Tot. Refills 0, Maintenance, dx:E11.9, 07/25/17 16:05:17, Compound Start Date: 07/25/17 Status: OrderedLithium battery 3 v for glucometer and diabetic log book [place] battery 3 v for glucometer and diabetic [...] Active DM (diabetes mellitus), type Active 2(Confirmed) assisted current use of systemic Active steroids(Confirmed) Familial hyperlipidemia(Confirmed)12 Active Heart block AV first Active degree(Confirmed)13 Hiatal hernia(Confirmed) Active Inadequate social support(Confirmed) Active Macrocytic anemia(Confirmed)14, 15 Active Cancer of colon(Confirmed)16 Active MG (myasthenia gravis)(Confirmed)17 Active NAFL (nonalcoholic fatty Active liver)(Confirmed)18 Osteopenia(Confirmed)19 Active *[facility] 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 The left side has a lesser degree of stenosis just over 50% by ultrasound criteria.7per vascular medical uk9Dqnzxmai oqwftmauk811-66% occlusion refer lhrtsbsy41urw MRI multilevel disc aceqkaf89wzqymftj by Xryywndsnw71kmxbsnn cannot afford tricor; triglycerides will not b be at goal, lopid bvnvkuuzfclmhmg01LKN May 201414Normal B12 folic acid and haptoglobin 25xfgdead67dudisobu [place] mpyvr59dddzsoal by Dr JacobsenTowbij27NCX A,B pzogjoivilqb24 11 Hip Fracture 3.9 neg 1.6 fem neck Vital Signs Most recent to oldest [Reference Range]: 1 Height 165 cm (12/21/20 10:29 AM) Weight 72.04 kg (12/21/20 10:29 AM) Oxygen Saturation [94-100 %] 96 % (12/21/20 10:29 AM) Pulse Rate [55-90 bpm] 68 bpm (12/21/20 10:29 AM) Body Mass Index [18.5-24.99] 26.46 *H* (12/21/20 10:29 AM) Blood Pressure [90-138/55-84 mm Hg] 110/60 mm Hg (12/21/20 10:29 AM) Respiratory Rate [16-30 br/min] 18 br/min (12/21/20 10:29 AM) Temperature [96.8-100.4 DegF] 98.1 DegF (12/21/20 10:29 AM) Mode of Delivery (Oxygen) Room air (12/21/20 10:29 AM) Blood pressure sites Arm, right (12/21/20 10:29 AM) Temperature Route Oral (12/21/20 10:29 AM) Weight Obtained Via Patient/family stated (12/21/20 10:29 AM) Social History Social History Type Response Smoking Status Former smoker; Number of yea rs: 7; Total pack years: 2; Started at age: 16; Stopped at age: 23; entered on: 04/15/14 Sex
--- OUTSIDE RECORDS SUMMARY | 2022-08-16 21:57 | XMS_ITS | Continuity of Care Document ---
:1940 Author Organization [facility] Address [address] [place] [address]- Care Team Providers Name Role Phone Samantha Pelaez NP Primary Care Physician [place] [facility] [place] 07[place] [facility] [address] [place] [address]- Attending Physician: Sathya Dobbs MD Admitting Physician: [...] Vaccine (oldterm)6 11/18/02 Given 1Result Comment: [07/19/2017] [facility]2Result Comment: [07/02/2016] [facility] [id number] Note: ARJQ6Cqqkv Note: wuutpyrik9Fscoe Note: historical data6 Admin Note: historical data [...] Refills, Maintenance, Tablet, Route to Pharmacy Electronically, [id number], [facility] 5278, Compound Start Date: [...] 03/22/17 10:09:21, Route to Pharmacy Electronically, [id number], [facility]... Start Date: 03/22/17 Status: [...] after supper call if over 150/90 or [id number], 01/03/15 14:46:22, Compound Start Date: 01/03/15 Status: OrderedLithium battery 3 v for glucometer and diabetic log book [place] battery 3 v for glucometer and diabetic log book, See Instructions, # 1 each, Refills 0, Tot. Refills 0, Maintenance, dx:E11.9, 07/25/17 16:05:17, Compound Start Date: 07/25/17 Status: OrderedLithium battery 3 v for glucometer and diabetic log book [place] battery 3 v for glucometer and diabetic [...] Active DM (diabetes mellitus), type Active 2(Confirmed) USP current use of systemic Active steroids(Confirmed) Familial hyperlipidemia(Confirmed)12 Active Heart block AV first Active degree(Confirmed)13 Hiatal hernia(Confirmed) Active Inadequate social support(Confirmed) Active Macrocytic anemia(Confirmed)14, 15 Active Cancer of colon(Confirmed)16 Active MG (myasthenia gravis)(Confirmed)17 Active NAFL (nonalcoholic fatty Active liver)(Confirmed)18 Osteopenia(Confirmed)19 Active *[facility] 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 The left side has a lesser degree of stenosis just over 50% by ultrasound criteria.7per vascular medical yn5Swtlmvri sdkwatcut388-87% occlusion refer vjppebja07nnt MRI multilevel disc xpimqdp19fobmhjya by Agmcrvjbol25akwluqd cannot afford tricor; triglycerides will not b be at goal, lopid cyvzqqreufwerlf49ISR May 201414Normal B12 folic acid and haptoglobin 33xserchm06uhbtxczk gap tsozx59xqagauik by Dr JacobsenIrvlqu66SBE A,B qdpztffnfemw96 11 Hip Fracture 3.9 neg 1.6 fem neck Social History Social History Type Response Smoking Status Former smoker; Number of yea rs: 7; Total pack years: 2; Started at age: 16; Stopped at age: 23; entered on: 04/15/14 Sex
--- OUTSIDE RECORDS SUMMARY | 2022-08-16 21:57 | XMS_ITS | Continuity of Care Document ---
:1940 Author Organization [facility] Address [address] [place] [address]- Care Team Providers Name Role Phone Benigno BENNETT, Samantha Fernando Primary Care Physician [place] [facility] [place] 12[place] - 01/05/21 [facility] [address] [place], [place] [address] Attending Physician: Michael Paulino Admitting Physician: AdmMichael espino Referring Physician: AdmtrMichael Allergies, Adverse Reactions, Alerts Substance Reaction Severity [...] 11/18/02 Given 1Result Comment: [07/19/2017] [facility]2Result Comment: [07/02/2016] [facility] [id number] Note: KYGQ5Kkmbw Note: ltjvifkbm6Dxtwa Note: historical data6 Admin Note: historical data [...] Refills, Maintenance, Tablet, Route to Pharmacy Electronically, [id number], [facility] 5278, Compound Start Date: 04/16/17 [...] 03/22/17 10:09:21, Route to Pharmacy Electronically, [id number], [facility]... Start Date: 03/22/17 Status: Orderedferrous [...] after supper call if over 150/90 or [id number], 01/03/15 14:46:22, Compound Start Date: 01/03/15 Status: OrderedLithium battery 3 v for glucometer and diabetic log book [place] battery 3 v for glucometer and diabetic log book, See Instructions, # 1 each, Refills 0, Tot. 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(Confirmed) Familial hyperlipidemia(Confirmed)12 Active Heart block AV first Active degree(Confirmed)13 Hiatal hernia(Confirmed) Active Inadequate social support(Confirmed) Active Macrocytic anemia(Confirmed)14, 15 Active Cancer of colon(Confirmed)16 Active MG (myasthenia gravis)(Confirmed)17 Active NAFL (nonalcoholic fatty Active liver)(Confirmed)18 Osteopenia(Confirmed)19 Active *[facility] [phone] Kareem Active Colon(Confirmed) Chronic insomnia(Confirmed) Active Tubular adenoma of colon(Confirmed) 12/10/16 Active Type 2 diabetes with Active nephropathy(Confirmed) 1qs lead 3 and first degree meopm0rfnvydm abnmormalities as dhoyc4ja EGD per DR jesus/ only barium etwmmrq3CvcplD5E18Qn is 6-8 cm from the anal rectal verge 6scan today is totally unchanged in comparison with a year ago, and he has relatively calcified plaque in particular on the right side causing a roughly 75% stenosis there. The left side has a lesser degree of stenosis just over 50% by ultrasound criteria.7per vascular medical nr0Mwbweiie upmxbzfeq576-92% occlusion refer hldiulme78pjd MRI multilevel disc fwixsru39wwwlwxdj by Ounyxvjeks52atkbymr cannot afford tricor; triglycerides will not b be at goal, lopid afhdmzjhyuvvbbo32UOP May 201414Normal B12 folic acid and haptoglobin 28qnteeie38oqyopeja [place] rnnzt92pxwssbed by Dr JacobsenNxnatr12HMH A,B uwtbyaxqilst37 11 Hip Fracture 3.9 neg 1.6 fem neck Social History Social History Type Response Smoking Status Former smoker; Number of yea rs: 7; Total pack years: 2; Started at age: 16; Stopped at age: 23; entered on: 04/15/14 Sex
--- OUTSIDE RECORDS SUMMARY | 2022-08-16 21:57 | XMS_ITS | Continuity of Care Document ---
:1940 Author Organization [facility] Address [address] [place] [phone]- Care Team Providers Name Role Phone Benigno BENNETT, Samantha F Primary Care Physician Encounter [facility] Date(s): 11/30/20 - 12/07/20 [facility] [address] [place] [phone]- Attending Physician: Cyndi ODOM, Ashley Yates Referring [...] Vaccine (oldterm)6 11/18/02 Given 1Result Comment: [07/19/2017] [facility]2Result Comment: [07/02/2016] [facility] HIGH [id number] Note: SEHR5Xrnls Note: hfmwumsdr7Cbpgx Note: historical data6 Admin Note: historical data [...] Refills, Maintenance, Tablet, Route to Pharmacy Electronically, [id number], [facility], Compound Start Date: 04/16/17 [...] 03/22/17 10:09:21, Route to Pharmacy Electronically, [id number], [facility]... Start Date: 03/22/17 Status: Orderedferrous [...] after supper call if over 150/90 or [id number], 01/03/15 14:46:22, Compound Start Date: 01/03/15 Status: Orderedlisinopril 10 mg oral tablet 10 mg, 1, tablet, By Mouth, Daily, # 30 tablet, Refills 0, Maintenance, 11/18/20 10:28:00 EST, Partial fill upon patient request if the prescription is for a schedule II opioid drug. Start Date: 11/18/20 Status: OrderedLithium battery 3 v for glucometer and diabetic log book [place] battery 3 v for glucometer and diabetic log book, See Instructions, # 1 each, Refills 0, Tot. 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 The left side has a lesser degree of stenosis just over 50% by ultrasound criteria.7per vascular medical ik9Uzmigtcf xrgfyghpu531-03% occlusion refer rbcvdbxh11wnx MRI multilevel disc zksdknm02amrhzquc by Cnficvdipg75ogcweys cannot afford tricor; triglycerides will not b be at goal, lopid ipwzsfpbzxrymyp69EIP May 201414Normal B12 folic acid and haptoglobin 71qtsdmfe79yzgrvmvd epsom mxefo38qarspitd by Dr JacobsenRmlfmt34NKR A,B futmdviafpos98 11 Hip Fracture 3.9 neg 1.6 fem neck Vital Signs Most recent to oldest [Reference Range]: 1 Height 165.1 cm (11/30/20 2:50 PM) Weight 73.4 kg (11/30/20 2:50 PM) Oxygen Saturation [94-100 %] 97 % (11/30/20 2:50 PM) Pulse Rate [55-90 bpm] 60 bpm (11/30/20 2:50 PM) Body Mass Index [18.5-24.99] 26.93 *H* (11/30/20 2:50 PM) Blood Pressure [90-138/55-84 mm Hg] 130/78 mm Hg (11/30/20 2:50 PM) Respiratory Rate [16-30 br/min] 16 br/min (11/30/20 2:50 PM) Mode of Delivery (Oxygen) Room air (11/30/20 2:50 PM) Blood pressure sites Arm, left (11/30/20 2:50 PM) Weight Obtained Via Patient/family stated (11/30/20 2:50 PM) Social History Social History Type Response Smoking Status Former smoker; Number of yea rs: 7; Total pack years: 2; Started at age: 16; Stopped at age: 23; entered on: 04/15/14 Sex
--- OUTSIDE RECORDS SUMMARY | 2022-08-16 21:57 | XMS_ITS | Continuity of Care Document ---
:1940 Author Organization [facility] Address [address] [place] [address]- Care Team Providers Name Role Phone Benigno BENNETT, Samantha Fernando Primary Care Physician Encounter [facility] Date(s): 12/01/20 - 12/31/20 [facility] [address] [place] [id number] Allergies, Adverse Reactions, Alerts Substance Reaction [...] 11/18/02 Given 1Result Comment: [07/19/2017] [facility]2Result Comment: [07/02/2016] [facility] HIGH [id number] Note: LGOZ0Oatux Note: lwumsosol7Uwxlp Note: historical data6 Admin Note: historical data [...] Refills, Maintenance, Tablet, Route to Pharmacy Electronically, [id number], [facility], Compound Start Date: [...] 03/22/17 10:09:21, Route to Pharmacy Electronically, [id number], [facility]... Start Date: 03/22/17 Status: [...] after supper call if over 150/90 or [id number], 01/03/15 14:46:22, Compound Start Date: 01/03/15 Status: OrderedLithium battery 3 v for glucometer and diabetic log book [place] battery 3 v for glucometer and diabetic log book, See Instructions, # 1 each, Refills 0, Tot. 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 The left side has a lesser degree of stenosis just over 50% by ultrasound criteria.7per vascular medical xm2Koieiigj kfsxerdqg344-76% occlusion refer xthhhowd56uiv MRI multilevel disc oynfkwr06kvbinslx by Cfcvzbnjni31tsfjhif cannot afford tricor; triglycerides will not b be at goal, lopid bumbxvoqgolpnvi46NLP May 201414Normal B12 folic acid and haptoglobin 65vfxpnla85hehvtcmu [place] mhvur87xpyudjsp by Dr JacobsenDgalxt99RLB A,B vhdvlebtyjtk60 11 Hip Fracture 3.9 neg 1.6 fem neck Social History Social History Type Response Smoking Status Former smoker; Number of yea rs: 7; Total pack years: 2; Started at age: 16; Stopped at age: 23; entered on: 04/15/14 Sex
--- OUTSIDE RECORDS SUMMARY | 2022-08-16 21:57 | XMS_ITS | Continuity of Care Document ---
:1940 Author Organization [facility] Address [address] [address]- Care Team Providers Name Role Phone Benigno BENNETT, Samantha Fernando Primary Care Physician En[place] [facility] Date(s): 12/21/20 - 01/20/21 [facility] [address] [place] [address] Attending Physician: Michael Paulino Admitting Physician: AdmMichael espino Referring Physician: Admtr, ArGoyo Allergies, Adverse Reactions, Alerts Substance Reaction Severity [...] Vaccine (oldterm)6 11/18/02 Given 1Result Comment: [07/19/2017] [facility]2Result Comment: [07/02/2016] [facility] HIGH KIMT2Qvmhr Note: PJJM8Flahq Note: zdyrhosyy9Ecucg Note: historical data6 Admin Note: historical data [...] Refills, Maintenance, Tablet, Route to Pharmacy Electronically, [id number], [facility], Compound Start Date: 04/16/17 [...] 03/22/17 10:09:21, Route to Pharmacy Electronically, [id number], [facility]... Start Date: 03/22/17 Status: Orderedferrous [...] test BS once daily for DM2 E11.9, 09/30/16 11:41:03, Compound Start Date: 06/15/16 Status: OrderedFreestyle [...] after supper call if over 150/90 or [id number], 01/03/15 14:46:22, Compound Start Date: 01/03/15 Status: OrderedLithium battery 3 v for glucometer and diabetic log book [place] battery 3 v for glucometer and diabetic log book, See Instructions, # 1 each, Refills 0, Tot. 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(Confirmed) Familial hyperlipidemia(Confirmed)12 Active Heart block AV first Active degree(Confirmed)13 Hiatal hernia(Confirmed) Active Inadequate social support(Confirmed) Active Macrocytic anemia(Confirmed)14, 15 Active Cancer of colon(Confirmed)16 Active MG (myasthenia gravis)(Confirmed)17 Active NAFL (nonalcoholic fatty Active liver)(Confirmed)18 Osteopenia(Confirmed)19 Active *[facility] [phone] 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 The left side has a lesser degree of stenosis just over 50% by ultrasound criteria.7per vascular medical gg1Lomftvgu gfwtnpffe535-03% occlusion refer gridwzgb02ffq MRI multilevel disc fjkoiby61rnhnmbfa by Aclwteizqy25elvnsdk cannot afford tricor; triglycerides will not b be at goal, lopid rkgjfhjwnscsonn53HUH May 201414Normal B12 folic acid and haptoglobin 61ueuxhin48wwycjubx [place] jmcmw08vqeexmlv by Dr JacobsenQqvgmk04CXK A,B wzdswzuupdlp43 11 Hip Fracture 3.9 neg 1.6 fem neck Social History Social History Type Response Smoking Status Former smoker; Number of yea rs: 7; Total pack years: 2; Started at age: 16; Stopped at age: 23; entered on: 04/15/14 Sex
--- OUTSIDE RECORDS SUMMARY | 2022-08-16 21:57 | XMS_ITS | Continuity of Care Document ---
:1940 Author Organization [facility] Address [address] [place] [address]- Care Team Providers Name Role Phone Benigno BENNETT, Samantha Fernando Primary Care Physician Encounter [facility] Date(s): 12/08/20 - 12/14/[address] [address] Discharge Disposition: Disch/Trans to a [facility] Attending Physician: Ashley Hanna MD Admitting Physician: Ashley Hanna MD Referring Physician: Ashley Hanna MD Allergies, Adverse Reactions, Alerts Substance Reaction [...] Vaccine (oldterm)6 11/18/02 Given 1Result Comment: [07/19/2017] [facility]2Result Comment: [07/02/2016] [facility] HIGH HSER7Ofokx Note: AOST9Qitln Note: eauyuwcll2Tqgdz Note: historical data6 Admin Note: historical data [...] Refills, Maintenance, Tablet, Route to Pharmacy Electronically, [id number], [facility], Compound Start Date: 04/16/17 Status: Orderedazathioprine 50 mg oral tablet 1 tablet = 50 mg, By Mouth, 2 times a day, 0 Refills, Maintenance Start Date: 6/14/12 Status: OrderedBisacodyl Supp = 5 mg, By [...] 03/22/17 10:09:21, Route to Pharmacy Electronically, [id number], [facility]... Start Date: 03/22/17 Status: Orderedferrous [...] after supper call if over 150/90 or [id number], 01/03/15 14:46:22, Compound Start Date: 01/03/15 Status: OrderedLasix 40 mg oral tablet 40 mg, 1, tablet, By Mouth, Daily, Refills 0, Maintenance, 12/14/20 11:53:00 EDT, Partial fill upon patient request if the prescription is for a schedule II opioid drug. Start Date: 12/14/20 Status: OrderedLithium battery 3 v for glucometer and diabetic log book [place] battery 3 v for glucometer and diabetic log book, See Instructions, # 1 each, Refills 0, Tot. 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 The left side has a lesser degree of stenosis just over 50% by ultrasound criteria.7per vascular medical jf9Zmlwtxis whmsilpsr514-25% occlusion refer ujmroome74szp MRI multilevel disc begxuib19bvzqhjbd by Izneektcev21zbwkjjp cannot afford tricor; triglycerides will not b be at goal, lopid cgrkggqbedigshe26MMM May 201414Normal B12 folic acid and haptoglobin 91uhxwckl71uzmvxpxb [place] mflil15krpynsks by Dr JacobsenOwtybp64FJP A,B iocwtevocjyv78 11 Hip Fracture 3.9 neg 1.6 fem neck Results Radiology Reports Exam Date Time Procedure Performing Provider Status 12/11/20 3:41 PM Chest Portable Landrau , Tonio; Auth (Verified) Notes:(Chest Portable) Reason For Exam: tube removal;Other:RESULT: Chest Portable Chest Portable Reason: Other:; tube removal; COMPARISON: Earlier the same day. FINDINGS: Single AP upright chest x-ray labeled tube removal 3:18 PM. LINES AND TUBES: Right IJ introducer sheath remains in place. No other lines or tubes are seen, and percutaneous pacer wires appear to remain at least partially in place. LUNGS AND PLEURA: Lung volumes remain somewhat diminished bilaterally with mild left basilar atelectasis versus infiltrate. Vascular congestion appears somewhat improved. Trace left pleural effusion appears decreased. No pneumothorax. HEART, MEDIASTINUM AND LIAN: Postsurgical changes, the heart appears enlarged unchanged. Mild central vascular prominence. BONES AND SOFT TISSUES: Multiple intact sternal wires with underlying CABG changes. IMPRESSION: There is improvement in aeration bilaterally with residual basilar atelectasis. No evidence of pneumothorax. WSN: [id number] Ordering Physician: Shana Javed Dictated By: Omar Benedict MD Dictated Date/Time: 12/11/20 3:56 pm Reviewed By: Omar Benedict MD Signed By: Omar Benedict MD Signed Date/Time: 12/11/20 3:56 pm Transcribed By: HERNAN Transcribed Date/Time: 12/11/20 3:53 pm Exam Date Time Procedure Performing Provider Status 12/11/20 6:03 AM Chest Portable Ashley Mckeon; Auth (Verified) Notes:(Chest Portable) Reason For Exam: S/P Cardiac SurgeryRESULT: Chest Portable Chest Portable Reason: S P Cardiac Surgery; Clinical Question(s): Pleural Effusion / Pleural Effusion COMPARISON: 12/09/2020 FINDINGS: LINES AND TUBES: Mediastinal drains and left chest tube in place. Right internal jugular sheath tip projects in the SVC. LUNGS AND PLEURA: Retrocardiac opacity, similar to prior. Trace pleural effusions, similar to prior. No pneumothorax. HEART, MEDIASTINUM AND LIAN: Unchanged. BONES AND SOFT TISSUES: Status post median sternotomy. IMPRESSION: No significant change in retrocardiac opacity, likely atelectasis, and trace pleural effusions. WSN: [id number] Ordering Physician: Lisa Delaney Dictated By: Ramon Edmonds MD Dictated Date/Time: 12/11/20 2:43 pm Reviewed By: Ramon Edmonds MD Signed By: Ramon Edmonds MD Signed Date/Time: 12/11/20 2:43 pm Transcribed By: HERNAN Transcribed Date/Time: 12/11/20 2:42 pm Exam Date Time Procedure Performing Provider Status 12/09/20 6:24 AM Chest Portable Maco Salgado; Cristian (Verifie d) Notes:(Chest Portable) Reason For Exam: S/P Cardiac SurgeryRESULT: Chest Portable Chest Portable AP upright at 5:22 AM REASON: S P Cardiac Surgery; Clinical Question(s): Postop / Postop COMPARISON: 12/08/2020 FINDINGS: LINES AND TUBES: Endotracheal tube ends 4 cm above the tika. Enteric tube tip and side-port project in the stomach. Right internal jugular approach Penrose-Sue catheter is unchanged in position. Left chest tube and mediastinal drains in place. LUNGS AND PLEURA: Mild retrocardiac opacity. Probable trace left pleural effusion. No pneumothorax. HEART, MEDIASTINUM AND LIAN: Unchanged. BONES AND SOFT TISSUES: Status post median sternotomy. IMPRESSION: 1. Support structures as above. 2. Retrocardiac opacity, likely atelectasis. WSN: [id number] Ordering Physician: Shyam Eckert Dictated By: Ramon Edmonds MD Dictated Date/Time: 12/09/20 8:35 am Reviewed By: Ramon Edmonds MD Signed By: Ramon Edmonds MD Signed Date/Time: 12/09/20 8:35 am Transcribed By: HERNAN Transcribed Date/Time: 12/09/20 8:34 am Exam Date Time Procedure Performing Provider Status 12/08/20 8:58 PM Chest Portable Inez Francisco; Auth (Verified ) Notes:(Chest Portable) Reason For Exam: S/P Cardiac SurgeryRESULT: Chest Portable Chest Portable Reason: S P Cardiac Surgery; Clinical Question(s): Other:; Cardiac Tamponade; Special Instructions: On Admission to [facility] COMPARISON: 07/09/2010 FINDINGS: LINES AND TUBES: Right IJ Penrose-Sue catheter terminating in the pulmonary outflow tract. Mediastinal drains and chesttubes in position. Endotracheal and nasogastric tubes in good position. LUNGS AND PLEURA: Minimal haziness in the left lung base. No pneumothorax. HEART, MEDIASTINUM AND LIAN: Postsurgical changes. BONES AND SOFT TISSUES: No acute abnormality. IMPRESSION: Postsurgical changes without radiographic complication. WSN: [id number] Ordering Physician: Natanael Hahn Dictated By: Ian Will MD Dictated Date/Time: 12/08/20 9:03 pm Reviewed By: Ian Will MD Signed By: Ian Will MD Signed Date/Time: 12/08/20 9:03 pm Transcribed By: HERNAN Transcribed Date/Time: 12/08/20 8:59 pm Vital Signs Most recent to oldest 1 2 3 [Reference Range]: Height 165 cm 165 cm 165 cm (12/14/20 12:34 PM) (12/14/20 9:07 AM) (12/14/20 5: 00 AM) Weight 78.6 kg 78.6 kg 81.2 kg (12/14/20 7:30 AM) (12/14/20 4:58 AM) (12/13/20 9:4 8 AM) Oxygen Saturation [94-100 %] 98 % 98 % 100 % (12/14/20 12:34 PM) (12/14/20 9:07 AM) (12/14/20 5: 00 AM) Pulse Rate [55-90 bpm] 63 bpm 67 bpm 65 bpm (12/14/20 12:34 PM) (12/14/20 9:07 AM) (12/14/20 5: 00 AM) Body Mass Index [18.5-24.99] 26.96 26.63 *H* *H* (12/09/20 1:13 AM) (12/08/20 7:58 AM) Blood Pressure [90-138/55-84 110/52 mm Hg 134/59 mm Hg 107 /50 mm Hg mm Hg] (12/14/20 12:34 PM) (12/14/20 9:07 AM) (12/14/20 5: 00 AM) Respiratory Rate [16-30 18 br/min 18 br/min 18 br/mi n br/min] (12/14/20 12:34 PM) (12/14/20 9:07 AM) (12/14/20 5: 00 AM) Temperature [96.8-100.4 DegF] 98.3 DegF 97.9 DegF 97 .7 DegF (12/14/20 12:34 PM) (12/14/20 9:07 AM) (12/14/20 5: 00 AM) Liters per Minute 2 L/min 2 L/min 2 L/min (12/12/20 6:00 AM) (12/12/20 5:00 AM) (12/12/20 4:0 0 AM) Mode of Delivery (Oxygen) Room air Room air Room a ir (12/14/20 12:34 PM) (12/14/20 9:07 AM) (12/14/20 5: 00 AM) Blood pressure sites Arm, left Arm, right Arm, right (12/14/20 12:34 PM) (12/14/20 5:00 AM) (12/13/20 11 :24 PM) Temperature Route Oral Oral Oral (12/14/20 12:34 PM) (12/14/20 9:07 AM) (12/14/20 5: 00 AM) Dry Weight 73.4 kg (12/09/20 1:13 AM) Weight Obtained Via Bed scale Bed scale Bed scale (12/14/20 7:30 AM) (12/14/20 4:58 AM) (12/11/20 6:1 9 AM) Social History Social History Type Response Smoking Status Former smoker; Number of yea rs: 7; Total pack years: 2; Started at age: 16; Stopped at age: 23; entered on: 04/15/14 Sex
--- OUTSIDE RECORDS SUMMARY | 2022-08-16 21:57 | XMS_ITS | Continuity of Care Document ---
:1940 Author Organization [facility] Address [address] [place] [address]- Care Team Providers Name Role Phone Benigno BENNETT, Samantha Fernando Primary Care Physician [place] [facility] [place]s): 06/27/21 - 07/27/21 [facility] [address] [place], [place] [address] Attending Physician: Michael Paulino [...] Vaccine (oldterm)6 11/18/02 Given 1Result Comment: [07/19/2017] [facility]2Result Comment: [07/02/2016] [facility] GHSP2Kuuhz Note: GINQ0Ddvml Note: zlkrdnieq3Plefn Note: historical data6 Admin Note: historical data [...] Refills, Maintenance, Tablet, Route to Pharmacy Electronically, [id number], [facility], Compound Start Date: 04/16/17 Status: [...] 03/22/17 10:09:21, Route to Pharmacy Electronically, [id number], [facility]... Start Date: 03/22/17 Status: Orderedferrous sulfate [...] after supper call if over 150/90 or [id number], 01/03/15 14:46:22, Compound Start Date: 01/03/15 Status: OrderedLithium battery 3 v for glucometer and diabetic log book [place] battery 3 v for glucometer and diabetic log book, See Instructions, # 1 each, Refills 0, Tot. 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) Familial hyperlipidemia(Confirmed)12 Active Heart block AV first Active degree(Confirmed)13 Hiatal hernia(Confirmed) Active Inadequate social support(Confirmed) Active Macrocytic anemia(Confirmed)14, 15 Active Cancer of colon(Confirmed)16 Active MG (myasthenia gravis)(Confirmed)17 Active NAFL (nonalcoholic fatty Active liver)(Confirmed)18 Osteopenia(Confirmed)19 Active *[facility] [phone] SLEEVER Kareem Active Colon(Confirmed) Chronic insomnia(Confirmed) Active Tubular adenoma of colon(Confirmed) 12/10/16 Active Type 2 diabetes with Active nephropathy(Confirmed) 1qs lead 3 and first degree ooiqa0ehpqvwl abnmormalities as upyxl3pj EGD per DR jesus/ only barium dqdwbpj6LbncbI3F71Ri is 6-8 cm from the anal rectal verge 6scan today is totally unchanged in comparison with a year ago, and he has relatively calcified plaque in particular on the right side causing a roughly 75% stenosis there. The left side has a lesser degree of stenosis just over 50% by ultrasound criteria.7per vascular medical tg5Vanszixm dldrkyzqf669-64% occlusion refer ptitgqkj07xcu MRI multilevel disc eefvwas97iejdjrdn by Wbtqrutsqe75shyunfe cannot afford tricor; triglycerides will not b be at goal, lopid dpjdbyjpbinphii26RYJ May 201414Normal B12 folic acid and haptoglobin 83gxxmzbj34jkogbaty [place] fuzdw54wtlsmiqc by Dr JacobsenClcvib39EEO A,B fygkymyvywaq98 11 Hip Fracture 3.9 neg 1.6 fem neck Social History Social History Type Response Smoking Status Former smoker; Number of yea rs: 7; Total pack years: 2; Started at age: 16; Stopped at age: 23; entered on: 04/15/14 Sex
--- OUTSIDE RECORDS SUMMARY | 2022-08-16 21:58 | XMS_ITS ---
:1940 Author Organization [facility] Address [address] [place] [address] Care Team Providers Name Role Phone Joshua White Kiran Unavailable Unavailable PROBLEMS Type Condition ICD9-CM VAB66-MC Onset Condition SNOMED Cod e Code Code Dates Status Problem Anemia, unspecified D64.9 Active 655581033 type Problem Hypertension, I10 Active 334406 00 unspecified type Problem Rectal bleeding K62.5 Active 1206 3002 Problem Gastroesophageal K21.9 Active 266 264063 reflux disease without esophagitis ALLERGIES No Known Allergies ENCOUNTERS Encounter Location Date Diagnosis [facility] [place] [place] Outpatient [address] Nov, Anemia D64.9 an d Colon [place], [place] [id number] polyps K63 .[address] [place] [address] Oct, [facility] [address] [place] [address] Oct, Anemia, unspecified type [facility] [address] [place], [place] D64.9 ; Hy pertension, [address] unspecified type I10 and Gastroesophageal reflux disease without esophagitis K21.9 [facility] [place] [place] Outpatient [address] [facility] Feb, [place] [id number] [place] [address] Dec, Gastroes [facility]phage[facility] [address] [place] disease wi thout esophagitis [address] K21.[address] [place] [address] Dec, [facility] [address] [place] disease wi thout esophagitis [address] K21.[address] [place] [address] Nov, [facility] [address] [place] [address] 10 Nov, 2015 [facility] [address] [place] [address] Nov, Rectal b leeding K62.5 [facility] [address] [place] [address] IMMUNIZATIONS Vaccine Route Administration Date Status Influenza Unknown May 27, 2019 Administered SOCIAL HISTORY Never Assessed REASON FOR REFERRAL FUNCTIONAL STATUS PLAN OF CARE Activity Details Follow Up prn Reason: Future/Pending Procedure COLONOSCOPY 20191111 Future/Pending Procedure UPPER GI ENDOSCOPY 20170109 VITAL SIGNS Weight 190 lbs 2019-11-11 Weight 186 lbs 2017-01-09 Weight 167 lbs 2015-11-24 Height 66 in 2019-11-11 Height 66 in 2017-01-09 Height 66 in 2015-11-24 BMI 30.66 kg/m2 2019-11-11 BMI 30.02 kg/m2 2017-01-09 BMI 26.95 kg/m2 2015-11-24 Heart Rate 72 /min 2019-11-11 Heart Rate 64 /min 2017-01-09 Blood pressure systolic 146 mm Hg 2019-11-11 Blood pressure diastolic 78 mm Hg 2019-11-11 MEDICATIONS Medication Instructions Dosage Frequency Start End Duration Statu s Date Benzocaine-Menthol Mouth/Throat 1 lozenge as Active 15-3.6 MG every 4 needed hrs/prn Tamsulosin HCl 0.4 MG Orally Once a 1 capsule 24h 30 day(s) Active day Pyridostigmine [place] Orally every 1 tablet 8h Active 60 MG 8 hrs Mucinex 600 MG Orally every 1 tablet as Active 12 hrs/prn needed Omeprazole 20MG Orally Once a 1 tablet 24h A ctive day Fluticasone Propionate Nasally Twice 2 spray in 12h Active 50 MCG/ACT a day each nostril MiraLax (colon prep) orally begin mixed with 26 1 d ay Active 8.3 ounce ((238) grams at 5:00 p.m. or Oct, the 2019 before the Light procedure Lisinopril 5 MG Orally Once a 1 tablet 24h A ctive day Atorvastatin Calcium 40 Orally Once a 1 tablet 24h Active MG day Aspir-81 81 MG Orally Once a 1 tablet 24h Ac tive day Acetaminophen 325 MG Orally qhs 2 capsule as Active needed Fleet Enema 7-19 Rectal prn as directed Active GM/118ML guaiFENesin 100 MG/5ML Orally every 5 ml as 4h Active 4 hrs needed Tamiflu 75 MG Orally x 14 1 capsule Acti ve days Polyethylene Glycol Orally prn 1 packet Active 3350 - mixed with 8 ounces of fluid Magnesium Hydroxide 400 Orally prn 30 ml at Active MG/5ML least 4 hours between doses as needed Calcium Polycarbophil Orally twice 1 tablets as 12h Active 625 MG a day needed Bisacodyl 10 MG Rectal prn 1 Activ e suppository as needed Cholecalciferol 25 MCG Orally Once a 1 capsule 24h 3 0 day(s) Active (1000 UT) day Loratadine 10 MG Orally Once a 1 tablet Active day/prn azaTHIOprine 50 MG Orally BID 1 12h Ac tive traZODone HCl 50 MG Orally Once a 1 tablet at 24h 30 day(s) Active day bedtime as needed Venlafaxine HCl ER 150 Orally Once a 1 capsule 24h Active MG day with food predniSONE 5 MG Orally Once a 1 tablet 24h 30 day(s) Active day Carboxymethylcellulose Ophthalmic as directed Active Sod PF 0.25 % prn Oxybutynin Chloride ER Orally twice 1 tablet 12h Active 15 MG a day QUEtiapine Fumarate 25 Orally Once a 2 tablet at Active MG day/prn bedtime Alum & Mag Orally every 30 ml as Active Hydroxide-Simeth two hours/prn needed 200-200-20 MG/5ML PROCEDURES Procedure Date Ordered Result Body Site ENDO CHOLANGIOPANCREATOGRAPH Sep 20, 2020 UPPR GI ENDOSCOPY, DIAGNOSIS Sep 13, 2020 TOBACCO NON-USER Nov 11, 2019 DOC MEDS VERIFIED W/PT OR RE Nov 11, 2019 ENDO CHOLANGIOPANCREATOGRAPH Sep 20, 2020 COLONOSCOPY AND BIOPSY November 20, 2019 PREHTN/HTN BP DOC INDCD F/U DOC Nov 11, 2019 RESULTS Name Result Date Reference Range FL guidance in OR 2020-09-21 Complete Blood Count Auto Diff 2020-09-14 White Blood Count 8.0 4.8-10.8 Red Blood Count 3.42 4.60-5.80 Hemoglobin 10.9 14.0-18.0 Hematocrit 32.0 42-52 Mean Corpuscular Volume 93.6 80-98 Mean Corpuscular Hemoglobin 31.9 27.0 -33.0 Mean Corpuscular HGB Conc 34.1 31.0-3 6.0 Red Cell Distribution Width 16.8 11.0 -16.0 Platelet Count 236 160-400 Mean Platelet Volume 9.6 9.4-12.4 Neutrophils Percent Auto 77.8 45-73 Imm Gran Pct Auto 0.3 0.0-0.4 Lymphocytes Percent Auto 9.0 20-40 Monocytes Percent Auto 11.9 2-11 Eosinophils Percent Auto 0.6 0-4 Basophils Percent Auto 0.4 0-2 NRBC Pct Auto 0.0 0.0-0.2 Neutrophils Absolute Auto 6.2 2.0-8. 3 Imm Gran Abs Auto 0.02 0.00-0.03 Lymphocytes Absolute Auto 0.7 1.2-4. 9 Monocytes Absolute Auto 1.0 0.1-1.2 Eosinophils Absolute Auto 0.1 0.0-0. 4 Basophils Absolute Auto 0.0 0.0-0.2 NRBC Abs Auto 0.000 0.0-0.012 Complete Blood Count Auto Diff 2020-09-14 White Blood Count 8.0 4.8-10.8 Red Blood Count 3.32 4.60-5.80 Hemoglobin 10.8 14.0-18.0 Hematocrit 30.9 42-52 Mean Corpuscular Volume 93.1 80-98 Mean Corpuscular Hemoglobin 32.5 27.0 -33.0 Mean Corpuscular HGB Conc 35.0 31.0-3 6.0 Red Cell Distribution Width 16.7 11.0 -16.0 Platelet Count 231 160-400 Mean Platelet Volume 9.7 9.4-12.4 Neutrophils Percent Auto 78.1 45-73 Imm Gran Pct Auto 0.5 0.0-0.4 Lymphocytes Percent Auto 9.2 20-40 Monocytes Percent Auto 11.3 2-11 Eosinophils Percent Auto 0.6 0-4 Basophils Percent Auto 0.3 0-2 NRBC Pct Auto 0.0 0.0-0.2 Neutrophils Absolute Auto 6.2 2.0-8. 3 Imm Gran Abs Auto 0.04 0.00-0.03 Lymphocytes Absolute Auto 0.7 1.2-4. 9 Monocytes Absolute Auto 0.9 0.1-1.2 Eosinophils Absolute Auto 0.1 0.0-0. 4 Basophils Absolute Auto 0.0 0.0-0.2 NRBC Abs Auto 0.000 0.0-0.012 Prothrombin Time INR 2020-09-14 Prothrombin Time 12.7 10.8-13.0 INTERNATIONAL NORM RATIO 1.1 0.9-1.1 Partial Thromboplastin Time 2020-09-14 Partial Thromboplastin Time 32.9 24.1 -38.0 Basic Metabolic Panel 2020-09-14 Sodium 142 135-145 Potassium 3.9 3.3-5.1 Chloride 111 96-108 Carbon Dioxide 22 22-29 Anion Gap 13 12-20 Blood Urea Nitrogen 23 9-16 Creatinine 0.76 0.5-1.4 Creatinine Clr Calc Pharmacy 74.7 Estimated Glomerular Filt Rate > 60 Glucose Random 114 60-115 Calcium 7.9 8.4-10.2 Glucose, Whole Blood 2020-09-13 Glucose, Whole Blood 116 60-115 Complete Blood Count no Diff 2020-09-13 White Blood Count 8.0 4.8-10.8 Red Blood Count 3.44 4.60-5.80 Hemoglobin 11.1 14.0-18.0 Hematocrit 32.1 42-52 Mean Corpuscular Volume 93.3 80-98 Mean Corpuscular Hemoglobin 32.3 27.0 -33.0 Mean Corpuscular HGB Conc 34.6 31.0-3 6.0 Red Cell Distribution Width 16.8 11.0 -16.0 Platelet Count 231 160-400 Mean Platelet Volume 9.5 9.4-12.4 NRBC Pct Auto 0.0 0.0-0.2 NRBC Abs Auto 0.000 0.0-0.012 Complete Blood Count no Diff 2020-09-13 White Blood Count 9.6 4.8-10.8 Red Blood Count 3.69 4.60-5.80 Hemoglobin 11.8 14.0-18.0 Hematocrit 34.2 42-52 Mean Corpuscular Volume 92.7 80-98 Mean Corpuscular Hemoglobin 32.0 27.0 -33.0 Mean Corpuscular HGB Conc 34.5 31.0-3 6.0 Red Cell Distribution Width 16.4 11.0 -16.0 Platelet Count 250 160-400 Mean Platelet Volume 9.3 9.4-12.4 NRBC Pct Auto 0.0 0.0-0.2 NRBC Abs Auto 0.000 0.0-0.012 Glucose, Whole Blood 2020-09-13 Glucose, Whole Blood 106 60-115 UA CC w/rflx Micro + Cult 2020-09-13 Color Urine YELLOW Appearance Urine CLEAR PH 6.0 5.0-8.0 Glucose Urine UA NEG NEG Urine Blood NEG NEG Specific [place] - Urine 1.010 1.005-1 .025 Urine Protein NEG NEG-TRACE Urine Ketones NEG NEG Nitrite Urine NEG NEG Leukocyte Esterase Urine NEG NEG NM GI bleeding 2020-09-13 GI BIOPSY 2019-11-20 G.I. BIOPSY GI BIOPSY 2017-03-13 G.I. BIOPSY REASON FOR VISIT anemia, labs, patient presents today for anemia,hx of rectal cancer, GERD, RE: Omeprazole, PATIENT PRESENTS TODAY FOR GERD, FYI, Patient was previously seen by Pritesh Dwyer in stool Insurance Providers [facility] Member Patient Patient Patient Patient Patient Subscriber Subscriber Subscriber Group Insurance Plan Plan Plan Plan ID Relationship Address Phone Name Date of ID Name Date of No Type Insurance Insurance Insurance Coverage to Subscriber Address Phone Name Dates [address] [phone] [facility] SID [id number] [phone] [facility] [address] [facility] Services [place] Services Dept [address] Dept AETNA [address] self SID [id number] [address] [place] [id number] MEDICAID [address] MEDICAID self SID [id number] [place] [id number] [place] [address] [address] Medicare [address] Medicare self SID [id number] of [place] 1000 of [facility] [address] [employer] [phone] [employer] self SID [id number] [facility] [place] [address] [facility] [facility] [address]
[2022-08-16 22:05] LABS: MANUAL DIFF FLAG NO
[2022-08-16 22:06] LABS: Basophils Percent Auto 0.5 % (0-2); Eosinophils Percent Auto 0.5 % (0-4); Hematocrit 34.3 % (42.0-52.0); Hemoglobin 11.8 g/dl (14.0-18.0); Imm Gran Abs Auto 0.04 X10*3/uL (0.00-0.03); Imm Gran Pct Auto 0.6 % (0.0-0.4); Lymphocytes Absolute Auto 0.7 X10*3/uL (1.2-4.9); Lymphocytes Percent Auto 9.8 % (20-40); Mean Corpuscular HGB Conc 34.4 g/dl (31.0-36.0); Mean Corpuscular Hemoglobin 32.7 pg (27.0-33.0); Mean Platelet Volume 9.7 fL (9.4-12.4); Monocytes Absolute Auto 0.8 X10*3/uL (0.1-1.2); Monocytes Percent Auto 12.7 % (2-11); Neutrophils Absolute Auto 5.1 x10*3/uL (2.0-8.3); Neutrophils Percent Auto 75.9 % (45-73); Platelet Count 139 X10*3/uL (160-400); Red Blood Count 3.61 X10*6/uL (4.60-5.80); Red Cell Distribution Width 12.9 % (11.0-16.0); White Blood Count 6.6 X10*3/uL (4.8-10.8)
[2022-08-16 22:12] LABS: INTERNATIONAL NORM RATIO 1.1 (0.9-1.1); Prothrombin Time 12.5 SEC (10.0-13.1)
[2022-08-16 22:14] LABS: Partial Thromboplastin Time 30.9 SEC (26.0-36.4)
--- NOTE | 2022-08-16 22:14 | PC.NURSE ---
Pt's son, Robe, called for an update. Robe updated on pts status. Robe reports pt tested positive for covid on 08/14/2022 and started a new medication for covid today. Robe can be reached at [phone]. aware
[2022-08-16 22:29] LABS: Alanine Aminotransferase 93 U/L (0-40); Albumin Level 3.6 g/dL (3.5-5.0); Alkaline Phosphatase 62 U/L (39-117); Anion Gap 15 (12-20); Aspartate Amino Transferase 95 U/L (5-37); Bilirubin Total 0.3 mg/dL (0.0-1.0); Blood Urea Nitrogen 18 mg/dL (9-16); Carbon Dioxide 22 mmol/L (22-29); Chloride 104 mmol/L (96-108); Creatinine Clr Calc Pharmacy 55.6; Estimated Glomerular Filt Rate > 60; Glucose Random 118 mg/dL (60-115); Sodium 137 mmol/L (135-145); Total Protein 5.7 g/dL (6.5-8.0); Troponin-I High Sensitivity 15.3 ng/L (<3.5-35.0)
[2022-08-16 23:22] LABS: COVID-19 Test Positive (Negative)
[2022-08-16 23:55] VITALS: BP 104/52; BP 105/54; PULSE 61; PULSE 62
[2022-08-16 23:57] VITALS: BP 188/167; PULSE 66
[2022-08-17] VITALS (8 sets, daily range): BP systolic 103–172; BP diastolic 50–76; PULSE 60–72; RESP 16–20; TEMP 36.1–37.6; O2SAT 95–98; BMI 30.2; BMI 30.4
--- NOTE | 2022-08-17 00:08 | PM.IMHP ---
History of Present Illness Date of Service: 08/17/22 Chief Complaint: syncope This is an 82-year-old male with past medical history of BPH, CAD status post CABG, hypertension, myasthenia gravis, history of colon cancer, presents to the hospital with a syncopal episode. Patient himself does not remember the event, reports that I guess I passed out . it appears the patient was found unresponsive, CPR was performed on him at the half-way, upon EMS arrival patient had a pulse with a heart rate of beats per minute. Patient denies any chest pain, reports no shortness of breath, no headache, no change in vision, no abdominal pain nausea vomiting, diarrhea constipation, reports neck urinary frequency and no lower extremity edema.COVID 19 +ve. denies any resp symptoms EKG on arrival shows junctional rhythm Vitals on arrival show heart rate in the 60s, blood pressure of 85/44 improved with IV fluids, no documented hypoxia Labs on arrival are significant for WBC count of 6.6, hemoglobin of 11.8, hematocrit 34.3, COVID-19 positive Chest x-ray shows interval post CABG changes, no evidence for acute disease in the chest Review of Systems Review of Systems: Yes all other systems are reviewed and are negative [facility] Medical History Abnormal LFTs (liver function tests) Acute respiratory disease Atherosclerotic cardiovascular disease BPH (benign prostatic hyperplasia) CAD (coronary artery disease) Cataract Cholecystitis Choledocholithiasis COVID-19 Depression Diabetes mellitus Diet-controlled diabetes mellitus Dysarthria Elevated troponin Essential hypertension Gastrointestinal bleeding GERD (gastroesophageal reflux disease) Hammer toe Hammer toes, bilateral History of diverticulosis History of rectal cancer Hyperlipidemia Hypertension Inguinal hernia Insomnia Malignant neoplasm of colon Myasthenia gravis Myasthenia gravis Nonalcoholic steatohepatitis (MARTI) Onychogryphosis Rheumatoid arthritis Urinary incontinence Family History Mother No problems noted. Father No problems noted. Brother No problems noted. Sister No problems noted. Daughter Psychiatric disorder Son No problems noted. Surgical History History of cardiac catheterization (~11/18/20) History of cholecystectomy (~02/20/21) History of colostomy History of colostomy reversal History of coronary artery bypass graft x 2 (~12/08/20) History of incisional hernia repair History of left-sided carotid endarterectomy (~12/08/20) History of low anterior resection of rectum Social History Household Members: Other Housing: Assisted Living Facility Housing Other:: [facility] home Do you presently have visiting nurse or other home services: No Alcohol intake: never Patient Tobacco Use Status: Never used Tobacco Smoked in Last 30 Days: No Use of substances other than those prescribed or required for medical reasons: No Currently Displaying Signs/Symptoms of Drug Intoxication Withdrawal: No Have you been hit, kicked, punched, or otherwise hurt by someone within the past year? If so, by whom?: No Do you feel safe in your current relationship?: No Current Relationship Is there a partner from a previous relationship who is making you feel unsafe now?: No Are you made to feel afraid or neglected: No Advance Directives: Yes Advance Directives on File: Yes Advance Directives Date on File: 06/21/20 Do you have thoughts of harming others: None Do you have a plan to hurt others: No Plan Recently lost weight without trying: No How much weight loss: Not applicable Eating poorly because of decreased appetite: No Nutrition screen score: 0 Nutrition Risks: Difficulty chewing Poor oral hygiene: No service: Yes Current occupational status: retired [employer] Allergies Allergy/AdvReac Type Severity Reaction Status Date / Time No Known Allergies Allergy Verified 08/22/21 10:16 [No Known Allergies*] Active Medications: Current Medications Acetaminophen (Acetaminophen 325 Mg Tablet) 650 mg PO Q6H PRN PRN Reason: Pain, Mild (Pain Scale 1-3) Docusate Sodium (Docusate Sodium 100 Mg Capsule) 100 mg PO DAILY PRN PRN Reason: Constipation Ondansetron HCl (Ondansetron Hcl 4 Mg/2 Ml Vial) 4 mg IVPUSH Q8H PRN PRN Reason: Nausea and Vomiting Pharmacy Consult (Consult Rx Perform Med Rec) 1 each MISCELLANE ONCE PRN PRN Reason: Consult order Sodium Chloride (0.9 % Sodium Chloride Flush 3 Ml Syringe) 3 ml IVFLUSH [facility] Medications Medication Instructions Recorded Confirmed Last Taken Type acetaminophen 650 mg tablet 650 mg PO BEDTIME 09/14/20 08/22/21 09/19/20 History aspirin 81 mg tablet 81 mg PO DAILY 09/14/20 08/22/21 09/12/20 History atorvastatin 40 mg tablet 40 mg PO DAILY@1700 09/14/20 08/22/21 09/19/20 History azathioprine 50 mg tablet 50 mg PO BID 09/14/20 08/22/21 09/19/20 History calcium polycarbophil 625 mg tablet 625 mg PO BID 09/14/20 08/22/21 09/19/20 History carboxymethylcellulose sodium 1 drp ophthalmic (eye) BEDTIME 09/14/20 08/22/21 09/19/20 History cholecalciferol (vitamin D3) 25 25 mcg PO DAILY 09/14/20 08/22/21 09/19/20 History mcg (1,000 unit) chewable tablet cyanocobalamin (vitamin B-12) 1,000 mcg IM QMONTH 09/14/20 08/22/21 Unknown History 1,000 mcg/mL injection solution ferrous sulfate 325 mg (65 mg 325 mg PO BID 09/14/20 08/22/21 09/19/20 History iron) tablet (Iron (ferrous sulfate)) fluticasone propionate 50 1 spray intranasal BID 09/14/20 08/22/21 09/19/20 History mcg/actuation nasal spray,suspension oxybutynin chloride 15 mg 15 mg PO DAILY 09/14/20 08/22/21 09/19/20 History tablet,extended release 24 hr prednisone 5 mg tablet 5 mg PO Q OTHER DAY 09/14/20 08/22/21 09/19/20 History pyridostigmine bromide 60 mg tablet 60 mg PO TID 09/14/20 08/22/21 09/19/20 History quetiapine 100 mg tablet 100 mg PO BEDTIME 09/14/20 08/22/21 09/19/20 History quetiapine 25 mg tablet 25 mg PO BEDTIME 09/14/20 08/22/21 09/19/20 History tamsulosin 0.4 mg capsule 0.4 mg PO BEDTIME 09/14/20 08/22/21 09/19/20 History trazodone 50 mg tablet 50 mg PO BEDTIME 09/14/20 08/22/21 09/19/20 History venlafaxine 150 mg 150 mg PO DAILY 09/14/20 08/22/21 09/19/20 History capsule,extended release 24 hr docusate sodium 100 mg capsule 100 mg PO BID 09/20/20 08/22/21 09/19/20 History loratadine 10 mg tablet 10 mg PO DAILY 09/20/20 08/22/21 09/18/20 History lorazepam 0.5 mg tablet 0.25 mg PO Q6H PRN Anxiety 09/20/20 08/22/21 09/19/20 History omeprazole 20 mg capsule,delayed 40 mg PO DAILY@1600 09/20/20 08/22/21 09/19/20 History release metoprolol tartrate 25 mg tablet 12.5 mg PO BID 12/22/20 08/22/21 Unknown History Physical Exam Vital Signs and Narrative: Vital Signs: Last Vital Signs Temp 98.2 F 08/16/22 21:41 Pulse 66 08/16/22 23:57 Resp 22 H 08/16/22 21:41 BP 188/167 H 08/16/22 23:57 Pulse Ox 94 08/16/22 21:41 O2 Del Method 08/16/22 21:41 O2 Flow Rate 2 08/16/22 21:41 BMI result Body Mass Index 30.5 Const: General: cooperative and no acute distress Orientation/consciousness: patient oriented x3 Eyes: General: appearance normal, both eyes and all related structures Pupils: Equal, round and reactive pupils present Resp: Effort & Inspection: normal respiratory effort Auscultation: clear to auscultation bilaterally Cardio: Rate: regular rate Rhythm: regular rhythm GI: Palpation (GI): Soft to palpation Auscultation: normal bowel sounds Skin: General skin exam: no rashes or lesions noted Neuro: General: patient oriented x3 Cranial nerves: Yes Equal, round and reactive pupils present Cognition (Neuro): normal cognition Extrem: General: Yes normal to inspection and Yes no pedal edema Results Labs CBC and Chem 7: 08/17/22 05:59 08/17/22 05:59 Labs: Laboratory Results - last 24 hr 08/16/22 08/16/22 08/16/22 22:00 22:01 22:01 MCV 95.0 MCH 32.7 MCHC 34.4 RDW 12.9 Plt Count 139 L D MPV 9.7 Immature Gran % (Auto) 0.6 H Neut % (Auto) 75.9 H Lymph % (Auto) 9.8 L [place] % (Auto) 12.7 H Eos % (Auto) 0.5 Baso % (Auto) 0.5 Lymph # (Auto) 0.7 L [place] # (Auto) 0.8 Eos # (Auto) 0.0 Baso # (Auto) 0.0 Abs Immat Gran (auto) 0.04 H Absolute Neuts (auto) 5.1 Absolute Nucleated RBC 0.000 Nucleated RBC % (auto) 0.0 PT 12.5 INR 1.1 APTT 30.9 Anion Gap 15 Estim Creat Clear Calc 55.6 Estimated GFR > 60 Random Glucose 118 H Calcium 8.0 L D Total Bilirubin 0.3 AST 95 H ALT 93 H Alkaline Phosphatase 62 Troponin I High Sens Total Protein 5.7 L Albumin 3.6 COVID-19 (SEVEN) COVID-19 Clin Com 08/16/22 08/16/22 22:01 23:00 MCV MCH MCHC RDW Plt Count MPV Immature Gran % (Auto) Neut % (Auto) Lymph % (Auto) [place] % (Auto) Eos % (Auto) Baso % (Auto) Lymph # (Auto) [place] # (Auto) Eos # (Auto) Baso # (Auto) Abs Immat Gran (auto) Absolute Neuts (auto) Absolute Nucleated RBC Nucleated RBC % (auto) PT INR APTT Anion Gap Estim Creat Clear Calc Estimated GFR Random Glucose Calcium Total Bilirubin AST ALT Alkaline Phosphatase Troponin I High Sens 15.3 Total Protein Albumin COVID-19 (SEVEN) Positive A COVID-19 Clin Com See Note Imaging Radiologist's Impressions: Impressions Chest X-Ray 08/16/22 22:29 IMPRESSION: Interval post-CABG changes. Low lung volumes. No evidence for acute disease in the chest. Assessment and Plan (1) Syncope and collapse: Status: Acute (2) COVID-19: Status: Acute Plan 82-year-old male with past medical history of CAD status post CABG in 2020 presents to the hospital after collapse episode and performance of CPR at half-way # syncope and collapse - possible cardiac arrest at half-way - CPR was performed on him that half-way although unknown timeframe - on arrival of EMS patient found to have pulse of 22 - at this time patient is alert, oriented, able to answer questions appropriately - EKG shows junctional rhythm - will admit to telemetry - consult cardiology # COVID-19 positive - acute symptoms - monitor respiratory status # history of coronary artery disease - currently no chest pain - continue aspirin, statin, metoprolol # myasthenia gravis - continue pyridostagmine # mood disorder - continue mood stabilizers DVT prophylaxis: Lovenox Quality Stroke Does the patient have a stroke diagnosis?: No VTE Prior VTE?: No VTE Risk Level:: Medical - low VTE Device Contraindication: N/A - Device Ordered VTE Drug Contraindication: Treatment Not Indicated
--- OUTSIDE RECORDS SUMMARY | 2022-08-17 00:22 | XMS_ITS ---
:1940 Author Organization [facility] Address [address] [place] [address] Care Team Providers Name Role Phone Joshua White Kiran Unavailable Unavailable PROBLEMS Type Condition ICD9-CM [id number] Onset Condition SNOMED Cod e Code Code Dates Status Problem Anemia, unspecified D64.9 Active 983945363 type Problem Hypertension, I10 Active 769634 00 unspecified type Problem Rectal bleeding K62.5 Active 1206 3002 Problem Gastroesophageal K21.9 Active 266 725793 reflux disease without esophagitis ALLERGIES No Known Allergies ENCOUNTERS Encounter Location Date Diagnosis [facility] Outpatient [address] Nov, Anemia D64.9 an d Colon [place], [place] [id number] polyps K63 .[address] [place] [address] Oct, [facility] [address] [place] [address] Oct, Anemia, unspecified type [facility] [address] [place], [place] D64.9 ; Hy pertension, [address] unspecified type I10 and Gastroesophageal reflux disease without esophagitis K21.9 [facility] Outpatient [address] [facility] Feb, [place] [id number] [place] [address] Dec, [facility] [address] [place] disease [place] thout esophagitis [address] K21.[address] [place] [address] Dec, [facility] [address] [place] disease [place] thout esophagitis [address] K21.9 [place] [address] Nov, [facility] [address] [place] [address] 10 Nov, 2015 [facility] [address] [place] [address] Nov, Rectal b leeding K62.5 [facility] [address] [place] [address] IMMUNIZATIONS Vaccine Route Administration Date Status Influenza [...] capsule 24h 30 day(s) Active day Pyridostigmine [place] Orally every 1 tablet 8h Active 60 [...] NEG NEG Urine Blood NEG NEG Specific [place] - Urine 1.010 1.005-1 .025 Urine Protein [...] by Pritesh Dwyer in stool Insurance Providers [facility] Member Patient Patient Patient Patient Patient Subscriber Subscriber Subscriber Group Insurance Plan Plan Plan Plan ID Relationship Address Phone Name Date of ID Name Date of No Type Insurance Insurance Insurance Coverage to Subscriber Address Phone Name Dates AETNA [address] AETNA self SID [id number] [address] [phone] [facility] SID [id number] [phone] [facility] [address] [facility] [place] Services Dept [address] Dept [employer] [phone] [employer] self SID [id number] [facility]ARE [place] [address] [facility] [address] Medicare [address] Medicare self SID [id number] of [place] [address] [place] [facility] [address] MEDICAID [id number] MEDICAID self SID [id number] OF [place] [id number] [address]
--- NOTE | 2022-08-17 01:40 | PC.NURSE ---
Attempted to provide nurse report. MARGARITA Eng will call ED when ready for report. Pt being transferred to [facility] room 474.
[2022-08-17 06:08] LABS: Basophils Percent Auto 0.5 % (0-2); Imm Gran Abs Auto 0.03 X10*3/uL (0.00-0.03); Imm Gran Pct Auto 0.5 % (0.0-0.4); Monocytes Percent Auto 15.8 % (2-11); PLT CLUMP 1; SCAN SMEAR FLAG 1
[2022-08-17 06:10] LABS: Eosinophils Percent Auto 0.3 % (0-4); Hematocrit 35.5 % (42.0-52.0); Lymphocytes Absolute Auto 0.5 X10*3/uL (1.2-4.9); Lymphocytes Percent Auto 7.8 % (20-40); Mean Corpuscular HGB Conc 33.8 g/dl (31.0-36.0); Mean Corpuscular Hemoglobin 32.4 pg (27.0-33.0); Mean Corpuscular Volume 95.9 fL (80.0-98.0); Mean Platelet Volume 9.5 fL (9.4-12.4); Monocytes Absolute Auto 0.9 X10*3/uL (0.1-1.2); Neutrophils Absolute Auto 4.4 x10*3/uL (2.0-8.3); Neutrophils Percent Auto 75.1 % (45-73)
[2022-08-17 06:11] LABS: White Blood Count 5.9 X10*3/uL (4.8-10.8)
[2022-08-17 06:12] LABS: MANUAL DIFF FLAG NO; Platelet Count 152 X10*3/uL (160-400)
[2022-08-17 06:29] LABS: Anion Gap 9 (12-20); Blood Urea Nitrogen 16 mg/dL (9-16); Calcium 8.4 mg/dL (8.4-10.2); Carbon Dioxide 26 mmol/L (22-29); Chloride 101 mmol/L (96-108); Creatinine Clr Calc Pharmacy 63.3; Estimated Glomerular Filt Rate > 60; Glucose Random 123 mg/dL (60-115); Potassium 4.4 mmol/L (3.3-5.1); Sodium 132 mmol/L (135-145)
--- NOTE | 2022-08-17 08:04 | PHA.MEDREC ---
Pharmacy Consult ? Medication Reconciliation Pharmacy has completed the medication reconciliation. dOSE ADJUSTMENTS MADE ON TRAZODONE, ATORVASTATIN AND SEROQUEL SECODARY TO PLALOVID
[2022-08-17 09:25] LABS: Troponin-I High Sensitivity 54.8 ng/L (<3.5-35.0)
[2022-08-17] MEDS: Enoxaparin Sodium 40 MG/0.4 ML SYRINGE SUBCUT (10:27)
[2022-08-17] MEDS: Cholecalciferol (Vitamin D3) 25 MCG TABLET PO (10:28)
[2022-08-17] MEDS: Docusate Sodium 100 MG CAPSULE PO ×2 (10:28→21:05)
[2022-08-17] MEDS: pyRIDostigmine bromide 60 MG TABLET PO ×3 (10:28→21:03)
[2022-08-17] MEDS: Venlafaxine HCl ER 150 MG CAP.ER.24H PO (10:28)
[2022-08-17] MEDS: Acetaminophen 325 MG TABLET 650 MG PO (10:28)
[2022-08-17] MEDS: 0.9 % Sodium Chloride Flush 3 ML SYRINGE IVFLUSH ×3 (10:28→21:05)
--- NOTE | 2022-08-17 11:52 | MHC.CM.PN ---
pt from [facility] where he will return when dcd [t is covid vax x 5
--- NOTE | 2022-08-17 12:14 | P.CNNE_ITS ---
History of Present Illness Data of Consult Service Date: 08/17/22 Primary Care Provider: KASH Carnes [facility] Reason for consult: syncopal 82 years old man with multiple previous medical issues including stable myasthenia gravis came to hospital after he passed out. He did not remember what had happened. Apparently his blood pressure was low in 80s systolic. There was no witnessing of any convulsion. He was found to be COVID positive. Review of Systems Review of Systems: No headache or seizure. [facility] Past Medical History Medical History Abnormal LFTs (liver function tests) Acute respiratory disease Atherosclerotic cardiovascular disease BPH (benign prostatic hyperplasia) CAD (coronary artery disease) Cataract Cholecystitis Choledocholithiasis COVID-19 Depression Diabetes mellitus Diet-controlled diabetes mellitus Dysarthria Elevated troponin Essential hypertension Gastrointestinal bleeding GERD (gastroesophageal reflux disease) Hammer toe Hammer toes, bilateral History of diverticulosis History of rectal cancer Hyperlipidemia Hypertension Inguinal hernia Insomnia Malignant neoplasm of colon Myasthenia gravis Myasthenia gravis Nonalcoholic steatohepatitis (MARTI) Onychogryphosis Rheumatoid arthritis Urinary incontinence Family History Family History Mother No problems noted. Father No problems noted. Brother No problems noted. Sister No problems noted. Daughter Psychiatric disorder Son No problems noted. Surgical History Surgical History History of cardiac catheterization (~11/18/20) History of cholecystectomy (~02/20/21) History of colostomy History of colostomy reversal History of coronary artery bypass graft x 2 (~12/08/20) History of incisional hernia repair History of left-sided carotid endarterectomy (~12/08/20) History of low anterior resection of rectum Social History Social History Household Members: Other Housing: Assisted Living Facility Housing Other:: [facility] home Do you presently have visiting nurse or other home services: No Alcohol intake: never Patient Tobacco Use Status: Never used Tobacco Smoked in Last 30 Days: No Use of substances other than those prescribed or required for medical reasons: No Currently Displaying Signs/Symptoms of Drug Intoxication Withdrawal: No Have you been hit, kicked, punched, or otherwise hurt by someone within the past year? If so, by whom?: No Do you feel safe in your current relationship?: No Current Relationship Is there a partner from a previous relationship who is making you feel unsafe now?: No Are you made to feel afraid or neglected: No Advance Directives: Yes Advance Directives on File: Yes Advance Directives Date on File: 06/21/20 Do you have thoughts of harming others: None Do you have a plan to hurt others: No Plan Recently lost weight without trying: No How much weight loss: Not applicable Eating poorly because of decreased appetite: No Nutrition screen score: 0 Nutrition Risks: Difficulty chewing Poor oral hygiene: No service: Yes Current occupational status: retired [employer] Allergies Allergy/AdvReac Type Severity Reaction Status Date / Time No Known Allergies Allergy Verified 08/22/21 10:16 [No Known Allergies*] Active Medications: Current Medications Acetaminophen (Acetaminophen 325 Mg Tablet) 650 mg PO Q6H PRN PRN Reason: Pain, Mild (Pain Scale 1-3) Last Admin: 08/17/22 10:28 Dose: 650 mg Artificial Tears (Artificial Tears 15 Ml Drops) 1 drop EYE-BOTH BEDTIME [facility] Aspirin (Aspirin Enteric Coated 81 Mg Tablet.) 81 mg PO DAILY [facility] Atorvastatin Calcium (Atorvastatin Calcium 40 Mg Tablet) 40 mg PO DAILY@1700 [facility] Azathioprine (Azathioprine 50 Mg Tablet) 50 mg PO Q2D [facility] Calcium Polycarbophil (Calcium Polycarbophil Tablet) 1 tab PO DAILY [facility] Cyanocobalamin (Cyanocobalamin (Vitamin B-12) 1,000 Mcg/Ml Vial) 1,000 mcg IM Q28D [facility] Docusate Sodium (Docusate Sodium 100 Mg Capsule) 100 mg PO DAILY PRN PRN Reason: Constipation Docusate Sodium (Docusate Sodium 100 Mg Capsule) 100 mg PO BID [facility] Last Admin: 08/17/22 10:28 Dose: 100 mg Enoxaparin Sodium (Enoxaparin Sodium 40 Mg/0.4 Ml Syringe) 40 mg SUBCUT Q24H [facility] Last Admin: 08/17/22 10:27 Dose: 40 mg Ferrous Sulfate (Ferrous Sulfate 324 Mg Tablet.) 324 mg PO BID [facility] Fluticasone Propionate (Fluticasone Propionate Nasal 16 Gm Minerva) 1 spray NOSTRIL-B BID [facility] Last Admin: 08/17/22 10:29 Dose: Not Given Omeprazole (Omeprazole 40 Mg Capsule.Dr) 40 mg PO DAILY@1600 [facility] Ondansetron HCl (Ondansetron Hcl 4 Mg/2 Ml Vial) 4 mg IVPUSH Q8H PRN PRN Reason: Nausea and Vomiting Pharmacy Consult (Consult Rx Perform Med Rec) 1 each MISCELLANE ONCE PRN PRN Reason: Consult order Prednisone (Prednisone 5 Mg Tablet) 2.5 mg PO Q2D [facility] Pyridostigmine [place] (Pyridostigmine [place] 60 Mg Tablet) 60 mg PO TID [facility] Last Admin: 08/17/22 10:28 Dose: 60 mg Quetiapine Fumarate (Quetiapine Fumarate 25 Mg Tablet) 75 mg PO BEDTIME [facility] Ropinirole HCl (Ropinirole Hcl 2 Mg Tablet) 3 mg PO BEDTIME [facility] Sodium Chloride (0.9 % Sodium Chloride Flush 3 Ml Syringe) 3 ml IVFLUSH QSHIFT [facility] Last Admin: 08/17/22 10:28 Dose: 3 ml Tamsulosin HCl (Tamsulosin Hcl 0.4 Mg Capsule) 0.4 mg PO BEDTIME [facility] Venlafaxine HCl (Venlafaxine Hcl Er 150 Mg Cap.Er.24h) 150 mg PO DAILY [facility] Last Admin: 08/17/22 10:28 Dose: 150 mg Vitamin D (Cholecalciferol (Vitamin D3) 25 Mcg Tablet) 25 mcg PO DAILY [facility] Last Admin: 08/17/22 10:28 Dose: 25 mcg Home Medications Medication Instructions Recorded Confirmed Last Taken Type acetaminophen 650 mg tablet 650 mg PO BEDTIME 09/14/20 08/22/21 09/19/20 History aspirin 81 mg tablet 81 mg PO DAILY 09/14/20 08/17/22 09/12/20 History atorvastatin 40 mg tablet 40 mg PO DAILY@1700 09/14/20 08/17/22 09/19/20 History azathioprine 50 mg tablet 50 mg PO Q2D 09/14/20 08/17/22 09/19/20 History calcium polycarbophil 625 mg tablet 625 mg PO DAILY 09/14/20 08/17/22 09/19/20 History carboxymethylcellulose sodium 1 drp ophthalmic (eye) BEDTIME 09/14/20 08/17/22 09/19/20 History cholecalciferol (vitamin D3) 25 25 mcg PO DAILY 09/14/20 08/17/22 09/19/20 History mcg (1,000 unit) chewable tablet cyanocobalamin (vitamin B-12) 1,000 mcg IM QMONTH 09/14/20 08/17/22 Unknown History 1,000 mcg/mL injection solution ferrous sulfate 325 mg (65 mg 325 mg PO BID 09/14/20 08/17/22 09/19/20 History iron) tablet (Iron (ferrous sulfate)) fluticasone propionate 50 1 spray intranasal BID 09/14/20 08/17/22 09/19/20 History mcg/actuation nasal spray,suspension oxybutynin chloride 15 mg 15 mg PO DAILY 09/14/20 08/17/22 09/19/20 History tablet,extended release 24 hr prednisone 5 mg tablet 2.5 mg PO Q OTHER DAY 09/14/20 08/17/22 09/19/20 History pyridostigmine bromide 60 mg tablet 60 mg PO TID 09/14/20 08/17/22 09/19/20 History quetiapine 25 mg tablet 75 mg PO BEDTIME 09/14/20 08/17/22 09/19/20 History tamsulosin 0.4 mg capsule 0.4 mg PO BEDTIME 09/14/20 08/17/22 09/19/20 History trazodone 50 mg tablet 25 mg PO BEDTIME 09/14/20 08/17/22 09/19/20 History venlafaxine 150 mg 150 mg PO DAILY 09/14/20 08/17/22 09/19/20 History capsule,extended release 24 hr docusate sodium 100 mg capsule 100 mg PO BID 09/20/20 08/17/22 09/19/20 History omeprazole 20 mg capsule,delayed 40 mg PO DAILY@1600 09/20/20 08/17/22 09/19/20 History release metoprolol tartrate 25 mg tablet 12.5 mg PO BID 12/22/20 08/17/22 Unknown History ropinirole 3 mg tablet 3 mg PO BEDTIME 08/17/22 08/17/22 Unknown History Physical Exam Vital Signs: Vital Signs: Last Vital Signs Temp 97.5 F 08/17/22 11:20 Pulse 65 08/17/22 11:20 Resp 18 08/17/22 11:20 BP 130/76 08/17/22 11:20 Pulse Ox 97 08/17/22 11:20 O2 Del Method 08/17/22 11:20 O2 Flow Rate 2 08/17/22 11:20 BMI result Body Mass Index 30.4 Neuro: Other: Alert and awake with normal spontaneity of speech fluency comprehension and affect. There was mild left-sided ptosis. There was no focal weakness. Deep tendon reflexes are absent with flexor plantars. Face was symmetrical. Results Labs CBC & Chem 7: 08/17/22 05:59 08/17/22 05:59 Labs: Short CBC 08/16/22 08/17/22 Range/Units 22:01 05:59 WBC 6.6 5.9 (4.8-10.8) X10*3/uL Hgb 11.8 L 12.0 L (14.0-18.0) g/dl Hct 34.3 L 35.5 L (42.0-52.0) % Plt Count 139 L D 152 L (160-400) X10*3/uL BMP 08/16/22 08/17/22 22:01 05:59 Sodium 137 132 L Potassium 4.0 4.4 Chloride 104 101 Carbon Dioxide 22 26 BUN 18 H 16 Creatinine 0.98 0.86 Calcium 8.0 L D 8.4 Liver Function 08/16/22 Range/Units 22:01 Total Bilirubin 0.3 (0.0-1.0) mg/dL AST 95 H (5-37) U/L ALT 93 H (0-40) U/L Alkaline Phosphatase 62 (39-117) U/L Albumin 3.6 (3.5-5.0) g/dL Assessment and Plan (1) Syncope and collapse: Status: Acute Probably a non neurological cause for syncope. I would adjust blood pressure medicines to avoid hypotension, if no other cause is found. Procedures Date of Service Date of Service: 08/17/22
[2022-08-17] MEDS: azaTHIOprine 50 MG TABLET PO (14:09)
[2022-08-17] MEDS: Fluticasone Propionate Nasal 16 GM SPRAY 1 SPRAY NOSTRIL-B ×2 (14:10→21:03)
--- NOTE | 2022-08-17 14:31 | MHC.CLN ---
NUTRITION PER ADMISSION NOTE, PATIENT PREFERS PUREE CONSISTENCY DUE TO NO TEETH. SPOKE TO NURSE AT [facility] AND CONFIRMED THAT PATIENT RECEIVES PUREE FOOD PER PREFERENCE DUE TO DENTITION. DIET CHANGED TO PUREE.
--- NOTE | 2022-08-17 15:40 | PM.CNCAR ---
History of Present Illness History of Present Illness Date of Service: 08/17/22 Requesting physician: Gabriella Perez Chief complaint: Syncope, symptomatic bradycardia. Narrative: Pleasant 82 gentleman who is a resident at [facility] and has background history of myasthenia gravis, coronary artery disease status post bypass surgery, previous stroke with carotid disease, anemia and diabetes. He is presenting for syncope. The patient does not remember the events well. He said he was sitting down waiting to watch a football game and does not remember anything after that. As per chart review and discussion with medicine team, it appears he became unresponsive while at [facility] and CPR was performed. EMS found him to be bradycardic with heart rate of 22. I do not have any of these rhythm strips available currently. He was transiently in junctional rhythm on the telemetry but it looks like he has been mostly in sinus rhythm with first-degree AV block since then. He is denying any chest pain or shortness of breath. He does not remember having any syncopal episodes recently. No other complaints. He has been instantly found to be COVID-19 positive. [facility] Past Medical History Medical History Abnormal LFTs (liver function tests) Acute respiratory disease Atherosclerotic cardiovascular disease BPH (benign prostatic hyperplasia) CAD (coronary artery disease) Cataract Cholecystitis Choledocholithiasis COVID-19 Depression Diabetes mellitus Diet-controlled diabetes mellitus Dysarthria Elevated troponin Essential hypertension Gastrointestinal bleeding GERD (gastroesophageal reflux disease) Hammer toe Hammer toes, bilateral History of diverticulosis History of rectal cancer Hyperlipidemia Hypertension Inguinal hernia Insomnia Malignant neoplasm of colon Myasthenia gravis Myasthenia gravis Nonalcoholic steatohepatitis (MARTI) Onychogryphosis Rheumatoid arthritis Urinary incontinence Family History Family History Mother No problems noted. Father No problems noted. Brother No problems noted. Sister No problems noted. Daughter Psychiatric disorder Son No problems noted. Surgical History Surgical History History of cardiac catheterization (~11/18/20) History of cholecystectomy (~02/20/21) History of colostomy History of colostomy reversal History of coronary artery bypass graft x 2 (~12/08/20) History of incisional hernia repair History of left-sided carotid endarterectomy (~12/08/20) History of low anterior resection of rectum Social History Social History Household Members: Other Housing: Assisted Living Facility Housing Other:: [facility] home Do you presently have visiting nurse or other home services: No Alcohol intake: never Patient Tobacco Use Status: Never used Tobacco Smoked in Last 30 Days: No Use of substances other than those prescribed or required for medical reasons: No Currently Displaying Signs/Symptoms of Drug Intoxication Withdrawal: No Have you been hit, kicked, punched, or otherwise hurt by someone within the past year? If so, by whom?: No Do you feel safe in your current relationship?: No Current Relationship Is there a partner from a previous relationship who is making you feel unsafe now?: No Are you made to feel afraid or neglected: No Advance Directives: Yes Advance Directives on File: Yes Advance Directives Date on File: 06/21/20 Do you have thoughts of harming others: None Do you have a plan to hurt others: No Plan Recently lost weight without trying: No How much weight loss: Not applicable Eating poorly because of decreased appetite: No Nutrition screen score: 0 Nutrition Risks: Difficulty chewing Poor oral hygiene: No service: Yes Current occupational status: retired [employer] Allergies Allergy/AdvReac Type Severity Reaction Status Date / Time No Known Allergies Allergy Verified 08/22/21 10:16 [No Known Allergies*] Active Medications: Current Medications Acetaminophen (Acetaminophen 325 Mg Tablet) 650 mg PO Q6H PRN PRN Reason: Pain, Mild (Pain Scale 1-3) Last Admin: 08/17/22 10:28 Dose: 650 mg Artificial Tears (Artificial Tears 15 Ml Drops) 1 drop EYE-BOTH BEDTIME [facility] Aspirin (Aspirin Enteric Coated 81 Mg Tablet.Dr) 81 mg PO DAILY [facility] Atorvastatin Calcium (Atorvastatin Calcium 40 Mg Tablet) 40 mg PO DAILY@1700 [facility] Azathioprine (Azathioprine 50 Mg Tablet) 50 mg PO Q2D [facility] Last Admin: 08/17/22 14:09 Dose: 50 mg Calcium Polycarbophil (Calcium Polycarbophil Tablet) 1 tab PO DAILY [facility] Last Admin: 08/17/22 14:10 Dose: Not Given Cyanocobalamin (Cyanocobalamin (Vitamin B-12) 1,000 Mcg/Ml Vial) 1,000 mcg IM Q28D [facility] Docusate Sodium (Docusate Sodium 100 Mg Capsule) 100 mg PO DAILY PRN PRN Reason: Constipation Docusate Sodium (Docusate Sodium 100 Mg Capsule) 100 mg PO BID [facility] Last Admin: 08/17/22 10:28 Dose: 100 mg Enoxaparin Sodium (Enoxaparin Sodium 40 Mg/0.4 Ml Syringe) 40 mg SUBCUT Q24H [facility] Last Admin: 08/17/22 10:27 Dose: 40 mg Ferrous Sulfate (Ferrous Sulfate 324 Mg Tablet.) 324 mg PO BID [facility] Fluticasone Propionate (Fluticasone Propionate Nasal 16 Gm Sparks) 1 spray NOSTRIL-B BID [facility] Last Admin: 08/17/22 14:10 Dose: 1 spray Omeprazole (Omeprazole 40 Mg Capsule.) 40 mg PO DAILY@1600 [facility] Ondansetron HCl (Ondansetron Hcl 4 Mg/2 Ml Vial) 4 mg IVPUSH Q8H PRN PRN Reason: Nausea and Vomiting Pharmacy Consult (Consult Rx Perform Med Rec) 1 each MISCELLANE ONCE PRN PRN Reason: Consult order Prednisone (Prednisone 5 Mg Tablet) 2.5 mg PO Q2D [facility] Last Admin: 08/17/22 14:07 Dose: Not Given Pyridostigmine Pearsall (Pyridostigmine Pearsall 60 Mg Tablet) 60 mg PO TID [facility] Last Admin: 08/17/22 10:28 Dose: 60 mg Quetiapine Fumarate (Quetiapine Fumarate 25 Mg Tablet) 75 mg PO BEDTIME [facility] Ropinirole HCl (Ropinirole Hcl 2 Mg Tablet) 3 mg PO BEDTIME [facility] Sodium Chloride (0.9 % Sodium Chloride Flush 3 Ml Syringe) 3 ml IVFLUSH QSHIFT [facility] Last Admin: 08/17/22 10:28 Dose: 3 ml Tamsulosin HCl (Tamsulosin Hcl 0.4 Mg Capsule) 0.4 mg PO BEDTIME [facility] Venlafaxine HCl (Venlafaxine Hcl Er 150 Mg Cap.Er.24h) 150 mg PO DAILY [facility] Last Admin: 08/17/22 10:28 Dose: 150 mg Vitamin D (Cholecalciferol (Vitamin D3) 25 Mcg Tablet) 25 mcg PO DAILY [facility] Last Admin: 08/17/22 10:28 Dose: 25 mcg Home Medications Medication Instructions Recorded Confirmed Last Taken Type acetaminophen 650 mg tablet 650 mg PO BEDTIME 09/14/20 08/22/21 09/19/20 History aspirin 81 mg tablet 81 mg PO DAILY 09/14/20 08/17/22 09/12/20 History atorvastatin 40 mg tablet 40 mg PO DAILY@1700 09/14/20 08/17/22 09/19/20 History azathioprine 50 mg tablet 50 mg PO Q2D 09/14/20 08/17/22 09/19/20 History calcium polycarbophil 625 mg tablet 625 mg PO DAILY 09/14/20 08/17/22 09/19/20 History carboxymethylcellulose sodium 1 drp ophthalmic (eye) BEDTIME 09/14/20 08/17/22 09/19/20 History cholecalciferol (vitamin D3) 25 25 mcg PO DAILY 09/14/20 08/17/22 09/19/20 History mcg (1,000 unit) chewable tablet cyanocobalamin (vitamin B-12) 1,000 mcg IM QMONTH 09/14/20 08/17/22 Unknown History 1,000 mcg/mL injection solution ferrous sulfate 325 mg (65 mg 325 mg PO BID 09/14/20 08/17/22 09/19/20 History iron) tablet (Iron (ferrous sulfate)) fluticasone propionate 50 1 spray intranasal BID 09/14/20 08/17/22 09/19/20 History mcg/actuation nasal spray,suspension oxybutynin chloride 15 mg 15 mg PO DAILY 09/14/20 08/17/22 09/19/20 History tablet,extended release 24 hr prednisone 5 mg tablet 2.5 mg PO Q OTHER DAY 09/14/20 08/17/22 09/19/20 History pyridostigmine bromide 60 mg tablet 60 mg PO TID 09/14/20 08/17/22 09/19/20 History quetiapine 25 mg tablet 75 mg PO BEDTIME 09/14/20 08/17/22 09/19/20 History tamsulosin 0.4 mg capsule 0.4 mg PO BEDTIME 09/14/20 08/17/22 09/19/20 History trazodone 50 mg tablet 25 mg PO BEDTIME 09/14/20 08/17/22 09/19/20 History venlafaxine 150 mg 150 mg PO DAILY 09/14/20 08/17/22 09/19/20 History capsule,extended release 24 hr docusate sodium 100 mg capsule 100 mg PO BID 09/20/20 08/17/22 09/19/20 History omeprazole 20 mg capsule,delayed 40 mg PO DAILY@1600 09/20/20 08/17/22 09/19/20 History release metoprolol tartrate 25 mg tablet 12.5 mg PO BID 12/22/20 08/17/22 Unknown History ropinirole 3 mg tablet 3 mg PO BEDTIME 08/17/22 08/17/22 Unknown History Physical Exam Vital Signs: Vital Signs: Last Vital Signs Temp 99.4 F 08/17/22 15:30 Pulse 60 08/17/22 15:30 Resp 18 08/17/22 15:30 BP 147/66 H 08/17/22 15:30 Pulse Ox 97 08/17/22 15:30 O2 Del Method 08/17/22 15:30 O2 Flow Rate 2 08/17/22 11:20 BMI result Body Mass Index 30.4 GENERAL APPEARANCE: in no acute distress, pleasant. NECK: no carotid bruit, no jugular venous distention. SKIN: no suspicious lesions, warm and dry. HEART: Systolic murmur, regular rate and rhythm. LUNGS: clear to auscultation bilaterally. ABDOMEN: soft, nontender. EXTREMITIES: no edema. PERIPHERAL PULSES: equal. NEUROLOGIC: No gross deficits, AAO X 3 Objective Labs and Meds Result diagrams: 08/17/22 05:59 08/17/22 05:59 Lab results: Laboratory Results - last 24 hr 08/16/22 08/16/22 08/16/22 22:00 22:01 22:01 WBC 6.6 RBC 3.61 L Hgb 11.8 L Hct 34.3 L MCV 95.0 MCH 32.7 MCHC 34.4 RDW 12.9 Plt Count 139 L D MPV 9.7 Immature Gran % (Auto) 0.6 H Neut % (Auto) 75.9 H Lymph % (Auto) 9.8 L Jerome % (Auto) 12.7 H Eos % (Auto) 0.5 Baso % (Auto) 0.5 Lymph # (Auto) 0.7 L Jerome # (Auto) 0.8 Eos # (Auto) 0.0 Baso # (Auto) 0.0 Abs Immat Gran (auto) 0.04 H Absolute Neuts (auto) 5.1 Absolute Nucleated RBC 0.000 Nucleated RBC % (auto) 0.0 PT 12.5 INR 1.1 APTT 30.9 Sodium 137 Potassium 4.0 Chloride 104 Carbon Dioxide 22 Anion Gap 15 BUN 18 H Creatinine 0.98 Estim Creat Clear Calc 55.6 Estimated GFR > 60 Random Glucose 118 H Calcium 8.0 L D Total Bilirubin 0.3 AST 95 H ALT 93 H Alkaline Phosphatase 62 Troponin I High Sens Total Protein 5.7 L Albumin 3.6 COVID-19 (SEVEN) COVID-19 Clin Com 08/16/22 08/16/22 08/17/22 22:01 23:00 05:59 WBC 5.9 RBC 3.70 L Hgb 12.0 L Hct 35.5 L MCV 95.9 MCH 32.4 MCHC 33.8 RDW 13.0 Plt Count 152 L MPV 9.5 Immature Gran % (Auto) 0.5 H Neut % (Auto) 75.1 H Lymph % (Auto) 7.8 L Jerome % (Auto) 15.8 H Eos % (Auto) 0.3 Baso % (Auto) 0.5 Lymph # (Auto) 0.5 L Jerome # (Auto) 0.9 Eos # (Auto) 0.0 Baso # (Auto) 0.0 Abs Immat Gran (auto) 0.03 Absolute Neuts (auto) 4.4 Absolute Nucleated RBC 0.000 Nucleated RBC % (auto) 0.0 PT INR APTT Sodium Potassium Chloride Carbon Dioxide Anion Gap BUN Creatinine Estim Creat Clear Calc Estimated GFR Random Glucose Calcium Total Bilirubin AST ALT Alkaline Phosphatase Troponin I High Sens 15.3 Total Protein Albumin COVID-19 (SEVEN) Positive A COVID-19 Clin Com See Note 08/17/22 08/17/22 05:59 08:30 WBC RBC Hgb Hct MCV MCH MCHC RDW Plt Count MPV Immature Gran % (Auto) Neut % (Auto) Lymph % (Auto) Jerome % (Auto) Eos % (Auto) Baso % (Auto) Lymph # (Auto) Jerome # (Auto) Eos # (Auto) Baso # (Auto) Abs Immat Gran (auto) Absolute Neuts (auto) Absolute Nucleated RBC Nucleated RBC % (auto) PT INR APTT Sodium 132 L Potassium 4.4 Chloride 101 Carbon Dioxide 26 Anion Gap 9 L BUN 16 Creatinine 0.86 Estim Creat Clear Calc 63.3 Estimated GFR > 60 Random Glucose 123 H Calcium 8.4 Total Bilirubin AST ALT Alkaline Phosphatase Troponin I High Sens 54.8 H Total Protein Albumin COVID-19 (SEVEN) COVID-19 Clin Com Imaging Radiologist's impression: Impressions Chest X-Ray 08/16/22 22:29 IMPRESSION: Interval post-CABG changes. Low lung volumes. No evidence for acute disease in the chest. Shoulder X-Ray 08/17/22 13:26 IMPRESSION: Mild left acromioclavicular degenerative joint changes. No acute fracture. Assessment and Plan (1) Symptomatic bradycardia: Status: Acute (2) Syncope and collapse: Status: Acute (3) Status post coronary artery bypass graft: Status: Acute Plan [age] gentleman was COVID positive and presented with symptomatic bradycardia. He has known history of coronary disease previous bypass surgery. As per chart review and discussion medicine he was bradycardic with heart rate of 22. He has myasthenia gravis. He was on metoprolol 12.5 mg twice a day before. I will hold beta-blockers for now although such a small dose is not the cause for his presentation. Given syncope, CPR and resuscitation and bradycardia when EMS assessed him I think he has an indication for permanent pacemaker placement. Please consult thoracic surgery for a dual-chamber pacemaker. Denies chest pain or shortness of breath. Clinically not in heart failure. Thank you for allowing me to participate in the care of your patient. Please feel free to contact me if you have any questions. Procedures Date of Service Date of Service: 08/17/22
[2022-08-17] MEDS: Atorvastatin Calcium 40 MG TABLET PO (15:51)
[2022-08-17] MEDS: Omeprazole 40 MG CAPSULE.DR PO (15:51)
--- NOTE | 2022-08-17 17:08 | PM.EVENT ---
Event Note Date of Service: 08/17/22 Event Note: Patient seen examined seems to be more awake alert Denies any chest pain shortness of breath or abdominal pain or fever chills Physical exam: Unchanged from HPI Assessment and plan coordinated in HPI note: Patient was admitted for syncope /symptomatic bradycardia pacer at bedside , atropin at bedside if haemodynmic unstability -may need to go to ICU
[2022-08-17] MEDS: traMADoL HCL 50 MG TABLET 25 MG PO (21:03)
[2022-08-17] MEDS: Ferrous Sulfate 324 MG TABLET.DR PO (21:04)
[2022-08-17] MEDS: Tamsulosin HCL 0.4 MG CAPSULE PO (21:04)
[2022-08-18 04:00] VITALS: BP 158/76; PULSE 72; RESP 20; TEMP 37.2
[2022-08-18 06:00] VITALS: BMI 30.3
[2022-08-18 08:00] VITALS: BP 155/80; PULSE 71; RESP 20; TEMP 36.6; O2SAT 95
[2022-08-18] MEDS: calcium polycarbophiL TABLET 1 TAB PO (08:19)
[2022-08-18] MEDS: Enoxaparin Sodium 40 MG/0.4 ML SYRINGE SUBCUT (08:19)
[2022-08-18] MEDS: Ferrous Sulfate 324 MG TABLET.DR PO ×2 (08:19→21:01)
[2022-08-18] MEDS: Aspirin Enteric Coated 81 MG TABLET.DR PO (08:19)
[2022-08-18] MEDS: Cholecalciferol (Vitamin D3) 25 MCG TABLET PO (08:19)
[2022-08-18] MEDS: pyRIDostigmine bromide 60 MG TABLET PO ×3 (08:19→21:01)
[2022-08-18] MEDS: Docusate Sodium 100 MG CAPSULE PO ×2 (08:19→21:01)
[2022-08-18] MEDS: guaiFEN/Codeine SF 200/20/10ML 10 ML LIQUID 5 ML PO ×2 (08:19→21:03)
[2022-08-18] MEDS: 0.9 % Sodium Chloride Flush 3 ML SYRINGE IVFLUSH ×2 (08:22→21:09)
[2022-08-18] MEDS: amLODIPine Besylate 2.5 MG TABLET PO (09:50)
[2022-08-18 12:00] VITALS: BP 173/85; PULSE 70; RESP 20; TEMP 36.4; O2SAT 95
[2022-08-18] MEDS: LORazepam 0.5 MG TABLET PO (12:16)
--- NOTE | 2022-08-18 12:44 | PM.PSYCN ---
History of Present Illness Date of Service: 08/18/2022 Chief Complaint: Syncope, symptomatic bradycardia. Reason for Consult: ? of psychiatric med that is safe for him with sever corrine cardia Requesting physician: Gabriella Perez Discussed with referring provider: Yes Sources of Information: patient interviewed and chart reviewed HPI Narrative: Pt reports living at [facility], has been struggling with corrine cardia for about a year had episode of collapse then came to [facility] He has covid and had covid few years ago when tragedy happened at [facility] home, he was hospitalized then at [facility] and survived- he was quite ill then Past Psychiatric History: Patient reports past hx of depression denies ah/vh, paranoia was on seroquel venlafaxine , remeron and trazodone for insomnia and depression denies hx psych hosp or [facility] Medical Evaluation Reviewed: Yes emilee adams down to 22! Personal & Social History: Patient very lonely noone come to visit him at [facility] home He is in touch with his son - who called during interview pt didn't want me to leave no one comes to visit due to Covid- status [facility] Medical History (Updated 08/18/22 @ 15:08 by Cristina Bernard MD) Abnormal LFTs (liver function tests) Acute respiratory disease Atherosclerotic cardiovascular disease BPH (benign prostatic hyperplasia) CAD (coronary artery disease) Cataract Cholecystitis Choledocholithiasis COVID-19 Depression Diabetes mellitus Diet-controlled diabetes mellitus Dysarthria Elevated troponin Essential hypertension Gastrointestinal bleeding GERD (gastroesophageal reflux disease) Hammer toe Hammer toes, bilateral History of diverticulosis History of rectal cancer Hyperlipidemia Hypertension Inguinal hernia Insomnia Malignant neoplasm of colon Myasthenia gravis Myasthenia gravis Nonalcoholic steatohepatitis (MARTI) Onychogryphosis Rheumatoid arthritis Urinary incontinence Surgical History History of cardiac catheterization (~11/18/20) History of cholecystectomy (~02/20/21) History of colostomy History of colostomy reversal History of coronary artery bypass graft x 2 (~12/08/20) History of incisional hernia repair History of left-sided carotid endarterectomy (~12/08/20) History of low anterior resection of rectum Substance History: none recent Diagnostics Vital Signs (24Hr): Vital Signs - 24 hr 08/17/22 15:30 08/17/22 19:25 08/17/22 23:40 Temperature 99.4 F 98.1 F 98.6 F Pulse Rate 60 72 69 Respiratory Rate 18 18 18 Blood Pressure 147/66 H 172/72 H 145/66 H Pulse Oximetry 97 95 98 Oxygen Delivery Method Room Air Room Air Room Air Oxygen Flow Rate 08/18/22 04:00 08/18/22 08:00 08/18/22 12:00 Temperature 98.9 F 97.8 F 97.6 F Pulse Rate 72 71 70 Respiratory Rate 20 20 20 Blood Pressure 158/76 H 155/80 H 173/85 H Pulse Oximetry 95 95 Oxygen Delivery Method Nasal Cannula Room Air Room Air Oxygen Flow Rate 2 BMI result Body Mass Index 30.3 Labs Results: 08/17/22 05:59 08/17/22 05:59 Labs: Laboratory Results - last 48 hr 08/16/22 08/16/22 08/16/22 22:00 22:01 22:01 WBC 6.6 RBC 3.61 L Hgb 11.8 L Hct 34.3 L MCV 95.0 MCH 32.7 MCHC 34.4 RDW 12.9 Plt Count 139 L D MPV 9.7 Immature Gran % (Auto) 0.6 H Neut % (Auto) 75.9 H Lymph % (Auto) 9.8 L [place] % (Auto) 12.7 H Eos % (Auto) 0.5 Baso % (Auto) 0.5 Lymph # (Auto) 0.7 L [place] # (Auto) 0.8 Eos # (Auto) 0.0 Baso # (Auto) 0.0 Abs Immat Gran (auto) 0.04 H Absolute Neuts (auto) 5.1 Absolute Nucleated RBC 0.000 Nucleated RBC % (auto) 0.0 PT 12.5 INR 1.1 APTT 30.9 Sodium 137 Potassium 4.0 Chloride 104 Carbon Dioxide 22 Anion Gap 15 BUN 18 H Creatinine 0.98 Estim Creat Clear Calc 55.6 Estimated GFR > 60 Random Glucose 118 H Calcium 8.0 L D Total Bilirubin 0.3 AST 95 H ALT 93 H Alkaline Phosphatase 62 Troponin I High Sens Total Protein 5.7 L Albumin 3.6 COVID-19 (SEVEN) COVID-19 Clin Com 08/16/22 08/16/22 08/17/22 22:01 23:00 05:59 WBC 5.9 RBC 3.70 L Hgb 12.0 L Hct 35.5 L MCV 95.9 MCH 32.4 MCHC 33.8 RDW 13.0 Plt Count 152 L MPV 9.5 Immature Gran % (Auto) 0.5 H Neut % (Auto) 75.1 H Lymph % (Auto) 7.8 L Het[place] % (Auto) 15.8 H Eos % (Auto) 0.3 Baso % (Auto) 0.5 Lymph # (Auto) 0.5 L [place] # (Auto) 0.9 Eos # (Auto) 0.0 Baso # (Auto) 0.0 Abs Immat Gran (auto) 0.03 Absolute Neuts (auto) 4.4 Absolute Nucleated RBC 0.000 Nucleated RBC % (auto) 0.0 PT INR APTT Sodium Potassium Chloride Carbon Dioxide Anion Gap BUN Creatinine Estim Creat Clear Calc Estimated GFR Random Glucose Calcium Total Bilirubin AST ALT Alkaline Phosphatase Troponin I High Sens 15.3 Total Protein Albumin COVID-19 (SEVEN) Positive A COVID-19 Clin Com See Note 08/17/22 08/17/22 05:59 08:30 WBC RBC Hgb Hct MCV MCH MCHC RDW Plt Count MPV Immature Gran % (Auto) Neut % (Auto) Lymph % (Auto) Het[place]er % (Auto) Eos % (Auto) Baso % (Auto) Lymph # (Auto) Hettinger # (Auto) Eos # (Auto) Baso # (Auto) Abs Immat Gran (auto) Absolute Neuts (auto) Absolute Nucleated RBC Nucleated RBC % (auto) PT INR APTT Sodium 132 L Potassium 4.4 Chloride 101 Carbon Dioxide 26 Anion Gap 9 L BUN 16 Creatinine 0.86 Estim Creat Clear Calc 63.3 Estimated GFR > 60 Random Glucose 123 H Calcium 8.4 Total Bilirubin AST ALT Alkaline Phosphatase Troponin I High Sens 54.8 H Total Protein Albumin COVID-19 (SEVEN) COVID-19 Clin Com Imaging Radiology Impressions: ITS Impressions Chest X-Ray 08/16/22 22:29 IMPRESSION: Interval post-CABG changes. Low lung volumes. No evidence for acute disease in the chest. Shoulder X-Ray 08/17/22 13:26 IMPRESSION: Mild left acromioclavicular degenerative joint changes. No acute fracture. Mental Status Exam Mental Status Exam Patient Appearance: Fatigued and Appropriate Patient Orientation: Person, Place and Situation Level of Consciousness: Awake and Appropriate Patient Behavior: Appropriate and Passive Affect Description: Depressed Ability to Follow Directions: Fair Speech Pattern: Poor Articulation Memory Description: Intact Hallucinations: None Delusions: Not Present Thought Process: Intact and Goal Oriented Thought Content: positive for [place] Depressive Symptoms: Increased Anxiety and Difficulty Sleeping Abnormal Motor Activity Signs and Symptoms: Tic (movement of mouth and legs- consistent with TD! denies hx parkinson's) Judgement: Fair Medications Medications Current Medications Acetaminophen (Acetaminophen 325 Mg Tablet) 650 mg PO Q6H PRN PRN Reason: Pain, Mild (Pain Scale 1-3) Last Admin: 08/17/22 10:28 Dose: 650 mg Amlodipine Besylate (Amlodipine Besylate 2.5 Mg Tablet) 2.5 mg PO DAILY [facility]; Protocol Last Admin: 08/18/22 09:50 Dose: 2.5 mg Artificial Tears (Artificial Tears 15 Ml Drops) 1 drop EYE-BOTH BEDTIME [facility] Last Admin: 08/17/22 21:05 Dose: Not Given Aspirin (Aspirin Enteric Coated 81 Mg Tablet.Dr) 81 mg PO DAILY [facility] Last Admin: 08/18/22 08:19 Dose: 81 mg Atorvastatin Calcium (Atorvastatin Calcium 40 Mg Tablet) 40 mg PO DAILY@1700 [facility] Last Admin: 08/17/22 15:51 Dose: 40 mg Atropine Sulfate (Atropine Sulfate 1 Mg/Ml Vial) 1 mg IVPUSH ONCE PRN PRN Reason: symptomatic bradycardia Azathioprine (Azathioprine 50 Mg Tablet) 50 mg PO Q2D [facility] Last Admin: 08/17/22 14:09 Dose: 50 mg Calcium Polycarbophil (Calcium Polycarbophil Tablet) 1 tab PO DAILY [facility] Last Admin: 08/18/22 08:19 Dose: 1 tab Cyanocobalamin (Cyanocobalamin (Vitamin B-12) 1,000 Mcg/Ml Vial) 1,000 mcg IM Q28D [facility] Docusate Sodium (Docusate Sodium 100 Mg Capsule) 100 mg PO DAILY PRN PRN Reason: Constipation Docusate Sodium (Docusate Sodium 100 Mg Capsule) 100 mg PO BID [facility] Last Admin: 08/18/22 08:19 Dose: 100 mg Enoxaparin Sodium (Enoxaparin Sodium 40 Mg/0.4 Ml Syringe) 40 mg SUBCUT Q24H [facility] Last Admin: 08/18/22 08:19 Dose: 40 mg Ferrous Sulfate (Ferrous Sulfate 324 Mg Tablet.) 324 mg PO BID [facility] Last Admin: 08/18/22 08:19 Dose: 324 mg Fluticasone Propionate (Fluticasone Propionate Nasal 16 Gm [place]) 1 spray NOSTRIL-B BID [facility] Last Admin: 08/18/22 09:30 Dose: Not Given Guaifenesin/Codeine Phosphate (Guaifen/Codeine Sf 200/20/10ml 10 Ml Liquid) 5 ml PO Q6H PRN PRN Reason: cough Last Admin: 08/18/22 08:19 Dose: 5 ml Lorazepam (Lorazepam 0.5 Mg Tablet) 0.5 mg PO ONCE PRN PRN Reason: prn Last Admin: 08/18/22 12:16 Dose: 0.5 mg Omeprazole (Omeprazole 40 Mg Capsule.) 40 mg PO DAILY@1600 [facility] Last Admin: 08/17/22 15:51 Dose: 40 mg Ondansetron HCl (Ondansetron Hcl 4 Mg/2 Ml Vial) 4 mg IVPUSH Q8H PRN PRN Reason: Nausea and Vomiting Pharmacy Consult (Consult Rx Perform Med Rec) 1 each MISCELLANE ONCE PRN PRN Reason: Consult order Prednisone (Prednisone 5 Mg Tablet) 2.5 mg PO Q2D [facility] Last Admin: 08/17/22 14:07 Dose: Not Given Pyridostigmine [place] (Pyridostigmine [place] 60 Mg Tablet) 60 mg PO TID [facility] Last Admin: 08/18/22 08:19 Dose: 60 mg Quetiapine Fumarate (Quetiapine Fumarate 25 Mg Tablet) 75 mg PO BEDTIME [facility] Ropinirole HCl (Ropinirole Hcl 2 Mg Tablet) 3 mg PO BEDTIME [facility] Sodium Chloride (0.9 % Sodium Chloride Flush 3 Ml Syringe) 3 ml IVFLUSH QSHIFT [facility] Last Admin: 08/18/22 08:22 Dose: 3 ml Tamsulosin HCl (Tamsulosin Hcl 0.4 Mg Capsule) 0.4 mg PO BEDTIME [facility] Last Admin: 08/17/22 21:04 Dose: 0.4 mg Venlafaxine HCl (Venlafaxine Hcl Er 150 Mg Cap.Er.24h) 150 mg PO DAILY [facility] Vitamin D (Cholecalciferol (Vitamin D3) 25 Mcg Tablet) 25 mcg PO DAILY [facility] Last Admin: 08/18/22 08:19 Dose: 25 mcg Allergies Allergies Allergy/AdvReac Type Severity Reaction Status Date / Time No Known Allergies Allergy Verified 08/22/21 10:16 [No Known Allergies*] Assessment & Plan Assessment & Plan (1) Symptomatic bradycardia: Status: Acute Code(s): R00.1 - Bradycardia, unspecified Assessment and Plan: hold off on most meds, restart 1 at low dose /time, started with seroquel due to TD (2) Depression: Status: Acute Code(s): F32.9 - Major depressive disorder, single episode, unspecified Assessment and Plan: no si - we have time to manage this after bradycardia Plan start medications slowly one at a time, low doses, - until after pacemaker implanted I spent minutes with the patient and/or on the patient floor today, greater than?50% of which was spent counseling/coordinating care. Patient educated on: diagnosis and medication risk/benefits Informed Consent: further education needed (re need for pacemaker to go back on medication)
--- NOTE | 2022-08-18 13:32 | P.PNIM_ITS ---
Subjective Subjective Date of Service: 08/18/22 Interval History: syncope and collapse, symptomatic bradycardia Review of Systems Denies any chest pain or shortness of breath or abdominal pain or fever chills no new events on tele except around 10 pm episode of corrine ,asymptomatic Physical Exam Vital Signs: Vital Signs: Last Vital Signs Temp 97.6 F 08/18/22 12:00 Pulse 70 08/18/22 12:00 Resp 20 08/18/22 12:00 BP 173/85 H 08/18/22 12:00 Pulse Ox 95 08/18/22 12:00 O2 Del Method 08/18/22 12:00 O2 Flow Rate 2 08/18/22 04:00 BMI result Body Mass Index 30.3 Appearance: Alert.? Oriented X3.? not in distress.?. cvs: rrr, [id number] . res: clear to auscultation ,no rhonchii or wheezing abd: no rebound or guarding ,nt, bs present. ext pulses present , no cyanosis . neuro: axo3 , nonfocal. Objective Data Active Medications Acetaminophen (Acetaminophen 325 Mg Tablet) 650 mg PO Q6H PRN PRN Reason: Pain, Mild (Pain Scale 1-3) Last Admin: 08/17/22 10:28 Dose: 650 mg Documented By: EZRA Amlodipine Besylate (Amlodipine Besylate 2.5 Mg Tablet) 2.5 mg PO DAILY [facility]; Protocol Last Admin: 08/18/22 09:50 Dose: 2.5 mg Documented By: EZRA Artificial Tears (Artificial Tears 15 Ml Drops) 1 drop EYE-BOTH BEDTIME [facility] Last Admin: 08/17/22 21:05 Dose: Not Given Documented By: EVELINA Non-Admin Reason: Med Not Available Aspirin (Aspirin Enteric Coated 81 Mg Tablet.) 81 mg PO DAILY [facility] Last Admin: 08/18/22 08:19 Dose: 81 mg Documented By: EZRA Atorvastatin Calcium (Atorvastatin Calcium 40 Mg Tablet) 40 mg PO DAILY@1700 [facility] Last Admin: 08/17/22 15:51 Dose: 40 mg Documented By: EZRA Atropine Sulfate (Atropine Sulfate 1 Mg/Ml Vial) 1 mg IVPUSH ONCE PRN PRN Reason: symptomatic bradycardia Azathioprine (Azathioprine 50 Mg Tablet) 50 mg PO Q2D [facility] Last Admin: 08/17/22 14:09 Dose: 50 mg Documented By: EZRA Calcium Polycarbophil (Calcium Polycarbophil Tablet) 1 tab PO DAILY [facility] Last Admin: 08/18/22 08:19 Dose: 1 tab Documented By: EZRA Cyanocobalamin (Cyanocobalamin (Vitamin B-12) 1,000 Mcg/Ml Vial) 1,000 mcg IM Q28D [facility] Docusate Sodium (Docusate Sodium 100 Mg Capsule) 100 mg PO DAILY PRN PRN Reason: Constipation Docusate Sodium (Docusate Sodium 100 Mg Capsule) 100 mg PO BID [facility] Last Admin: 08/18/22 08:19 Dose: 100 mg Documented By: EZRA Enoxaparin Sodium (Enoxaparin Sodium 40 Mg/0.4 Ml Syringe) 40 mg SUBCUT Q24H [facility] Last Admin: 08/18/22 08:19 Dose: 40 mg Documented By: EZRA Ferrous Sulfate (Ferrous Sulfate 324 Mg Tablet.) 324 mg PO BID [facility] Last Admin: 08/18/22 08:19 Dose: 324 mg Documented By: EZRA Fluticasone Propionate (Fluticasone Propionate Nasal 16 Gm [place]) 1 spray NOSTRIL-B BID [facility] Last Admin: 08/18/22 09:30 Dose: Not Given Documented By: EZRA Non-Admin Reason: Patient Refused Guaifenesin/Codeine Phosphate (Guaifen/Codeine Sf 200/20/10ml 10 Ml Liquid) 5 ml PO Q6H PRN PRN Reason: cough Last Admin: 08/18/22 08:19 Dose: 5 ml Documented By: EZRA Lorazepam (Lorazepam 0.5 Mg Tablet) 0.5 mg PO ONCE PRN PRN Reason: prn Last Admin: 08/18/22 12:16 Dose: 0.5 mg Documented By: EZRA Mirtazapine (Mirtazapine 7.5 Mg Tablet) 7.5 mg PO BEDTIME [facility] Omeprazole (Omeprazole 40 Mg Capsule.) 40 mg PO DAILY@1600 [facility] Last Admin: 08/17/22 15:51 Dose: 40 mg Documented By: EZRA Ondansetron HCl (Ondansetron Hcl 4 Mg/2 Ml Vial) 4 mg IVPUSH Q8H PRN PRN Reason: Nausea and Vomiting Pharmacy Consult (Consult Rx Perform Med Rec) 1 each MISCELLANE ONCE PRN PRN Reason: Consult order Prednisone (Prednisone 5 Mg Tablet) 2.5 mg PO Q2D [facility] Last Admin: 08/17/22 14:07 Dose: Not Given Documented By: EZRA Non-Admin Reason: Med Not Available Pyridostigmine [place] (Pyridostigmine [place] 60 Mg Tablet) 60 mg PO TID [facility] Last Admin: 08/18/22 08:19 Dose: 60 mg Documented By: EZRA Quetiapine Fumarate (Quetiapine Fumarate 25 Mg Tablet) 25 mg PO BEDTIME [facility] Sodium Chloride (0.9 % Sodium Chloride Flush 3 Ml Syringe) 3 ml IVFLUSH QSHIFT [facility] Last Admin: 08/18/22 08:22 Dose: 3 ml Documented By: EZRA Tamsulosin HCl (Tamsulosin Hcl 0.4 Mg Capsule) 0.4 mg PO BEDTIME [facility] Last Admin: 08/17/22 21:04 Dose: 0.4 mg Documented By: EVELINA Vitamin D (Cholecalciferol (Vitamin D3) 25 Mcg Tablet) 25 mcg PO DAILY [facility] Last Admin: 08/18/22 08:19 Dose: 25 mcg Documented By: EZRA Labs CBC & Chem 7: 08/17/22 05:59 08/17/22 05:59 Assessment and Plan (1) Symptomatic bradycardia: Status: Acute (2) COVID-19: Status: Acute (3) Syncope and collapse: Status: Acute Plan 82-year-old male with past medical history of CAD status post CABG in 2020 presents to the hospital after collapse episode and performance of CPR at [facility] # syncope and collapse- possible cardiac arrest at [facility], pulse of 22 possible syncope /symptomatic bradycardia pacer at bedside , atropin at bedside if haemodynmic unstability -may need to go to ICU d/w cardio-patient will need pacemaker likely on Saturday, CT surgery consulted. # COVID-19 positive - acute symptoms - monitor respiratory status # history of coronary artery disease - currently no chest pain - continue aspirin, statin, metoprolol # myasthenia gravis - continue pyridostagmine # mood disorder - continue mood stabilizers: Psych evaluation added for psych medication adjustment in the light of bradycardia. DVT prophylaxis:? Lovenox Ongoing hospital stay needed -possible syncope /symptomatic bradycardia. need tele moniterin,possible pacemaker. Quality Stroke Does the patient have a stroke diagnosis?: No VTE Prior VTE?: No VTE Risk Level:: Medical - low VTE Device Contraindication: N/A - Device Ordered VTE Drug Contraindication: Treatment Not Indicated
--- NOTE | 2022-08-18 14:59 | PC.NURSE ---
pt expressed he is feeling anxious and stated this man just came in and told me i'm having an operation Saturday and I haven't slept in days, I can't have the operation . notified, po ativan once ordered. pt less anxious after ativan was given.
--- NOTE | 2022-08-18 15:06 | PC.NURSE ---
pt stated I do not want the opertion done saturday. I will not do it. you tell the doctor. I haven't been able to sleep the past few nights and I am old, and not ready for the operation . notified.
[2022-08-18 15:32] VITALS: PULSE 64; RESP 18; TEMP 36.3; O2SAT 97
[2022-08-18] MEDS: Atorvastatin Calcium 40 MG TABLET PO (16:20)
[2022-08-18] MEDS: Omeprazole 40 MG CAPSULE.DR PO (16:20)
[2022-08-18 19:09] VITALS: BP 166/79; PULSE 69; RESP 18; TEMP 36.7; O2SAT 94
[2022-08-18] MEDS: Acetaminophen 325 MG TABLET 650 MG PO (21:01)
[2022-08-18] MEDS: QUEtiapine Fumarate 25 MG TABLET PO (21:01)
[2022-08-18] MEDS: Tamsulosin HCL 0.4 MG CAPSULE PO (21:01)
[2022-08-18] MEDS: Fluticasone Propionate Nasal 16 GM SPRAY 1 SPRAY NOSTRIL-B (21:02)
[2022-08-18 23:09] VITALS: BP 109/57; PULSE 69; RESP 18; TEMP 36.6; O2SAT 93
[2022-08-19 04:00] VITALS: BP 161/72; PULSE 79; RESP 14; TEMP 37.1; O2SAT 94
[2022-08-19 06:00] VITALS: BMI 28.3
[2022-08-19 08:00] VITALS: BP 144/71; PULSE 73; RESP 12; TEMP 36.5; O2SAT 95
[2022-08-19] MEDS: guaiFEN/Codeine SF 200/20/10ML 10 ML LIQUID 5 ML PO ×2 (08:58→15:50)
[2022-08-19] MEDS: Enoxaparin Sodium 40 MG/0.4 ML SYRINGE SUBCUT (08:58)
[2022-08-19] MEDS: amLODIPine Besylate 2.5 MG TABLET PO (08:59)
[2022-08-19] MEDS: calcium polycarbophiL TABLET 1 TAB PO (08:59)
[2022-08-19] MEDS: Docusate Sodium 100 MG CAPSULE PO ×2 (08:59→20:47)
[2022-08-19] MEDS: pyRIDostigmine bromide 60 MG TABLET PO ×3 (08:59→21:14)
[2022-08-19] MEDS: Ferrous Sulfate 324 MG TABLET.DR PO ×2 (08:59→20:48)
[2022-08-19] MEDS: Acetaminophen 325 MG TABLET 650 MG PO ×2 (08:59→15:50)
[2022-08-19] MEDS: Cholecalciferol (Vitamin D3) 25 MCG TABLET PO (08:59)
[2022-08-19] MEDS: Aspirin Enteric Coated 81 MG TABLET.DR PO (08:59)
[2022-08-19] MEDS: Fluticasone Propionate Nasal 16 GM SPRAY 1 SPRAY NOSTRIL-B ×2 (09:07→20:48)
[2022-08-19] MEDS: 0.9 % Sodium Chloride Flush 3 ML SYRINGE IVFLUSH ×3 (09:08→20:48)
[2022-08-19 11:25] VITALS: BP 133/67; PULSE 73; RESP 14; TEMP 36.7; O2SAT 96
--- NOTE | 2022-08-19 11:28 | HO.PM.IMPN ---
Subjective Subjective Date of Service: 08/19/22 Interval History: syncope and collapse, symptomatic bradycardia Review of Systems Denies any chest pain or shortness of breath or abdominal pain or fever chills,asymptomatic no new events on tele overnight Physical Exam Vital Signs: Vital Signs: Last Vital Signs Temp 98.0 F 08/19/22 11:25 Pulse 73 08/19/22 11:25 Resp 14 08/19/22 11:25 BP 133/67 08/19/22 11:25 Pulse Ox 96 08/19/22 11:25 O2 Del Method 08/19/22 11:25 O2 Flow Rate 2 08/18/22 04:00 BMI result Body Mass Index 28.3 Appearance: Alert.? Oriented X3.? not in distress.?. cvs: rrr, [id number] . res: clear to auscultation ,no rhonchii or wheezing abd: no rebound or guarding ,nt, bs present. ext pulses present , no cyanosis . neuro: axo3 , nonfocal. Objective Data Active Medications Acetaminophen (Acetaminophen 325 Mg Tablet) 650 mg PO Q6H PRN PRN Reason: Pain, Mild (Pain Scale 1-3) Last Admin: 08/19/22 08:59 Dose: 650 mg Documented By: KATY Amlodipine Besylate (Amlodipine Besylate 2.5 Mg Tablet) 2.5 mg PO DAILY [facility]; Protocol Last Admin: 08/19/22 08:59 Dose: 2.5 mg Documented By: KATY Artificial Tears (Artificial Tears 15 Ml Drops) 1 drop EYE-BOTH BEDTIME [facility] Last Admin: 08/18/22 21:02 Dose: Not Given Documented By: EVELINA Non-Admin Reason: Med Not Available Aspirin (Aspirin Enteric Coated 81 Mg Tablet.) 81 mg PO DAILY [facility] Last Admin: 08/19/22 08:59 Dose: 81 mg Documented By: KATY Atorvastatin Calcium (Atorvastatin Calcium 40 Mg Tablet) 40 mg PO DAILY@1700 [facility] Last Admin: 08/18/22 16:20 Dose: 40 mg Documented By: EZRA Atropine Sulfate (Atropine Sulfate 1 Mg/Ml Vial) 1 mg IVPUSH ONCE PRN PRN Reason: symptomatic bradycardia Azathioprine (Azathioprine 50 Mg Tablet) 50 mg PO Q2D [facility] Last Admin: 08/19/22 09:29 Dose: Not Given Documented By: HO.COTEMA Non-Admin Reason: Med Not Available Calcium Polycarbophil (Calcium Polycarbophil Tablet) 1 tab PO DAILY [facility] Last Admin: 08/19/22 08:59 Dose: 1 tab Documented By: COTEMA Cyanocobalamin (Cyanocobalamin (Vitamin B-12) 1,000 Mcg/Ml Vial) 1,000 mcg IM Q28D [facility] Docusate Sodium (Docusate Sodium 100 Mg Capsule) 100 mg PO DAILY PRN PRN Reason: Constipation Docusate Sodium (Docusate Sodium 100 Mg Capsule) 100 mg PO BID [facility] Last Admin: 08/19/22 08:59 Dose: 100 mg Documented By: COTEMA Enoxaparin Sodium (Enoxaparin Sodium 40 Mg/0.4 Ml Syringe) 40 mg SUBCUT Q24H [facility] Last Admin: 08/19/22 08:58 Dose: 40 mg Documented By: COTEMA Ferrous Sulfate (Ferrous Sulfate 324 Mg Tablet.) 324 mg PO BID [facility] Last Admin: 08/19/22 08:59 Dose: 324 mg Documented By: KATY Fluticasone Propionate (Fluticasone Propionate Nasal 16 Gm [place]) 1 spray NOSTRIL-B BID [facility] Last Admin: 08/19/22 09:07 Dose: 1 spray Documented By: COTEMA Guaifenesin/Codeine Phosphate (Guaifen/Codeine Sf 200/20/10ml 10 Ml Liquid) 5 ml PO Q6H PRN PRN Reason: cough Last Admin: 08/19/22 08:58 Dose: 5 ml Documented By: COTEMA Cefazolin Sodium/Dextrose (Ancef) 2 gm in 50 mls @ 100 mls/hr IV PREOP ONE Stop: 08/19/22 11:23 Lorazepam (Lorazepam 0.5 Mg Tablet) 0.5 mg PO ONCE PRN PRN Reason: prn Last Admin: 08/18/22 12:16 Dose: 0.5 mg Documented By: EZRA Omeprazole (Omeprazole 40 Mg Capsule.) 40 mg PO DAILY@1600 [facility] Last Admin: 08/18/22 16:20 Dose: 40 mg Documented By: EZRA Ondansetron HCl (Ondansetron Hcl 4 Mg/2 Ml Vial) 4 mg IVPUSH Q8H PRN PRN Reason: Nausea and Vomiting Pharmacy Consult (Consult Rx Perform Med Rec) 1 each MISCELLANE ONCE PRN PRN Reason: Consult order Prednisone (Prednisone 5 Mg Tablet) 2.5 mg PO Q2D [facility] Last Admin: 08/19/22 09:29 Dose: Not Given Documented By: KATY Non-Admin Reason: Patient Refused Pyridostigmine [place] (Pyridostigmine [place] 60 Mg Tablet) 60 mg PO TID [facility] Last Admin: 08/19/22 08:59 Dose: 60 mg Documented By: KATY Quetiapine Fumarate (Quetiapine Fumarate 25 Mg Tablet) 25 mg PO BEDTIME [facility] Last Admin: 08/18/22 21:01 Dose: 25 mg Documented By: EVELINA Sodium Chloride (0.9 % Sodium Chloride Flush 3 Ml Syringe) 3 ml IVFLUSH QSHIFT [facility] Last Admin: 08/19/22 09:08 Dose: 3 ml Documented By: KATY Tamsulosin HCl (Tamsulosin Hcl 0.4 Mg Capsule) 0.4 mg PO BEDTIME [facility] Last Admin: 08/18/22 21:01 Dose: 0.4 mg Documented By: EVELINA Vitamin D (Cholecalciferol (Vitamin D3) 25 Mcg Tablet) 25 mcg PO DAILY [facility] Last Admin: 08/19/22 08:59 Dose: 25 mcg Documented By: KATY Labs CBC & Chem 7: 08/17/22 05:59 08/17/22 05:59 Assessment and Plan (1) Symptomatic bradycardia: Status: Acute (2) COVID-19: Status: Acute (3) Syncope and collapse: Status: Acute Plan 82-year-old male with past medical history of CAD status post CABG in 2020 presents to the hospital after collapse episode and performance of CPR at group home # syncope and collapse- possible cardiac arrest at group home, pulse of 22 possible syncope /symptomatic bradycardia pacer at bedside , atropin at bedside if haemodynmic unstability -may need to go to ICU d/w cardio-patient will need pacemaker likely on Saturday, CT surgery consulted. # COVID-19 positive - acute symptoms - monitor respiratory status # history of coronary artery disease - currently no chest pain - continue aspirin, statin, metoprolol # myasthenia gravis - continue pyridostagmine # mood disorder - continue mood stabilizers: Psych evaluation added for psych medication adjustment in the light of bradycardia. DVT prophylaxis:? Lovenox Ongoing hospital stay needed -possible syncope /symptomatic bradycardia. need tele moniterin,possible pacemaker. Quality Stroke Does the patient have a stroke diagnosis?: No VTE Prior VTE?: No VTE Risk Level:: Medical - low VTE Device Contraindication: N/A - Device Ordered VTE Drug Contraindication: Treatment Not Indicated
--- NOTE | 2022-08-19 12:55 | P.PNCA_ITS ---
Subjective Subjective Date of Service: 08/19/22 Interval history: Seen examined at bedside. COVID positive. No bradycardia noticed on telemetry. Denying any symptoms. Physical Exam Vital Signs: Last Vital Signs Temp 98.0 F 08/19/22 11:25 Pulse 73 08/19/22 11:25 Resp 14 08/19/22 11:25 BP 133/67 08/19/22 11:25 Pulse Ox 96 08/19/22 11:25 O2 Del Method 08/19/22 11:25 O2 Flow Rate 2 08/18/22 04:00 BMI result Body Mass Index 28.3 GENERAL APPEARANCE: in no acute distress, pleasant. NECK: no carotid bruit, no jugular venous distention. SKIN: no suspicious lesions, warm and dry. HEART: Systolic murmur, regular rate and rhythm. LUNGS: clear to auscultation bilaterally. ABDOMEN: soft, nontender. EXTREMITIES: no edema. PERIPHERAL PULSES: equal. NEUROLOGIC: No gross deficits, AAO X 3 Objective Labs and Meds Result diagrams: 08/17/22 05:59 08/17/22 05:59 Progress Note: A&P Assessment and plan (1) Symptomatic bradycardia: Status: Acute (2) Syncope and collapse: Status: Acute Plan [age] gentleman with complex issues including myasthenia gravis and previous coronary disease status post bypass surgery presented with syncope. He was noticed to have heart rate of 22 beats per minute when he was found unresponsive and it appears he had CPR performed. Has been stable on telemetry with us. Hold beta-woody for now. Plan is for permanent pacemaker placement tomorrow. Would place our dual- chamber [employer] pacemaker. Thank you for allowing me to participate in the care of your patient. Please feel free to contact me if you have any questions. Time Spent With Patient Time: Total time spent is greater than 50% in coordination of care (as documented) at patient's floor/unit and/or counseling patient: Progress Note: Quality Stroke Does the patient have a stroke diagnosis?: No Procedures Date of Service Date of Service: 08/19/22
[2022-08-19 15:21] VITALS: BP 167/78; PULSE 66; RESP 18; TEMP 36.7; O2SAT 96
[2022-08-19] MEDS: Omeprazole 40 MG CAPSULE.DR PO (15:50)
[2022-08-19] MEDS: Atorvastatin Calcium 40 MG TABLET PO (15:50)
[2022-08-19 19:01] VITALS: BP 169/75; PULSE 69; RESP 18; TEMP 36.1; O2SAT 98
[2022-08-19] MEDS: Tamsulosin HCL 0.4 MG CAPSULE PO (20:47)
[2022-08-19] MEDS: QUEtiapine Fumarate 25 MG TABLET PO (20:48)
[2022-08-19 23:21] VITALS: BP 161/73; PULSE 63; RESP 18; TEMP 37; O2SAT 96
[2022-08-20] VITALS (10 sets, daily range): BP systolic 137–186; BP diastolic 65–89; PULSE 67–88; RESP 17–20; TEMP 36.1–37.2; O2SAT 93–99
[2022-08-20] MEDS: amLODIPine Besylate 2.5 MG TABLET PO (08:11)
[2022-08-20] MEDS: pyRIDostigmine bromide 60 MG TABLET PO ×3 (08:11→20:11)
[2022-08-20] MEDS: Ferrous Sulfate 324 MG TABLET.DR PO ×2 (08:11→20:10)
[2022-08-20] MEDS: Cholecalciferol (Vitamin D3) 25 MCG TABLET PO (08:11)
[2022-08-20] MEDS: calcium polycarbophiL TABLET 1 TAB PO (08:11)
[2022-08-20] MEDS: Docusate Sodium 100 MG CAPSULE PO ×2 (08:11→20:11)
[2022-08-20] MEDS: 0.9 % Sodium Chloride Flush 3 ML SYRINGE IVFLUSH ×2 (08:12→23:49)
[2022-08-20] MEDS: Fluticasone Propionate Nasal 16 GM SPRAY 1 SPRAY NOSTRIL-B ×2 (08:14→20:11)
[2022-08-20] MEDS: Acetaminophen 325 MG TABLET 650 MG PO ×2 (08:36→23:43)
--- NOTE | 2022-08-20 14:26 | P.PNCA_ITS ---
Subjective Subjective Date of Service: 08/20/22 <EBONI Lockwood - Last Filed: 08/20/22 14:43> 08/20/22 <Brad Marin MD - Last Filed: 08/20/22 17:07> Principal diagnosis: syncope, bradycardic episode <EBONI Lockwood - Last Filed: 08/20/22 14:43> Interval history: Seen at 1035. Today is he resting quietly in bed without any acute distress. He is oriented an aware of the plan for a Pacemaker placement today. He denies any chest discomfort, palpitations, dizziness. Breathing is comfortable. Tele showing SR with 1st degree AVB, rates 60-70s. No bradycardic events noted. <EBONI Lockwood Last Filed: 08/20/22 14:43> Review of Systems Review of Systems as above <EBONI Lockwood - Last Filed: 08/20/22 14:43> Yes all other systems are reviewed and are negative <EBONI Lockwood - Last Filed: 08/20/22 14:43> Physical Exam Vital Signs: Last Vital Signs Temp 97.5 F 08/20/22 11:28 Pulse 71 08/20/22 11:28 Resp 20 08/20/22 11:28 BP 168/88 H 08/20/22 11:28 Pulse Ox 93 08/20/22 11:28 O2 Del Method 08/20/22 11:28 O2 Flow Rate 2 08/18/22 04:00 BMI result Body Mass Index 28.3 <EBONI Lockwood - Last Filed: 08/20/22 14:43> Const General: cooperative, comfortable and no acute distress <EBONI Lockwood - Last Filed: 08/20/22 14:43> Neck Neck: Yes normal visual inspection <EBONI Lockwood Last Filed: 08/20/22 14:43> Resp Effort & Inspection: normal respiratory effort <EBONI Lockwood Last Filed: 08/20/22 14:43> Auscultation: no crackles, no rales and no rhonchi <EBONI Lockwood - Last Filed: 08/20/22 14:43> Cardio Jugular venous distension: no JVD <EBONI Lockwood - Last Filed: 08/20/22 14:43> Rate: regular rate <EBONI Lockwood - Last Filed: 08/20/22 14:43> Rhythm: regular rhythm <EBONI Lockwood - Last Filed: 08/20/22 14:43> Heart sounds: S1 normal heart sound present, S2 normal heart sound present, no gallops, no murmurs and no rubs <EBONI Lockwood - Last Filed: 08/20/22 14:43> Skin General skin exam: no rashes or lesions noted <EBONI Lockwood - Last Filed: 08/20/22 14:43> Extrem General: Yes normal to inspection <EBONI Lockwood - Last Filed: 08/20/22 14:43> Psych Appearance: grossly normal <EBONI Lockwood - Last Filed: 08/20/22 14:43> Mental Status: mental status grossly normal <EBONI Lockwood - Last Filed: 08/20/22 14:43> Objective Labs and Meds Result diagrams: : 08/17/22 05:59 08/17/22 05:59 <EBONI Lockwood - Last Filed: 08/20/22 14:43> Lab results: Laboratory Results - last 24 hr 08/20/22 07:19 Blood Type A Negative Antibody Screen NEGATIVE <Trena Apodaca EBONI - Last Filed: 08/20/22 14:43> Progress Note: A&P Assessment and plan (1) Syncope and collapse: Status: Acute <Trena Apodaca EBONI - Last Filed: 08/20/22 14:43> Assessment and Plan: [facility] Just prior to admit-Syncopal event, found unresponsive, CPR preformed. EMS documented pulse at 22 b/min. No rhythm strips for review. Notes indicate he was in junctional rhythm for short time, then SR with 1st degree avb. He was on low dose Metoprolol which was stopped. Pt recalls sitting down to watch football game then nothing else. Tele has remained stable since then with SR, 1st degree avb, pulse 60-70s in last day. He is scheduled to undergo a permanent dual chamber pacemaker placement today with Dr Resendiz. Has been NPO. He is aware of this plan and tells me he is agreeable to proceed. Incidently found to be COVID + on admit. Breathing is stable. Afebrile, Sat 95% on RA. We will follow. <EBONI Lockwood - Last Filed: 08/20/22 14:43> [facility]. Just prior to admit-Syncopal event, found unresponsive, CPR preformed. EMS documented pulse at 22 b/min. No rhythm strips for review. Notes indicate he was in junctional rhythm for short time, then SR with 1st degree avb. He was on low dose Metoprolol which was stopped. Pt recalls sitting down to watch football game then nothing else. Tele has remained stable since then with SR, 1st degree avb, pulse 60-70s in last day. He is scheduled to undergo a permanent dual chamber pacemaker placement today with Dr Resendiz. Has been NPO. He is aware of this plan and tells me he is agreeable to proceed. Incidently found to be COVID + on admit. Breathing is stable. Afebrile, Sat 95% on RA. We will follow. Patient seen and examined. Case discussed with Trena Apodaca. Patient admitted with syncope with significant bradycardia documented by EMS. Patient to undergo pacemaker placement. Will follow after pacemaker placement. Risks and benefits were discussed. <Brad Marin MD - Last Filed: 08/20/22 17:07> (2) Symptomatic bradycardia: Status: Acute <EBONI Lockwood - Last Filed: 08/20/22 14:43> (3) First degree AV block: Status: Acute <EBONI Lockwood - Last Filed: 08/20/22 14:43> (4) CAD (coronary artery disease): Status: Acute <EBONI Lockwood - Last Filed: 08/20/22 14:43> Assessment and Plan: Hx CAD, CABG. Follows with Dr Pratt as outpt. 2nd trop was elevated at 54.8 which was likely related to syncopal event, CPR. No reports of anginal symptoms. Continue Aspirin, atorvastatin and amlodipine. <CAMILLA Lockwood - Last Filed: 08/20/22 14:43> (5) COVID-19: Status: Acute <EBONI Lockwood - Last Filed: 08/20/22 14:43> Assessment and Plan: Followed by hospitalist <EBONI Lockwood - Last Filed: 08/20/22 14:43> Time Spent With Patient Time: Total time spent is greater than 50% in coordination of care (as documented) at patient's floor/unit and/or counseling patient: 22 <EBONI Lockwood - Last Filed: 08/20/22 14:43> Progress Note: Quality Stroke Does the patient have a stroke diagnosis?: No <EBONI Lockwood - Last Filed: 08/20/22 14:43> Procedures Date of Service Date of Service: 08/20/22 <EBONI Lockwood - Last Filed: 08/20/22 14:43>
--- NOTE | 2022-08-20 15:31 | P.PNIM_ITS ---
Subjective Subjective Date of Service: 08/20/22 Interval History: syncope and collapse, symptomatic bradycardia Review of Systems Denies any chest pain or shortness of breath or abdominal pain or fever chills,asymptomatic no new events on tele overnight Physical Exam Vital Signs: Vital Signs: Last Vital Signs Temp 97.5 F 08/20/22 11:28 Pulse 71 08/20/22 11:28 Resp 20 08/20/22 11:28 BP 168/88 H 08/20/22 11:28 Pulse Ox 93 08/20/22 11:28 O2 Del Method 08/20/22 11:28 O2 Flow Rate 2 08/18/22 04:00 BMI result Body Mass Index 28.3 Appearance: Alert.? Oriented X3.? not in distress.?. cvs: rrr, [id number] . res: clear to auscultation ,no rhonchii or wheezing abd: no rebound or guarding ,nt, bs present. ext pulses present , no cyanosis . neuro: axo3 , nonfocal. Objective Data Active Medications Acetaminophen (Acetaminophen 325 Mg Tablet) 650 mg PO Q6H PRN PRN Reason: Pain, Mild (Pain Scale 1-3) Last Admin: 08/20/22 08:36 Dose: 650 mg Documented By: RHONA Amlodipine Besylate (Amlodipine Besylate 2.5 Mg Tablet) 2.5 mg PO DAILY [facility]; Protocol Last Admin: 08/20/22 08:11 Dose: 2.5 mg Documented By: RHONA Artificial Tears (Artificial Tears 15 Ml Drops) 1 drop EYE-BOTH BEDTIME [facility] Last Admin: 08/19/22 20:49 Dose: Not Given Documented By: ANTOIC Non-Admin Reason: Med Not Available Aspirin (Aspirin Enteric Coated 81 Mg Tablet.) 81 mg PO DAILY [facility] Last Admin: 08/20/22 08:15 Dose: Not Given Documented By: RHONA Non-Admin Reason: hold per Atorvastatin Calcium (Atorvastatin Calcium 40 Mg Tablet) 40 mg PO DAILY@1700 [facility] Last Admin: 08/19/22 15:50 Dose: 40 mg Documented By: COTEMA Atropine Sulfate (Atropine Sulfate 1 Mg/Ml Vial) 1 mg IVPUSH ONCE PRN PRN Reason: symptomatic bradycardia Azathioprine (Azathioprine 50 Mg Tablet) 50 mg PO Q2D [facility] Last Admin: 08/19/22 09:29 Dose: Not Given Documented By: COTCECILY Non-Admin Reason: Med Not Available Calcium Polycarbophil (Calcium Polycarbophil Tablet) 1 tab PO DAILY [facility] Last Admin: 08/20/22 08:11 Dose: 1 tab Documented By: RHONA Cyanocobalamin (Cyanocobalamin (Vitamin B-12) 1,000 Mcg/Ml Vial) 1,000 mcg IM Q28D [facility] Docusate Sodium (Docusate Sodium 100 Mg Capsule) 100 mg PO DAILY PRN PRN Reason: Constipation Docusate Sodium (Docusate Sodium 100 Mg Capsule) 100 mg PO BID [facility] Last Admin: 08/20/22 08:11 Dose: 100 mg Documented By: RHONA Enoxaparin Sodium (Enoxaparin Sodium 40 Mg/0.4 Ml Syringe) 40 mg SUBCUT Q24H [facility] Last Admin: 08/20/22 06:56 Dose: Not Given Documented By: ANTOIC Non-Admin Reason: Pt. having surgery today Ferrous Sulfate (Ferrous Sulfate 324 Mg Tablet.) 324 mg PO BID [facility] Last Admin: 08/20/22 08:11 Dose: 324 mg Documented By: RHONA Fluticasone Propionate (Fluticasone Propionate Nasal 16 Gm [place]) 1 spray NOSTRIL-B BID [facility] Last Admin: 08/20/22 08:14 Dose: 1 spray Documented By: RHONA Guaifenesin/Codeine Phosphate (Guaifen/Codeine Sf 200/20/10ml 10 Ml Liquid) 5 ml PO Q6H PRN PRN Reason: cough Last Admin: 08/19/22 15:50 Dose: 5 ml Documented By: KATY Lorazepam (Lorazepam 0.5 Mg Tablet) 0.5 mg PO ONCE PRN PRN Reason: prn Last Admin: 08/18/22 12:16 Dose: 0.5 mg Documented By: EZRA Omeprazole (Omeprazole 40 Mg Capsule.) 40 mg PO DAILY@1600 [facility] Last Admin: 08/19/22 15:50 Dose: 40 mg Documented By: KATY Ondansetron HCl (Ondansetron Hcl 4 Mg/2 Ml Vial) 4 mg IVPUSH Q8H PRN PRN Reason: Nausea and Vomiting Pharmacy Consult (Consult Rx Perform Med Rec) 1 each MISCELLANE ONCE PRN PRN Reason: Consult order Prednisone (Prednisone 5 Mg Tablet) 2.5 mg PO Q2D [facility] [place] Last Admin: 08/19/22 09:29 Dose: Not Given Documented By: KATY Non-Admin Reason: Patient Refused Pyridostigmine [place] (Pyridostigmine [place] 60 Mg Tablet) 60 mg PO TID [facility] Last Admin: 08/20/22 08:11 Dose: 60 mg Documented By: RHONA Quetiapine Fumarate (Quetiapine Fumarate 25 Mg Tablet) 25 mg PO BEDTIME [facility] Last Admin: 08/19/22 20:48 Dose: 25 mg Documented By: CECIL Sodium Chloride (0.9 % Sodium Chloride Flush 3 Ml Syringe) 3 ml IVFLUSH QSHIFT [facility] [place] Last Admin: 08/20/22 08:12 Dose: 3 ml Documented By: RHONA Tamsulosin HCl (Tamsulosin Hcl 0.4 Mg Capsule) 0.4 mg PO BEDTIME [facility] Last Admin: 08/19/22 20:47 Dose: 0.4 mg Documented By: CECIL Vitamin D (Cholecalciferol (Vitamin D3) 25 Mcg Tablet) 25 mcg PO DAILY [facility] Last Admin: 08/20/22 08:11 Dose: 25 mcg Documented By: RHONA Labs CBC & Chem 7: 08/17/22 05:59 08/17/22 05:59 Labs: Laboratory Results - last 24 hr 08/20/22 07:19 Blood Type A Negative Antibody Screen NEGATIVE Assessment and Plan (1) Symptomatic bradycardia: Status: Acute (2) COVID-19: Status: Inactive (3) Syncope and collapse: Status: Acute Plan 82-year-old male with past medical history of CAD status post CABG in 2020 presents to the hospital after collapse episode and performance of CPR at retirement # syncope and collapse- possible cardiac arrest at retirement, pulse of 22 possible syncope /symptomatic bradycardia pacer at bedside , atropin at bedside if haemodynmic unstability -may need to go to ICU d/w cardio-patient will need pacemaker likely on Saturday, CT surgery consulted- possible pacemaker today. # COVID-19 positive - acute symptoms - monitor respiratory status # history of coronary artery disease - currently no chest pain - continue aspirin, statin, metoprolol # myasthenia gravis - continue pyridostagmine # mood disorder - continue mood stabilizers: Psych evaluation added for psych medication adj ustment in the light of bradycardia. DVT prophylaxis:? Lovenox Ongoing hospital stay needed -possible syncope /symptomatic bradycardia. need tele moniterin,possible pacemaker. Quality Stroke Does the patient have a stroke diagnosis?: No VTE Prior VTE?: No VTE Risk Level:: Medical - low VTE Device Contraindication: N/A - Device Ordered VTE Drug Contraindication: Treatment Not Indicated
--- NOTE | 2022-08-20 15:35 | MHC.SHP ---
Pre-Procedural Eval Section A Date of Service: 08/20/22 The patient is an INPATIENT: Yes Section B Chief Complaint: Syncope, symptomatic bradycardia. Allergies: Allergies Allergy/AdvReac Type Severity Reaction Status Date / Time No Known Allergies Allergy Verified 08/22/21 10:16 [No Known Allergies*] Plan I have reviewed the history and physical and performed a pertinent physical examination on my patient. No changes have occurred unless specified.Plan is for dual-chamber permanent pacemaker. Risks, benefits, and alternatives discussed with the patient in detail.
--- NOTE | 2022-08-20 15:39 | PM.CNGS ---
History of Present Illness Consult details Consult date: 08/18/22 Requesting physician: Karl Hooks Narrative: 82 Year old malewho is a resident at [facility] and has background history of myasthenia gravis, coronary artery disease status post bypass surgery, previous stroke with carotid disease, anemia and diabetes.? He is presenting for syncope.? The patient does not remember the events well.? He said he was sitting down waiting to watch a football game and does not remember anything after that.? As per chart review and discussion with medicine team, it appears he became unresponsive while at [facility] and CPR was performed.? EMS found him to be bradycardic with heart rate of 22.? I do not have any of these rhythm strips available currently.? He was transiently in junctional rhythm on the telemetry but it looks like he has been mostly in sinus rhythm with first-degree AV block since then.? He is denying any chest pain or shortness of breath.? He does not remember having any syncopal episodes recently.? No other complaints.? He has been incidentally found to be COVID-19 positive. Review of Systems Review of Systems: Yes all other systems are reviewed and are negative [facility] Past Medical History Medical History Atherosclerotic cardiovascular disease BPH (benign prostatic hyperplasia) CAD (coronary artery disease) Depression Diet-controlled diabetes mellitus Essential hypertension GERD (gastroesophageal reflux disease) Hammer toes, bilateral History of COVID-19 History of diverticulosis History of GI bleed History of non-ST elevation myocardial infarction (NSTEMI) (~09/2020) History of rectal cancer (~11/2014) History of transfusion (~08/2020) Hyperlipidemia Insomnia Myasthenia gravis Nonalcoholic steatohepatitis (MARTI) Onychogryphosis Rheumatoid arthritis Status post coronary artery bypass graft (~11/2020) 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 Father No problems noted. Brother No problems noted. Sister No problems noted. Daughter Psychiatric disorder Son No problems noted. Surgical History Surgical History History of cardiac catheterization (~11/2020) History of cataract surgery (~05/2019) History of cholecystectomy (~02/2021) History of colonoscopy History of colostomy (~07/2015) History of colostomy reversal (~01/2016) History of coronary artery bypass graft x 2 (~11/2020) History of ERCP (~09/2020) History of heart surgery (~11/2020) History of incisional hernia repair History of left-sided carotid endarterectomy (~11/2020) Social History Social History Household Members: Other Housing: Assisted Living Facility Housing Other:: [facility] home Do you presently have visiting nurse or other home services: No Alcohol intake: never Patient Tobacco Use Status: Never used Tobacco Smoked in Last 30 Days: No Use of substances other than those prescribed or required for medical reasons: No Currently Displaying Signs/Symptoms of Drug Intoxication Withdrawal: No Have you been hit, kicked, punched, or otherwise hurt by someone within the past year? If so, by whom?: No Do you feel safe in your current relationship?: No Current Relationship Is there a partner from a previous relationship who is making you feel unsafe now?: No Are you made to feel afraid or neglected: No Advance Directives: Yes Advance Directives on File: Yes Advance Directives Date on File: 06/21/20 Do you have thoughts of harming others: None Do you have a plan to hurt others: No Plan Recently lost weight without trying: No How much weight loss: Not applicable Eating poorly because of decreased appetite: No Nutrition screen score: 0 Nutrition Risks: Difficulty chewing Poor oral hygiene: No service: Yes Current occupational status: retired Meds Allergies Allergy/AdvReac Type Severity Reaction Status Date / Time No Known Allergies Allergy Verified 08/22/21 10:16 [No Known Allergies*] Active Medications: Current Medications Acetaminophen (Acetaminophen 325 Mg Tablet) 650 mg PO Q6H PRN PRN Reason: Pain, Mild (Pain Scale 1-3) Last Admin: 08/20/22 08:36 Dose: 650 mg Amlodipine Besylate (Amlodipine Besylate 2.5 Mg Tablet) 2.5 mg PO DAILY [facility]; Protocol Last Admin: 08/20/22 08:11 Dose: 2.5 mg Artificial Tears (Artificial Tears 15 Ml Drops) 1 drop EYE-BOTH BEDTIME [facility] Last Admin: 08/19/22 20:49 Dose: Not Given Aspirin (Aspirin Enteric Coated 81 Mg Tablet.) 81 mg PO DAILY [facility] Last Admin: 08/20/22 08:15 Dose: Not Given Atorvastatin Calcium (Atorvastatin Calcium 40 Mg Tablet) 40 mg PO DAILY@1700 [facility] Last Admin: 08/19/22 15:50 Dose: 40 mg Atropine Sulfate (Atropine Sulfate 1 Mg/Ml Vial) 1 mg IVPUSH ONCE PRN PRN Reason: symptomatic bradycardia Azathioprine (Azathioprine 50 Mg Tablet) 50 mg PO Q2D [facility] Last Admin: 08/19/22 09:29 Dose: Not Given Calcium Polycarbophil (Calcium Polycarbophil Tablet) 1 tab PO DAILY [facility] Last Admin: 08/20/22 08:11 Dose: 1 tab Cyanocobalamin (Cyanocobalamin (Vitamin B-12) 1,000 Mcg/Ml Vial) 1,000 mcg IM Q28D [facility] Docusate Sodium (Docusate Sodium 100 Mg Capsule) 100 mg PO DAILY PRN PRN Reason: Constipation Docusate Sodium (Docusate Sodium 100 Mg Capsule) 100 mg PO BID [facility] Last Admin: 08/20/22 08:11 Dose: 100 mg Enoxaparin Sodium (Enoxaparin Sodium 40 Mg/0.4 Ml Syringe) 40 mg SUBCUT Q24H [facility] Last Admin: 08/20/22 06:56 Dose: Not Given Ferrous Sulfate (Ferrous Sulfate 324 Mg Tablet.) 324 mg PO BID [facility] Last Admin: 08/20/22 08:11 Dose: 324 mg Fluticasone Propionate (Fluticasone Propionate Nasal 16 Gm [place]) 1 spray NOSTRIL-B BID [facility] Last Admin: 08/20/22 08:14 Dose: 1 spray Guaifenesin/Codeine Phosphate (Guaifen/Codeine Sf 200/20/10ml 10 Ml Liquid) 5 ml PO Q6H PRN PRN Reason: cough Last Admin: 08/19/22 15:50 Dose: 5 ml Lorazepam (Lorazepam 0.5 Mg Tablet) 0.5 mg PO ONCE PRN PRN Reason: prn Last Admin: 08/18/22 12:16 Dose: 0.5 mg Omeprazole (Omeprazole 40 Mg Capsule.) 40 mg PO DAILY@1600 [facility] Last Admin: 08/19/22 15:50 Dose: 40 mg Ondansetron HCl (Ondansetron Hcl 4 Mg/2 Ml Vial) 4 mg IVPUSH Q8H PRN PRN Reason: Nausea and Vomiting Pharmacy Consult (Consult Rx Perform Med Rec) 1 each MISCELLANE ONCE PRN PRN Reason: Consult order Prednisone (Prednisone 5 Mg Tablet) 2.5 mg PO Q2D [facility] Last Admin: 08/19/22 09:29 Dose: Not Given Pyridostigmine [place] (Pyridostigmine [place] 60 Mg Tablet) 60 mg PO TID [facility] Last Admin: 08/20/22 08:11 Dose: 60 mg Quetiapine Fumarate (Quetiapine Fumarate 25 Mg Tablet) 25 mg PO BEDTIME [facility] Last Admin: 08/19/22 20:48 Dose: 25 mg Sodium Chloride (0.9 % Sodium Chloride Flush 3 Ml Syringe) 3 ml IVFLUSH QSHIFT [facility] Last Admin: 08/20/22 08:12 Dose: 3 ml Tamsulosin HCl (Tamsulosin Hcl 0.4 Mg Capsule) 0.4 mg PO BEDTIME [facility] Last Admin: 08/19/22 20:47 Dose: 0.4 mg Vitamin D (Cholecalciferol (Vitamin D3) 25 Mcg Tablet) 25 mcg PO DAILY [facility] Last Admin: 08/20/22 08:11 Dose: 25 mcg Home Medications Medication Instructions Recorded Confirmed Last Taken Type acetaminophen 650 mg tablet 650 mg PO BEDTIME 09/14/20 08/22/21 09/19/20 History aspirin 81 mg tablet 81 mg PO DAILY 09/14/20 08/17/22 09/12/20 History atorvastatin 40 mg tablet 40 mg PO DAILY@1700 09/14/20 08/17/22 09/19/20 History azathioprine 50 mg tablet 50 mg PO Q2D 09/14/20 08/17/22 09/19/20 History calcium polycarbophil 625 mg tablet 625 mg PO DAILY 09/14/20 08/17/22 09/19/20 History carboxymethylcellulose sodium 1 drp ophthalmic (eye) BEDTIME 09/14/20 08/17/22 09/19/20 History cholecalciferol (vitamin D3) 25 25 mcg PO DAILY 09/14/20 08/17/22 09/19/20 History mcg (1,000 unit) chewable tablet cyanocobalamin (vitamin B-12) 1,000 mcg IM QMONTH 09/14/20 08/17/22 Unknown History 1,000 mcg/mL injection solution ferrous sulfate 325 mg (65 mg 325 mg PO BID 09/14/20 08/17/22 09/19/20 History iron) tablet (Iron (ferrous sulfate)) fluticasone propionate 50 1 spray intranasal BID 09/14/20 08/17/22 09/19/20 History mcg/actuation nasal spray,suspension oxybutynin chloride 15 mg 15 mg PO DAILY 09/14/20 08/17/22 09/19/20 History tablet,extended release 24 hr prednisone 5 mg tablet 2.5 mg PO Q OTHER DAY 09/14/20 08/17/22 09/19/20 History pyridostigmine bromide 60 mg tablet 60 mg PO TID 09/14/20 08/17/22 09/19/20 History quetiapine 25 mg tablet 75 mg PO BEDTIME 09/14/20 08/17/22 09/19/20 History tamsulosin 0.4 mg capsule 0.4 mg PO BEDTIME 09/14/20 08/17/22 09/19/20 History trazodone 50 mg tablet 25 mg PO BEDTIME 09/14/20 08/17/22 09/19/20 History venlafaxine 150 mg 150 mg PO DAILY 09/14/20 08/17/22 09/19/20 History capsule,extended release 24 hr docusate sodium 100 mg capsule 100 mg PO BID 09/20/20 08/17/22 09/19/20 History omeprazole 20 mg capsule,delayed 40 mg PO DAILY@1600 09/20/20 08/17/22 09/19/20 History release metoprolol tartrate 25 mg tablet 12.5 mg PO BID 12/22/20 08/17/22 Unknown History ropinirole 3 mg tablet 3 mg PO BEDTIME 08/17/22 08/17/22 Unknown History Physical Exam Vital Signs: Vital Signs: Last Vital Signs Temp 97.5 F 08/20/22 11:28 Pulse 71 08/20/22 11:28 Resp 20 08/20/22 11:28 BP 168/88 H 08/20/22 11:28 Pulse Ox 93 08/20/22 11:28 O2 Del Method 08/20/22 11:28 O2 Flow Rate 2 08/18/22 04:00 BMI result Body Mass Index 28.3 General: No acute distress HEENT: Moist mucous membranes, normocephalic, pupils equal round and reactive to light. Neck: No thyromegaly, supple, no JVD Lymph: No cervical, supraclavicular, or other lymphadenopathy Chest: No chest wall abnormalities or deformities Heart: Regular rate and rhythm Lungs: Clear to auscultation bilaterally Abdomen: Soft, nontender, normal bowel sounds Extremities: No edema, cyanosis, or clubbing. Full range of motion Neuro: Grossly intact, alert and oriented x3, and nonfocal Skin: Warm and dry no rashes Affect: Normal Results Labs Result diagrams: 08/17/22 05:59 08/17/22 05:59 Labs: All other labs normal. Imaging Chest x-ray: image reviewed EKG: report reviewed and image reviewed Assessment and Plan (1) Syncope and collapse: Status: Acute I agree that in a man with syncope requiring CPR and significant bradycardia that a dual-chamber pacemaker is indicated. I discussed the risks, benefits, and alternatives of the procedure which he understood and agreed to proceed. I will plan to call his son after the procedure. He has been NPO today and is being brought down to the OR directly. (2) Symptomatic bradycardia: Status: Acute Plan See above Procedures Date of Service Date of Service: 08/20/22
--- NOTE | 2022-08-20 18:00 | HO.ANESPROP2 ---
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 (Acute ~09/2020) Atherosclerotic cardiovascular disease (Acute) Carotid occlusion, bilateral (Acute) CAD (coronary artery disease) (Acute) Status post coronary artery bypass graft (Acute ~11/2020) Essential hypertension (Acute) History of rectal cancer (Acute ~11/2014) Myasthenia gravis (Acute) Diet-controlled diabetes mellitus (Acute) Anemia (Acute) Depression (Acute) Past Medical History Medical History Atherosclerotic cardiovascular disease BPH (benign prostatic hyperplasia) CAD (coronary artery disease) Depression Diet-controlled diabetes mellitus Essential hypertension GERD (gastroesophageal reflux disease) Hammer toes, bilateral History of COVID-19 History of diverticulosis History of GI bleed History of non-ST elevation myocardial infarction (NSTEMI) (~09/2020) History of rectal cancer (~11/2014) History of transfusion (~08/2020) Hyperlipidemia Insomnia Myasthenia gravis Nonalcoholic steatohepatitis (MARTI) Onychogryphosis Rheumatoid arthritis Status post coronary artery bypass graft (~11/2020) 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 Father No problems noted. Brother No problems noted. Sister No problems noted. Daughter Psychiatric disorder Son No problems noted. Family history of problems with anesthesia: No Surgical History Surgical History History of cardiac catheterization (~11/2020) History of cataract surgery (~05/2019) History of cholecystectomy (~02/2021) History of colonoscopy History of colostomy (~07/2015) History of colostomy reversal (~01/2016) History of coronary artery bypass graft x 2 (~11/2020) History of ERCP (~09/2020) History of heart surgery (~11/2020) History of incisional hernia repair History of left-sided carotid endarterectomy (~11/2020) Social History Social History Household Members: Other Housing: Assisted Living Facility Housing Other:: [facility] home Do you presently have visiting nurse or other home services: No Alcohol intake: never Patient Tobacco Use Status: Never used Tobacco Smoked in Last 30 Days: No Use of substances other than those prescribed or required for medical reasons: No Currently Displaying Signs/Symptoms of Drug Intoxication Withdrawal: No Have you been hit, kicked, punched, or otherwise hurt by someone within the past year? If so, by whom?: No Do you feel safe in your current relationship?: No Current Relationship Is there a partner from a previous relationship who is making you feel unsafe now?: No Are you made to feel afraid or neglected: No Advance Directives: Yes Advance Directives on File: Yes Advance Directives Date on File: 06/21/20 Do you have thoughts of harming others: None Do you have a plan to hurt others: No Plan Recently lost weight without trying: No How much weight loss: Not applicable Eating poorly because of decreased appetite: No Nutrition screen score: 0 Nutrition Risks: Difficulty chewing Poor oral hygiene: No service: Yes Current occupational status: retired Meds Allergies Allergy/AdvReac Type Severity Reaction Status Date / Time No Known Allergies Allergy Verified 08/22/21 10:16 [No Known Allergies*] Active Medications: Current Medications Acetaminophen (Acetaminophen 325 Mg Tablet) 650 mg PO Q6H PRN PRN Reason: Pain, Mild (Pain Scale 1-3) Last Admin: 08/20/22 08:36 Dose: 650 mg Amlodipine Besylate (Amlodipine Besylate 2.5 Mg Tablet) 2.5 mg PO DAILY [facility]; Protocol Last Admin: 08/20/22 08:11 Dose: 2.5 mg Artificial Tears (Artificial Tears 15 Ml Drops) 1 drop EYE-BOTH BEDTIME [facility] Last Admin: 08/19/22 20:49 Dose: Not Given Aspirin (Aspirin Enteric Coated 81 Mg Tablet.Dr) 81 mg PO DAILY [facility] Last Admin: 08/20/22 08:15 Dose: Not Given Atorvastatin Calcium (Atorvastatin Calcium 40 Mg Tablet) 40 mg PO DAILY@1700 [facility] Last Admin: 08/19/22 15:50 Dose: 40 mg Atropine Sulfate (Atropine Sulfate 1 Mg/Ml Vial) 1 mg IVPUSH ONCE PRN PRN Reason: symptomatic bradycardia Azathioprine (Azathioprine 50 Mg Tablet) 50 mg PO Q2D [facility] Last Admin: 08/19/22 09:29 Dose: Not Given Calcium Polycarbophil (Calcium Polycarbophil Tablet) 1 tab PO DAILY [facility] Last Admin: 08/20/22 08:11 Dose: 1 tab Cyanocobalamin (Cyanocobalamin (Vitamin B-12) 1,000 Mcg/Ml Vial) 1,000 mcg IM Q28D [facility] Docusate Sodium (Docusate Sodium 100 Mg Capsule) 100 mg PO DAILY PRN PRN Reason: Constipation Docusate Sodium (Docusate Sodium 100 Mg Capsule) 100 mg PO BID [facility] Last Admin: 08/20/22 08:11 Dose: 100 mg Enoxaparin Sodium (Enoxaparin Sodium 40 Mg/0.4 Ml Syringe) 40 mg SUBCUT Q24H [facility] Last Admin: 08/20/22 06:56 Dose: Not Given Fentanyl (Fentanyl Citrate/Pf 100 Mcg/2 Ml Vial) 25 mcg IVPUSH Q5M PRN; Protocol PRN Reason: Pain, Moderate (Pain Scale 4-6 Ferrous Sulfate (Ferrous Sulfate 324 Mg Tablet.) 324 mg PO BID [facility] Last Admin: 08/20/22 08:11 Dose: 324 mg Fluticasone Propionate (Fluticasone Propionate Nasal 16 Gm [place]) 1 spray NOSTRIL-B BID [facility] Last Admin: 08/20/22 08:14 Dose: 1 spray Guaifenesin/Codeine Phosphate (Guaifen/Codeine Sf 200/20/10ml 10 Ml Liquid) 5 ml PO Q6H PRN PRN Reason: cough Last Admin: 08/19/22 15:50 Dose: 5 ml Lorazepam (Lorazepam 0.5 Mg Tablet) 0.5 mg PO ONCE PRN PRN Reason: prn Last Admin: 08/18/22 12:16 Dose: 0.5 mg Omeprazole (Omeprazole 40 Mg Capsule.) 40 mg PO DAILY@1600 [facility] Last Admin: 08/19/22 15:50 Dose: 40 mg Ondansetron HCl (Ondansetron Hcl 4 Mg/2 Ml Vial) 4 mg IVPUSH Q8H PRN PRN Reason: Nausea and Vomiting Ondansetron HCl (Ondansetron Hcl 4 Mg/2 Ml Vial) 4 mg IVPUSH ONCE PRN PRN Reason: Nausea and Vomiting Pharmacy Consult (Consult Rx Perform Med Rec) 1 each MISCELLANE ONCE PRN PRN Reason: Consult order Prednisone (Prednisone 5 Mg Tablet) 2.5 mg PO Q2D [facility] Last Admin: 08/19/22 09:29 Dose: Not Given Pyridostigmine [place] (Pyridostigmine [place] 60 Mg Tablet) 60 mg PO TID [facility] Last Admin: 08/20/22 16:12 Dose: 60 mg Quetiapine Fumarate (Quetiapine Fumarate 25 Mg Tablet) 25 mg PO BEDTIME [facility] Last Admin: 08/19/22 20:48 Dose: 25 mg Sodium Chloride (0.9 % Sodium Chloride Flush 3 Ml Syringe) 3 ml IVFLUSH QSHIFT [facility] Last Admin: 08/20/22 08:12 Dose: 3 ml Tamsulosin HCl (Tamsulosin Hcl 0.4 Mg Capsule) 0.4 mg PO BEDTIME [facility] Last Admin: 08/19/22 20:47 Dose: 0.4 mg Vitamin D (Cholecalciferol (Vitamin D3) 25 Mcg Tablet) 25 mcg PO DAILY [facility] Last Admin: 08/20/22 08:11 Dose: 25 mcg Home Medications Medication Instructions Recorded Confirmed Last Taken Type acetaminophen 650 mg tablet 650 mg PO BEDTIME 09/14/20 08/22/21 09/19/20 History aspirin 81 mg tablet 81 mg PO DAILY 09/14/20 08/17/22 09/12/20 History atorvastatin 40 mg tablet 40 mg PO DAILY@1700 09/14/20 08/17/22 09/19/20 History azathioprine 50 mg tablet 50 mg PO Q2D 09/14/20 08/17/22 09/19/20 History calcium polycarbophil 625 mg tablet 625 mg PO DAILY 09/14/20 08/17/22 09/19/20 History carboxymethylcellulose sodium 1 drp ophthalmic (eye) BEDTIME 09/14/20 08/17/22 09/19/20 History cholecalciferol (vitamin D3) 25 25 mcg PO DAILY 09/14/20 08/17/22 09/19/20 History mcg (1,000 unit) chewable tablet cyanocobalamin (vitamin B-12) 1,000 mcg IM QMONTH 09/14/20 08/17/22 Unknown History 1,000 mcg/mL injection solution ferrous sulfate 325 mg (65 mg 325 mg PO BID 09/14/20 08/17/22 09/19/20 History iron) tablet (Iron (ferrous sulfate)) fluticasone propionate 50 1 spray intranasal BID 09/14/20 08/17/22 09/19/20 History mcg/actuation nasal spray,suspension oxybutynin chloride 15 mg 15 mg PO DAILY 09/14/20 08/17/22 09/19/20 History tablet,extended release 24 hr prednisone 5 mg tablet 2.5 mg PO Q OTHER DAY 09/14/20 08/17/22 09/19/20 History pyridostigmine bromide 60 mg tablet 60 mg PO TID 09/14/20 08/17/22 09/19/20 History quetiapine 25 mg tablet 75 mg PO BEDTIME 09/14/20 08/17/22 09/19/20 History tamsulosin 0.4 mg capsule 0.4 mg PO BEDTIME 09/14/20 08/17/22 09/19/20 History trazodone 50 mg tablet 25 mg PO BEDTIME 09/14/20 08/17/22 09/19/20 History venlafaxine 150 mg 150 mg PO DAILY 09/14/20 08/17/22 09/19/20 History capsule,extended release 24 hr docusate sodium 100 mg capsule 100 mg PO BID 09/20/20 08/17/22 09/19/20 History omeprazole 20 mg capsule,delayed 40 mg PO DAILY@1600 09/20/20 08/17/22 09/19/20 History release metoprolol tartrate 25 mg tablet 12.5 mg PO BID 12/22/20 08/17/22 Unknown History ropinirole 3 mg tablet 3 mg PO BEDTIME 08/17/22 08/17/22 Unknown History Exam Exam Date and Time: August 20, 2022 1800 Height,Weight and Vital Signs: Height 5 ft 5 in Weight 77.4 kg Last Vital Signs Temp 98.6 F 08/20/22 16:00 Pulse 80 08/20/22 16:00 Resp 18 08/20/22 16:00 BP 160/89 H 08/20/22 16:00 Pulse Ox 98 08/20/22 16:00 O2 Del Method 08/20/22 16:00 O2 Flow Rate 2 08/18/22 04:00 Pertinent Lab Results Pertinent Lab Results: Laboratory Tests 08/16/22 08/16/22 08/16/22 22:00 22:01 22:01 WBC 6.6 RBC 3.61 L Hgb 11.8 L Hct 34.3 L MCV 95.0 MCH 32.7 MCHC 34.4 RDW 12.9 Plt Count 139 L D MPV 9.7 Immature Gran % (Auto) 0.6 H Neut % (Auto) 75.9 H Lymph % (Auto) 9.8 L [place] % (Auto) 12.7 H Eos % (Auto) 0.5 Baso % (Auto) 0.5 Lymph # (Auto) 0.7 L [place] # (Auto) 0.8 Eos # (Auto) 0.0 Baso # (Auto) 0.0 Abs Immat Gran (auto) 0.04 H Absolute Neuts (auto) 5.1 Absolute Nucleated RBC 0.000 Nucleated RBC % (auto) 0.0 PT 12.5 INR 1.1 APTT 30.9 Sodium 137 Potassium 4.0 Chloride 104 Carbon Dioxide 22 Anion Gap 15 BUN 18 H Creatinine 0.98 Estim Creat Clear Calc 55.6 Estimated GFR > 60 Random Glucose 118 H Calcium 8.0 L D Total Bilirubin 0.3 AST 95 H ALT 93 H Alkaline Phosphatase 62 Troponin I High Sens Total Protein 5.7 L Albumin 3.6 COVID-19 (SEVEN) COVID-19 Clin Com Blood Type Antibody Screen 08/16/22 08/16/22 08/17/22 22:01 23:00 05:59 WBC 5.9 RBC 3.70 L Hgb 12.0 L Hct 35.5 L MCV 95.9 MCH 32.4 MCHC 33.8 RDW 13.0 Plt Count 152 L MPV 9.5 Immature Gran % (Auto) 0.5 H Neut % (Auto) 75.1 H Lymph % (Auto) 7.8 L [place] % (Auto) 15.8 H Eos % (Auto) 0.3 Baso % (Auto) 0.5 Lymph # (Auto) 0.5 L [place] # (Auto) 0.9 Eos # (Auto) 0.0 Baso # (Auto) 0.0 Abs Immat Gran (auto) 0.03 Absolute Neuts (auto) 4.4 Absolute Nucleated RBC 0.000 Nucleated RBC % (auto) 0.0 PT INR APTT Sodium Potassium Chloride Carbon Dioxide Anion Gap BUN Creatinine Estim Creat Clear Calc Estimated GFR Random Glucose Calcium Total Bilirubin AST ALT Alkaline Phosphatase Troponin I High Sens 15.3 Total Protein Albumin COVID-19 (SEVEN) Positive A COVID-19 Clin Com See Note Blood Type Antibody Screen 08/17/22 08/17/22 08/20/22 05:59 08:30 07:19 WBC RBC Hgb Hct MCV MCH MCHC RDW Plt Count MPV Immature Gran % (Auto) Neut % (Auto) Lymph % (Auto) [place] % (Auto) Eos % (Auto) Baso % (Auto) Lymph # (Auto) [place] # (Auto) Eos # (Auto) Baso # (Auto) Abs Immat Gran (auto) Absolute Neuts (auto) Absolute Nucleated RBC Nucleated RBC % (auto) PT INR APTT Sodium 132 L Potassium 4.4 Chloride 101 Carbon Dioxide 26 Anion Gap 9 L BUN 16 Creatinine 0.86 Estim Creat Clear Calc 63.3 Estimated GFR > 60 Random Glucose 123 H Calcium 8.4 Total Bilirubin AST ALT Alkaline Phosphatase Troponin I High Sens 54.8 H Total Protein Albumin COVID-19 (SEVEN) COVID-19 Clin Com Blood Type A Negative Antibody Screen NEGATIVE Airway Mallampati Class: IV Neck ROM: Full Loose/Missing/Broken Teeth: Yes Heart: S1,S2 Lungs: b/l breath sounds Assessment and Plan Assessment Anesthesia Assessment: Anesthesia Plan Discussed and Chart Reviewed Final Anesthetic Review Family History of Problems with Anesthesia: No NPO: Yes ASA Class: IV and Emergency Final Preanesthetic Review: Consent Obtained/Reviewed and Anes Risks/Benef Reviewed Patient Risk: High Procedure Risk: Intermediate Anesthetic Plan Anesthetic Plan: GA and MAC: Disposition: Inp. Admit - Standard Bed
--- NOTE | 2022-08-20 18:34 | W.PM.OPN ---
Operative Note Operative Note Date of Service: 08/20/22 Narrative: Preoperative diagnosis: syncope, symptomatic bradycardia Postoperative diagnosis: Same Operation: Placement of dual-chamber permanent pacemaker with fluoroscopic guidance Surgeon: Michael Resendiz MD Specimens: None EBL: 5 cc Operative findings: The pacemaker placed was a Medtronic serial [id number]. The atrial lead was a Medtronic serial [id number]. The ventricular lead was a Medtronic serial [id number]. Parameters in the right atrial lead threshold 0.75 at 0.4 milliseconds, impedance 475 Ohms, and P-wave 1.5 mV.. In the ventricular lead threshold was 0.75 volts at 0.4 milliseconds, impedance 646 Ohms, and R-wave 20 mV. Patient tolerated procedure well. Operation in detail: The patient was brought to the operating room, placed supine on the operating room table, anesthesia moderate of ices were placed, and the patient was gently sedated. A time-out was performed confirming the correct patient site and procedure. After injection of local anesthetic, a 3 cm incision was made in the left infraclavicular region and carried down to the pectoralis fascia with electrocautery. The patient was then placed in Trendelenburg and an 18 gauge needle was used to access subclavian vein on the 1st take. And a wire was placed into the right atrium under fluoroscopic guidance. A 2nd 18 gauge needle was then used to access the subclavian vein again on the 1st ache and a wire was placed under fluoroscopic guidance and parked in the right atrium. The patient was then taken out of Trendelenburg and a pocket was formed using blunt and electrocautery dissection. The 1st 6 [place] sheath was then placed over wire and the wire and dilator were removed. The ventricular lead was then placed through the sheath and parked in the right atrium and the peel-away sheath was removed. After several attempts using a curved stylet we were eventually able to access the right ventricle and the tip of the lead was positioned at the right ventricular apex. The endocardial screw was deployed and the lead was tested with excellent parameters above. This lead was then secured with silk sutures to the pectoralis fascia. The 2nd 6 [place] sheath was then placed over the 2nd wire and a wire dilator removed. The atrial lead was then placed and parked in the right atrium. AJ stylet was used to position this in the right atrial appendage. The endocardial screws deployed and the lead was tested with excellent parameters above. This lead was also secured with silk sutures to the pectoralis fascia. The pocket was then copiously irrigated with antibiotic solution. The leads were then placed in their appropriate receptacles and the pacemaker was tested again with excellent parameters. The generator and excess lead was then placed into the pocket. The wound was then closed with a deep running 3-0 Vicryl suture followed by running 3-0 Vicryl suture and Dermabond glue in the skin. The patient was then recovered in the operating room in stable condition.
[2022-08-20] MEDS: QUEtiapine Fumarate 25 MG TABLET PO (20:10)
[2022-08-20] MEDS: Tamsulosin HCL 0.4 MG CAPSULE PO (20:10)
[2022-08-21 04:00] VITALS: BP 146/70; PULSE 79; RESP 20; TEMP 37; O2SAT 93
[2022-08-21 06:00] VITALS: BMI 27.9
[2022-08-21 08:00] VITALS: BP 155/79; PULSE 99; RESP 20; TEMP 36.3; O2SAT 98
[2022-08-21] MEDS: pyRIDostigmine bromide 60 MG TABLET PO (08:57)
[2022-08-21] MEDS: Ferrous Sulfate 324 MG TABLET.DR PO (08:57)
[2022-08-21] MEDS: Cholecalciferol (Vitamin D3) 25 MCG TABLET PO (08:57)
[2022-08-21] MEDS: Enoxaparin Sodium 40 MG/0.4 ML SYRINGE SUBCUT (08:57)
[2022-08-21] MEDS: calcium polycarbophiL TABLET 1 TAB PO (08:57)
[2022-08-21] MEDS: amLODIPine Besylate 2.5 MG TABLET PO (08:57)
[2022-08-21] MEDS: Aspirin Enteric Coated 81 MG TABLET.DR PO (08:57)
[2022-08-21] MEDS: 0.9 % Sodium Chloride Flush 3 ML SYRINGE IVFLUSH (08:58)
[2022-08-21] MEDS: Docusate Sodium 100 MG CAPSULE PO (09:06)
[2022-08-21] MEDS: Fluticasone Propionate Nasal 16 GM SPRAY 1 SPRAY NOSTRIL-B (09:08)
--- NOTE | 2022-08-21 10:51 | PM.PNCARD ---
Subjective Subjective Date of Service: 08/21/22 <EBONI Lockwood - Last Filed: 08/21/22 11:08> 08/21/22 <Brad Marin MD - Last Filed: 08/21/22 11:29> Principal diagnosis: syncope, bradycardic episode <EBONI Lockwood - Last Filed: 08/21/22 11:08> Interval history: Seen at 0945. Today he reports feeling well. Mild soreness at pacemaker site. Wearing sling left arm. No other CP or sob, CXR completed this am. Device interrogation completed and functioning well. Tele shows SR, 80-100. <EBONI Lockwood - Last Filed: 08/21/22 11:08> Review of Systems Review of Systems as above <EBONI Lockwood - Last Filed: 08/21/22 11:08> Yes all other systems are reviewed and are negative <EBONI Lockwood - Last Filed: 08/21/22 11:08> Physical Exam Vital Signs: Last Vital Signs Temp 97.3 F 08/21/22 08:00 Pulse 99 08/21/22 08:00 Resp 20 08/21/22 08:00 BP 155/79 H 08/21/22 08:00 Pulse Ox 98 08/21/22 08:00 O2 Del Method 08/21/22 08:00 O2 Flow Rate 2 08/21/22 08:00 BMI result Body Mass Index 27.9 <EBONI Lockwood - Last Filed: 08/21/22 11:08> Const General: cooperative, comfortable and no acute distress <EBONI Lockwood - Last Filed: 08/21/22 11:08> Neck Neck: Yes normal visual inspection <EBONI Lockwood Last Filed: 08/21/22 11:08> Chest Other: Pacemaker site Left upper chest intact with tegarm dressing. Mild swelling. No drainage. <EBONI Lockwood - Last Filed: 08/21/22 11:08> Resp Effort & Inspection: normal respiratory effort <EBONI Lockwood - Last Filed: 08/21/22 11:08> Auscultation: no crackles, no rales and no rhonchi <EBONI Lockwood - Last Filed: 08/21/22 11:08> Cardio Jugular venous distension: no JVD <EBONI Lockwood Last Filed: 08/21/22 11:08> Rate: regular rate <EBONI Lockwood - Last Filed: 08/21/22 11:08> Rhythm: regular rhythm <EBONI Lockwood - Last Filed: 08/21/22 11:08> Heart sounds: S1 normal heart sound present, S2 normal heart sound present, no gallops, no murmurs and no rubs <EBONI Lockwood - Last Filed: 08/21/22 11:08> Skin General skin exam: no rashes or lesions noted <BEONI Lockwood - Last Filed: 08/21/22 11:08> Extrem General: Yes normal to inspection <EBONI Lockwood - Last Filed: 08/21/22 11:08> Psych Appearance: grossly normal <EBONI Lockwood Last Filed: 08/21/22 11:08> Mental Status: mental status grossly normal <EBONI Lockwood Last Filed: 08/21/22 11:08> Objective Labs and Meds Result diagrams: : 08/17/22 05:59 08/17/22 05:59 <EBONI Lockwood - Last Filed: 08/21/22 11:08> Imaging Radiologist's impression: Impressions Guidance Fluoroscopy 08/20/22 18:16 FINDINGS~\^^ Intraoperative fluoroscopy provided for use by Dr. Resendiz. Please see operative note for detailed findings. Chest X-Ray 08/20/22 19:05 IMPRESSION: 1. Mild cardiomegaly. No acute process seen. 2. New dual pacer electrodes in right atrium and right ventricle. No pneumothorax. <EBONI Lockwood - Last Filed: 08/21/22 11:08> Progress Note: A&P Assessment and plan (1) Syncope and collapse: Status: Acute <EBONI Lockwood - Last Filed: 08/21/22 11:08> Assessment and Plan: [facility] Just prior to admit-Syncopal event, found unresponsive, CPR preformed. EMS documented pulse at 22 b/min. No rhythm strips for review. Notes indicate he was in junctional rhythm for short time, then SR with 1st degree avb. He was on low dose Metoprolol which was stopped. Pt recalls sitting down to watch football game then nothing else. Tele has remained stable since then with SR, 1st degree avb, pulse 70-80s in last day. He underwent a Medtronic dual chamber pacemaker placement yesterday. CXR post insertion showed leads in place and no pneumothorax. This am he is feeling good. Pacemaker site intact with tegaderm dressing. Using sling to limit left arm movement. Device interrogation this am shows device is functioning normally. Tele shows SR, rate 80- 100. No pacing seen. CXR done - result pending. If CXR has no acute findings Pt may be discharged from cardiology perspective. Pacemaker site care will need to be reviewed with [facility] personel. Anticipate that Dr Resendiz will arrange his 2 week wound check. We will arrange for 6 week cardiology OV/ device check. His usual home Metoprolol can be resumed. <Trena Apodaca NP-Cris - Last Filed: 08/21/22 11:08> [facility]. Just prior to admit-Syncopal event, found unresponsive, CPR preformed. EMS documented pulse at 22 b/min. No rhythm strips for review. Notes indicate he was in junctional rhythm for short time, then SR with 1st degree avb. He was on low dose Metoprolol which was stopped. Pt recalls sitting down to watch football game then nothing else. Tele has remained stable since then with SR, 1st degree avb, pulse 70-80s in last day. He underwent a Medtronic dual chamber pacemaker placement yesterday. CXR post insertion showed leads in place and no pneumothorax. This am he is feeling good. Pacemaker site intact with tegaderm dressing. Using sling to limit left arm movement. Device interrogation this am shows device is functioning normally. Tele shows SR, rate 80- 100. No pacing seen. CXR done - result pending. If CXR has no acute findings Pt may be discharged from cardiology perspective. Pacemaker site care will need to be reviewed with [facility] personel. Anticipate that Dr Resendiz will arrange his 2 week wound check. We will arrange for 6 week cardiology OV/ device check. His usual home Metoprolol can be resumed. Patient admitted with syncope and found to have severe bradycardia. Status post pacemaker placement. Pacemaker is working well. Patient can be discharged from cardiac perspective. Will follow up in the office in 6 weeks for pacer check. Follow up with surgery office in 10 days for wound check. Can resume all his medications as before. Thank you for allowing me to partake in his care <Brad Marin MD - Last Filed: 08/21/22 11:29> (2) Symptomatic bradycardia: Status: Acute <EBONI Lockwood - Last Filed: 08/21/22 11:08> (3) First degree AV block: Status: Acute <EBONI Lockwood - Last Filed: 08/21/22 11:08> (4) CAD (coronary artery disease): Status: Acute <EBONI Lockwood - Last Filed: 08/21/22 11:08> Assessment and Plan: Hx CAD, CABG. Follows with Dr Pratt as outpt. 2nd trop was elevated at 54.8 which was likely related to syncopal event, CPR. No reports of anginal symptoms. Continue Aspirin, atorvastatin and amlodipine. Metoprolol can be restarted now that PPM in place <EBONI Lockwood - Last Filed: 08/21/22 11:08> (5) COVID-19: Status: Acute <EBONI Lockwood - Last Filed: 08/21/22 11:08> Assessment and Plan: Followed by hospitalist <EBONI Lockwood - Last Filed: 08/21/22 11:08> (6) Pacemaker: Status: Acute <EBONI Lockwood Last Filed: 08/21/22 11:08> Assessment and Plan: Medtronic dual chamber pacemaker interrogation: battery new, AAI-DDD mode, low rate 60, A threshold 0.5 V @ 0.4ms, V threshold 0.625V @ 0.4 ms. No alerts. no afib. Charge [id number] <EBONI Lockwood - Last Filed: 08/21/22 11:08> Time Spent With Patient Time: Total time spent is greater than 50% in coordination of care (as documented) at patient's floor/unit and/or counseling patient: 20 <EBONI Lockwood - Last Filed: 08/21/22 11:08> Progress Note: Quality Stroke Does the patient have a stroke diagnosis?: No <EBONI Lockwood - Last Filed: 08/21/22 11:08> Procedures Date of Service Date of Service: 08/21/22 <EBONI Lockwood - Last Filed: 08/21/22 11:08>
--- NOTE | 2022-08-21 11:23 | MHC.CM.PN ---
Per MD, Patient will be medically cleared for dc to return to the HS today. Patient will return to the HS today at 1PM, via [facility]. CM spoke with Son/HCP/Robe White (Patient is Covid (+) and addressed IMM with him(original will be mailed certified letter to Son and a copy has been placed on the chart).
[2022-08-21 11:43] VITALS: BP 153/72; PULSE 80; RESP 20; TEMP 36.2; O2SAT 96
--- NOTE | 2022-08-21 11:46 | P.DS_ITS ---
DS: Providers Provider Date of Service: 08/21/22 Date of admission: 08/19/22 12:00 Primary care physician: KASH Carnes Consults: 08/17/22 07:09 Consult to Cardiology Routine Consulting Provider: Karl Hooks Reason for consultation: unrespsive, CPR was performed, Bradycardic , first degree AV block Has provider been notified: No 08/17/22 09:27 Consult to Neurology Routine Consulting Provider: [facility] Reason for consultation: neurocardiogenic syncope Has provider been notified: No 08/17/22 15:36 Consult to Thoracic Surgery Routine Consulting Provider: Michael Resendiz Reason for consultation: symptomatic bradycardia -need pacemaker Has provider been notified: No 08/18/22 09:46 Consult to Psychiatry Routine Consulting Provider: Psych Covering Reason for consultation: symptomatic bradycardia/psych medication management Has provider been notified: No DS: Diagnosis Discharge Diagnosis (1) Syncope and collapse: Status: Acute (2) Symptomatic bradycardia: Status: Acute (3) First degree AV block: Status: Acute (4) CAD (coronary artery disease): Status: Acute (5) COVID-19: Status: Acute (6) Pacemaker: Status: Acute DS: Summary Hospital Course Hospital Course: 82-year-old male with past medical history of BPH, CAD status post CABG, hypertension, myasthenia gravis, history of colon cancer, presents to the hospital with a syncopal episode.? Patient himself does not remember the event, reports that I guess I passed out . it appears the patient was found unresponsive, CPR was performed on him at the intermediate, upon EMS arrival patient had a pulse with a heart rate of beats per minute.? Patient denies any chest pain, reports no shortness of breath, no headache, no change in vision, no abdominal pain nausea vomiting, diarrhea constipation, reports neck urinary frequency and no lower extremity edema.COVID 19 +ve. denies any resp symptoms EKG on arrival shows junctional rhythm Vitals on arrival show heart rate in the 60s, blood pressure of 85/44 improved with IV fluids, no documented hypoxia Labs on arrival are significant for WBC count of 6.6, hemoglobin of 11.8, hematocrit 34.3, COVID-19 positive Chest x-ray shows interval post CABG changes, no evidence for acute disease in the chest. Hospital course: Patient came with symptomatic bradycardia-seen by Cardiology and thoracic- patient is status post pacemaker, no new event overnight, as per Cardiology Device interrogation completed and functioning well. Tele shows SR, 80-100.? Pacemaker site seems clean, no bleeding or erythema, has some soreness. Sling of the left arm. Pacemaker site care will need to be reviewed with [facility] personel. Anticipate that Dr Resendiz will arrange his 2 week wound check. today's cxr seems fine (d/w radiology Dr cruz). Cardiology saw the patient recommended to continue his current meds, already has pacemaker. Cardiology may arrange their own appointment outpatient. Above management discussed with the patient in detail length he understand in agreement with the above plan, time spent 50 minute. Time Spent with Patient Time attestation: Total time spent providing and/or coordinating discharge services: Discharge coordination time: Greater than 30 minutes Quality: Safe Use of Opioids Does Pt have an Active Cancer Diagnosis on the Problem List?: No Quality: Stroke Does the patient have a stroke diagnosis?: No Physical Exam Vital Signs: Vital Signs: Last Vital Signs Temp 97.1 F 08/21/22 11:43 Pulse 80 08/21/22 11:43 Resp 20 08/21/22 11:43 BP 153/72 H 08/21/22 11:43 Pulse Ox 96 08/21/22 11:43 O2 Del Method 08/21/22 11:43 O2 Flow Rate 2 08/21/22 08:00 BMI result Body Mass Index 27.9 Appearance: Alert.? Oriented X3.? not in distress.?. cvs: rrr, [id number] . ?Pacemaker site Left upper chest intact with tegarm dressing. Minimum swelling. No drainage. res: clear to auscultation ,no rhonchii or wheezing abd: no rebound or guarding ,nt, bs present. ext pulses present , no cyanosis . neuro: axo3 , nonfocal. DS: Data Data Completed and Pending Completed studies during hospitalization [Text1]: Procedures Dilation of Common Bile Duct, Via Natural or Artificial Opening Endoscopic (09/20/20) Insertion of Infusion Device into Right Atrium, Percutaneous Approach (09/13/20) Insertion of Infusion Device into Right External Jugular Vein, Percutaneous Approach (09/20/20) Inspection of Upper Intestinal Tract, Via Natural or Artificial Opening Endoscopic (09/13/20) Transfusion of Nonautologous Frozen Plasma into Central Vein, Percutaneous Approach (09/13/20) Transfusion of Nonautologous Platelets into Central Vein, Percutaneous Approach (09/13/20) Transfusion of Nonautologous Red Blood Cells into Central Vein, Percutaneous A pproach (09/13/20) Transfusion of Nonautologous Red Blood Cells into Peripheral Vein, Percutaneous Approach (09/20/20) Ultrasonography of Right Jugular Veins, Guidance (09/20/20) Ultrasonography of Superior Vena Cava, Guidance (09/13/20) Imaging Chest x-ray: Radiologist's impression: ITS Impressions Chest X-Ray 08/16/22 22:29 IMPRESSION: Interval post-CABG changes. Low lung volumes. No evidence for acute disease in the chest. Shoulder X-Ray 08/17/22 13:26 IMPRESSION: Mild left acromioclavicular degenerative joint changes. No acute fracture. Guidance Fluoroscopy 08/20/22 18:16 FINDINGS~\^^ Intraoperative fluoroscopy provided for use by Dr. Resendiz. Please see operative note for detailed findings. Chest X-Ray 08/20/22 19:05 IMPRESSION: 1. Mild cardiomegaly. No acute process seen. 2. New dual pacer electrodes in right atrium and right ventricle. No pneumothorax. Discharge Plan Discharge Anticipated Discharge Date/Time: 08/21/22 11:31 Patient Disposition: [facility] Discharge Diagnosis: Symptomatic bradycardia status post pacemaker. Referrals: [facility] [Other] - 1 Week Michael Resendiz MD [Physician] - 2 Weeks (follow up in 2 week) Nirmal Dove PA [Primary Care Provider] - 1 Week Discharge Medications: Continued docusate sodium 100 mg Capsule 100 mg PO BID omeprazole 20 mg capsule,delayed release(DR/EC) 40 mg PO DAILY@1600 atorvastatin 40 mg Tablet 40 mg PO DAILY@1700 Rx Instructions: evening azathioprine 50 mg Tablet 50 mg PO Q2D acetaminophen 650 mg Tablet 650 mg PO BEDTIME cyanocobalamin (vitamin B-12) 1,000 mcg/mL Solution 1,000 mcg IM QMONTH calcium polycarbophil 625 mg Tablet 625 mg PO DAILY aspirin 81 mg Tablet 81 mg PO DAILY Hold Instructions: Resume on 09/21/20. restart after one week if h/h stable Rx Instructions: HOLD UNTIL 09/21 fluticasone propionate 50 mcg/actuation [place],Suspension 1 spray INTRANASAL BID Rx Instructions: right nostril carboxymethylcellulose sodium Drops 1 drp OPHTHALMIC (EYE) BEDTIME cholecalciferol (vitamin D3) 25 mcg (1,000 unit) Tablet,Chewable 25 mcg PO DAILY quetiapine 25 mg Tablet 75 mg PO BEDTIME oxybutynin chloride 15 mg Tablet Extended Release 24hr 15 mg PO DAILY trazodone 50 mg Tablet 25 mg PO BEDTIME prednisone 5 mg Tablet 2.5 mg PO Q OTHER DAY venlafaxine 150 mg Capsule,Extended Release 24hr 150 mg PO DAILY tamsulosin 0.4 mg Capsule 0.4 mg PO BEDTIME ferrous sulfate [Iron (ferrous sulfate)] 325 mg (65 mg iron) Tablet 325 mg PO BID pyridostigmine bromide 60 mg Tablet 60 mg PO TID ropinirole 3 mg Tablet 3 mg PO BEDTIME Rx Instructions: administer 1-3 hours before bedtime metoprolol tartrate 25 mg tablet 12.5 mg PO BID Discharge Orders: Discharge Order (Routine); Ordered 08/21/22 Ordered By: Gabriella Perez Diet: Advance to usual diet Activity on Discharge: As tolerated Stand Alone Forms: Patient Portal Discharge page Care Plan Goals: Patient came with symptomatic bradycardia-seen by Cardiology and thoracic- patient is status post pacemaker, no new event overnight, as per Cardiology Device interrogation completed and functioning well. Tele shows SR, 80-100.? Pacemaker site seems clean, no bleeding or erythema, has some soreness. Sling of the left arm. Pacemaker site care will need to be reviewed with [facility] personel. Anticipate that Dr Resendiz will arrange his 2 week wound check. Cardiology saw the patient recommended to continue his current meds, already has pacemaker. Cardiology may arrange their own appointment outpatient. Health Concerns: pacemaker instructions : ACTIVITY: ? ARM MOVEMENT RESTRICTIONS: No lifting your left arm over your head or behind your back, no pushing/pulling/lifting anything >10lb with your left arm for 8 weeks. This ensures the pacemaker wires stay in place and do not get pulled out accidentally. Make sure you are doing gentle range of motion exercises with the left arm (such as pendulum exercise) to make sure your elbow and shoulder do not get frozen up. ? ARM SLING: Keep the sling on until 08/19/2022. You may then take the sling off and leave it off. HOWEVER, if you are noticing a difficulty limiting your left arm movement (as outline above) then wear your sling during the day to make sure you are adhering to the restrictions above. ? Ask your doctor when you can expect to return to work. ? You can still exercise. It is good for your body and your heart. Talk with your doctor about an exercise plan. INCISION CARE: ? You may shower starting 08/20/2022. Sponge bathe only until then. ? Do not submerge yourself in water (baths, pools, etc.) for 2 weeks. ? Monitor the incision for increased redness, swelling, bruising, pain, open area, or drainage. OTHER PRECAUTIONS: ? Before you receive any treatment, tell all healthcare providers (including your dentist) that you have a pacemaker. ? You will be given an ID card that contains information about your pacemaker. Always carry this card with you. You can show this card if your pacemaker sets off a metal detector. You should also show it to avoid screening with a hand-held security wand. ? Keep your cell phone away from your pacemaker. Do not carry the phone in your shirt pocket, even it if is turned off. ? Avoid strong magnets. Examples are those used in MRI's or in hand-held security wands. ? Avoid strong electrical turner. Examples are those made by radio transmitting towers, ham radios, and heavy-duty electrical equipment. ? Avoid leaning over the open recinos of a running car. A running engine creates an electrical field. Most household and yard appliances will not cause any problems. If you use any large power tools, such as an industrial edi architect, talk with your doctor. WHEN TO CALL YOUR DOCTOR: Call your doctor immediately if you have any of the following: ? Dizziness ? Chest pain ? Lack of energy ? Fainting spells ? Twitching chest muscles ? Rapid pule or pounding heartbeat ? Shortness of breath ? Pain around your pacemaker ? Fever above 100.4 F (38 C) or other signs of i nfection (redness, swelling, drainage, or warmth at the incision site). ? Hiccups that will not stop FOLLOWUP APPOINTMENTS: ? Call Dr. Resendiz's office (Thoracic Surgery) as soon as you get home to schedule a followup appointment for 2 weeks from now. The office number is . ? Call your junior art director to make an appointment for the next couple weeks. Make regular follow-up appointments with your doctor. He or she will check the pacemaker to make sure it is working properly. Plan of Treatment: As above. Assessment: As above. Patient Instructions: Pacemaker (DC)
[2022-08-21] MEDS: predniSONE 5 MG TABLET 2.5 MG PO (12:16)
[2022-08-21] MEDS: azaTHIOprine 50 MG TABLET PO (12:16)
--- NOTE | 2022-08-21 12:17 | MHC.CM.PN ---
CHARLA has successfully faxed the dc summary to [facility] Nursing Loading Dock Helper/Pauline @ [phone].
[2022-08-21 12:38] LABS: COVID-19 Test Positive (Negative); IDNOW Serial# 16C4AD1C
--- NOTE | 2022-08-21 12:42 | MHC.CM.PN ---
Patient's positive covid results from today have been successfully faxed to [facility] Nursing Producer Arborist Manager/Pauline @ [phone] and a copy has been placed with other ma paperwork as well.
== END 2022-08-21 13:51 | disposition skilled nursing facility (03) | DRG 242 ==
LOC: HO.ED 21:54 → HO.EDOVER 08-17 00:19 → HO.IMC 08-17 00:51
PROVIDERS: Surgery; Admitting Provider Internal Medicine; Emergency Provider Emergency Medicine; PCP Physician Assistant; Visit Provider Internal Medicine
PROC: 0JH606Z Insertion of Pacemaker, Dual Chamber into Chest Subcutaneous Tissue and Fascia, Open Approach (ICD-10-PCS; principal; 2022-08-20 15:30)
DX: I44.0 Atrioventricular block, first degree (principal); U07.1 COVID-19; R00.1 Bradycardia, unspecified; I25.10 Atherosclerotic heart disease of native coronary artery without angina pectoris; E11.9 Type 2 diabetes mellitus without complications; I10 Essential (primary) hypertension; G70.00 Myasthenia gravis without (acute) exacerbation; F32.9 Major depressive disorder, single episode, unspecified; E78.5 Hyperlipidemia, unspecified; N40.0 Benign prostatic hyperplasia without lower urinary tract symptoms; I25.2 Old myocardial infarction; Z95.1 Presence of aortocoronary bypass graft; Z85.038 Personal history of other malignant neoplasm of large intestine; Z86.73 Personal history of transient ischemic attack (TIA), and cerebral infarction without residual deficits; Z79.51 Long term (current) use of inhaled steroids; Z79.82 Long term (current) use of aspirin; Z79.899 Other long term (current) drug therapy
CPT/HCPCS: 36415; 71045; 73030; 80048; 80053; 84484; 85025; 85610; 85730; 86850; 86900; 86901; 87635; 93005; 99285; C1785; C1892; C1898; J0690; J1650; J2795; J3010; J3370

== ENCOUNTER 2022-08-29 10:52 | Outpatient (REF) | payer OTHER, SELFPAY | END 2022-08-29 10:53 | disposition home or self-care (01) | LOC: HO.HSH3W 10:52 | PROVIDERS: Visit Provider Nurse Practitioner | DX: D48.5 Neoplasm of uncertain behavior of skin (principal) | CPT/HCPCS: 88304; 88305 ==

== ENCOUNTER → 2022-09-21 09:24 | Outpatient (BNVA) | payer OTHER, SELFPAY | PROVIDERS: PCP Physician Assistant; Visit Provider Surgery | DX: Z13.89 Encounter for screening for other disorder (principal) ==

== ENCOUNTER → 2022-10-29 14:12 | Outpatient (BNVA) | payer OTHER, SELFPAY | PROVIDERS: PCP Physician Assistant; Referring Provider Physician Assistant; Visit Provider Internal Medicine | DX: Z45.018 Encounter for adjustment and management of other part of cardiac pacemaker (principal); I25.10 Atherosclerotic heart disease of native coronary artery without angina pectoris; I63.232 Cerebral infarction due to unspecified occlusion or stenosis of left carotid arteries; I10 Essential (primary) hypertension; K92.2 Gastrointestinal hemorrhage, unspecified; G70.00 Myasthenia gravis without (acute) exacerbation; E11.9 Type 2 diabetes mellitus without complications | CPT/HCPCS: 93280; 99212 ==

== ENCOUNTER 2022-12-19 06:16 | Outpatient (REF) | payer OTHER, SELFPAY ==
[2022-12-19 07:21] LABS: MANUAL DIFF FLAG NO
[2022-12-19 07:31] LABS: Basophils Percent Auto 0.7 % (0-2); Eosinophils Absolute Auto 0.2 X10*3/uL (0.0-0.4); Eosinophils Percent Auto 5.3 % (0-4); Hematocrit 39.9 % (42.0-52.0); Hemoglobin 13.6 g/dl (14.0-18.0); Imm Gran Abs Auto 0.01 X10*3/uL (0.00-0.03); Imm Gran Pct Auto 0.2 % (0.0-0.4); Lymphocytes Absolute Auto 1.1 X10*3/uL (1.2-4.9); Mean Corpuscular HGB Conc 34.1 g/dl (31.0-36.0); Mean Corpuscular Hemoglobin 32.4 pg (27.0-33.0); Mean Platelet Volume 9.5 fL (9.4-12.4); Monocytes Absolute Auto 0.6 X10*3/uL (0.1-1.2); Monocytes Percent Auto 12.2 % (2-11); Neutrophils Absolute Auto 2.6 x10*3/uL (2.0-8.3); Neutrophils Percent Auto 57.6 % (45-73); Platelet Count 207 X10*3/uL (160-400); Red Cell Distribution Width 12.8 % (11.0-16.0); White Blood Count 4.5 X10*3/uL (4.8-10.8)
[2022-12-19 07:55] LABS: Alanine Aminotransferase 12 U/L (0-40); Albumin Level 4.1 g/dL (3.5-5.0); Alkaline Phosphatase 75 U/L (39-117); Anion Gap 16 (12-20); Aspartate Amino Transferase 15 U/L (5-37); Bilirubin Total 0.6 mg/dL (0.0-1.0); Blood Urea Nitrogen 16 mg/dL (9-16); Calcium 9.1 mg/dL (8.4-10.2); Carbon Dioxide 26 mmol/L (22-29); Chloride 105 mmol/L (96-108); Estimated Glomerular Filt Rate > 60; Glucose Fasting 123 mg/dL (60-99); Potassium 3.9 mmol/L (3.3-5.1); Sodium 143 mmol/L (135-145); Total Protein 6.4 g/dL (6.5-8.0)
== END 2022-12-19 06:17 | disposition home or self-care (01) ==
LOC: HO.HSH3W 06:16
PROVIDERS: Visit Provider Nurse Practitioner
DX: I10 Essential (primary) hypertension (principal)
CPT/HCPCS: 36415; 80053; 85025

== ENCOUNTER → 2023-03-17 23:59 | Outpatient (BNV) | payer OTHER, SELFPAY ==
--- NOTE | 2023-03-26 11:04 | MHC.OFFVIS ---
Intake Intake Visit Reasons: Remote Device Check- Medtronic Allergies No Known Allergies [No Known Allergies*] Allergy (Verified 10/29/22 15:04) [facility] Medical History Atherosclerotic cardiovascular disease BPH (benign prostatic hyperplasia) CAD (coronary artery disease) Depression Diet-controlled diabetes mellitus Essential hypertension GERD (gastroesophageal reflux disease) Hammer toes, bilateral History of COVID-19 History of diverticulosis History of GI bleed History of non-ST elevation myocardial infarction (NSTEMI) (~09/2020) History of rectal cancer (~11/2014) History of transfusion (~08/2020) Hyperlipidemia Insomnia Myasthenia gravis Nonalcoholic steatohepatitis (MARTI) Onychogryphosis Rheumatoid arthritis Status post coronary artery bypass graft (~11/2020) 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 Father No problems noted. Brother No problems noted. Sister No problems noted. Daughter Psychiatric disorder Son No problems noted. Social History Household Members: Other Housing: Assisted Living Facility Housing Other:: [facility] Do you presently have visiting nurse or other home services: No Alcohol intake: never Patient Tobacco Use Status: Never used Tobacco Advance Directives Date on File: 06/21/20 service: Yes Current occupational status: retired Office Procedures Cardiac Device Check Cardiac Device Check Details: Remote pacemaker report generated 03/17/2023. Pacemaker function is adequate [id number] Cardiac Device Interrogation, pacemaker Procedure code (CPT) selection complete Coding Level of Care Code Procedure Only Diagnoses CPT Codes Cardiac Device Check - Cardiac Device 12: [id number] Cardiac Device Interrogation, pacemaker ([id number])
== END ==
PROVIDERS: PCP Physician Assistant; Visit Provider Internal Medicine
DX: I44.0 Atrioventricular block, first degree (principal); Z95.0 Presence of cardiac pacemaker
CPT/HCPCS: 93294

== ENCOUNTER 2023-05-27 13:16 | Outpatient (AMB) | payer OTHER, SELFPAY ==
--- NOTE | 2023-05-27 13:31 | A.OFFVIS_ITS ---
Intake Vital Signs 05/27/23 13:32 Height 5 ft 5 in Weight 177 lb 4.026 oz BMI 29.5 BP 136/66 Blood Pressure Location Lt brachial Position Sitting Pulse 57 Intake Visit Reasons: 7 mth fu w/ medtronic Intake Note: 7 month follow up w/ device check Field Servicer Required: No Accompanied by: Self / Same As Patient Allergies No Known Allergies [No Known Allergies*] Allergy (Verified 05/27/23 13:39) Medication List - Last Reconciled 05/27/23 by Ector Pratt MD acetaminophen 650 mg PO BEDTIME aspirin 81 mg PO DAILY atorvastatin 40 mg PO DAILY@1700 azathioprine 50 mg PO Q2D calcium polycarbophil 625 mg PO DAILY carboxymethylcellulose sodium 1 drp ophthalmic (eye) BEDTIME cholecalciferol (vitamin D3) 25 mcg PO DAILY cyanocobalamin (vitamin B-12) 1,000 mcg IM QMONTH docusate sodium 100 mg PO BID ferrous sulfate (Iron (ferrous sulfate)) 325 mg PO BID fluticasone propionate 50 mcg/actuation 1 spray intranasal BID metoprolol tartrate 12.5 mg PO BID omeprazole 40 mg PO DAILY@1600 oxybutynin chloride ER 15 mg PO DAILY prednisone 2.5 mg PO Q OTHER DAY pyridostigmine bromide 60 mg PO TID quetiapine 100 mg PO BEDTIME quetiapine 75 mg PO BEDTIME ropinirole 1 mg PO BEDTIME ropinirole 2 mg PO BEDTIME tamsulosin 0.4 mg PO BEDTIME trazodone 25 mg PO BEDTIME venlafaxine ER 150 mg PO DAILY HPI HPI Comments History of Present Illness Details Robe returns for follow-up. To recall, he was initially admitted to the hospital with gastrointestinal bleeding. In that setting, he had a non ST elevation myocardial infarction. He also developed stroke-type symptoms. MRI had then showed acute cerebral infarct. Carotid ultrasound was suggestive of significant disease. Then had cardiac catheterization that showed multivessel disease. He eventually had both coronary artery bypass as well as left carotid endarterectomy. In August 2022, he was admitted with bradycardia and in that context, underwent permanent pacemaker placement. Overall, he is doing good. No specific complaints. [facility] Medical History Atherosclerotic cardiovascular disease BPH (benign prostatic hyperplasia) CAD (coronary artery disease) Depression Diet-controlled diabetes mellitus Essential hypertension GERD (gastroesophageal reflux disease) Hammer toes, bilateral History of COVID-19 History of diverticulosis History of GI bleed History of non-ST elevation myocardial infarction (NSTEMI) (~09/2020) History of rectal cancer (~11/2014) History of transfusion (~08/2020) Hyperlipidemia Insomnia Myasthenia gravis Nonalcoholic steatohepatitis (MARTI) Onychogryphosis Rheumatoid arthritis Status post coronary artery bypass graft (~11/2020) Stroke due to stenosis of left carotid artery (~09/2020) Tubular adenoma of colon (~2014) Urinary incontinence Surgical History History of pacemaker (~08/2022) History of colonoscopy History of ERCP (~09/2020) History of heart surgery (~11/2020) History of cataract surgery (~05/2019) History of cholecystectomy (~02/2021) History of left-sided carotid endarterectomy (~11/2020) History of coronary artery bypass graft x 2 (~11/2020) History of cardiac catheterization (~11/2020) History of incisional hernia repair History of colostomy (~07/2015) History of colostomy reversal (~01/2016) Family History Mother No problems noted. Father No problems noted. Brother No problems noted. Sister No problems noted. Daughter Psychiatric disorder Son No problems noted. Social History Household Members: Other Housing: Assisted Living Facility Housing Other:: [facility] home Do you presently have visiting nurse or other home services: No Alcohol intake: never Patient Tobacco Use Status: Never used Tobacco Advance Directives Date on File: 06/21/20 service: Yes Current occupational status: retired Review of Systems Const Denies weakness ENT Denies dizziness Card Denies chest pain, Denies chest pain with activity, Denies syncope, Denies rapid heart rate, Denies pedal edema, Denies edema, Denies leg edema, Denies lightheadedness, Denies palpitations, Denies dyspnea, Denies dyspnea on exertion and Denies orthopnea Resp Denies cough, Denies dyspnea and Denies dyspnea on exertion GI Denies hematochezia and Denies change in stool character Musc Denies abnormal gait, Denies muscle cramps, Denies muscle weakness, Denies numbness, Denies radiating pain into limb and Denies tingling Neuro Denies abnormal gait, Denies dizziness, Denies syncope, Denies numbness, Denies tingling and Denies weakness Endo Denies palpitations Physical Exam Vital Signs: Last Vital Signs Pulse 57 05/27/23 13:32 BP 136/66 05/27/23 13:32 BMI result Body Mass Index 29.5 Const General: comfortable and no acute distress Orientation/consciousness: patient oriented x3 HEENT Other: Unremarkable Head: Yes normal to inspection Neck Neck: Yes normal visual inspection Chest Chest palpation & inspection: normal inspection of the chest Resp Auscultation: clear to auscultation bilaterally Cardio Palpation: normal PMI Heart sounds: S1 normal heart sound present, S2 normal heart sound present, no gallops, no murmurs and no rubs GI Palpation (GI): Soft to palpation Back/Spine/Pelvis Other: unremarkable Skin General skin exam: no rashes or lesions noted Neuro General: patient oriented x3 Extrem General: Yes normal to inspection Psych Mental Status: mental status grossly normal Office Procedures Cardiac Device Check Cardiac Device Check Details: Pacemaker interrogated today. Dual-chamber device, programmed AAI/DDD mode. Battery status 13.6 years. Atrial pacing 55% and ventricular pacing 0.1%. Normal lead parameters. No episodes. Overall, normal device function. [id number] Cardiac Device Check, pacemaker dual lead Procedure code (CPT) selection complete Assessment & Plan Assessment & Plan (1) Atherosclerotic cardiovascular disease: Code(s): I25.10 - Atherosclerotic heart disease of [place] coronary artery without angina pectoris Plan: s/p CABG. Continue aspirin and statins. 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 Most recent carotid ultrasound from [facility]-status post left carotid endarterectomy. On the right side, 70-99% stenosis in the internal carotid artery. Follow-up with [facility] vascular surgery. (3) Essential hypertension: Code(s): I10 - Essential (primary) hypertension Plan: Stable. (4) Myasthenia gravis: Code(s): G70.00 - Myasthenia gravis without (acute) exacerbation Plan: On azathioprine, pyridostigmine. Plan Total time 32 minutes. 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
[2023-05-27 13:32] VITALS: BP 136/66; PULSE 57; BMI 29.5
== END 2023-05-27 13:55 | disposition home or self-care (01) ==
PROVIDERS: PCP Physician Assistant; Referring Provider Physician Assistant; Visit Provider Internal Medicine
DX: I25.10 Atherosclerotic heart disease of native coronary artery without angina pectoris (principal); I63.232 Cerebral infarction due to unspecified occlusion or stenosis of left carotid arteries; I10 Essential (primary) hypertension; G70.00 Myasthenia gravis without (acute) exacerbation; I44.0 Atrioventricular block, first degree; Z95.0 Presence of cardiac pacemaker
CPT/HCPCS: 93280; 99214

== ENCOUNTER → 2023-05-27 13:16 | Outpatient (BNVA) | payer OTHER, SELFPAY | PROVIDERS: PCP Physician Assistant; Referring Provider Physician Assistant; Visit Provider Internal Medicine | DX: I25.10 Atherosclerotic heart disease of native coronary artery without angina pectoris (principal); I10 Essential (primary) hypertension; G70.00 Myasthenia gravis without (acute) exacerbation; Z86.73 Personal history of transient ischemic attack (TIA), and cerebral infarction without residual deficits; Z79.82 Long term (current) use of aspirin; Z79.899 Other long term (current) drug therapy; Z45.018 Encounter for adjustment and management of other part of cardiac pacemaker | CPT/HCPCS: 93280; 99212 ==

== ENCOUNTER → 2023-06-16 23:59 | Outpatient (BNV) | payer OTHER, SELFPAY ==
--- NOTE | 2023-06-18 14:04 | A.OFFVIS_ITS ---
Intake Intake Visit Reasons: Remote Device Check- Medtronic Allergies No Known Allergies [No Known Allergies*] Allergy (Verified 05/27/23 13:39) [facility] Medical History Atherosclerotic cardiovascular disease BPH (benign prostatic hyperplasia) CAD (coronary artery disease) Depression Diet-controlled diabetes mellitus Essential hypertension GERD (gastroesophageal reflux disease) Hammer toes, bilateral History of COVID-19 History of diverticulosis History of GI bleed History of non-ST elevation myocardial infarction (NSTEMI) (~09/2020) History of rectal cancer (~11/2014) History of transfusion (~08/2020) Hyperlipidemia Insomnia Myasthenia gravis Nonalcoholic steatohepatitis (MARTI) Onychogryphosis Rheumatoid arthritis Status post coronary artery bypass graft (~11/2020) Stroke due to stenosis of left carotid artery (~09/2020) Tubular adenoma of colon (~2014) Urinary incontinence Surgical History History of pacemaker (~08/2022) History of colonoscopy History of ERCP (~09/2020) History of heart surgery (~11/2020) History of cataract surgery (~05/2019) History of cholecystectomy (~02/2021) History of left-sided carotid endarterectomy (~11/2020) History of coronary artery bypass graft x 2 (~11/2020) History of cardiac catheterization (~11/2020) History of incisional hernia repair History of colostomy (~07/2015) History of colostomy reversal (~01/2016) Family History Mother No problems noted. Father No problems noted. Brother No problems noted. Sister No problems noted. Daughter Psychiatric disorder Son No problems noted. Social History Household Members: Other Housing: Assisted Living Facility Housing Other:: [facility] home Do you presently have visiting nurse or other home services: No Alcohol intake: never Patient Tobacco Use Status: Never used Tobacco Advance Directives Date on File: 06/21/20 service: Yes Current occupational status: retired Office Procedures Cardiac Device Check Cardiac Device Check Details: Date of service- 06/16/2023 ; Battery life >13 years; normal lead parameters; AP 67%; CURING PICKLING PACKER <0.1 %; no significant arrhythmias. Overall normal device function. [id number] Cardiac Device Interrogation, pacemaker Procedure code (CPT) selection complete Assessment & Plan Assessment & Plan (1) Symptomatic bradycardia: Onset Date: ~08/2022 Comment: (08/16/22 - found unresponsive & bradycardic/pulse 22) Code(s): R00.1 - Bradycardia, unspecified Coding Level of Care Code Procedure Only Diagnoses Symptomatic bradycardia R00.1 CPT Codes Cardiac Device Check - Cardiac Device 12: [id number] Cardiac Device Interrogation, pacemaker ([id number])
== END ==
PROVIDERS: PCP Physician Assistant; Visit Provider Internal Medicine
DX: I50.33 Acute on chronic diastolic (congestive) heart failure (principal); Z95.0 Presence of cardiac pacemaker
CPT/HCPCS: 93294

== ENCOUNTER 2023-07-10 04:58 | Outpatient (REF) | payer OTHER, SELFPAY ==
[2023-07-10 06:33] LABS: MANUAL DIFF FLAG NO
[2023-07-10 06:36] LABS: Basophils Percent Auto 0.8 % (0-2); Eosinophils Absolute Auto 0.3 X10*3/uL (0.0-0.4); Hematocrit 34.8 % (42.0-52.0); Imm Gran Abs Auto 0.01 X10*3/uL (0.00-0.03); Imm Gran Pct Auto 0.3 % (0.0-0.4); Lymphocytes Percent Auto 28.4 % (20-40); Mean Corpuscular HGB Conc 34.5 g/dl (31.0-36.0); Mean Corpuscular Hemoglobin 32.7 pg (27.0-33.0); Mean Corpuscular Volume 94.8 fL (80.0-98.0); Mean Platelet Volume 9.7 fL (9.4-12.4); Monocytes Absolute Auto 0.5 X10*3/uL (0.1-1.2); Monocytes Percent Auto 12.5 % (2-11); Neutrophils Absolute Auto 1.8 x10*3/uL (2.0-8.3); Platelet Count 185 X10*3/uL (160-400); Red Blood Count 3.67 X10*6/uL (4.60-5.80); Red Cell Distribution Width 12.7 % (11.0-16.0); White Blood Count 3.6 X10*3/uL (4.8-10.8)
[2023-07-10 06:57] LABS: Alanine Aminotransferase 15 U/L (0-40); Albumin Level 3.6 g/dL (3.5-5.0); Alkaline Phosphatase 56 U/L (39-117); Anion Gap 13 (12-20); Aspartate Amino Transferase 17 U/L (5-37); Bilirubin Total 0.3 mg/dL (0.0-1.0); Blood Urea Nitrogen 13 mg/dL (9-16); Calcium 8.7 mg/dL (8.4-10.2); Carbon Dioxide 27 mmol/L (22-29); Chloride 105 mmol/L (96-108); Cholesterol 107 mg/dL (<200); Estimated Glomerular Filt Rate > 60; Glucose Fasting 107 mg/dL (60-99); HDL Cholesterol 32 mg/dL (>40); LDL Cholesterol Calculated 47 mg/dL (<100); Potassium 3.9 mmol/L (3.3-5.1); Sodium 141 mmol/L (135-145); Total Protein 5.9 g/dL (6.5-8.0); Triglycerides 142 mg/dL (<150)
== END 2023-07-10 04:59 | disposition home or self-care (01) ==
LOC: HO.HSH3W 04:58
PROVIDERS: Visit Provider Nurse Practitioner
DX: I10 Essential (primary) hypertension (principal); E11.9 Type 2 diabetes mellitus without complications
CPT/HCPCS: 36415; 80053; 80061; 85025

== ENCOUNTER 2023-08-01 13:06 | Outpatient (REF) | payer OTHER, SELFPAY ==
[2023-08-01 13:46] LABS: MANUAL DIFF FLAG NO
[2023-08-01 14:05] LABS: Anion Gap 10 (12-20); Blood Urea Nitrogen 17 mg/dL (9-16); Calcium 9.4 mg/dL (8.4-10.2); Carbon Dioxide 29 mmol/L (22-29); Chloride 107 mmol/L (96-108); Estimated Glomerular Filt Rate > 60; Glucose Random 134 mg/dL (60-115); Magnesium 2.2 mg/dL (1.6-2.6); Potassium 4.6 mmol/L (3.3-5.1); Sodium 141 mmol/L (135-145)
[2023-08-01 14:30] LABS: Troponin-I High Sensitivity 301.5 ng/L (<3.5-35.0)
[2023-08-01 15:06] LABS: Basophils Percent Auto 0.6 % (0-2); Eosinophils Absolute Auto 0.1 X10*3/uL (0.0-0.4); Eosinophils Percent Auto 1.5 % (0-4); Hematocrit 39.4 % (42.0-52.0); Hemoglobin 13.3 g/dl (14.0-18.0); Imm Gran Abs Auto 0.02 X10*3/uL (0.00-0.03); Imm Gran Pct Auto 0.4 % (0.0-0.4); Lymphocytes Absolute Auto 0.7 X10*3/uL (1.2-4.9); Lymphocytes Percent Auto 12.1 % (20-40); Mean Corpuscular HGB Conc 33.8 g/dl (31.0-36.0); Mean Corpuscular Hemoglobin 32.8 pg (27.0-33.0); Mean Corpuscular Volume 97.3 fL (80.0-98.0); Mean Platelet Volume 10.1 fL (9.4-12.4); Monocytes Absolute Auto 0.6 X10*3/uL (0.1-1.2); Monocytes Percent Auto 10.3 % (2-11); Neutrophils Percent Auto 75.1 % (45-73); Platelet Count 205 X10*3/uL (160-400); Red Blood Count 4.05 X10*6/uL (4.60-5.80); Red Cell Distribution Width 13.2 % (11.0-16.0); White Blood Count 5.4 X10*3/uL (4.8-10.8)
== END 2023-08-01 13:07 | disposition home or self-care (01) ==
LOC: HO.HSH3W 13:06
PROVIDERS: Visit Provider Nurse Practitioner Acute Care
DX: R55 Syncope and collapse (principal); I11.9 Hypertensive heart disease without heart failure
CPT/HCPCS: 36415; 80048; 83735; 84484; 85025

== ENCOUNTER → 2023-09-15 23:59 | Outpatient (BNV) | payer OTHER, SELFPAY ==
--- NOTE | 2023-09-17 15:57 | A.OFFVIS_ITS ---
Intake Intake Visit Reasons: Remote Device Check- Medtr[employer] Allergies No Known Allergies [No Known Allergies*] Allergy (Verified 05/27/23 13:39) [facility] Medical History Atherosclerotic cardiovascular disease BPH (benign prostatic hyperplasia) CAD (coronary artery disease) Depression Diet-controlled diabetes mellitus Essential hypertension GERD (gastroesophageal reflux disease) Hammer toes, bilateral History of COVID-19 History of diverticulosis History of GI bleed History of non-ST elevation myocardial infarction (NSTEMI) (~09/2020) History of rectal cancer (~11/2014) History of transfusion (~08/2020) Hyperlipidemia Insomnia Myasthenia gravis Nonalcoholic steatohepatitis (MARTI) Onychogryphosis Rheumatoid arthritis Status post coronary artery bypass graft (~11/2020) Stroke due to stenosis of left carotid artery (~09/2020) Tubular adenoma of colon (~2014) Urinary incontinence Surgical History History of pacemaker (~08/2022) History of colonoscopy History of ERCP (~09/2020) History of heart surgery (~11/2020) History of cataract surgery (~05/2019) History of cholecystectomy (~02/2021) History of left-sided carotid endarterectomy (~11/2020) History of coronary artery bypass graft x 2 (~11/2020) History of cardiac catheterization (~11/2020) History of incisional hernia repair History of colostomy (~07/2015) History of colostomy reversal (~01/2016) Family History Mother No problems noted. Father No problems noted. Brother No problems noted. Sister No problems noted. Daughter Psychiatric disorder Son No problems noted. Social History Household Members: Other Housing: Assisted Living Facility Housing Other:: [facility] home Do you presently have visiting nurse or other home services: No Alcohol intake: never Patient Tobacco Use Status: Never used Tobacco Advance Directives Date on File: 06/21/20 service: Yes Current occupational status: retired Office Procedures Cardiac Device Check Cardiac Device Check Details: Date of service- 09/15/2023 ; Battery life >13 years; normal lead parameters; AP 56%; RADIO INSTALLER 0.2 6 in %; no significant arrhythmias. Overall normal device function. [id number] Cardiac Device Interrogation, pacemaker Procedure code (CPT) selection complete Assessment & Plan Assessment & Plan (1) Symptomatic bradycardia: Onset Date: ~08/2022 Comment: (08/16/22 - found unresponsive & bradycardic/pulse 22) Code(s): R00.1 - Bradycardia, unspecified Plan x Coding Level of Care Code Procedure Only Diagnoses Symptomatic bradycardia R00.1 CPT Codes Cardiac Device Check - Cardiac Device 12: [id number] Cardiac Device Interrogation, pacemaker ([id number])
== END ==
PROVIDERS: PCP Physician Assistant; Visit Provider Internal Medicine
DX: R00.1 Bradycardia, unspecified (principal); Z95.0 Presence of cardiac pacemaker
CPT/HCPCS: 93294

== ENCOUNTER 2023-10-04 05:05 | Outpatient (REF) | payer OTHER, SELFPAY ==
[2023-10-04 06:08] LABS: MANUAL DIFF FLAG NO
[2023-10-04 06:13] LABS: Basophils Percent Auto 0.7 % (0-2); Eosinophils Absolute Auto 0.3 X10*3/uL (0.0-0.4); Hematocrit 36.4 % (42.0-52.0); Hemoglobin 12.6 g/dl (14.0-18.0); Imm Gran Abs Auto 0.03 X10*3/uL (0.00-0.03); Imm Gran Pct Auto 0.7 % (0.0-0.4); Lymphocytes Percent Auto 22.7 % (20-40); Mean Corpuscular HGB Conc 34.6 g/dl (31.0-36.0); Mean Corpuscular Hemoglobin 33.2 pg (27.0-33.0); Mean Platelet Volume 9.6 fL (9.4-12.4); Monocytes Absolute Auto 0.5 X10*3/uL (0.1-1.2); Monocytes Percent Auto 12.3 % (2-11); Neutrophils Absolute Auto 2.5 x10*3/uL (2.0-8.3); Neutrophils Percent Auto 56.6 % (45-73); Platelet Count 177 X10*3/uL (160-400); Red Blood Count 3.79 X10*6/uL (4.60-5.80); Red Cell Distribution Width 13.2 % (11.0-16.0); White Blood Count 4.4 X10*3/uL (4.8-10.8)
[2023-10-04 06:23] LABS: Estimated Average Glucose 134 mg/dL; Hemoglobin A1c % 6.3 % (<6.0)
[2023-10-04 06:33] LABS: Alanine Aminotransferase 19 U/L (0-40); Albumin Level 3.8 g/dL (3.5-5.0); Alkaline Phosphatase 62 U/L (39-117); Anion Gap 12 (12-20); Aspartate Amino Transferase 19 U/L (5-37); Bilirubin Direct < 0.2 mg/dL (0.0-0.5); Bilirubin Total 0.2 mg/dL (0.0-1.0); Blood Urea Nitrogen 14 mg/dL (9-16); Carbon Dioxide 29 mmol/L (22-29); Chloride 106 mmol/L (96-108); Estimated Glomerular Filt Rate > 60; Glucose Random 127 mg/dL (60-115); Magnesium 2.2 mg/dL (1.6-2.6); Potassium 3.8 mmol/L (3.3-5.1); Sodium 143 mmol/L (135-145); Total Protein 6.1 g/dL (6.5-8.0)
[2023-10-04 06:47] LABS: Vitamin D 25-OH Total 30.7 ng/mL (>30)
[2023-10-04 06:52] LABS: Vitamin B12 394 pg/mL (200-900)
== END 2023-10-04 05:06 | disposition home or self-care (01) ==
LOC: HO.HSH3W 05:05
PROVIDERS: Visit Provider Nurse Practitioner Acute Care
DX: E11.9 Type 2 diabetes mellitus without complications (principal); I25.10 Atherosclerotic heart disease of native coronary artery without angina pectoris; E55.9 Vitamin D deficiency, unspecified
CPT/HCPCS: 36415; 80053; 82248; 82306; 82607; 83036; 83735; 85025

== ENCOUNTER → 2023-12-14 23:59 | Outpatient (BNV) | payer OTHER, SELFPAY ==
--- NOTE | 2023-12-17 12:24 | A.OFFVIS_ITS ---
Intake Intake Visit Reasons: Remote Device Check- Medtr[employer] Allergies No Known Allergies [No Known Allergies*] Allergy (Verified 05/27/23 13:39) [facility] Medical History Atherosclerotic cardiovascular disease BPH (benign prostatic hyperplasia) CAD (coronary artery disease) Depression Diet-controlled diabetes mellitus Essential hypertension GERD (gastroesophageal reflux disease) Hammer toes, bilateral History of COVID-19 History of diverticulosis History of GI bleed History of non-ST elevation myocardial infarction (NSTEMI) (~09/2020) History of rectal cancer (~11/2014) History of transfusion (~08/2020) Hyperlipidemia Insomnia Myasthenia gravis Nonalcoholic steatohepatitis (MARTI) Onychogryphosis Rheumatoid arthritis Status post coronary artery bypass graft (~11/2020) Stroke due to stenosis of left carotid artery (~09/2020) Tubular adenoma of colon (~2014) Urinary incontinence Surgical History History of pacemaker (~08/2022) History of colonoscopy History of ERCP (~09/2020) History of heart surgery (~11/2020) History of cataract surgery (~05/2019) History of cholecystectomy (~02/2021) History of left-sided carotid endarterectomy (~11/2020) History of coronary artery bypass graft x 2 (~11/2020) History of cardiac catheterization (~11/2020) History of incisional hernia repair History of colostomy (~07/2015) History of colostomy reversal (~01/2016) Family History Mother No problems noted. Father No problems noted. Brother No problems noted. Sister No problems noted. Daughter Psychiatric disorder Son No problems noted. Social History Household Members: Other Housing: Assisted Living Facility Housing Other:: [facility] home Do you presently have visiting nurse or other home services: No Alcohol intake: never Patient Tobacco Use Status: Never used Tobacco Advance Directives Date on File: 06/21/20 service: Yes Current occupational status: retired Office Procedures Cardiac Device Check Cardiac Device Check Details: Date of service- 12/14/2023 ; Battery life >13 years; normal lead parameters; AP 49%; TOOL AND DIE DESIGNER 0.1%; no significant arrhythmias. Overall normal device function. [id number] Cardiac Device Interrogation, pacemaker Procedure code (CPT) selection complete Assessment & Plan Assessment & Plan (1) Symptomatic bradycardia: Onset Date: ~08/2022 Comment: (08/16/22 - found unresponsive & bradycardic/pulse 22) Code(s): R00.1 - Bradycardia, unspecified Plan x Coding Level of Care Code Procedure Only Diagnoses Symptomatic bradycardia R00.1 CPT Codes Cardiac Device Check - Cardiac Device 12: [id number] Cardiac Device Interrogation, pacemaker ([id number])
== END ==
PROVIDERS: PCP Physician Assistant; Visit Provider Internal Medicine
DX: R00.1 Bradycardia, unspecified (principal); Z95.0 Presence of cardiac pacemaker
CPT/HCPCS: 93294

== ENCOUNTER 2024-02-18 05:25 | Outpatient (REF) | payer OTHER, SELFPAY ==
[2024-02-18 06:12] LABS: MANUAL DIFF FLAG NO
[2024-02-18 06:26] LABS: Basophils Percent Auto 1.1 % (0-2); Eosinophils Absolute Auto 0.3 X10*3/uL (0.0-0.4); Eosinophils Percent Auto 8.4 % (0-4); Hematocrit 37.4 % (42.0-52.0); Hemoglobin 12.8 g/dl (14.0-18.0); Imm Gran Abs Auto 0.02 X10*3/uL (0.00-0.03); Imm Gran Pct Auto 0.5 % (0.0-0.4); Lymphocytes Absolute Auto 1.1 X10*3/uL (1.2-4.9); Lymphocytes Percent Auto 29.4 % (20-40); Mean Corpuscular HGB Conc 34.2 g/dl (31.0-36.0); Mean Corpuscular Volume 99.2 fL (80.0-98.0); Mean Platelet Volume 9.5 fL (9.4-12.4); Monocytes Absolute Auto 0.5 X10*3/uL (0.1-1.2); Monocytes Percent Auto 12.4 % (2-11); Neutrophils Absolute Auto 1.8 x10*3/uL (2.0-8.3); Neutrophils Percent Auto 48.2 % (45-73); Platelet Count 183 X10*3/uL (160-400); Red Blood Count 3.77 X10*6/uL (4.60-5.80); Red Cell Distribution Width 12.7 % (11.0-16.0); White Blood Count 3.7 X10*3/uL (4.8-10.8)
[2024-02-18 06:28] LABS: Estimated Average Glucose 140 mg/dL; Hemoglobin A1c % 6.5 % (<6.0)
[2024-02-18 06:39] LABS: Alanine Aminotransferase 24 U/L (0-40); Albumin Level 3.7 g/dL (3.5-5.0); Alkaline Phosphatase 54 U/L (39-117); Anion Gap 11 (12-20); Aspartate Amino Transferase 20 U/L (5-37); Bilirubin Direct 0.1 mg/dL (0.0-0.5); Bilirubin Total 0.3 mg/dL (0.0-1.0); Blood Urea Nitrogen 19 mg/dL (9-16); Calcium 9.1 mg/dL (8.4-10.2); Carbon Dioxide 29 mmol/L (22-29); Chloride 107 mmol/L (96-108); Cholesterol 122 mg/dL (<200); Estimated Glomerular Filt Rate > 60; Glucose Random 114 mg/dL (60-115); HDL Cholesterol 35 mg/dL (>40); LDL Cholesterol Calculated 58 mg/dL (<100); Sodium 143 mmol/L (135-145); Triglycerides 147 mg/dL (<150)
[2024-02-18 06:54] LABS: Ferritin 278 ng/mL (20-250); Vitamin D 25-OH Total 32.2 ng/mL (>30)
[2024-02-18 06:59] LABS: Prostate Specific Antigen < 0.10 ng/mL (<0.05-4.0); Vitamin B12 559 pg/mL (200-900)
== END 2024-02-18 05:26 | disposition home or self-care (01) ==
LOC: HO.HSH3W 05:25
PROVIDERS: Visit Provider Nurse Practitioner
DX: Z12.5 Encounter for screening for malignant neoplasm of prostate (principal); E11.9 Type 2 diabetes mellitus without complications; D64.9 Anemia, unspecified; C20 Malignant neoplasm of rectum
CPT/HCPCS: 36415; 80048; 80061; 80076; 82306; 82607; 82728; 83036; 84153; 85025

== ENCOUNTER → 2024-03-14 23:59 | Outpatient (BNV) | payer OTHER, SELFPAY ==
--- NOTE | 2024-03-22 11:17 | MHC.OFFVIS ---
Intake Visit Reasons: Remote device check-Medtronic Allergies No Known Allergies [No Known Allergies*] Allergy (Verified 05/27/23 13:39) [facility] Medical History Atherosclerotic cardiovascular disease BPH (benign prostatic hyperplasia) CAD (coronary artery disease) Depression Diet-controlled diabetes mellitus Essential hypertension GERD (gastroesophageal reflux disease) Hammer toes, bilateral History of COVID-19 History of diverticulosis History of GI bleed History of non-ST elevation myocardial infarction (NSTEMI) (~09/2020) History of rectal cancer (~11/2014) History of transfusion (~08/2020) Hyperlipidemia Insomnia Myasthenia gravis Nonalcoholic steatohepatitis (MARTI) Onychogryphosis Rheumatoid arthritis Status post coronary artery bypass graft (~11/2020) Stroke due to stenosis of left carotid artery (~09/2020) Tubular adenoma of colon (~2014) Urinary incontinence Surgical History History of pacemaker (~08/2022) History of colonoscopy History of ERCP (~09/2020) History of heart surgery (~11/2020) History of cataract surgery (~05/2019) History of cholecystectomy (~02/2021) History of left-sided carotid endarterectomy (~11/2020) History of coronary artery bypass graft x 2 (~11/2020) History of cardiac catheterization (~11/2020) History of incisional hernia repair History of colostomy (~07/2015) History of colostomy reversal (~01/2016) Family History Mother No problems noted. Father No problems noted. Brother No problems noted. Sister No problems noted. Daughter Psychiatric disorder Son No problems noted. Social History Household Members: Other Housing: Assisted Living Facility Housing Other:: [facility] home Do you presently have visiting nurse or other home services: No Alcohol intake: never Patient Tobacco Use Status: Never used Tobacco Advance Directives Date on File: 06/21/20 service: Yes Current occupational status: retired Office Procedures Cardiac Device Check Cardiac Device Check Details: Date of service- 03/14/2024 ; Battery life >12 years; normal lead parameters; AP 43%; METAL RIVETING MACHINE OPERATOR 0.1%; no significant arrhythmias. Overall normal device function. [id number] Cardiac Device Interrogation, pacemaker Procedure code (CPT) selection complete Assessment & Plan Assessment & Plan (1) Symptomatic bradycardia: Onset Date: ~08/2022 Comment: (08/16/22 - found unresponsive & bradycardic/pulse 22) Code(s): R00.1 - Bradycardia, unspecified Category: Medical Plan x Coding Level of Care Code Procedure Only Diagnoses Symptomatic bradycardia R00.1 CPT Codes Cardiac Device Check - Cardiac Device 12: [id number] Cardiac Device Interrogation, pacemaker ([id number])
== END ==
PROVIDERS: PCP Physician Assistant; Visit Provider Internal Medicine
DX: R00.1 Bradycardia, unspecified (principal); Z95.0 Presence of cardiac pacemaker
CPT/HCPCS: 93294

== ENCOUNTER 2024-05-11 08:42 | Outpatient (AMB) | payer MEDICARE, SELFPAY ==
[2024-05-11 08:54] VITALS: BP 120/58; PULSE 60; BMI 29.6
--- NOTE | 2024-05-11 08:54 | MHC.OFFVIS ---
Vital Signs 05/11/24 08:54 Height 5 ft 5 in Weight 178 lb BMI 29.6 BP 120/58 L Blood Pressure Location Lt brachial Position Sitting Pulse 60 Pulse Source Monitor Intake Visit Reasons: r/s 6 mos followup Allergies No Known Allergies [No Known Allergies*] Allergy (Verified 05/27/23 13:39) Medication List - Last Reconciled 05/11/24 by Ector Pratt MD acetaminophen 650 mg PO BEDTIME aspirin 81 mg PO DAILY atorvastatin 40 mg PO DAILY@1700 azathioprine 50 mg PO Q2D calcium polycarbophil 625 mg PO DAILY carboxymethylcellulose sodium 1 drp ophthalmic (eye) BEDTIME cholecalciferol (vitamin D3) 25 mcg PO DAILY cyanocobalamin (vitamin B-12) 1,000 mcg IM QMONTH docusate sodium 100 mg PO BID ferrous sulfate (Iron (ferrous sulfate)) 325 mg PO BID fluticasone propionate 50 mcg/actuation 1 spray intranasal BID metoprolol tartrate 12.5 mg PO BID omeprazole 40 mg PO DAILY@1600 oxybutynin chloride ER 15 mg PO DAILY prednisone 2.5 mg PO Q OTHER DAY pyridostigmine bromide 60 mg PO TID quetiapine 75 mg PO BEDTIME ropinirole 2 mg PO BEDTIME tamsulosin 0.4 mg PO BEDTIME trazodone 25 mg PO BEDTIME venlafaxine ER 150 mg PO DAILY HPI Comments Details: Robe returns for follow-up. To recall, he was initially admitted to the hospital with gastrointestinal bleeding. In that setting, he had a non ST elevation myocardial infarction. He also developed stroke-type symptoms. MRI had then showed acute cerebral infarct. Carotid ultrasound was suggestive of significant disease. Then had cardiac catheterization that showed multivessel disease. He eventually had both coronary artery bypass as well as left carotid endarterectomy. In August 2022, he was admitted with bradycardia and in that context, underwent permanent pacemaker placement. Since last seen, he states he is doing quite well. No complaints like angina or shortness of breath or in fact anything cardiac sounding. He seems to be getting along fine. 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 Diet-controlled diabetes mellitus Essential hypertension Stroke due to stenosis of left carotid artery (~09/2020) History of diverticulosis History of rectal cancer (~11/2014) Hammer toes, bilateral BPH (benign prostatic hyperplasia) Urinary incontinence Onychogryphosis Nonalcoholic steatohepatitis (MARTI) Depression CAD (coronary artery disease) Myasthenia gravis Rheumatoid arthritis Hyperlipidemia GERD (gastroesophageal reflux disease) Insomnia Surgical History History of pacemaker (~08/2022) History of colonoscopy History of ERCP (~09/2020) History of heart surgery (~11/2020) History of cataract surgery (~05/2019) History of cholecystectomy (~02/2021) History of left-sided carotid endarterectomy (~11/2020) History of coronary artery bypass graft x 2 (~11/2020) History of cardiac catheterization (~11/2020) History of incisional hernia repair History of colostomy (~07/2015) History of colostomy reversal (~01/2016) Family History Mother No problems noted. Father No problems noted. Brother No problems noted. Sister No problems noted. Daughter Psychiatric disorder Son No problems noted. Social History Household Members: Other Housing: Assisted Living Facility Housing Other:: [facility] home Do you presently have visiting nurse or other home services: No Alcohol intake: never Patient Tobacco Use Status: Never used Tobacco Advance Directives Date on File: 06/21/20 service: Yes Current occupational status: retired Review of Systems Const Denies weakness ENT Denies dizziness Card Denies chest pain, Denies chest pain with activity, Denies syncope, Denies rapid heart rate, Denies pedal edema, Denies edema, Denies leg edema, Denies lightheadedness, Denies palpitations, Denies dyspnea, Denies dyspnea on exertion and Denies orthopnea Resp Denies cough, Denies dyspnea and Denies dyspnea on exertion GI Denies hematochezia and Denies change in stool character Musc Denies abnormal gait, Denies muscle cramps, Denies muscle weakness, Denies numbness, Denies radiating pain into limb and Denies tingling Neuro Denies abnormal gait, Denies dizziness, Denies syncope, Denies numbness, Denies tingling and Denies weakness Endo Denies palpitations Physical Exam Vital Signs: Last Vital Signs Pulse 60 05/11/24 08:54 BP 120/58 L 05/11/24 08:54 BMI result Body Mass Index 29.6 Const General: comfortable and no acute distress Orientation/consciousness: patient oriented x3 HEENT Other: Unremarkable Head: Yes normal to inspection Neck Neck: Yes normal visual inspection Chest Chest palpation & inspection: normal inspection of the chest Resp Auscultation: clear to auscultation bilaterally Cardio Palpation: normal PMI Heart sounds: S1 normal heart sound present, S2 normal heart sound present, no gallops, Murmur heart sound present systolic II/ and at the right sternal border and no rubs GI Palpation (GI): Soft to palpation Back/Spine/Pelvis Other: unremarkable Skin General skin exam: no rashes or lesions noted Neuro General: patient oriented x3 Extrem General: Yes normal to inspection Psych Mental Status: mental status grossly normal Office Procedures EKG Details: EKG with underlying sinus rhythm at 60/Min; [place] prolongation to 336 millisecond; some atrial pacing; [place]. [address]-[id number], Complete Assessment & Plan Assessment & Plan (1) Atherosclerotic cardiovascular disease: Code(s): I25.10 - Atherosclerotic heart disease of [place] coronary artery without angina pectoris Category: Medical Plan: s/p CABG. Continue aspirin and statins. LDL cholesterol levels are in the 40s, 50s. Some previous levels were even in the 20s. (2) Aortic valve calcification: Code(s): I35.9 - Nonrheumatic aortic valve disorder, unspecified Category: Medical Plan: Echocardiogram in the past had shown aortic valve sclerosis. Will screen him for any significant stenosis, as it has been a few years. 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 He goes to [facility] vascular surgery. Advised him to call them for follow-up appointments. (4) Essential hypertension: Code(s): I10 - Essential (primary) hypertension Category: Medical Plan: Stable. (5) Myasthenia gravis: Code(s): G70.00 - Myasthenia gravis without (acute) exacerbation Category: Medical Plan: On azathioprine, pyridostigmine. (6) Pacemaker: Onset Date: ~08/2022 Comment: (Medtronic DCPP - placed 08/20/22) Code(s): Z95.0 - Presence of cardiac pacemaker Category: Medical Plan: Normally functioning. Followed remotely. 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
== END 2024-05-11 09:26 | disposition home or self-care (01) ==
PROVIDERS: PCP Nurse Practitioner; Visit Provider Internal Medicine
DX: I25.10 Atherosclerotic heart disease of native coronary artery without angina pectoris (principal); I35.9 Nonrheumatic aortic valve disorder, unspecified; I63.232 Cerebral infarction due to unspecified occlusion or stenosis of left carotid arteries; I10 Essential (primary) hypertension; G70.00 Myasthenia gravis without (acute) exacerbation; Z95.0 Presence of cardiac pacemaker
CPT/HCPCS: 93010; 99214

== ENCOUNTER → 2024-05-11 08:42 | Outpatient (BNVA) | payer MEDICARE, SELFPAY | PROVIDERS: PCP Physician Assistant; Visit Provider Internal Medicine | DX: I25.10 Atherosclerotic heart disease of native coronary artery without angina pectoris (principal); I35.9 Nonrheumatic aortic valve disorder, unspecified; I10 Essential (primary) hypertension; I63.232 Cerebral infarction due to unspecified occlusion or stenosis of left carotid arteries; G70.00 Myasthenia gravis without (acute) exacerbation; Z95.0 Presence of cardiac pacemaker | CPT/HCPCS: 93005; 99212 ==

== ENCOUNTER → 2024-06-13 23:59 | Outpatient (BNV) | payer MEDICARE, SELFPAY ==
--- NOTE | 2024-06-15 14:43 | MHC.OFFVIS ---
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 Diet-controlled diabetes mellitus Essential hypertension Stroke due to stenosis of left carotid artery (~09/2020) History of diverticulosis History of rectal cancer (~11/2014) Hammer toes, bilateral BPH (benign prostatic hyperplasia) Urinary incontinence Onychogryphosis Nonalcoholic steatohepatitis (MARTI) Depression CAD (coronary artery disease) Myasthenia gravis Rheumatoid arthritis Hyperlipidemia GERD (gastroesophageal reflux disease) Insomnia Surgical History History of pacemaker (~08/2022) History of colonoscopy History of ERCP (~09/2020) History of heart surgery (~11/2020) History of cataract surgery (~05/2019) History of cholecystectomy (~02/2021) History of left-sided carotid endarterectomy (~11/2020) History of coronary artery bypass graft x 2 (~11/2020) History of cardiac catheterization (~11/2020) History of incisional hernia repair History of colostomy (~07/2015) History of colostomy reversal (~01/2016) Family History Mother No problems noted. Father No problems noted. Brother No problems noted. Sister No problems noted. Daughter Psychiatric disorder Son No problems noted. Social History Household Members: Other Housing: Assisted Living Facility Housing Other:: [facility] home Do you presently have visiting nurse or other home services: No Alcohol intake: never Patient Tobacco Use Status: Never used Tobacco Advance Directives Date on File: 06/21/20 service: Yes Current occupational status: retired Office Procedures Cardiac Device Check Cardiac Device Check Details: Date of service- 06/13/2024 ; Battery life >12 years; normal lead parameters; AP 52%; FACILITY COORDINATOR 0.2%; no significant arrhythmias. Overall normal device function. [id number] Cardiac Device Interrogation, pacemaker Procedure code (CPT) selection complete Assessment & Plan Assessment & Plan (1) Pacemaker: Onset Date: ~08/2022 Comment: (Medtronic DCPP - placed 08/20/22) Code(s): Z95.0 - Presence of cardiac pacemaker Category: Medical (2) Symptomatic bradycardia: Onset Date: ~08/2022 Comment: (08/16/22 - found unresponsive & bradycardic/pulse 22) Code(s): R00.1 - Bradycardia, unspecified Category: Medical Plan x Coding Level of Care Code Procedure Only Diagnoses Pacemaker Z95.0 Symptomatic bradycardia R00.1 CPT Codes Cardiac Device Check - Cardiac Device 12: [id number] Cardiac Device Interrogation, pacemaker ([id number])
== END ==
PROVIDERS: PCP Nurse Practitioner; Visit Provider Internal Medicine
DX: R00.1 Bradycardia, unspecified (principal); Z95.0 Presence of cardiac pacemaker
CPT/HCPCS: 93294

== ENCOUNTER → 2024-09-12 23:59 | Outpatient (BNV) | payer MEDICARE, SELFPAY ==
--- NOTE | 2024-09-20 18:10 | MHC.OFFVIS ---
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 Diet-controlled diabetes mellitus Essential hypertension Stroke due to stenosis of left carotid artery (~09/2020) History of diverticulosis History of rectal cancer (~11/2014) Hammer toes, bilateral BPH (benign prostatic hyperplasia) Urinary incontinence Onychogryphosis Nonalcoholic steatohepatitis (MARTI) Depression CAD (coronary artery disease) Myasthenia gravis Rheumatoid arthritis Hyperlipidemia GERD (gastroesophageal reflux disease) Insomnia Surgical History History of pacemaker (~08/2022) History of colonoscopy History of ERCP (~09/2020) History of heart surgery (~11/2020) History of cataract surgery (~05/2019) History of cholecystectomy (~02/2021) History of left-sided carotid endarterectomy (~11/2020) History of coronary artery bypass graft x 2 (~11/2020) History of cardiac catheterization (~11/2020) History of incisional hernia repair History of colostomy (~07/2015) History of colostomy reversal (~01/2016) Family History Mother No problems noted. Father No problems noted. Brother No problems noted. Sister No problems noted. Daughter Psychiatric disorder Son No problems noted. Social History Household Members: Other Housing: Assisted Living Facility Housing Other:: [facility] home Do you presently have visiting nurse or other home services: No Alcohol intake: never Patient Tobacco Use Status: Never used Tobacco Advance Directives Date on File: 06/21/20 service: Yes Current occupational status: retired Office Procedures Cardiac Device Check Cardiac Device Check Details: Date of service- 09/12/2024 ; Battery life >12 years; normal lead parameters; AP 57%; LEATHER PARTS MATCHER 0.2%; no significant arrhythmias. Overall normal device function. [id number] Cardiac Device Interrogation, pacemaker Procedure code (CPT) selection complete Assessment & Plan Assessment & Plan (1) Pacemaker: Onset Date: ~08/2022 Comment: (Medtronic DCPP - placed 08/20/22) Code(s): Z95.0 - Presence of cardiac pacemaker Category: Medical (2) Symptomatic bradycardia: Onset Date: ~08/2022 Comment: (08/16/22 - found unresponsive & bradycardic/pulse 22) Code(s): R00.1 - Bradycardia, unspecified Category: Medical Plan x Coding Level of Care Code Procedure Only Diagnoses Pacemaker Z95.0 Symptomatic bradycardia R00.1 CPT Codes Cardiac Device Check - Cardiac Device 12: [id number] Cardiac Device Interrogation, pacemaker ([id number])
== END ==
PROVIDERS: PCP Nurse Practitioner; Visit Provider Internal Medicine
DX: R00.1 Bradycardia, unspecified (principal); Z95.0 Presence of cardiac pacemaker
CPT/HCPCS: 93294

== ENCOUNTER → 2024-11-04 12:30 | Outpatient (REF) | payer MEDICARE, SELFPAY ==
--- NOTE | 2024-11-04 12:39 | CA_ITS ---
Transthoracic Echocardiogram Patient (Last, First, Middle): Robe Finch J Gender: Male Date of : 1940 Age: 84 Procedure Date: 11/04/2024 Procedure Type: Transthoracic Echocardiogram Location: OP Height: 165.1 cm Weight: 77.57 kg BSA: 1.85 m2 Heart Rate: 60 bpm BP: 120 / 65 mmHg Certified Technician Specialist: JOSE Referring MD: Ector Pratt MD Symptoms: I25.10 - Atherosclerotic heart disease of [place] coronary artery without... Study Quality: Fair ECG Rhythm: Sinus Conclusions: - The left ventricular systolic function is normal. The calculated ejection fraction is 57% by biplane method. - The basal inferior segment is akinetic. - There is moderate calcification of the aortic valve. Possible early aortic stenosis. - There is moderate mitral annular calcification. Findings Left Ventricle Normal left ventricular cavity size. There is mildly increased left ventricular wall thickness. The left ventricular systolic function is normal. The calculated ejection fraction is 57% by biplane method. There is paradoxical septal motion consistent with post-operative status. Diastolic function is normal for age. Wall Motion Rest Echo Findings The basal inferior segment is akinetic. Right Ventricle Mildly increased right ventricular cavity size. There is mild to moderately decreased right ventricular systolic function. Atria The left atrium is normal in size. The right atrium is mildly dilated. Aortic Valve There is moderate calcification of the aortic valve. There is no aortic valve regurgitation. Possible early aortic stenosis. Mitral Valve There is moderate mitral annular calcification. There is mild mitral valve regurgitation. There is no mitral valve stenosis. Pulmonic Valve The pulmonic valve is likely normal. Tricuspid Valve There is mild tricuspid valve regurgitation. There is no evidence of pulmonary hypertension. Great Vessels The asc aorta is normal in size. Venous The inferior vena cava is normal in size and collapses greater than 50% with inspiration. Pericardium/Pleural There is no evidence of pericardial effusion. Prior Study Comparison No significant change compared to prior study dated: 02/15/2021. Measurements 2D Linear Measurements IVSd: 1.21 0.6-0.9/0.6-1.0 cm LVIDd: 4.05 3.9-5.3/4.2-5.9 cm LVIDd Index: 2.19 2.4-3.2/2.2-3.1 cm/m2 LVIDs: 2.65 2.0-3.6 cm LVPWd: 1.17 0.7-1.1 cm LA Diam: 3.70 2.7-3.8/3.0-4.0 cm LAIDs Index: 2.00 1.5-2.3 cm/m2 LV Mass: 207.39 67-162/88-224 g LV Mass Index: 112.11 43-95/49-115 g/m2 LVOT Diam: 2.00 3.0+(-)1.3 cm 2D Systolic Function EF 4C: 57.90 >55% EF 2C: 57.20 >55% EF BiP: 56.80 >55% Mitral Valve MV Pk E: 0.76 MV PK A: 0.75 MV Decel Time: 210.00 E/A: 1.00 E'Lateral: 9.03 E'Medial: 5.98 E/E' Med: 12.70 E/E' Lat: 8.40 PHT: 62.00 MVA PHT: 3.55 Decel [place]: 3.61 Aortic Valve AoV Pk Jordy: 1.57 AoV Mn Jordy: 1.11 AoV VTI: 0.35 AoV Pk Grad: 10.00 Aov Mn Grad: 6.00 BLANCA Cont.VTI: 1.72 LVOT LVOT Pk Jordy: 0.80 LVOT Mn Jordy: 0.61 LVOT VTI: 0.19 LVOT Pk Grad: 3.00 LVOT Mn Grad: 2.00 LVOT Diam: 2.00 LVOT Area: 3.14 Diastolic Function MV Pk E: 0.76 MV Pk A: 0.75 E/A: 1.00 E'Medial: 5.98 E/E' Med: 12.70 E' Laterial: 9.03 E/E' Lat: 8.40 Right Ventricle TAPSE (mm): 12.10 TVS' Jordy: 7.70 Tricuspid Valve TR Pk Jordy: 2.04 TR Pk Grad: 17.00 RA Press: 3.00 RVSP: 20.00 Great Vessels Aorta Sinus of Valsalva: 3.80 2.0-3.5 cm Ao Asc: 3.90 2.1-3.4 cm Pulmonary Valve PV Pk Jordy: 0.96 Peak PV Grad: 4.00 Updated in Other Vendor System with Status of Final Ector Pratt MD electronically signed on 11/05/2024 3:29:14 PM with status of Final
--- OUTSIDE RECORDS SUMMARY | 2024-11-04 12:50 | XMS_ITS | Clinical Summary ---
Author Organization [facility] Facility Address [address] [address] Care Team Providers Care Major Account Representative Name Role Phone Unavailable Primary Care Provider Unavailabl e Social History Tobacco Use Types Packs/Day Years Used Date Smoking Tobacco: Never Assessed Sex and Gender Information Value Date Recorded Sex Assigned at Not on file Legal Sex Male 9:19 AM EDT Gender Identity Not on file Sexual Orientation Not on file Plan of Treatment Health Maintenance Due Date Last Done Comments Pneumococcal Vaccine: 65+ Ye ars (1 of 1 - PCV) 2003 Influenza Vaccine (#1) 2024 Hepatitis B Vaccine Aged Out No longe r eligible based on patient's age to complete this topic Insurance [facility] ([id number]) [place] [id number] [facility] ([id number]) [place] [id number]
--- OUTSIDE RECORDS SUMMARY | 2024-11-04 12:50 | XMS_ITS | Clinical Summary ---
Author Organization [facility] it Address [address] [place] [address] Care Team Providers Care Diesel Mechanic Construction Name Role Phone Maco Otto MD Primary Care Provider [phone] Surgical History Surgery Date Site/Laterality Comments CHOLECYSTECTOMY PROCEDURE: [place] LAPAROSCOPY SURG CHOLECYSTECTOMY Family History Medical History Relation Name Comments No Known Problems Father No Known Problems Mother Relation Name Status Comments Father Mother Social History Tobacco Use Types Packs/Day Years Used Date Smoking Tobacco: Former Smokeless Tobacco: Former Alcohol Use Standard Drinks/Week Comments No 0 (1 standard drink = 0.6 oz pur e alcohol) Sex and Gender Information Value Date Recorded Sex Assigned at Not on file Legal Sex Male 9:10 PM EST Gender Identity Not on file Sexual Orientation Not on file Obstetrics History Plan of Treatment Health Maintenance Due Date Last Done Comments COVID-19 Vaccine (#1) 1943 Diabetes: Annual Foot Exam 1948 Diabetes: Annual Retina Eye Exam 1948 DTaP,Tdap,and Td Vaccines (1 - Tdap) 1957 Hepatitis A Vaccines (1 of 2 - Risk 2-dose series) 1957 Pneumococcal Vaccine: 50+ Ye ars (1 of 2 - PCV) 1957 Zoster Vaccines (1 of 2) 1957 Hepatitis B Vaccines (1 of 3 - Risk 3-dose series) 1998 RSV Immunization Patients 60 + Years Old (1 - 1-dose 75+ series) 2013 Cholesterol Screening (Lipid Panel) 08/18/2022 Depression Screening 08/18/2022 Falls Risk Assessment 08/18/2022 Social Influencers of Health Screening 08/18/2022 Diabetes: Blood Sugar Contro l Test (HGBA1C) 09/01/2022 Hypertension/CHF/CAD Annual BMP Blood Test 09/01/2022 Influenza Vaccine (#1) 2024 HIB Vaccines Aged Out No longer eligi ble based on patient's age to complete this topic HPV Vaccines Aged Out No longer eligi ble based on patient's age to complete this topic IPV Vaccines Aged Out No longer eligi ble based on patient's age to complete this topic MMR Vaccines Aged Out No longer eligi ble based on patient's age to complete this topic Meningococcal ACWY Vaccine Aged Out N o longer eligible based on patient's age to complete this topic Meningococcal B Vacine Aged Out No lo nger eligible based on patient's age to complete this topic RSV Immunization Patients Un feliciano 20 months Aged Out No longer eligible b ased on patient's age to complete this topic Varicella Vaccines Aged Out No longer eligible based on patient's age to complete this topic Advance Directives Documents on File Type Date Recorded Patient Front Sight Attacher Expl anation Health Care Decision (hx) 01/02/2020 AD CAMACHO DIRECTIVE Health Care Decision (hx) 01/02/2020 AD CAMACHO DIRECTIVE Health Care Decision (hx) 01/02/2020 AD CAMACHO DIRECTIVE Health Care Decision (hx) 01/02/2020 AD CAMACHO DIRECTIVE Health Care Decision (hx) 01/02/2020 AD CAMACHO DIRECTIVE Health Care Decision (hx) 01/02/2020 AD CAMACHO DIRECTIVE Care Teams Diesel Mechanic Construction Relationship Specialty Start Date End Date Maco Otto MD [address] [address] PCP - General Orthopedic Surgery 05/24/20
== END ==
LOC: HO.CARD 12:30
PROVIDERS: Visit Provider Internal Medicine
DX: I25.10 Atherosclerotic heart disease of native coronary artery without angina pectoris (principal); I35.0 Nonrheumatic aortic (valve) stenosis
CPT/HCPCS: 93306

== ENCOUNTER → 2024-11-04 12:39 | Outpatient (BNV) | payer MEDICARE, SELFPAY | PROVIDERS: Visit Provider Internal Medicine | DX: I25.10 Atherosclerotic heart disease of native coronary artery without angina pectoris (principal) | CPT/HCPCS: 93306 ==

== ENCOUNTER 2024-11-23 13:55 | Outpatient (AMB) | payer MEDICARE, SELFPAY ==
--- NOTE | 2024-11-23 14:27 | A.OFFVIS_ITS ---
Vital Signs 11/23/24 14:28 Height 5 ft 5 in Weight 167 lb 8.821 oz BMI 27.9 BP 118/62 Blood Pressure Location Lt brachial Position Sitting Pulse 68 Pulse Source Pulse Oximeter Intake Visit Reasons: 6 mth w/ medtronic ck s/p echo Allergies No Known Allergies [No Known Allergies*] Allergy (Verified 05/27/23 13:39) Medication List - Last Reconciled 11/23/24 by Ector Pratt MD acetaminophen 650 mg PO BEDTIME aspirin 81 mg PO DAILY atorvastatin 40 mg PO DAILY@1700 azathioprine 50 mg PO Q2D calcium polycarbophil 625 mg PO DAILY carboxymethylcellulose sodium 1 drp ophthalmic (eye) BEDTIME PRN cholecalciferol (vitamin D3) 25 mcg PO DAILY cyanocobalamin (vitamin B-12) 1,000 mcg IM QMONTH docusate sodium 100 mg PO BID ferrous sulfate (Iron (ferrous sulfate)) 325 mg PO BID fluticasone propionate 50 mcg/actuation 1 spray intranasal BID metoprolol tartrate 12.5 mg PO BID omeprazole 40 mg PO DAILY@1600 oxybutynin chloride ER 15 mg PO DAILY prednisone 2.5 mg PO Q OTHER DAY pyridostigmine bromide 60 mg PO TID quetiapine 75 mg PO BEDTIME ropinirole 2 mg PO BEDTIME tamsulosin 0.4 mg PO BEDTIME trazodone 25 mg PO BEDTIME venlafaxine ER 150 mg PO DAILY HPI Comments Details: Robe returns for follow-up. To recall, in the past, he was admitted to the hospital with gastrointestinal bleeding. In that setting, he had a non ST elevation myocardial infarction. He also developed stroke-type symptoms. MRI had then showed acute cerebral infarct. Carotid ultrasound was suggestive of significant disease. Then had cardiac catheterization that showed multivessel disease. He eventually had both coronary artery bypass as well as left carotid endarterectomy. In August 2022, he was admitted with bradycardia and in that context, underwent permanent pacemaker placement. He states he is doing quite good. No cardiac complaints whatsoever. 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 (~09/2020) History of diverticulosis History of rectal cancer (~11/2014) Hammer toes, bilateral BPH (benign prostatic hyperplasia) Urinary incontinence Onychogryphosis Nonalcoholic steatohepatitis (MARTI) Depression CAD (coronary artery disease) Myasthenia gravis Rheumatoid arthritis Hyperlipidemia GERD (gastroesophageal reflux disease) Insomnia Surgical History History of pacemaker (~08/2022) History of colonoscopy History of ERCP (~09/2020) History of heart surgery (~11/2020) History of cataract surgery (~05/2019) History of cholecystectomy (~02/2021) History of left-sided carotid endarterectomy (~11/2020) History of coronary artery bypass graft x 2 (~11/2020) History of cardiac catheterization (~11/2020) History of incisional hernia repair History of colostomy (~07/2015) History of colostomy reversal (~01/2016) Family History Mother No problems noted. Father No problems noted. Brother No problems noted. Sister No problems noted. Daughter Psychiatric disorder Son No problems noted. Social History Household Members: Other Housing: Assisted Living Facility Housing Other:: [facility] home Do you presently have visiting nurse or other home services: No Alcohol intake: never Patient Tobacco Use Status: Never used Tobacco Advance Directives Date on File: 06/21/20 service: Yes Current occupational status: retired Review of Systems Const Denies weakness ENT Denies dizziness Card Denies chest pain, Denies chest pain with activity, Denies syncope, Denies rapid heart rate, Denies pedal edema, Denies edema, Denies leg edema, Denies li ghtheadedness, Denies palpitations, Denies dyspnea, Denies dyspnea on exertion and Denies orthopnea Resp Denies cough, Denies dyspnea and Denies dyspnea on exertion GI Denies hematochezia and Denies change in stool character Musc Denies abnormal gait, Denies muscle cramps, Denies muscle weakness, Denies numbness, Denies radiating pain into limb and Denies tingling Neuro Denies abnormal gait, Denies dizziness, Denies syncope, Denies numbness, Denies tingling and Denies weakness Endo Denies palpitations Physical Exam Vital Signs: Last Vital Signs Pulse 68 11/23/24 14:28 BP 118/62 11/23/24 14:28 BMI result Body Mass Index 27.9 Const General: comfortable and no acute distress Orientation/consciousness: patient oriented x3 HEENT Other: Unremarkable Head: Yes normal to inspection Neck Neck: Yes normal visual inspection Chest Chest palpation & inspection: normal inspection of the chest Resp Auscultation: clear to auscultation bilaterally Cardio Palpation: normal PMI Heart sounds: S1 normal heart sound present, S2 normal heart sound present, no gallops, no murmurs and no rubs GI Palpation (GI): Soft to palpation Back/Spine/Pelvis Other: unremarkable Skin General skin exam: no rashes or lesions noted Neuro General: patient oriented x3 Extrem General: Yes normal to inspection Psych Mental Status: mental status grossly normal Assessment & Plan Assessment & Plan (1) Atherosclerotic cardiovascular disease: Code(s): I25.10 - Atherosclerotic heart disease of [place]ct[place] coronary artery without angina pectoris Category: Medical Plan: s/p CABG. Continue aspirin and statins. LDL levels are well controlled. 20s to 50s. (2) Aortic valve calcification: Code(s): I35.9 - Nonrheumatic aortic valve disorder, unspecified Category: Medical Plan: In the most recent echocardiogram, aortic valve calcification with possibly early stenosis. We will need to be followed for progressive aortic stenosis. 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 Follow-up with vascular surgery. (4) Essential hypertension: Code(s): I10 - Essential (primary) hypertension Category: Medical Plan: Stable. (5) Myasthenia gravis: Code(s): G70.00 - Myasthenia gravis without (acute) exacerbation Category: Medical Plan: On azathioprine, pyridostigmine. (6) Pacemaker: Onset Date: ~08/2022 Comment: (Medtronic DCPP - placed 08/20/22) Code(s): Z95.0 - Presence of cardiac pacemaker Category: Medical Plan: Normally functioning. Followed remotely. 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
[2024-11-23 14:28] VITALS: BP 118/62; PULSE 68; BMI 27.9
--- OUTSIDE RECORDS SUMMARY | 2024-11-23 15:49 | XMS_ITS | Clinical Summary ---
Author Organization [facility] Facility Address [address] [address] Care Team Providers Care Broadcaster Name Role Phone Unavailable Primary Care Provider [...] [facility] ([id number]) [place] [id number] [facility] ([id number]) [place] [id number]
--- OUTSIDE RECORDS SUMMARY | 2024-11-23 15:49 | XMS_ITS | Clinical Summary ---
Author Organization [facility] it Address [address] [place] [address] Care Team Providers Care Impact Hammer Operator Name Role Phone Maco Otto MD Primary Care Provider [phone] Surgical History Surgery Date Site/Laterality Comments CHOLECYSTECTOMY PROCEDURE: [place] LAPAROSCOPY SURG CHOLECYSTECTOMY Family History Medical History [...] Documents on File Type Date Recorded Patient Audio Video Repairer Expl anation Health Care Decision (hx) 01/02/2020 AD CAMACHO DIRECTIVE Health Care Decision (hx) 01/02/2020 AD CAMACHO DIRECTIVE Health Care Decision (hx) 01/02/2020 AD CAMACHO DIRECTIVE Health Care Decision (hx) 01/02/2020 AD CAMACHO DIRECTIVE Health Care Decision (hx) 01/02/2020 AD CAMACHO DIRECTIVE Health Care Decision (hx) 01/02/2020 AD CAMACHO DIRECTIVE Care Teams Impact Hammer Operator Relationship Specialty Start Date End Date Maco Otto MD [address] [address] PCP - General Orthopedic Surgery 05/24/20
== END 2024-11-23 15:01 | disposition home or self-care (01) ==
PROVIDERS: Visit Provider Internal Medicine
DX: I25.10 Atherosclerotic heart disease of native coronary artery without angina pectoris (principal); I35.9 Nonrheumatic aortic valve disorder, unspecified; I63.232 Cerebral infarction due to unspecified occlusion or stenosis of left carotid arteries; I10 Essential (primary) hypertension; G70.00 Myasthenia gravis without (acute) exacerbation; Z95.0 Presence of cardiac pacemaker
CPT/HCPCS: 93280; 99214; G2211

== ENCOUNTER → 2024-11-23 13:55 | Outpatient (BNVA) | payer MEDICARE, SELFPAY | PROVIDERS: Visit Provider Internal Medicine | DX: Z45.018 Encounter for adjustment and management of other part of cardiac pacemaker (principal); I25.10 Atherosclerotic heart disease of native coronary artery without angina pectoris; I35.9 Nonrheumatic aortic valve disorder, unspecified; I63.232 Cerebral infarction due to unspecified occlusion or stenosis of left carotid arteries; I10 Essential (primary) hypertension; G70.00 Myasthenia gravis without (acute) exacerbation | CPT/HCPCS: 93280; 99212 ==

== ENCOUNTER → 2024-12-11 23:59 | Outpatient (BNV) | payer MEDICARE, SELFPAY ==
--- NOTE | 2024-12-20 13:18 | A.OFFVIS_ITS ---
Intake Visit Reasons: remote device check- Medtronic Allergies No Known Allergies [No Known Allergies*] Allergy (Verified 05/27/23 13:39) [facility] Medical History History of GI bleed Tubular adenoma of colon (~2014) History of transfusion (~08/2020) History of COVID-19 History of non-ST elevation myocardial infarction (NSTEMI) (~09/2020) Status post coronary artery bypass graft (~11/2020) Atherosclerotic cardiovascular disease Diet-controlled diabetes mellitus Essential hypertension Stroke due to stenosis of left carotid artery (~09/2020) History of diverticulosis History of rectal cancer (~11/2014) Hammer toes, bilateral BPH (benign prostatic hyperplasia) Urinary incontinence Onychogryphosis Nonalcoholic steatohepatitis (MARTI) Depression CAD (coronary artery disease) Myasthenia gravis Rheumatoid arthritis Hyperlipidemia GERD (gastroesophageal reflux disease) Insomnia Surgical History History of pacemaker (~08/2022) History of colonoscopy History of ERCP (~09/2020) History of heart surgery (~11/2020) History of cataract surgery (~05/2019) History of cholecystectomy (~02/2021) History of left-sided carotid endarterectomy (~11/2020) History of coronary artery bypass graft x 2 (~11/2020) History of cardiac catheterization (~11/2020) History of incisional hernia repair History of colostomy (~07/2015) History of colostomy reversal (~01/2016) Family History Mother No problems noted. Father No problems noted. Brother No problems noted. Sister No problems noted. Daughter Psychiatric disorder Son No problems noted. Social History Household Members: Other Housing: Assisted Living Facility Housing Other:: [facility] home Do you presently have visiting nurse or other home services: No Alcohol intake: never Patient Tobacco Use Status: Never used Tobacco Advance Directives Date on File: 06/21/20 service: Yes Current occupational status: retired Office Procedures Cardiac Device Check Cardiac Device Check Details: Date of service- 12/11/2024 ; Battery life >12 years; normal lead parameters; AP 70%; SUSTAINMENT LOGISTICS ANALYST 0.4%; no significant arrhythmias. Overall normal device function. [id number] Cardiac Device Interrogation, pacemaker Procedure code (CPT) selection complete Assessment & Plan Assessment & Plan (1) Pacemaker: Onset Date: ~08/2022 Comment: (Medtronic DCPP - placed 08/20/22) Code(s): Z95.0 - Presence of cardiac pacemaker Category: Medical (2) Symptomatic bradycardia: Onset Date: ~08/2022 Comment: (08/16/22 - found unresponsive & bradycardic/pulse 22) Code(s): R00.1 - Bradycardia, unspecified Category: Medical Plan x Coding Level of Care Code Procedure Only Diagnoses Pacemaker Z95.0 Symptomatic bradycardia R00.1 CPT Codes Cardiac Device Check - Cardiac Device 12: [id number] Cardiac Device Interrogation, pacemaker ([id number])
== END ==
PROVIDERS: Visit Provider Internal Medicine
DX: R00.1 Bradycardia, unspecified (principal); Z95.0 Presence of cardiac pacemaker
CPT/HCPCS: 93294

== ENCOUNTER → 2025-03-11 23:59 | Outpatient (BNV) | payer MEDICARE, SELFPAY ==
--- NOTE | 2025-03-14 15:00 | MHC.OFFVIS ---
Intake Visit Reasons: remote device check- Medtronic Allergies No Known Allergies (No Known Allergies*) Allergy (Verified 05/27/23 13:39) [facility] Medical History History of GI bleed Tubular adenoma of colon (~2014) History of transfusion (~08/2020) History of COVID-19 History of non-ST elevation myocardial infarction (NSTEMI) (~09/2020) Status post coronary artery bypass graft (~11/2020) Atherosclerotic cardiovascular disease Diet-controlled diabetes mellitus Essential hypertension Stroke due to stenosis of left carotid artery (~09/2020) History of diverticulosis History of rectal cancer (~11/2014) Hammer toes, bilateral BPH (benign prostatic hyperplasia) Urinary incontinence Onychogryphosis Nonalcoholic steatohepatitis (MARTI) Depression CAD (coronary artery disease) Myasthenia gravis Rheumatoid arthritis Hyperlipidemia GERD (gastroesophageal reflux disease) Insomnia Surgical History History of pacemaker (~08/2022) History of colonoscopy History of ERCP (~09/2020) History of heart surgery (~11/2020) History of cataract surgery (~05/2019) History of cholecystectomy (~02/2021) History of left-sided carotid endarterectomy (~11/2020) History of coronary artery bypass graft x 2 (~11/2020) History of cardiac catheterization (~11/2020) History of incisional hernia repair History of colostomy (~07/2015) History of colostomy reversal (~01/2016) Family History Mother No problems noted. Father No problems noted. Brother No problems noted. Sister No problems noted. Daughter Psychiatric disorder Son No problems noted. Social History Household Members: Other Housing: Assisted Living Facility Housing Other:: [facility] home Do you presently have visiting nurse or other home services: No Alcohol intake: never Patient Tobacco Use Status: Never used Tobacco Advance Directives Date on File: 06/21/20 service: Yes Current occupational status: retired Office Procedures Cardiac Device Check Cardiac Device Check Details: Date of service- 03/11/2025 ; Battery life >11 years; normal lead parameters; AP 68.9%; FUR FARMER 0.7%; no significant arrhythmias. Overall normal device function. [id number] Cardiac Device Interrogation, pacemaker Procedure code (CPT) selection complete Assessment & Plan Assessment & Plan (1) Pacemaker: Onset Date: ~08/2022 Comment: (Medtronic DCPP - placed 08/20/22) Code(s): Z95.0 - Presence of cardiac pacemaker Category: Medical (2) Symptomatic bradycardia: Onset Date: ~08/2022 Comment: (08/16/22 - found unresponsive & bradycardic/pulse 22) Code(s): R00.1 - Bradycardia, unspecified Category: Medical Plan x Coding Level of Care Code Procedure Only Diagnoses Pacemaker Z95.0 Symptomatic bradycardia R00.1 CPT Codes Cardiac Device Check - Cardiac Device 12: [id number] Cardiac Device Interrogation, pacemaker ([id number])
== END ==
PROVIDERS: Visit Provider Internal Medicine
DX: R00.1 Bradycardia, unspecified (principal); Z95.0 Presence of cardiac pacemaker
CPT/HCPCS: 93294

== ENCOUNTER 2025-03-17 06:37 | Outpatient (REF) | payer MEDICARE, SELFPAY ==
--- OUTSIDE RECORDS SUMMARY | 2025-03-17 06:40 | XMS_ITS | Clinical Summary ---
Author Organization [facility] it Address [address] [place] [address] Care Team Providers Care Clothing Sorter Name Role Phone Maco Otto MD Primary Care Provider [phone] Surgical History Surgery Date Site/Laterality Comments CHOLECYSTECTOMY PROCEDURE: [place] LAPAROSCOPY SURG CHOLECYSTECTOMY Family History Medical History [...] - Risk 3-dose series) 1998 RSV Immunization Adult Patie nts (1 - 1-dose 75+ series) 2013 Cholesterol Screening (Lipid Panel) 08/18/2022 Depression Screening 08/18/2022 Falls Risk Assessment 08/18/2022 Social Influencers of Health Screening 08/18/2022 Diabetes: Blood Sugar Contro l Test (HGBA1C) 09/01/2022 Hypertension/CHF/CAD Annual BMP Blood Test 09/01/2022 Influenza Vaccine (Season Ended) 2025 HIB Vaccines Aged Out No longer eligi [...] age to complete this topic Meningococcal B Vaccine Aged Out No l onger eligible based on patient's age to complete this topic RSV Immunization Patients Un feliciano 20 months Aged Out No longer eligible b ased on patient's age to complete this topic Varicella Vaccines Aged Out No longer eligible based on patient's age to complete this topic Advance Directives Documents on File Type Date Recorded Patient Die Cast Operator Expl anation Health Care Decision (hx) 01/02/2020 AD CAMACHO DIRECTIVE Health Care Decision (hx) 01/02/2020 AD CAMACHO DIRECTIVE Health Care Decision (hx) 01/02/2020 AD CAMACHO DIRECTIVE Health Care Decision (hx) 01/02/2020 AD CAMACHO DIRECTIVE Health Care Decision (hx) 01/02/2020 AD CAMACHO DIRECTIVE Health Care Decision (hx) 01/02/2020 AD CAMACHO DIRECTIVE Care Teams Clothing Sorter Relationship Specialty Start Date End Date Maco Otto MD [address] [address] PCP - General Orthopedic Surgery 05/24/20
--- OUTSIDE RECORDS SUMMARY | 2025-03-17 06:40 | XMS_ITS | Clinical Summary ---
Author Organization [facility] Facility Address [address] [address] Care Team Providers Care Marionette Performer Name Role Phone Unavailable Primary Care Provider Unavailabl e Social History Tobacco Use Types Packs/Day Years Used Date Smoking Tobacco: Never Assessed Sex and Gender Information Value Date Recorded Sex Assigned at Not on file Legal Sex Male 9:19 AM EDT Gender Identity Not on file Sexual Orientation Not on file Plan of Treatment Health Maintenance Due Date Last Done Comments Pneumococcal Vaccine: 50+ Ye ars (1 - PCV) 1988 Influenza Vaccine (Season Ended) 2025 Hepatitis B Vaccine Aged Out No longe r eligible based on patient's age to complete this topic Insurance [facility] ([id number]) [place] [id number] [facility] ([id number]) [place] [phone]
[2025-03-17 06:54] LABS: MANUAL DIFF FLAG NO
[2025-03-17 07:26] LABS: Hematocrit 38.0 % (42.0-52.0); Hemoglobin 13.1 g/dl (14.0-18.0); Imm Gran Abs Auto 0.02 X10*3/uL (0.00-0.03); Imm Gran Pct Auto 0.3 % (0.0-0.4); Lymphocytes Absolute Auto 1.2 X10*3/uL (1.2-4.9); Mean Corpuscular HGB Conc 34.5 g/dl (31.0-36.0); Mean Corpuscular Hemoglobin 34.4 pg (27.0-33.0); Mean Corpuscular Volume 99.7 fL (80.0-98.0); NRBC Abs Auto 0.000 X10*3/uL (0.0-0.012); NRBC Pct Auto 0.0 /100WBC (0.0-0.2); Platelet Count 211 X10*3/uL (160-400); Red Blood Count 3.81 X10*6/uL (4.60-5.80); White Blood Count 5.8 X10*3/uL (4.8-10.8)
[2025-03-17 07:32] LABS: Hemoglobin A1C 161.9097 umol/L; Total Hemoglobin (HGBA1C) 3438.0862 umol/L
[2025-03-17 07:45] LABS: Alanine Aminotransferase 25 U/L (0-40); Albumin Level 4.4 g/dL (3.5-5.0); Alkaline Phosphatase 56 U/L (39-117); Anion Gap 10 (12-20); Aspartate Amino Transferase 28 U/L (5-37); Blood Urea Nitrogen 16 mg/dL (9-16); Calcium 9.2 mg/dL (8.4-10.2); Carbon Dioxide 31 mmol/L (22-29); Chloride 106 mmol/L (96-108); Estimated Glomerular Filt Rate > 60; Iron 74 mcg/dL (45-160); Percent Iron Saturation 34 % (15-50); Potassium 3.8 mmol/L (3.3-5.1); Sodium 143 mmol/L (135-145); Total Iron Binding Capacity 215 mcg/dL (228-428); Total Protein 6.6 g/dL (6.5-8.0); Unsaturated Iron Binding 141 ug/dL
[2025-03-17 08:00] LABS: Ferritin 365 ng/mL (20-250)
[2025-03-17 08:21] LABS: Folate 10.1 ng/mL (> or = 4.0); Vitamin B12 509 pg/mL (200-900)
== END 2025-03-17 06:38 | disposition home or self-care (01) ==
LOC: HO.HSH3W 06:37
PROVIDERS: Visit Provider Nurse Practitioner Acute Care
DX: E11.8 Type 2 diabetes mellitus with unspecified complications (principal)
CPT/HCPCS: 36415; 80053; 82607; 82728; 82746; 83036; 83540; 85025

== ENCOUNTER 2025-05-18 07:24 | Outpatient (REF) | payer MEDICARE, SELFPAY ==
[2025-05-18 07:26] LABS: MANUAL DIFF FLAG NO
--- OUTSIDE RECORDS SUMMARY | 2025-05-18 07:26 | XMS_ITS | Clinical Summary ---
Author Organization [facility] Address [address] [place] [id number] Phone Care Team Providers Care Mail Clerk Name Role Phone Samantha Pelaez STEEPLE JACK Primary Care Provider [phone] Allergies No known active allergies Medications acetaminophen (TYLENOL) 325 mg tablet Take 650 mg by mouth every 12 (twelve) hours. 2 tabs Active aspirin 81 MG EC tablet Take 81 mg by mouth daily. Active atorvastatin (LIPITOR) 40 MG tablet Take 40 mg by mouth nightly at bedtime. Active azaTHIOprine (IMURAN) 50 mg tablet Take 50 mg by mouth daily. Active polycarbophil (FIBERCON) 625 mg tablet Take 625 mg by mouth daily. Active carboxymethylcel lulose (REFRESH LIQUIGEL) 1 % ophthalmic solution Place 1 drop into each eye every evening. Active cyanocobalamin, vitamin B-12, 1000 MCG tablet Take 1,000 mcg by mouth every 30 (thirty) days. Active fluticasone propionate (FLONASE) 50 mcg/actuation nasal spray 1 spray by Nasal route daily. Active omeprazole (PRILOSEC) 40 MG capsule Take 40 mg by mouth every evening. Active oxybutynin (DITROPAN XL) 15 MG 24 hr tablet Take 15 mg by mouth daily. Active predniSONE (DELTASONE) 2.5 MG tablet Take 2.5 mg by mouth every other day. Active pyridostigmine (MESTINON) 60 mg tablet Take 60 mg by mouth 3 (three) times a day. Active QUEtiapine (SEROQUEL) 100 MG tablet Take 100 mg by mouth nightly at bedtime. Active QUEtiapine (SEROQUEL) 25 MG tablet Take 25 mg by mouth nightly at bedtime. Active rOPINIRole (REQUIP) 1 MG tablet Take 1 mg by mouth nightly at bedtime. Active rOPINIRole (REQUIP) 2 MG tablet Take 2 mg by mouth. Active tamsulosin (FLOMAX) 0.4 mg Cap Take 0.4 mg by mouth nightly at bedtime. Active traZODone (DESYREL) 50 MG tablet Take 50 mg by mouth nightly at bedtime. Active venlafaxine (EFFEXOR-ER,) 150 mg TR24 Take 75 mg by mouth daily. Active bisacodyl (DULCOLAX) [address] 10 mg rectally continuous prn. Active docusate (COLACE) 100 mg tablet Take 100 mg by mouth continuous prn for constipation. Active Active Problems Problem Noted Date Diagnosed Date Squamous cell carcinoma, lip Family History Medical History Relation Comments Heart disease Father Penile cancer Father Diabetes Mother Heart attack Mother Stroke Mother Relation Status Comments Father Mother Social History Tobacco Use Types Packs/Day Years Used Date Smoking Tobacco: Former Cigarettes Q uit: 1967 Smokeless Tobacco: Never Tobacco Cessation:Counseling Given: Not Answered Alcohol Use Standard Drinks/Week Comments Never 0 (1 standard drink = 0.6 oz pur e alcohol) Education Answer Date Recorded Are you interested in more education? Not on cyndi e 01/12/2023 Are you concerned about learning? Not on file 01/12/2023 No 01/12/2023 No 01/12/2023 Digital Access Answer Date Recorded No 02/05/2023 No 02/05/2023 No 02/05/2023 Reliable internet access at home? Not on file 02/05/2023 Device with a working camera? Not on file Sex and Gender Information Value Date Recorded Sex Assigned at Not on file Legal Sex Male 1:33 PM EST Gender Identity Not on file Sexual Orientation Not on file Last Filed Vital Signs Vital Sign Reading Time Taken Comments Blood Pressure 140/70 10/26/2022 12:23 PM EST Pulse 59 10/26/2022 12:23 PM EST Temperature - - Respiratory Rate - - Oxygen Saturation 99% 10/26/2022 12:23 PM EST Inhaled Oxygen Concentration - - Weight 79 kg (174 lb 3.2 oz) 09/27/2022 1:36 PM EST Height 162.6 cm (5' 4 ) 09/27/2022 1:36 PM EST Body Mass Index 29.9 09/27/2022 1:36 PM EST Plan of Treatment Health Maintenance Due Date Last Done Comments ALKALINE PHOSPHATASE LEVEL 1938 CREATININE LEVEL 1938 DEPRESSION SCREENING 1950 RSV VACCINE (1 - 1-dose 75+ series) 2013 PNEUMOCOCCAL VACCINES (50+ years) (3 of 3 - PPSV23, PCV20 or PCV21) 01/06/2019 11/11/2018, 10/22/2014, 11/18/2002 Adult Td,Tdap Booster 05/16/2022 05/16/2012 COVID-19 VACCINE ( season) 2024 06/04/2022, 12/27/2021, 06/12/2021, Additional history exists HEPATITIS A VACCINES Aged Out 04/05/2010, 10/05/19 10 No longer eligible based on patient's age to complete this topic ZOSTER VACCINES Completed 05/05/2019, 02/14, 04/15/2012 HIB VACCINES Aged Out No longer eligi ble based on patient's age to complete this topic MENINGOCOCCAL VACCINES (ACWY) Aged Out No longer eligible based on patient's age to complete this topic MENINGOCOCCAL VACCINES (B) Aged Out N o longer eligible based on patient's age to complete this topic Medical Devices Not on file Insurance [facility] [place] [id number] [facility] MEDICARE REPLACEMENT [facility] MEDICARE REPLACEMENT [facility] MEDICARE REPLACEMENT [facility] MEDICARE REPLACEMENT [facility] MEDICARE REPLACEMENT Care Teams Mail Clerk Relationship Specialty Start Date End Date Samantha Pelaez CNP [address] [place] [id number] [email or web address] PCP - General 09/18/22 Additional Source Comments The information contained in this document represents components of the legal health record. It is not the complete legal health record.[facility]
--- OUTSIDE RECORDS SUMMARY | 2025-05-18 07:26 | XMS_ITS | Clinical Summary ---
Author Organization [employer] Address [address] [facility] [address] [place] [address] Care Team Providers Care Line Service Technician Name Role Phone Unavailable Primary Care Provider Unavailabl e Allergies No known active allergies Medications aspirin 81 MG EC tablet Take 81 mg by mouth Once per day. Active acetaminophen (Tylenol) 325 MG tablet Take 650 mg by mouth every 12 (twelve) hours. 12/14/2020 Active traZODone (Desyrel) 50 MG tablet Take 50 mg by mouth at bedtime. 11/18/2020 Active tamsulosin (Flomax) 0.4 MG 24 hr capsule Take 0.4 mg by mouth at bedtime. 11/18/2020 Active predniSONE (Deltasone) 1 MG tablet Take by mouth. Active LORazepam (Ativan) 0.5 MG tablet Take by mouth. Active gabapentin (Neurontin) 300 MG capsule Take 300 mg by mouth 3 times daily. Active QUEtiapine (SEROquel) 100 MG tablet Take 100 mg by mouth at bedtime. Active omeprazole (PriLOSEC) [address] capsule Take 20 mg by mouth before breakfast. Do not crush or chew. Active metoprolol succinate XL (Toprol-XL) 25 MG 24 hr tablet Take by mouth. Do not crush or chew. Active bisacodyl (Fleet Bisacodyl) 10 MG/30ML enema Insert 10 mg into the rectum 1 (one) time. Active cyanocobalamin (Vitamin B-12) 1000 MCG tablet Take 1,000 mcg by mouth Once per day. Active azaTHIOprine (Imuran) 50 MG tablet Take 50 mg by mouth Once per day. Active atorvastatin (Lipitor) 40 MG tablet Take 40 mg by mouth Once per day. Active carboxymethylce llulose 1 % ophthalmic solution Active sennosides (Senokot) 8.6 MG tablet Take 2 tablets by mouth at bed time. Active Social History Tobacco Use Types Packs/Day Years Used Date Smoking Tobacco: Unknown Tobacco Cessation:Counseling Given: Not Answered Alcohol Use Standard Drinks/Week Comments Defer 0 (1 standard drink = 0.6 oz pur e alcohol) Sex and Gender Information Value Date Recorded Sex Assigned at Male 07/16/2022 10:33 AM EDT Legal Sex Male 10:33 AM EDT Gender Identity Male 07/16/2022 10:33 AM EDT Sexual Orientation Straight 07/16/2022 10 :33 AM EDT Last Filed Vital Signs Vital Sign Reading Time Taken Comments Blood Pressure 118/78 10/07/2024 8:58 AM EST Pulse 67 10/07/2024 8:58 AM EST Temperature - - Respiratory Rate - - Oxygen Saturation - - Inhaled Oxygen Concentration - - Weight - - Height - - Body Mass Index - - Plan of Treatment Health Maintenance Due Date Last Done Comments Dental Prophylaxis 1938 Dental X-Ray: Bitewings 1938 Dental X-Ray: Full Mouth 1938 Depression Screening 1938 Lipid Panel 1938 SDOH Screening 1938 Alcohol/Substance Use Screening 1950 Dental Oral Exam 08/03/2018 01/30/2018 DTaP/Tdap/Td Vaccines (2 - Td or Tdap) 05/16/2022 05/16/2012, 09/16/2005 COVID-19 Vaccine ( season) 2024 07/04/2023, 03/08/2023, 06/04/2022, Additional history exists Influenza Vaccine (#1) 2025 , 06/20/2023, 06/20/2022, Additional history exists Tobacco Screening 11/18/2025 11/18/2024 Hepatitis A Vaccines Completed 04/05/2010, 10/05/19 10 Hepatitis B Vaccines Completed 04/05/2010, 11/03/2009, 10/05/2009 Zoster Vaccines Completed 05/05/2019, 02/14, 04/15/2012 Pneumococcal Vaccine: 50+ Years Completed 03/15/2023, 11/11/2018, 10/22/2014, Additional history exists RSV Patients and Patients Aged 60 years or older Completed 08/01/2023 HIB Vaccines Aged Out No longer eligi [...] patient's age to complete this topic Meningococcal Vaccine Aged Out No edgardo duc eligible based on patient's age to complete this topic RSV under 20 months Aged Out No longe r eligible based on patient's age to complete this topic Rotavirus Vaccines Aged Out No longer eligible based on patient's age to complete this topic Procedures Procedure Name Priority Date/Time Associated Diagnosis Comments COMPREHENSIVE ORAL EVALUATION - NEW OR ESTABLISHED PATIENT Routine 01/30/2018 12:00 AM EDT from Last 3 Months or Most Recently Relevant to Health Maintenance
--- OUTSIDE RECORDS SUMMARY | 2025-05-18 07:26 | XMS_ITS | Clinical Summary ---
Author Organization [employer] [facility] it Address [address] [place] [address] Care Team Providers Care Research Physician Name Role Phone Maco Otto MD Primary Care Provider [phone] Surgical History Surgery Date Site/Laterality Comments CHOLECYSTECTOMY PROCEDURE: AR LAPAROSCOPY SURG CHOLECYSTECTOMY Family History Medical History [...] series) 2013 Cholesterol Screening (Lipid Panel) 08/18/2022 Falls Risk Assessment 08/18/2022 Social Influencers of Health Screening 08/18/2022 Diabetes: Blood Sugar Contro l Test (HGBA1C) 09/01/2022 Hypertension/CHF/CAD Annual BMP Blood Test 09/01/2022 Depression Screening 09/16/2024 Influenza Vaccine (#1) 2025 HIB Vaccines Aged Out No longer [...] Documents on File Type Date Recorded Patient Automatic Beading Lathe Operator Expl anation Health Care Decision (hx) 01/02/2020 AD CAMACHO DIRECTIVE Health Care Decision (hx) 01/02/2020 AD CAMACHO DIRECTIVE Health Care Decision (hx) 01/02/2020 AD CAMACHO DIRECTIVE Health Care Decision (hx) 01/02/2020 AD CAMACHO DIRECTIVE Health Care Decision (hx) 01/02/2020 AD CAMACHO DIRECTIVE Health Care Decision (hx) 01/02/2020 AD CAMACHO DIRECTIVE Care Teams Research Physician Relationship Specialty Start Date End Date Maco Otto MD [address] [address] PCP - General Orthopedic Surgery 05/24/20
--- OUTSIDE RECORDS SUMMARY | 2025-05-18 07:27 | XMS_ITS | Clinical Summary ---
Author Organization [facility] Address [address] [address] Care Team Providers Care Biztalk Consultant Name Role Phone Unavailable Primary Care Provider Unavailabl e Social History Tobacco Use Types Packs/Day Years Used Date Smoking Tobacco: Never Assessed Sex and Gender Information Value Date Recorded Sex Assigned at Not on file Legal Sex Male 9:19 AM EDT Gender Identity Not on file Sexual Orientation Not on file Plan of Treatment Health Maintenance Due Date Last Done Comments Hepatitis B Vaccine (1 of 3 - Risk 3-dose series) 1998 04/05/2010, 11/03/2009, 10/05/2009 Pneumococcal Vaccine: 50+ Ye ars (3 of 3 - PCV20 or PCV21) 12/17/2014 10/22/2014, 11/18/2002 Diabetes: Hemoglobin A1C 04/19/2025 Diabetes: Ophthalmology Exam 04/19/2025 Diabetes: Pedal Pulse Checked 04/19/2025 Diabetes: Sensory Foot Exam 04/19/2025 Diabetes: Visual Foot Exam 04/19/2025 Influenza Vaccine (#1) 2025 2, 07/17/2011, 09/23/2009, Additional history exists Pneumococcal Vaccine: Peds ( 0 to 5 Years) and At-Risk Patients (6 to 49 Years) Discontinued 10/22/2014, 11/18/[address] [facility] ([id number]) [facility] ([id number])
--- OUTSIDE RECORDS SUMMARY | 2025-05-18 07:27 | XMS_ITS | Encounter Summary ---
Author Organization [facility] Address [address] [place] [phone] Phone Care Team Providers Care Masonry Supervisor Name Role Phone Samantha Pelaez CNP Primary Care Provider [phone] Encounter Details Date Type Department Care Team (Late st Contact Info) Description 10/26/2022 Procedure Pass OR Admitting Dept - Virtual Department [address] [place] [address] Social History Tobacco Use Types Packs/Day Years Used Date Smoking Tobacco: Former Cigarettes Q uit: 1967 Smokeless Tobacco: Never Alcohol Use Standard Drinks/Week Comments Never 0 (1 standard drink = 0.6 oz pur e alcohol) Sex and Gender Information Value Date Recorded Sex Assigned at Not on file Legal Sex Male 1:33 PM EST Gender Identity Not on file Sexual Orientation Not on file documented as of this encounter Plan of Treatment Not on file documented as of this encounter Visit Diagnoses Not on filedocumented in this encounter Care Teams Masonry Supervisor Relationship Specialty Start Date End Date Samantha Pelaez CNP [address] [place] [address] [email or web address] PCP - General 09/18/22 documented as of this encounter Additional Source Comments The information contained in this document represents components of the legal health record. It is not the complete legal health record.[facility]
[2025-05-18 07:37] LABS: Hematocrit 37.7 % (42.0-52.0); Hemoglobin 12.8 g/dl (14.0-18.0); Imm Gran Abs Auto 0.02 X10*3/uL (0.00-0.03); Imm Gran Pct Auto 0.4 % (0.0-0.4); Lymphocytes Absolute Auto 1.3 X10*3/uL (1.2-4.9); Mean Corpuscular HGB Conc 34.0 g/dl (31.0-36.0); Mean Corpuscular Hemoglobin 33.9 pg (27.0-33.0); Mean Corpuscular Volume 99.7 fL (80.0-98.0); NRBC Abs Auto 0.000 X10*3/uL (0.0-0.012); NRBC Pct Auto 0.0 /100WBC (0.0-0.2); Platelet Count 188 X10*3/uL (160-400); Red Blood Count 3.78 X10*6/uL (4.60-5.80); White Blood Count 5.1 X10*3/uL (4.8-10.8)
== END 2025-05-18 07:25 | disposition home or self-care (01) ==
LOC: HO.HSH3W 07:24
PROVIDERS: Visit Provider Internal Medicine
DX: I95.1 Orthostatic hypotension (principal)
CPT/HCPCS: 36415; 85025

== ENCOUNTER 2025-05-18 11:22 | Emergency (ER) | payer MEDICARE, SELFPAY ==
--- NOTE | ~2025-05-18 | CT_ITS ---
EXAMINATION: CT HEAD WITHOUT CONTRAST CLINICAL INFORMATION: Fall, head trauma COMPARISON: September 20, 2020 TECHNIQUE: Contiguous axial imaging was performed from the skull base to vertex without intravenous administration of contrast. This CT examination was performed using dose optimization techniques as appropriate, variously including the following: *Automated exposure control *Adjustment of mA and/or kV according to patient size (this includes techniques or standardized protocols for targeted exams where dose is matched to indication/reason for exam; i.e. extremities or head) *Use of iterative reconstruction technique DLP: 750 mGY*cm FINDINGS: There is no acute ischemic change. There is a small focal area of encephalomalacia involving the left precentral gyrus in the region where there was previously acute ischemic change. Periventricular white matter hypodensities are again noted. There is no intracranial hemorrhage. There is no mass-effect or midline shift. There is mild to moderate generalized atrophy. Basal cisterns and ventricles are within normal limits for cerebral volume. Orbits are symmetrical and unremarkable. Paranasal sinuses and mastoid air cells are pneumatized. There are no bony abnormalities. Bony nasal septum deviates toward the left. CT/CT head/brain wo IV con IMPRESSION: Focal chronic ischemic change is present in the left precentral gyrus, and there is mild to moderate generalized atrophy and periventricular white matter hypodensities without clear acute abnormality.. Electronically signed by: Shai Reynolds MD 05/18/2025 12:48 PM EDT
[2025-05-18 11:30] VITALS: BP 120/34; BP 142/76; PULSE 65; PULSE 66; RESP 18; TEMP 37.3; O2SAT 96; BMI 24.9
[2025-05-18 11:43] VITALS: TEMP 37
--- NOTE | 2025-05-18 11:45 | ECG_ITS ---
Test Reason : FALLS Blood Pressure : */* mmHG Vent. 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
[2025-05-18 12:07] LABS: Glucose, Whole Blood 191 mg/dL (60-115)
[2025-05-18 12:11] LABS: MANUAL DIFF FLAG NO
--- NOTE | 2025-05-18 12:11 | ED.FALL ---
HPI - Fall General Chief Complaint: Fall Stated Complaint: FALL W/+HS,WEAK,CONFUSED,DIZZY, FROM SNF PER EMS Time Seen by Provider: 05/18/25 11:27 History of Present Illness ED Provider: Mani Terrazas MD HPI Narrative: 85-year-old male with history of CAD, stroke, mg, prior rectal cancer, hypertension, anemia, depression from sold her home with multiple frequent falls at least 4 seeming mechanical nonsyncopal per description of patient and EMS report from staff there. He did strike his head not on blood thinners. No complaints from him other than feeling like his right leg gets tremulous and then he falls. He has lower facial/mandibular tremor he says this is chronic and unchanged no personal report or documented past medical history of alternative neurologic diagnosis such as Parkinson's or chronic tremor Related Data Home Medications ?Medication ?Instructions ?Recorded ?Confirmed acetaminophen 650 mg tablet 650 mg PO BEDTIME 09/14/20 05/18/25 aspirin 81 mg tablet 81 mg PO DAILY 09/14/20 05/18/25 atorvastatin 40 mg tablet 40 mg PO DAILY@1700 09/14/20 05/18/25 calcium polycarbophil 625 mg tablet 625 mg PO DAILY 09/14/20 05/18/25 cholecalciferol (vitamin D3) 25 25 mcg PO DAILY 09/14/20 05/18/25 mcg (1,000 unit) chewable tablet cyanocobalamin (vitamin B-12) 1,000 mcg IM QMONTH 09/14/20 05/18/25 1,000 mcg/mL injection solution ferrous sulfate 325 mg (65 mg 325 mg PO DAILY 09/14/20 05/18/25 iron) tablet (Iron (ferrous sulfate)) fluticasone propionate 50 1 spray intranasal BID 09/14/20 05/18/25 mcg/actuation nasal spray,suspension oxybutynin chloride 15 mg 15 mg PO DAILY 09/14/20 05/18/25 tablet,extended release 24 hr pyridostigmine bromide 60 mg tablet 60 mg PO TID 09/14/20 05/18/25 tamsulosin 0.4 mg capsule 0.4 mg PO BEDTIME 09/14/20 05/18/25 trazodone 50 mg tablet 75 mg PO BEDTIME 09/14/20 05/18/25 venlafaxine 150 mg 150 mg PO DAILY 09/14/20 05/18/25 capsule,extended release 24 hr docusate sodium 100 mg capsule 100 mg PO BID 09/20/20 05/18/25 omeprazole 20 mg capsule,delayed 20 mg PO DAILY@0630 09/20/20 05/18/25 release metoprolol tartrate 25 mg tablet 12.5 mg PO BID 12/22/20 05/18/25 quetiapine 25 mg tablet 50 mg PO BEDTIME 05/27/23 05/18/25 azathioprine 50 mg tablet 50 mg PO Q48H 11/23/24 05/18/25 carboxymethylcellulose sodium 1 drp ophthalmic (eye) BEDTIME PRN 11/23/24 05/18/25 Dry Eyes gabapentin 100 mg tablet 200 mg PO BEDTIME 05/18/25 05/18/25 gabapentin 400 mg tablet 800 mg PO BEDTIME 05/18/25 05/18/25 hydrocortisone 1 % topical cream 1 appl topical BID PRN Face Rash 05/18/25 05/18/25 lactase 3,000 unit tablet 3,000 unit PO TIDAC 05/18/25 05/18/25 lorazepam 0.5 mg tablet 0.5 mg PO Q6H PRN Anxiety 05/18/25 05/18/25 prednisone 1 mg tablet 1 mg PO DAILY 05/18/25 05/18/25 Allergies Allergy/AdvReac Type Severity Reaction Status Date / Time No Known Allergies (No Known Allergy Verified 05/18/25 11:32 Allergies*) [facility] Past Medical History Medical History History of GI bleed Tubular adenoma of colon (~2014) History of transfusion (~08/2020) History of COVID-19 History of non-ST elevation myocardial infarction (NSTEMI) (~09/2020) Status post coronary artery bypass graft (~11/2020) Atherosclerotic cardiovascular disease Diet-controlled diabetes mellitus Essential hypertension Stroke due to stenosis of left carotid artery (~09/2020) History of diverticulosis History of rectal cancer (~11/2014) Hammer toes, bilateral BPH (benign prostatic hyperplasia) Urinary incontinence Onychogryphosis Nonalcoholic steatohepatitis (MARTI) Depression CAD (coronary artery disease) Myasthenia gravis Rheumatoid arthritis Hyperlipidemia GERD (gastroesophageal reflux disease) Insomnia Surgical History History of pacemaker (~08/2022) History of colonoscopy History of ERCP (~09/2020) History of heart surgery (~11/2020) History of cataract surgery (~05/2019) History of cholecystectomy (~02/2021) History of left-sided carotid endarterectomy (~11/2020) History of coronary artery bypass graft x 2 (~11/2020) History of cardiac catheterization (~11/2020) History of incisional hernia repair History of colostomy (~07/2015) History of colostomy reversal (~01/2016) Family History Family History Mother No problems noted. Father No problems noted. Brother No problems noted. Sister No problems noted. Daughter Psychiatric disorder Son No problems noted. Social History Social History Household Members: Other Housing: Assisted Living Facility Housing Other:: [facility] home Do you presently have visiting nurse or other home services: No Alcohol intake: never Patient Tobacco Use Status: Never used Tobacco Smoked in Last 30 Days: No Advance Directives: Yes Advance Directives on File: Yes Advance Directives Date on File: 06/21/20 service: Yes Current occupational status: retired Physical Exam Exam: Exam: EXAM: Gen: Alert, awake, well appearing, well hydrated. Facial tremor reported to be chronic, questionable left hand pill rolling tremor Head: Atraumatic Eyes: Anicteric, Normal conjunctiva. ENT: Moist mucosa, no pallor. ? Neck: Supple. No midline tenderness Skin: ?. Bruising at least several days old anterior left shoulder exposed or examined skin Respiratory: Breathing comfortably, No distress.Clear to auscultation bilaterally, symmetric chest expansion, No wheeze, rales, ronchi. Cardiovascular: Regular rate and rhythm. No murmurs or rub. Well perfused periphery, warm extremities. No edema. ? Abdominal: No focal tenderness. Soft, no objective distension. No palpable masses or obvious organomegaly. ?No guarding, no rebound tenderness or other peritoneal findings. : No flank tenderness. Neuro: Alert. Gross movement of all extremities intact. ?Tremor as above of the face. Face is symmetric. Pupils 2-3 mm symmetric reactive EOMI. Clear speech no obvious dysarthria or aphasia. No focal motor deficits Psych: Calm. Cooperative. MSK: No grossly visible deformity. Vital signs: See flowsheet Vital Signs: Vital Signs: Last Vital Signs Temp 98.3 F 05/18/25 16:59 Pulse 59 05/18/25 16:59 Resp 16 05/18/25 16:59 BP 155/63 H 05/18/25 16:59 Pulse Ox 95 05/18/25 16:59 O2 Del Method Room Air 05/18/25 16:59 BMI result Body Mass Index 24.9 Medical Decision Making Medical Decision Making MDM Narrative: Medical Decision Makin-year-old male with frequent falls staff reported that he is confused patient is oriented awake alert here able to describe his presentation to me. No focal motor deficits described or identified on exam. Chronic reported tremor. He attributes falls to right leg tremulousnes. Pacemaker, falls not suggested by history due to syncope Preliminary Favored Differential Diagnosis: Frequent falls, generalized deconditioning, neuromuscular disorder, vitamin or electrolyte deficiency, among additional considered etiologies Testing Interpreted Independently: ?See below for details Radiology or Lab testing Results Reviewed: ?See below for details Consults: ?See below for details Independent Historians/External Chart Reviews: ?See below for details Social Determinants of Health Impacting MDM/Planning: ?See below for details Consult Healthcare Provider Case management consulted they informed me that the patient's current facility offers PT which the patient likely needs to assess balance Lab Data MDM Lab Attestation statement: I reviewed the patient's lab results. 05/18/25 12:08 05/18/25 12:08 Labs: Lab Results 05/18/25 05/18/25 05/18/25 Range/Units 12:03 12:07 12:08 WBC 4.8 (4.8-10.8) X10*3/uL RBC 3.74 L (4.60-5.80) X10*6/uL Hgb 12.9 L (14.0-18.0) g/dl Hct 36.3 L (42.0-52.0) % MCV 97.1 (80.0-98.0) fL MCH 34.5 H (27.0-33.0) pg MCHC 35.5 (31.0-36.0) g/dl RDW 12.5 (11.0-16.0) % Plt Count 166 (160-400) X10*3/uL MPV 9.4 (9.4-12.4) fL Immature Gran % (Auto) 0.2 (0.0-0.4) % Neut % (Auto) 72.7 (45-73) % Lymph % (Auto) 14.6 L (20-40) % Mora % (Auto) 9.8 (2-11) % Eos % (Auto) 2.1 (0-4) % Baso % (Auto) 0.6 (0-2) % Lymph # (Auto) 0.7 L (1.2-4.9) X10*3/uL Mora # (Auto) 0.5 (0.1-1.2) X10*3/uL Eos # (Auto) 0.1 (0.0-0.4) X10*3/uL Baso # (Auto) 0.0 (0.0-0.2) X10*3/uL Abs Immat Gran (auto) 0.01 (0.00-0.03) X10*3/uL Absolute Neuts (auto) 3.5 (2.0-8.3) x10*3/uL Absolute Nucleated RBC 0.000 (0.0-0.012) X10*3/uL Nucleated RBC % (auto) 0.0 (0.0-0.2) /100WBC Sodium 141 (135-145) mmol/L Potassium 4.4 (3.3-5.1) mmol/L Chloride 106 (96-108) mmol/L Carbon Dioxide 30 H (22-29) mmol/L Anion Gap 9 L (12-20) BUN 19 H (9-16) mg/dL Creatinine 0.83 (0.5-1.4) mg/dL Estim Creat Clear Calc 58.6 Estimated GFR > 60 POC Glucose 191 H (60-115) mg/dL Random Glucose 180 H (60-115) mg/dL Calcium 9.1 (8.4-10.2) mg/dL Magnesium 2.2 (1.6-2.6) mg/dL Total Bilirubin 0.4 (0.0-1.0) mg/dL Direct Bilirubin 0.2 (0.0-0.5) mg/dL AST 29 (5-37) U/L ALT 31 (0-40) U/L Alkaline Phosphatase 59 (39-117) U/L Ammonia 38 (13-55) umol/L Troponin I High Sens 4.8 D (<3.5-35.0) ng/L Total Protein 6.2 L (6.5-8.0) g/dL Albumin 4.2 (3.5-5.0) g/dL Vitamin B12 572 (200-900) pg/mL Folate 12.9 (> or = 4.0) ng/mL TSH 0.88 (0.32-4.0) uIU/mL Ethyl Alcohol < 10 mg/dL Independent Interpretation I performed an independent interpretation of an: EKG (Sinus, first-degree AV block, no acute ischemic changes) Radiology Impression Discussion of test interpretation with radiology: I have reviewed the radiologist's reading. Independent Historian Clinical information obtained from an independent historian. History obtained from or confirmed by: Other (Son at bedside we discussed the case further) Discharge Plan Discharge Clinical Impression: Falls frequently Patient Disposition: Xfer SNF Additional Instructions: DISCHARGE DIAGNOSES: Frequent falls without clear medical or acute neurological explanation HISTORY OF PRESENTATION: ?Frequent falls possible head strike recently EMERGENCY DEPARTMENT COURSE,TESTS, TREATMENTS: While in the ED today he was found to have what he describes as a chronic facial tremor and reported right leg tremulousness causing falls over the past several days. Patient had a CT brain with chronic infarct findings likely secondary to previous stroke, he had lab work which was non actionable with stable hemoglobin no leukocytosis in his chemistry tests were normal including thyroid electrolytes kidney function. DISCHARGE MEDICATIONS: ?[We have made no changes to your regular medication regimen] FOLLOW-UP: ?Call your primary or general physician soon as possible to discuss your symptoms, your ED visit and to discuss follow up plans Patient may need physical therapy to evaluate possible strength, deconditioning, tremor or other limitations causing his fall he may need expanded function dental assistant devices but we see no indication for emergent hospitalization INSTRUCTIONS ?& RETURN PRECAUTIONS: If any symptoms change first call your primary physician, if it is after-hours your primary doctors office should have a provider oncology nurse navigator you can speak with. If the symptoms are severe or very concerning to you then call 911 or return to the ED. Mani Terrazas MD Emergency Physician [facility] Prescriptions: No Action docusate sodium 100 mg Capsule 100 mg PO BID omeprazole 20 mg capsule,delayed release(DR/EC) 20 mg PO DAILY@0630 atorvastatin 40 mg Tablet 40 mg PO DAILY@1700 Rx Instructions: evening acetaminophen 650 mg Tablet 650 mg PO BEDTIME cyanocobalamin (vitamin B-12) 1,000 mcg/mL Solution 1,000 mcg IM QMONTH calcium polycarbophil 625 mg Tablet 625 mg PO DAILY aspirin 81 mg Tablet 81 mg PO DAILY Rx Instructions: HOLD UNTIL 09/21 fluticasone propionate 50 mcg/actuation Griffin,Suspension 1 spray INTRANASAL BID Rx Instructions: right nostril cholecalciferol (vitamin D3) 25 mcg (1,000 unit) Tablet,Chewable 25 mcg PO DAILY oxybutynin chloride 15 mg Tablet Extended Release 24hr 15 mg PO DAILY trazodone 50 mg Tablet 75 mg PO BEDTIME venlafaxine 150 mg Capsule,Extended Release 24hr 150 mg PO DAILY tamsulosin 0.4 mg Capsule 0.4 mg PO BEDTIME ferrous sulfate [Iron (ferrous sulfate)] 325 mg (65 mg iron) Tablet 325 mg PO DAILY pyridostigmine bromide 60 mg Tablet 60 mg PO TID quetiapine 25 mg tablet 50 mg PO BEDTIME azathioprine 50 mg tablet 50 mg PO Q48H carboxymethylcellulose sodium Drops 1 drp OPHTHALMIC (EYE) BEDTIME PRN (Reason: Dry Eyes) lorazepam 0.5 mg Tablet 0.5 mg PO Q6H PRN (Reason: Anxiety) prednisone 1 mg Tablet 1 mg PO DAILY hydrocortisone 1 % Cream 1 appl TOPICAL BID PRN (Reason: Face Rash) lactase 3,000 unit Tablet 3,000 unit PO TIDAC Rx Instructions: administer with meals and/or snacks gabapentin 100 mg Tablet 200 mg PO BEDTIME Rx Instructions: Give with 800mg gabapentin 400 mg Tablet 800 mg PO BEDTIME metoprolol tartrate 25 mg tablet 12.5 mg PO BID Interventions: ED Discharge Assessment Last Done: 05/18/25 16:59 Discharge Date/Time: 05/18/25 17:00 Print Language: Polish
[2025-05-18 12:14] LABS: Hematocrit 36.3 % (42.0-52.0); Hemoglobin 12.9 g/dl (14.0-18.0); Imm Gran Abs Auto 0.01 X10*3/uL (0.00-0.03); Imm Gran Pct Auto 0.2 % (0.0-0.4); Lymphocytes Absolute Auto 0.7 X10*3/uL (1.2-4.9); Mean Corpuscular HGB Conc 35.5 g/dl (31.0-36.0); Mean Corpuscular Hemoglobin 34.5 pg (27.0-33.0); Mean Corpuscular Volume 97.1 fL (80.0-98.0); NRBC Abs Auto 0.000 X10*3/uL (0.0-0.012); NRBC Pct Auto 0.0 /100WBC (0.0-0.2); Platelet Count 166 X10*3/uL (160-400); Red Blood Count 3.74 X10*6/uL (4.60-5.80); White Blood Count 4.8 X10*3/uL (4.8-10.8)
[2025-05-18 12:23] LABS: Ammonia 38 umol/L (13-55)
[2025-05-18 12:37] LABS: Alanine Aminotransferase 31 U/L (0-40); Albumin Level 4.2 g/dL (3.5-5.0); Alkaline Phosphatase 59 U/L (39-117); Anion Gap 9 (12-20); Aspartate Amino Transferase 29 U/L (5-37); Blood Urea Nitrogen 19 mg/dL (9-16); Calcium 9.1 mg/dL (8.4-10.2); Carbon Dioxide 30 mmol/L (22-29); Chloride 106 mmol/L (96-108); Creatinine Clr Calc Pharmacy 58.6; Estimated Glomerular Filt Rate > 60; Magnesium 2.2 mg/dL (1.6-2.6); Potassium 4.4 mmol/L (3.3-5.1); Sodium 141 mmol/L (135-145); Total Protein 6.2 g/dL (6.5-8.0); Troponin-I High Sensitivity 4.8 ng/L (<3.5-35.0)
[2025-05-18 12:52] LABS: Thyroid Stimulating Hormone 0.88 uIU/mL (0.32-4.0)
--- NOTE | 2025-05-18 13:03 | PHA.MEDREC ---
Pharmacy Consult ? Medication Reconciliation Pharmacy received med list from [facility] to complete med reconciliation.
[2025-05-18 13:08] LABS: Folate 12.9 ng/mL (> or = 4.0); Vitamin B12 572 pg/mL (200-900)
--- NOTE | 2025-05-18 15:46 | PC.NURSE ---
Report given to RN at [facility]. Plans for pt p/u for d/c at [phone]
[2025-05-18 15:50] VITALS: BP 155/63; PULSE 59; RESP 16; TEMP 36.8; O2SAT 95
[2025-05-18 16:59] VITALS: BP 155/63; PULSE 59; RESP 16; TEMP 36.8; O2SAT 95
== END 2025-05-18 17:00 | disposition skilled nursing facility (03) ==
PROVIDERS: Emergency Provider Emergency Medicine
DX: S09.90XA Unspecified injury of head, initial encounter (principal); W19.XXXA Unspecified fall, initial encounter; Y93.9 Activity, unspecified; Y92.9 Unspecified place or not applicable; Y99.9 Unspecified external cause status; I10 Essential (primary) hypertension; D64.9 Anemia, unspecified; Z85.048 Personal history of other malignant neoplasm of rectum, rectosigmoid junction, and anus; Z79.899 Other long term (current) drug therapy
CPT/HCPCS: 36415; 70450; 80053; 80307; 82140; 82248; 82607; 82746; 82947; 83735; 84443; 84484; 85025; 93005; 99284; 99285

== ENCOUNTER → 2025-05-18 11:45 | Outpatient (BNV) | payer MEDICARE, SELFPAY | PROVIDERS: Emergency Provider Emergency Medicine; Visit Provider Internal Medicine Cardiovascular Disease | DX: I44.0 Atrioventricular block, first degree (principal); I25.2 Old myocardial infarction | CPT/HCPCS: 93010 ==

== ENCOUNTER → 2025-05-18 11:51 | Outpatient (BNV) | payer MEDICARE, SELFPAY | PROVIDERS: Emergency Provider Emergency Medicine; Visit Provider Radiology Diagnostic Radiology | DX: I67.82 Cerebral ischemia (principal) | CPT/HCPCS: 70450 ==

== ENCOUNTER 2025-05-27 06:33 | Outpatient (REF) | payer MEDICARE, SELFPAY ==
--- OUTSIDE RECORDS SUMMARY | 2025-05-27 06:37 | XMS_ITS | Clinical Summary ---
Author Organization [facility] Facility Address [address] [address] Care Team Providers Care Control Officer Name Role Phone Unavailable Primary Care Provider [...] to 49 Years) Discontinued 10/22/2014, 11/18/2002 Insurance [facility] ([id number]) [facility] ([id number])
--- OUTSIDE RECORDS SUMMARY | 2025-05-27 06:37 | XMS_ITS | Clinical Summary ---
Author Organization [employer] [facility] it Address [address] [place] [address] Care Team Providers Care Piecer Up Name Role Phone Maco Otto MD Primary Care Provider [phone] Surgical History Surgery Date Site/Laterality Comments CHOLECYSTECTOMY PROCEDURE: DE LAPAROSCOPY SURG CHOLECYSTECTOMY Family History Medical History [...] Documents on File Type Date Recorded Patient Occupational Therapy Assistant Expl anation Health Care Decision (hx) 01/02/2020 AD CAMACHO DIRECTIVE Health Care Decision (hx) 01/02/2020 AD CAMACHO DIRECTIVE Health Care Decision (hx) 01/02/2020 AD CAMACHO DIRECTIVE Health Care Decision (hx) 01/02/2020 AD CAMACHO DIRECTIVE Health Care Decision (hx) 01/02/2020 AD CAMACHO DIRECTIVE Health Care Decision (hx) 01/02/2020 AD CAMACHO DIRECTIVE Care Teams Piecer Up Relationship Specialty Start Date End Date Maco Otto MD [address] [id number] PCP - General Orthopedic Surgery 05/24/20
--- OUTSIDE RECORDS SUMMARY | 2025-05-27 06:37 | XMS_ITS | Encounter Summary ---
Author Organization [facility] Address [address] [place] [phone] Phone Care Team Providers Care Washer Hand Name Role Phone Samantha Pelaez CNP Primary Care Provider [phone] Encounter Details Date Type Department Care Team (Late st Contact Info) Description 10/26/2022 Procedure Pass OR Admitting Dept - Virtual Department [address] [place] [address] Social History Tobacco Use Types Packs/Day Years [...] on filedocumented in this encounter Care Teams Washer Hand Relationship Specialty Start Date End Date Samantha Pelaez CNP [address] [place] [address] [email or web address] PCP - General 09/18/22 documented as of this encounter Additional Source Comments The information contained in this document represents components of the legal health record. It is not the complete legal health record.[facility]
--- OUTSIDE RECORDS SUMMARY | 2025-05-27 06:37 | XMS_ITS | Clinical Summary ---
Author Organization [facility] Address [address] [place] [phone] Phone Care Team Providers Care Field Training Manager Name Role Phone Samantha Pelaez FLOOR CASHIER Primary Care Provider [phone] Allergies No known active allergies Medications acetaminophen [...] 10/22/2014, 11/18/2002 Adult Td,Tdap Booster 05/16/2022 05/16/2012 INFLUENZA VACCINE (#1) 2025 , 06/07/2021, 09/13/2020, Additional history exists COVID-19 VACCINE ( season) 2025 06/04/2022, 12/27/2021, 06/12/2021, Additional history exists HEPATITIS [...] topic Medical Devices Not on file Insurance [facility] SCO MEDICARE REPLACEMENT [place]ASH [place] [id number] [facility] MEDICARE REPLACEMENT [facility] MEDICARE REPLACEMENT [facility] MEDICARE REPLACEMENT [facility] RE[facility] Care Teams Field Training Manager Relationship Specialty Start Date End Date Samantha Pelaez CNP [address] [place] [id number] PCP - General 09/18/22 Additional Source Comments The information contained in this document represents components of the legal health record. It is not the complete legal health record.[facility]
[2025-05-27 07:25] LABS: Alanine Aminotransferase 32 U/L (0-40); Albumin Level 4.3 g/dL (3.5-5.0); Alkaline Phosphatase 63 U/L (39-117); Anion Gap 11 (12-20); Aspartate Amino Transferase 31 U/L (5-37); Blood Urea Nitrogen 18 mg/dL (9-16); Calcium 9.2 mg/dL (8.4-10.2); Carbon Dioxide 29 mmol/L (22-29); Chloride 107 mmol/L (96-108); Estimated Glomerular Filt Rate > 60; Potassium 4.1 mmol/L (3.3-5.1); Sodium 143 mmol/L (135-145); Total Protein 6.7 g/dL (6.5-8.0)
[2025-05-27 07:32] LABS: Hemoglobin A1C 171.5720 umol/L; Total Hemoglobin (HGBA1C) 3694.8315 umol/L
[2025-05-27 07:39] LABS: Thyroid Stimulating Hormone 1.49 uIU/mL (0.32-4.0)
[2025-05-27 07:41] LABS: Prostate Specific Antigen < 0.10 ng/mL (<0.05-4.0)
== END 2025-05-27 06:34 | disposition home or self-care (01) ==
LOC: HO.HSH3W 06:33
PROVIDERS: Visit Provider Nurse Practitioner
DX: I25.10 Atherosclerotic heart disease of native coronary artery without angina pectoris (principal); I35.9 Nonrheumatic aortic valve disorder, unspecified; I63.232 Cerebral infarction due to unspecified occlusion or stenosis of left carotid arteries; I10 Essential (primary) hypertension; G70.00 Myasthenia gravis without (acute) exacerbation; R29.6 Repeated falls; Z95.0 Presence of cardiac pacemaker; Z12.5 Encounter for screening for malignant neoplasm of prostate; Z79.82 Long term (current) use of aspirin; Z79.899 Other long term (current) drug therapy
CPT/HCPCS: 36415; 80048; 80076; 83036; 84153; 84443; 99212

== ENCOUNTER 2025-05-27 09:36 | Outpatient (AMB) | payer MEDICARE, SELFPAY ==
--- NOTE | 2025-05-27 09:40 | A.OFFVIS_ITS ---
Vital Signs 05/27/25 09:41 Height 5 ft 7 in Weight 154 lb 5.177 oz BMI 24.2 BP 106/60 Blood Pressure Location Lt brachial Position Sitting Pulse 56 Pulse Source Pulse Oximeter Intake Visit Reasons: 6 mth f/up Allergies No Known Allergies (No Known Allergies*) Allergy (Verified 05/18/25 11:32) Medication List - Last Reconciled 05/27/25 by Ector Pratt MD acetaminophen 650 mg PO BEDTIME aspirin 81 mg PO DAILY atorvastatin 40 mg PO DAILY@1700 azathioprine 50 mg PO Q48H calcium polycarbophil 625 mg PO DAILY carboxymethylcellulose sodium 1 drp ophthalmic (eye) BEDTIME PRN cholecalciferol (vitamin D3) 25 mcg PO DAILY cyanocobalamin (vitamin B-12) 1,000 mcg IM QMONTH docusate sodium 100 mg PO BID ferrous sulfate (Iron (ferrous sulfate)) 325 mg PO DAILY fluticasone propionate 50 mcg/actuation 1 spray intranasal BID gabapentin 200 mg PO BEDTIME gabapentin 800 mg PO BEDTIME hydrocortisone 1% 1 appl topical BID PRN lactase 3,000 units PO TIDAC lorazepam 0.5 mg PO Q6H PRN omeprazole 20 mg PO DAILY@0630 oxybutynin chloride ER 15 mg PO DAILY prednisone 1 mg PO DAILY pyridostigmine bromide 60 mg PO TID quetiapine 50 mg PO BEDTIME ropinirole 2 mg PO BID tamsulosin 0.4 mg PO BEDTIME trazodone 75 mg PO BEDTIME venlafaxine ER 150 mg PO DAILY HPI Comments Details: Robe returns for follow-up. To recall, in the past, he was admitted to the hospital with gastrointestinal bleeding. In that setting, he had a non ST elevation myocardial infarction. He also developed stroke-type symptoms. MRI h ad then showed acute cerebral infarct. Carotid ultrasound was suggestive of significant disease. Then had cardiac catheterization that showed multivessel disease. He eventually had both coronary artery bypass as well as left carotid endarterectomy (2020). In August 2022, he was admitted with bradycardia and in that context, underwent permanent pacemaker placement. Recently, it seems that he has been falling down. Some of these episodes possibly related to low blood pressure. It seems it might happen when he gets up from bed quickly to go to the bathroom etc.. Per notes, metoprolol has been stopped. Today's blood pressure is lowish at 106/60 mm Hg. He is also on polypharmacy. 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 (~09/2020) History of diverticulosis History of rectal cancer (~11/2014) Hammer toes, bilateral BPH (benign prostatic hyperplasia) Urinary incontinence Onychogryphosis Nonalcoholic steatohepatitis (MARTI) Depression CAD (coronary artery disease) Myasthenia gravis Rheumatoid arthritis Hyperlipidemia GERD (gastroesophageal reflux disease) Insomnia Surgical History History of pacemaker (~08/2022) History of colonoscopy History of ERCP (~09/2020) History of heart surgery (~11/2020) History of cataract surgery (~05/2019) History of cholecystectomy (~02/2021) History of left-sided carotid endarterectomy (~11/2020) History of coronary artery bypass graft x 2 (~11/2020) History of cardiac catheterization (~11/2020) History of incisional hernia repair History of colostomy (~07/2015) History of colostomy reversal (~01/2016) Family History Mother No problems noted. Father No problems noted. Brother No problems noted. Sister No problems noted. Daughter Psychiatric disorder Son No problems noted. Social History Household Members: Other Housing: Assisted Living [facility] Do you presently have visiting nurse or other home services: No Alcohol intake: never Patient Tobacco Use Status: Never used Tobacco Advance Directives Date on File: 06/21/20 service: Yes Current occupational status: retired Review of Systems Const Denies weakness ENT Denies dizziness Card Denies chest pain, Denies chest pain with activity, Denies syncope, Denies rapid heart rate, Denies pedal edema, Denies edema, Denies leg edema, Denies lightheadedness, Denies palpitations, Denies dyspnea, Denies dyspnea on exertion and Denies orthopnea Resp Denies cough, Denies dyspnea and Denies dyspnea on exertion GI Denies hematochezia and Denies change in stool character Musc Denies abnormal gait, Denies muscle cramps, Denies muscle weakness, Denies numbness, Denies radiating pain into limb and Denies tingling Neuro Denies abnormal gait, Denies dizziness, Denies syncope, Denies numbness, Denies tingling and Denies weakness Endo Denies palpitations Physical Exam Vital Signs: Last Vital Signs Pulse 56 05/27/25 09:41 BP 106/60 05/27/25 09:41 BMI result Body Mass Index 24.2 Const General: comfortable and no acute distress Orientation/consciousness: patient oriented x3 HEENT Other: Unremarkable Head: Yes normal to inspection Neck Neck: Yes normal visual inspection Chest Chest palpation & inspection: normal inspection of the chest Resp Auscultation: clear to auscultation bilaterally Cardio Palpation: normal PMI Heart sounds: S1 normal heart sound present, S2 normal heart sound present, no gallops, Murmur heart sound present systolic I/ and no rubs GI Palpation (GI): Soft to palpation Back/Spine/Pelvis Other: unremarkable Skin General skin exam: no rashes or lesions noted Neuro General: patient oriented x3 Extrem General: Yes normal to inspection Psych Mental Status: mental status grossly normal Assessment & Plan Assessment & Plan (1) Atherosclerotic cardiovascular disease: Code(s): I25.10 - Atherosclerotic heart disease of [place] coronary artery without angina pectoris Category: Medical Plan: s/p CABG. Continue aspirin and statins. LDL levels are well controlled. 20s to 50s. (2) Aortic valve calcification: Code(s): I35.9 - Nonrheumatic aortic valve disorder, unspecified Category: Medical Plan: In the most recent echocardiogram, aortic valve calcification with possibly early stenosis. Can be followed periodically. 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 Follow-up with vascular surgery. (4) Essential hypertension: Code(s): I10 - Essential (primary) hypertension Category: Medical Plan: Recent blood pressure possibly lowish. Per notes, off beta-blockers. (5) Myasthenia gravis: Code(s): G70.00 - Myasthenia gravis without (acute) exacerbation Category: Medical Plan: On azathioprine, pyridostigmine. (6) Pacemaker: Onset Date: ~08/2022 Comment: (Medtronic DCPP - placed 08/20/22) Code(s): Z95.0 - Presence of cardiac pacemaker Category: Medical Plan: Normally functioning. Followed remotely. (7) Falls: Code(s): R29.6 - Repeated falls Category: Medical Plan: Could be related to low blood pressure. Orthostasis possible. Could also be from muscular deconditioning and gait issues. He is also on polypharmacy. Per notes, already off beta-blockers. Consider adding Midodrine 2.5 mg t.i.d.. Can adjust dose as needed. Plan Discussion Notes I discussed with the patient the importance of rising slowly to prevent dizziness and falls. We talked about monitoring blood pressure to identify any episodes of orthostatic hypotension. I also mentioned the potential impact of his current medications on blood pressure and the possibility of myasthenia contributing to his weakness. Patient was informed and verbally consented to the use of an ambient scribe for clinic note documentation during this visit. Patient Instructions: - Rise slowly from sitting to prevent dizziness. - Monitor blood pressure regularly. - Review all your medications with your doctor to check for any that may lower blood pressure. 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
[2025-05-27 09:41] VITALS: BP 106/60; PULSE 56; BMI 24.2
== END 2025-05-27 10:08 | disposition home or self-care (01) ==
PROVIDERS: Visit Provider Internal Medicine
DX: I25.10 Atherosclerotic heart disease of native coronary artery without angina pectoris (principal); I35.9 Nonrheumatic aortic valve disorder, unspecified; I63.232 Cerebral infarction due to unspecified occlusion or stenosis of left carotid arteries; I10 Essential (primary) hypertension; G70.00 Myasthenia gravis without (acute) exacerbation; Z95.0 Presence of cardiac pacemaker; R29.6 Repeated falls
CPT/HCPCS: 99214; G2211

== ENCOUNTER → 2025-06-10 23:59 | Outpatient (BNV) | payer MEDICARE, SELFPAY ==
--- NOTE | 2025-06-21 08:43 | A.OFFVIS_ITS ---
Intake Visit Reasons: Remote device check- Medtronic Allergies No Known Allergies (No Known Allergies*) Allergy (Verified 05/18/25 11:32) [facility] Medical History History of GI bleed Tubular adenoma of colon (~2014) History of transfusion (~08/2020) History of COVID-19 History of non-ST elevation myocardial infarction (NSTEMI) (~09/2020) Status post coronary artery bypass graft (~11/2020) Atherosclerotic cardiovascular disease Diet-controlled diabetes mellitus Essential hypertension Stroke due to stenosis of left carotid artery (~09/2020) History of diverticulosis History of rectal cancer (~11/2014) Hammer toes, bilateral BPH (benign prostatic hyperplasia) Urinary incontinence Onychogryphosis Nonalcoholic steatohepatitis (MARTI) Depression CAD (coronary artery disease) Myasthenia gravis Rheumatoid arthritis Hyperlipidemia GERD (gastroesophageal reflux disease) Insomnia Surgical History History of pacemaker (~08/2022) History of colonoscopy History of ERCP (~09/2020) History of heart surgery (~11/2020) History of cataract surgery (~05/2019) History of cholecystectomy (~02/2021) History of left-sided carotid endarterectomy (~11/2020) History of coronary artery bypass graft x 2 (~11/2020) History of cardiac catheterization (~11/2020) History of incisional hernia repair History of colostomy (~07/2015) History of colostomy reversal (~01/2016) Family History Mother No problems noted. Father No problems noted. Brother No problems noted. Sister No problems noted. Daughter Psychiatric disorder Son No problems noted. Social History Household Members: Other Housing: Assisted Living Facility Housing Other:: [facility] home Do you presently have visiting nurse or other home services: No Alcohol intake: never Patient Tobacco Use Status: Never used Tobacco Advance Directives Date on File: 06/21/20 service: Yes Current occupational status: retired Office Procedures Cardiac Device Check Cardiac Device Check Details: Date of service- 06/10/2025 ; Battery life >11 years; normal lead parameters; AP 65%; ANIMAL IMPERSONATOR 0.2%; no significant arrhythmias. Overall normal device function. [id number] Cardiac Device Interrogation, pacemaker Procedure code (CPT) selection complete Assessment & Plan Assessment & Plan (1) Pacemaker: Onset Date: ~08/2022 Comment: (Medtronic DCPP - placed 08/20/22) Code(s): Z95.0 - Presence of cardiac pacemaker Category: Medical (2) Symptomatic bradycardia: Onset Date: ~08/2022 Comment: (08/16/22 - found unresponsive & bradycardic/pulse 22) Code(s): R00.1 - Bradycardia, unspecified Category: Medical Plan x Coding Level of Care Code Procedure Only Diagnoses Pacemaker Z95.0 Symptomatic bradycardia R00.1 CPT Codes Cardiac Device Check - Cardiac Device 12: [id number] Cardiac Device Interrogation, pacemaker ([id number])
== END ==
PROVIDERS: Visit Provider Internal Medicine
DX: R00.1 Bradycardia, unspecified (principal); Z95.0 Presence of cardiac pacemaker
CPT/HCPCS: 93294

== ENCOUNTER 2025-07-08 06:07 | Outpatient (REF) | payer MEDICARE, SELFPAY ==
--- OUTSIDE RECORDS SUMMARY | 2025-07-08 06:10 | XMS_ITS | Clinical Summary ---
Author Organization [facility] Address [address] [place] [address] Care Team Providers Care Engine Installer Name Role Phone Unavailable Primary Care Provider [...] 05/16/2022 05/16/2012, 09/16/2005 COVID-19 Vaccine ( season) 2025 07/04/2023, 03/08/2023, 06/04/2022, Additional history exists Influenza [...]
--- OUTSIDE RECORDS SUMMARY | 2025-07-08 06:10 | XMS_ITS | Encounter Summary ---
Author Organization [facility] Address [address] [place] [address] Phone Care Team Providers Care Head Concierge Name Role Phone Samantha Pelaez CNP Primary Care Provider [phone] Encounter Details Date Type Department Care Team (Late st Contact Info) Description 10/26/2022 Procedure Pass OR Admitting Dept - Virtual Department [address] [place] [address] Social History Tobacco Use Types Packs/Day Years [...] on filedocumented in this encounter Care Teams Head Concierge Relationship Specialty Start Date End Date Samantha Pelaez CNP [address] [place] [address] [email or web address] PCP - General 09/18/22 documented as of this encounter Additional Source Comments The information contained in this document represents components of the legal health record. It is not the complete legal health record.[facility]
--- OUTSIDE RECORDS SUMMARY | 2025-07-08 06:10 | XMS_ITS | Clinical Summary ---
Author Organization [facility] Address [address] [place] [address] Phone Care Team Providers Care Sales Associate Key Holder Name Role Phone Samantha Pelaez [employer]ERCIAL L[employer]ATION [employer] Primary Care Provider [phone] Allergies No known active allergies Medications acetaminophen [...] topic Medical Devices Not on file Insurance [facility] SCO MEDICARE REPLACEMENT [place] [id number] [facility] MEDICARE REPLACEMENT [facility] MEDICARE REPLACEMENT [facility] MEDICARE REPLACEMENT [facility] RE[facility]AC[facility] Care Teams Sales Associate Key Holder Relationship Specialty Start Date End Date Samantha Pelaez CNP [address] [place] [id number] PCP - General 09/18/22 Additional Source Comments The information contained in this document represents components of the legal health record. It is not the complete legal health record.[facility]
[2025-07-08 06:11] LABS: MANUAL DIFF FLAG NO
[2025-07-08 06:16] LABS: Hematocrit 36.7 % (42.0-52.0); Hemoglobin 12.5 g/dl (14.0-18.0); Imm Gran Abs Auto 0.01 X10*3/uL (0.00-0.03); Imm Gran Pct Auto 0.2 % (0.0-0.4); Lymphocytes Absolute Auto 1.3 X10*3/uL (1.2-4.9); Mean Corpuscular HGB Conc 34.1 g/dl (31.0-36.0); Mean Corpuscular Hemoglobin 33.8 pg (27.0-33.0); Mean Corpuscular Volume 99.2 fL (80.0-98.0); NRBC Abs Auto 0.000 X10*3/uL (0.0-0.012); NRBC Pct Auto 0.0 /100WBC (0.0-0.2); Platelet Count 182 X10*3/uL (160-400); Red Blood Count 3.70 X10*6/uL (4.60-5.80); White Blood Count 4.3 X10*3/uL (4.8-10.8)
[2025-07-08 06:35] LABS: Alanine Aminotransferase 22 U/L (0-40); Albumin Level 4.0 g/dL (3.5-5.0); Alkaline Phosphatase 57 U/L (39-117); Anion Gap 9 (12-20); Aspartate Amino Transferase 22 U/L (5-37); Blood Urea Nitrogen 19 mg/dL (9-16); Calcium 8.9 mg/dL (8.4-10.2); Carbon Dioxide 30 mmol/L (22-29); Chloride 108 mmol/L (96-108); Estimated Glomerular Filt Rate > 60; Potassium 4.2 mmol/L (3.3-5.1); Sodium 143 mmol/L (135-145); Total Protein 6.0 g/dL (6.5-8.0)
== END 2025-07-08 06:08 | disposition home or self-care (01) ==
LOC: HO.HSH3W 06:07
PROVIDERS: Nurse Practitioner Acute Care; Visit Provider Nurse Practitioner
DX: I65.23 Occlusion and stenosis of bilateral carotid arteries (principal)
CPT/HCPCS: 36415; 80053; 85025

== ENCOUNTER 2025-08-23 12:39 | Outpatient (AMB) | payer MEDICARE, SELFPAY ==
[2025-08-23 13:26] VITALS: BP 124/68; PULSE 71; BMI 25.2
--- NOTE | 2025-08-23 13:26 | MHC.OFFVIS ---
Vital Signs 08/23/25 13:26 Height 5 ft 7 in Weight 160 lb 14.999 oz BMI 25.2 BP 124/68 Blood Pressure Location Lt brachial Position Sitting Pulse 71 Pulse Source Pulse Oximeter Intake Visit Reasons: 3m follow up w device ck Allergies No Known Allergies (No Known Allergies*) Allergy (Verified 05/18/25 11:32) Medication List - Last Reconciled 08/23/25 by EBONI Lockwood acetaminophen 650 mg PO BEDTIME aspirin 81 mg PO DAILY atorvastatin 40 mg PO DAILY@1700 azathioprine 50 mg PO Q48H calcium polycarbophil 625 mg PO DAILY carboxymethylcellulose sodium 1 drp ophthalmic (eye) BEDTIME PRN cholecalciferol (vitamin D3) 25 mcg PO DAILY cyanocobalamin (vitamin B-12) 1,000 mcg IM QMONTH docusate sodium 100 mg PO BID ferrous sulfate (Iron (ferrous sulfate)) 325 mg PO DAILY fluticasone propionate 50 mcg/actuation 1 spray intranasal BID gabapentin 200 mg PO BEDTIME gabapentin 800 mg PO BEDTIME hydrocortisone 1% 1 appl topical BID PRN lactase 3,000 units PO TIDAC lorazepam 0.5 mg PO Q6H PRN omeprazole 20 mg PO DAILY@0630 oxybutynin chloride ER 15 mg PO DAILY prednisone 1 mg PO DAILY pyridostigmine bromide 60 mg PO TID quetiapine 50 mg PO BEDTIME ropinirole 2 mg PO BID tamsulosin 0.4 mg PO BEDTIME trazodone 75 mg PO BEDTIME venlafaxine ER 150 mg PO DAILY HPI HPI 3m follow up w device ck: Details: The patient is an 85 year old male presenting for followup of coronary artery disease and pacemaker check. His past medical history includes hypertension, peripheral vascular disease with carotid stenosis, myasthenia gravis, early mild aortic stenosis and three-vessel coronary artery bypass grafting. An echocardiogram from 11/04/2024 showed an ejection fraction of 57%, basal inferior hypokinesis, and possible early aortic stenosis. The patient denies any concerning symptoms, including chest pain, shortness of breath, or heart palpitations. He reports being active, walking frequently, and feeling well. He is adherent with his medications, which include aspirin and atorvastatin, and resides at a [facility] where he has a bedside pacemaker monitor. [facility] Medical History History of GI bleed Tubular adenoma of colon (~2014) History of transfusion (~08/2020) History of COVID-19 History of non-ST elevation myocardial infarction (NSTEMI) (~09/2020) Status post coronary artery bypass graft (~11/2020) Atherosclerotic cardiovascular disease Diet-controlled diabetes mellitus Essential hypertension Stroke due to stenosis of left carotid artery (~09/2020) History of diverticulosis History of rectal cancer (~11/2014) Hammer toes, bilateral BPH (benign prostatic hyperplasia) Urinary incontinence Onychogryphosis Nonalcoholic steatohepatitis (MARTI) Depression CAD (coronary artery disease) Myasthenia gravis Rheumatoid arthritis Hyperlipidemia GERD (gastroesophageal reflux disease) Insomnia Surgical History History of pacemaker (~08/2022) History of colonoscopy History of ERCP (~09/2020) History of heart surgery (~11/2020) History of cataract surgery (~05/2019) History of cholecystectomy (~02/2021) History of left-sided carotid endarterectomy (~11/2020) History of coronary artery bypass graft x 2 (~11/2020) History of cardiac catheterization (~11/2020) History of incisional hernia repair History of colostomy (~07/2015) History of colostomy reversal (~01/2016) Family History Mother No problems noted. Father No problems noted. Brother No problems noted. Sister No problems noted. Daughter Psychiatric disorder Son No problems noted. Social History Household Members: Other Housing: Assisted Living Facility Housing Other:: [facility] home Do you presently have visiting nurse or other home services: No Alcohol intake: never Patient Tobacco Use Status: Never used Tobacco Advance Directives Date on File: 06/21/20 service: Yes Current occupational status: retired Review of Systems Const All systems reviewed & are unremarkable except as noted in HPI and below Denies weakness ENT Denies dizziness Card Denies chest pain, Denies chest pain with activity, Denies syncope, Denies rapid heart rate, Denies pedal edema, Denies edema, Denies leg edema, Denies lightheadedness, Denies palpitations, Denies dyspnea, Denies dyspnea on exertion and Denies orthopnea Resp Denies cough, Denies dyspnea and Denies dyspnea on exertion GI Denies hematochezia and Denies change in stool character Musc Denies abnormal gait, Denies muscle cramps, Denies muscle weakness, Denies numbness, Denies radiating pain into limb and Denies tingling Neuro Denies abnormal gait, Denies dizziness, Denies syncope, Denies numbness, Denies tingling and Denies weakness Endo Denies palpitations Physical Exam Vital Signs: Last Vital Signs Pulse 71 08/23/25 13:26 BP 124/68 08/23/25 13:26 BMI result Body Mass Index 25.2 Const General: cooperative, healthy appearing, comfortable and no acute distress Orientation/consciousness: patient oriented x3 Neck Neck: Yes normal visual inspection Chest Chest palpation & inspection: normal inspection of the chest Resp Effort & Inspection: normal respiratory effort Auscultation: clear to auscultation bilaterally, no crackles, no rales, no rhonchi and no wheezes Cardio Rate: regular rate Rhythm: regular rhythm Heart sounds: S1 normal heart sound present, S2 normal heart sound present, no gallops, Murmur heart sound present (Faint systolic) and no rubs Neuro General: patient oriented x3 Extrem General: Yes normal to inspection and No no pedal edema Psych Appearance: grossly normal Mental Status: mental status grossly normal Speech and movement: Normal speech and movement present Office Procedures Cardiac Device Check Cardiac Device Check Details: Medtronic dual-chamber pacemaker interrogation today battery 11.3 years AAI to DDD mode, low rate 60 right atrial threshold 0.75 volts at 0.4 milliseconds, RV threshold 1 volt at 0.4 milliseconds a paced 62.9% of time, V paced 0.7% [id number] Cardiac Device Check, pacemaker dual lead Procedure code (CPT) selection complete Assessment & Plan Assessment & Plan (1) CAD (coronary artery disease): Comment: (Hx CABG x 2 - SALDIVAR-midLAD, SVG-OM 11/2020) Code(s): I25.10 - Atherosclerotic heart disease of [place] coronary artery without angina pectoris Category: Medical Plan: History of CAD with coronary artery bypass grafting 11/2020. Most recent echocardiogram showing normal EF, basal inferior hypokinesis, possible early aortic stenosis. He has no anginal symptoms. Continue aspirin indefinitely. Continue atorvastatin with ideal LDL goal less than 70. Signs and symptoms of angina reviewed with him. Cardiology follow-up 6 months, sooner if needed (2) Status post coronary artery bypass graft: Onset Date: ~11/2020 Comment: (CABG x 2 - SALDIVAR-mid LAD & SVG-OM - 11/2020) Code(s): Z95.1 - Presence of aortocoronary bypass graft Category: Medical (3) Aortic valve calcification: Code(s): I35.9 - Nonrheumatic aortic valve disorder, unspecified Category: Medical Plan: Last echocardiogram showing early mild aortic stenosis. Faint murmur noted on exam. Continue aspirin and statin. (4) Pacemaker: Onset Date: ~08/2022 Comment: (Medtronic DCPP - placed 08/20/22) Code(s): Z95.0 - Presence of cardiac pacemaker Category: Medical Plan: Medtronic dual-chamber pacemaker interrogation today shows device is functioning normally. He has remote monitoring in use. Next office interrogation due in 6 months. (5) Carotid occlusion, bilateral: Code(s): I65.23 - Occlusion and stenosis of bilateral carotid arteries Category: Medical Plan: History of carotid stenosis. Follows with [facility] vascular. Continue aspirin and statin (6) Essential hypertension: Code(s): I10 - Essential (primary) hypertension Category: Medical Plan: Blood pressure goal less than 130/80. Well controlled at this time. Plan I informed the patient that his pacemaker is functioning very well, with approximately 11 years of battery life remaining. I explained that the heart murmur heard during the exam is due to a mildly stiff aortic valve, which is not a concern at this time and will be monitored. We confirmed he is feeling well, denies any cardiac symptoms like chest pain or shortness of breath, and is taking his medications as prescribed without any issues. No medication changes were made. I advised a follow-up appointment in six months, or sooner if needed, which will include another pacemaker check. Patient Instructions: - Continue to take all your medications as prescribed. - Your pacemaker is working well and has about 11 years of battery life left. - Continue staying active by walking as you have been doing. - Please schedule a follow-up appointment for six months from now, which will include another pacemaker check. - Contact the office sooner if you experience any new symptoms like chest pain, shortness of breath, or heart fluttering. Patient was informed and verbally consented to the use of an ambient scribe for clinic note documentation during this visit. Visit time spent on chart review, interview, assessment, orders, documentation. Coding Level of Care Code Est Pt Level 4 (51150) Complex visit Add On G2211 Diagnoses CAD (coronary artery disease) I25.10 Status post coronary artery bypass graft Z95.1 Aortic valve calcification I35.9 Pacemaker Z95.0 Carotid occlusion, bilateral I65.23 Essential hypertension I10 CPT Codes Cardiac Device Check - Cardiac Device 2: [id number]-[id number] Cardiac Device Check, pacemaker dual lead ([id number]) Time Spent (min) 30
== END 2025-08-23 13:52 | disposition home or self-care (01) ==
LOC: HO.HCS 12:40
PROVIDERS: Visit Provider Nurse Practitioner Family
DX: I25.10 Atherosclerotic heart disease of native coronary artery without angina pectoris (principal); Z95.1 Presence of aortocoronary bypass graft; I35.9 Nonrheumatic aortic valve disorder, unspecified; Z95.0 Presence of cardiac pacemaker; I65.23 Occlusion and stenosis of bilateral carotid arteries; I10 Essential (primary) hypertension
CPT/HCPCS: 93280; 99214; G2211

== ENCOUNTER → 2025-08-23 12:39 | Outpatient (BNVA) | payer MEDICARE, SELFPAY | PROVIDERS: Visit Provider Nurse Practitioner Family | DX: Z45.018 Encounter for adjustment and management of other part of cardiac pacemaker (principal); I25.10 Atherosclerotic heart disease of native coronary artery without angina pectoris; Z95.1 Presence of aortocoronary bypass graft; I35.9 Nonrheumatic aortic valve disorder, unspecified; I65.23 Occlusion and stenosis of bilateral carotid arteries; I10 Essential (primary) hypertension | CPT/HCPCS: 93280; 93288; 99212 ==

== ENCOUNTER 2025-09-02 09:01 | Outpatient (AMB) | payer MEDICARE, SELFPAY ==
--- NOTE | 2025-09-02 09:02 | A.OFFVIS_ITS ---
Intake Visit Reasons: 6M MG Allergies No Known Allergies (No Known Allergies*) Allergy (Verified 09/02/25 09:09) Medication List - Last Reconciled 09/02/25 by Vonnie Cleary CNP acetaminophen 650 mg PO BEDTIME aspirin 81 mg PO DAILY atorvastatin 40 mg PO DAILY@1700 azathioprine 50 mg PO Q48H calcium polycarbophil 625 mg PO DAILY carboxymethylcellulose sodium 1 drp ophthalmic (eye) BEDTIME PRN cholecalciferol (vitamin D3) 25 mcg PO DAILY cyanocobalamin (vitamin B-12) 1,000 mcg IM QMONTH docusate sodium 100 mg PO BID ferrous sulfate (Iron (ferrous sulfate)) 325 mg PO DAILY fluticasone propionate 50 mcg/actuation 1 spray intranasal BID gabapentin 200 mg PO BEDTIME gabapentin 800 mg PO BEDTIME hydrocortisone 1% 1 appl topical BID PRN lactase 3,000 units PO TIDAC lorazepam 0.5 mg PO Q6H PRN omeprazole 20 mg PO DAILY@0630 oxybutynin chloride ER 15 mg PO DAILY prednisone 1 mg PO DAILY pyridostigmine bromide 60 mg PO TID quetiapine 50 mg PO BEDTIME ropinirole 4 mg PO QPM tamsulosin 0.4 mg PO BEDTIME trazodone 75 mg PO BEDTIME venlafaxine ER 150 mg PO DAILY HPI Comments Details: 85-year-old man with CAD s/p CABG, s/p cardiac pacemaker, s/p L CEA, tremor, migraine, RLS, and antibody positive myasthenia gravis. He was doing okay. He was c/o waking with left eye crusted in the morning. No itching, pain, or redness. No vision changes. Speech and swallowing were okay. Breathing was okay.?No new or increased weakness. He was?still going for some walks, no falls. RLS symptoms were controlled with current medications. Tremor in hands was about the same. No functional impairment. No difficulty eating or drinking. He had some dyskinetic movements of the mouth and his psychiatrist was considering starting Ingrezza. Headaches happened on occasion. ON LICENSE OF [facility] Medical History (Updated 09/02/25 @ 09:30 by Vonnie Cleary CNP) Familial tremor Migraine RLS (restless legs syndrome) History of GI bleed Tubular adenoma of colon (~2014) History of transfusion (~08/2020) History of COVID-19 History of non-ST elevation myocardial infarction (NSTEMI) (~09/2020) Status post coronary artery bypass graft (~11/2020) Atherosclerotic cardiovascular disease Diet-controlled diabetes mellitus Essential hypertension Stroke due to stenosis of left carotid artery (~09/2020) History of diverticulosis History of rectal cancer (~11/2014) Hammer toes, bilateral BPH (benign prostatic hyperplasia) Urinary incontinence Onychogryphosis Nonalcoholic steatohepatitis (MARTI) Depression CAD (coronary artery disease) Myasthenia gravis Rheumatoid arthritis Hyperlipidemia GERD (gastroesophageal reflux disease) Insomnia Surgical History History of pacemaker (~08/2022) History of colonoscopy History of ERCP (~09/2020) History of heart surgery (~11/2020) History of cataract surgery (~05/2019) History of cholecystectomy (~02/2021) History of left-sided carotid endarterectomy (~11/2020) History of coronary artery bypass graft x 2 (~11/2020) History of cardiac catheterization (~11/2020) History of incisional hernia repair History of colostomy (~07/2015) History of colostomy reversal (~01/2016) Family History (Updated 09/02/25 @ 09:25 by Vonnie Cleary CNP) Mother Tremor Father No problems noted. Brother No problems noted. Sister No problems noted. Daughter Psychiatric disorder Son No problems noted. Social History Household Members: Other Housing: Assisted Living Facility Housing Other:: [facility] home Do you presently have visiting nurse or other home services: No Alcohol intake: never Patient Tobacco Use Status: Never used Tobacco Advance Directives Date on File: 06/21/20 service: Yes Current occupational status: retired Review of Systems Const Denies chills, Denies daytime sleepiness, Denies difficulty sleeping, Denies fatigue, Denies fever(s), Denies frequent falls, Denies headache(s), Denies increased appetite, Denies poor appetite, Denies snoring, Denies weakness, Denies weight gain and Denies weight loss Eyes Denies loss of vision ENT Denies vertigo, Denies dizziness and Denies headache(s) Card Denies chest pain at rest, Denies chest pain with activity, Denies syncope, Denies leg edema and Denies palpitations Resp Denies snoring GI Denies constipation, Denies heartburn, Denies diarrhea and Denies nausea Denies urinary frequency, Denies urinary incontinence and Denies urinary urgency Musc Denies abnormal gait, Denies numbness and Denies tingling Skin/Breast Denies dry skin and Denies rash Neuro Denies abnormal gait, Denies vertigo, Denies dizziness, Denies syncope, Denies frequent falls, Denies headache(s), Denies lack of coordination, Denies loss of vision, Denies memory loss, Denies numbness, Reports restless legs, Denies seizure-like activity, Denies tingling, Denies paresthesias, Reports tremor(s) and Denies weakness Psych Denies anxiety, Denies depression, Denies auditory hallucinations, Denies memory loss, Denies visual hallucinations and Denies suicidal ideation Endo Denies fatigue and Denies palpitations Physical Exam Const Other: General Appearance:? normal, in no acute distress. Slight watery discharge and crusting to L inner canthus noted, no redness or irritation of conjunctiva. Skin:? no rashes, no significant birthmarks. Heart:? S1, S2 normal, no murmurs. Lungs:? clear anteriorly and posteriorly. Extremities:? no edema. Psych:? alert, oriented, cognitive function intact, cooperative with exam. Neuro Other: Mental Status:?Normal attention, orientation, memory and affect.? Cranial Nerves:?Pupils are equal, round and reactive to light. External occular muscles are intact. Visual turner are full. Face is symmetrical. Facial sensations are normal. Tongue is midline. Palate elevates symmetrically. Shoulder shrugging is normal. Hearing to bedside conversation is normal. Moderate R eye ptosis. Sensory Exam:?....? Coordination:?No ataxia,?no titubation.? Gait Exam: Within normal limits. Cerebellar Signs:?[id number] with mild tremor Extrapyramidal System:?Mild dyskinetic movements of jaw. Pronator Drift:?Not present.? Involuntary Movements:?Mild to moderate bilateral hand postural tremor. Speech:?Normal.? Results Reviewed Results Reviewed: [place] [facility] [place]: all three with high titer MRI C spine [place] [facility] [place]: mod mid cervical stenosis, spondylitic Brain CT in 2007 w/[place] cont [place] [facility] bifrontal and cerebellar atrophy MRI brain w/o cont [place] [facility] [place]: minimal microvascular ischemic changes MRA brain w/o cont [place] [facility] [place]: WNL. Assessment & Plan Assessment & Plan (1) Myasthenia gravis: Code(s): G70.00 - Myasthenia gravis without (acute) exacerbation Category: Medical Plan: Continue pyridostigmine bromide 60mg 1 tablet three times a day. Continue prednisone 1mg 1 tablet daily. Continue azathioprine 50mg 1 tablet every other day. He was waking in the morning with crusting to left eye and was concerned this may be symptom of MG. He was advised this was not symptom of MG and reassurance was provided. He was advised to follow up with PCP for this symptom. (2) RLS (restless legs syndrome): Code(s): G25.81 - Restless legs syndrome Category: Medical Plan: Continue ropinirole 2mg 2/ at bedtime. Continue gabapentin 100mg 2/ at bedtime. Continue gabapentin 400mg 2/at bedtime. (3) Migraine: Code(s): G43.909 - Migraine, unspecified, not intractable, without status migrainosus Category: Medical Qualifiers: Migraine type: unspecified Status migrainosus presence: without status migrainosus Intractability: not intractable Qualified Code(s): G43.909 - Migraine, unspecified, not intractable, without status migrainosus Plan: Headaches happened on occasion and no medication was prescribed for now. (4) Familial tremor: Code(s): G25.0 - Essential tremor Category: Medical Plan: No functional impairment, medication was not indicated at this time. (5) Tardive dyskinesia: Code(s): G24.01 - Drug induced subacute dyskinesia Category: Medical Plan: His psychiatrist was considering starting Ingrezza after discussing with his chauffeur motorbus. Plan Follow up in 6 months or sooner as needed. Coding Level of Care Code Est Pt Level 4 (59528) Diagnoses Myasthenia gravis G70.00 RLS (restless legs syndrome) G25.81 Migraine without status migrainosus, not intractable, unspecified migraine type G43.909 Migraine type: unspecified Status migrainosus presence: without status migrainosus Intractability: not intractable Familial tremor G25.0 Tardive dyskinesia G24.01
--- OUTSIDE RECORDS SUMMARY | 2025-09-02 10:09 | XMS_ITS | Clinical Summary ---
Author Organization [facility] it Address [address] [place] [address] Care Team Providers Care Software Applications Designer Name Role Phone Maco Otto MD Primary Care Provider [phone] Surgical History Surgery Date Site/Laterality Comments CHOLECYSTECTOMY PROCEDURE: [place] LAPAROSCOPY SURG CHOLECYSTECTOMY Family History Medical History [...] Documents on File Type Date Recorded Patient Director Of Curriculum And Instruction Expl anation Health Care Decision (hx) 01/02/2020 AD CAMACHO DIRECTIVE Health Care Decision (hx) 01/02/2020 AD CAMACHO DIRECTIVE Health Care Decision (hx) 01/02/2020 AD CAMACHO DIRECTIVE Health Care Decision (hx) 01/02/2020 AD CAMACHO DIRECTIVE Health Care Decision (hx) 01/02/2020 AD CAMACHO DIRECTIVE Health Care Decision (hx) 01/02/2020 AD CAMACHO DIRECTIVE Care Teams Software Applications Designer Relationship Specialty Start Date End Date Maco Otto MD [address] [address] PCP - General Orthopedic Surgery 05/24/20
--- OUTSIDE RECORDS SUMMARY | 2025-09-02 10:09 | XMS_ITS | Clinical Summary ---
Author Organization [facility] Address [address] [facility] [address] [place] [address] Care Team Providers Care Drum Sander Offbearer Name Role Phone Unavailable Primary Care Provider [...]
--- OUTSIDE RECORDS SUMMARY | 2025-09-02 10:09 | XMS_ITS | Clinical Summary ---
Author Organization [facility] Address [address] [place] [phone] Phone Care Team Providers Care [employer] Home Economics Teacher Name Role Phone Samantha Pelaez ZYGLO TECHNICIAN Primary Care Provider [phone] Allergies No known active allergies Medications acetaminophen [...] VACCINES (50+ years) (3 of 3 - PCV20 or PCV21) 01/06/2019 11/11/2018, 10/22/2014, 11/18/2002 Adult Td,Tdap Booster 05/16/2022 05/16/2012 INFLUENZA VACCINE (#1) 2025 , 06/07/2021, 09/13/2020, Additional history exists COVID-19 VACCINE (2024- season) 2025 06/04/2022, 12/27/2021, 06/12/2021, Additional history [...] topic Medical Devices Not on file Insurance [facility]PLAC[facility] KASH RICHMOND [id number] [facility] MEDICARE REPLACEMENT [facility] MEDICARE REPLACEMENT [facility] MEDICARE REPLACEMENT [facility] MEDIC[facility] REPLACEMENT [facility] MED[facility] REPLACEMENT Care Teams [employer] Home Economics Teacher Relationship Specialty Start Date End Date Samantha Pelaez CNP [address] [place] [id number] PCP - General 09/18/22 Additional Source Comments The information contained in this document represents components of the legal health record. It is not the complete legal health record.[facility]
--- OUTSIDE RECORDS SUMMARY | 2025-09-02 10:10 | XMS_ITS | Clinical Summary ---
Author Organization [facility] Address [address] [address] Care Team Providers Care Visual Training Aide Name Role Phone Unavailable Primary Care Provider [...] Date Last Done Comments Pneumococcal Vaccine: 50+ Years (3 of 3 - PCV20 or PCV21) 12/17/2014 10/22/2014, 11/18/2002 Diabetes: Hemoglobin A1C 04/19/2025 Diabetes: Ophthalmology Exam 04/19/2025 Diabetes: Pedal Pulse Checked 04/19/2025 Diabetes: Sensory Foot Exam 04/19/2025 Diabetes: Visual Foot Exam 04/19/2025 Influenza Vaccine (#1) 2025 2, 07/17/2011, 09/23/2009, Additional history exists Hepatitis B Vaccine Aged Out 04/05/2010, 11/03/2009, 10/05/2009 No longer eligible based on patient's age to complete this topic Pneumococcal Vaccine: Peds (0 to 5 Years) and At-Risk Patients (6 to 49 Years) Discontinued 10/22/2014, 11/18/2002 Insurance [facility] ([id number]) [place] [address] ([id number])
--- OUTSIDE RECORDS SUMMARY | 2025-09-02 10:10 | XMS_ITS | Encounter Summary ---
Author Organization [facility] Address [address] [place] [id number] Phone Care Team Providers Care Pension Adviser Name Role Phone Samantha Pelaez CNP Primary Care Provider [phone] Encounter Details Date Type Department Care Team (Late st Contact Info) Description 10/26/2022 Procedure Pass OR Admitting Dept - Virtual Department [address] [place] [address] Social History Tobacco Use Types Packs/Day Years [...] on filedocumented in this encounter Care Teams Pension Adviser Relationship Specialty Start Date End Date Samantha Pelaez CNP [address] [place] [address] [email or web address] PCP - General 09/18/22 documented as of this encounter Additional Source Comments The information contained in this document represents components of the legal health record. It is not the complete legal health record.[facility]
== END 2025-09-02 09:37 | disposition home or self-care (01) ==
LOC: HO.HSM 09:02
PROVIDERS: PCP Internal Medicine Medical Oncology; Referring Provider Internal Medicine Medical Oncology; Visit Provider Registered Nurse
DX: G70.00 Myasthenia gravis without (acute) exacerbation (principal); G25.81 Restless legs syndrome; G43.909 Migraine, unspecified, not intractable, without status migrainosus; G25.0 Essential tremor; G24.01 Drug induced subacute dyskinesia
CPT/HCPCS: 99214

== ENCOUNTER → 2025-09-02 09:01 | Outpatient (BNVA) | payer MEDICARE, SELFPAY | PROVIDERS: PCP Internal Medicine Medical Oncology; Referring Provider Internal Medicine Medical Oncology; Visit Provider Registered Nurse | DX: G24.01 Drug induced subacute dyskinesia (principal); G25.0 Essential tremor; G43.909 Migraine, unspecified, not intractable, without status migrainosus; G70.00 Myasthenia gravis without (acute) exacerbation; G25.81 Restless legs syndrome | CPT/HCPCS: 99212 ==